=== PATIENT | male | born 1950 | race Two or more races ===

== ENCOUNTER → 2020-06-30 08:56 | Outpatient (BNVA) | payer MEDICARE, OTHER, SELFPAY | PROVIDERS: PCP Family Medicine; Referring Provider Family Medicine; Visit Provider Psychiatry & Neurology Neurology | DX: G47.33 Obstructive sleep apnea (adult) (pediatric) (principal); G47.00 Insomnia, unspecified; Z79.899 Other long term (current) drug therapy | CPT/HCPCS: 99214 ==

== ENCOUNTER 2020-07-20 14:11 | Outpatient (REF) | payer MEDICARE, OTHER, SELFPAY | END 2020-07-20 14:12 | disposition home or self-care (01) | LOC: HO.LAB 14:11 | PROVIDERS: Visit Provider Internal Medicine | DX: Z20.828 Contact with and (suspected) exposure to other viral communicable diseases (principal) | CPT/HCPCS: 87635 ==

== ENCOUNTER → 2020-10-15 08:15 | Outpatient (BNVA) | payer MEDICARE, MEDICAID, SELFPAY | PROVIDERS: PCP Family Medicine; Visit Provider Internal Medicine Cardiovascular Disease | DX: I42.9 Cardiomyopathy, unspecified (principal); I44.7 Left bundle-branch block, unspecified; I10 Essential (primary) hypertension | CPT/HCPCS: 93005; 99212 ==

== ENCOUNTER → 2020-11-23 09:25 | Outpatient (BNVA) | payer MEDICARE, MEDICAID, SELFPAY | PROVIDERS: Visit Provider Orthopaedic Surgery | DX: Z96.659 Presence of unspecified artificial knee joint (principal) | CPT/HCPCS: 20610; 99212 ==

== ENCOUNTER 2020-12-01 14:38 | Outpatient (REF) | payer MEDICARE, SELFPAY ==
[2020-12-01 15:50] LABS: C Reactive Protein 0.27 mg/dL (< or = 0.50)
[2020-12-01 16:11] LABS: Erythrocyte Sedimentation Rate 11 MM/HR (0-15)
== END 2020-12-01 14:39 | disposition home or self-care (01) ==
LOC: HO.LAB 14:38
PROVIDERS: PCP Family Medicine; Visit Provider Orthopaedic Surgery
DX: Z96.659 Presence of unspecified artificial knee joint (principal)
CPT/HCPCS: 36415; 85652; 86140

== ENCOUNTER 2020-12-04 08:32 | Outpatient (REF) | payer MEDICARE, SELFPAY ==
--- NOTE | ~2020-12-04 | XR_ITS ---
EXAMINATION: XR KNEE, LEFT CLINICAL INFORMATION: Pain in the left knee COMPARISON: AP upright of both knees January 2020 TECHNIQUE: Four views of the left knee. FINDINGS: Patellofemoral compartment: There are marginal osteophytes without joint space narrowing indicative of mild arthrosis. There are marginal osteophytes about the medial and lateral compartments without joint space narrowing indicative of mild arthrosis. There is a trace joint effusion. XR/XR knee LT 4V IMPRESSION: Mild osteoarthritis of the left knee unchanged compared with the x-ray of January 2020.
== END 2020-12-04 08:33 | disposition home or self-care (01) ==
LOC: HO.XRAY 08:32
PROVIDERS: PCP Family Medicine; Visit Provider Internal Medicine
DX: M25.562 Pain in left knee (principal)
CPT/HCPCS: 73564

== ENCOUNTER → 2020-12-10 09:29 | Outpatient (BNVA) | payer MEDICARE, MEDICAID, SELFPAY | PROVIDERS: Visit Provider Orthopaedic Surgery | DX: M17.12 Unilateral primary osteoarthritis, left knee (principal); Z96.659 Presence of unspecified artificial knee joint | CPT/HCPCS: 20610; 99212; J1100 ==

== ENCOUNTER 2021-01-26 08:23 | Outpatient (REF) | payer MEDICARE, OTHER, SELFPAY ==
--- NOTE | ~2021-01-26 | MR_ITS ---
EXAMINATION: MR KNEE WITHOUT CONTRAST, LEFT CLINICAL INFORMATION: Primary osteoarthritis. Patient reports pain. COMPARISON: None TECHNIQUE: MRI of the knee without contrast was performed using routine sequences on a high-field scanner. FINDINGS: MENISCI: Medial Meniscus: Complex tear of the posterior horn with undersurface tearing, with additional superior surface tearing at the posterior root. Horizontal tear and undersurface tear in the body, with meniscal tissue/flap displaced into the meniscotibial recess. Lateral Meniscus: Intact. LIGAMENTS: Cruciate: Intact. Collateral: Mild sprain MCL. LCL complex is intact. EXTENSOR MECHANISM: Intact. ARTICULAR CARTILAGE/BONE: Patellofemoral Compartment: Mild lateral patellar subluxation. Cartilage fissuring of the superior aspect median ridge, subchondral edema. Scattered mild patellar cartilage fissuring otherwise. Medial Compartment: Cartilage fissuring in the lateral aspect of medial femoral condyle. Edema in the posterior/medial aspect of the tibia, reactive versus degenerative. Degenerative cyst/edema underlying the tibial spines. Lateral Compartment: No focal cartilage loss. JOINT FLUID AND BURSAE: Small effusion. No significant Borrego's cyst. MR/MR knee LT wo con IMPRESSION: 1. Complex tear of the medial meniscal posterior horn. Complex tear of the body, with displaced meniscal tissue/flap into the meniscotibial recess. 2. Mild sprain MCL. 3. Mild patellofemoral and medial compartment arthritis. 4. Small effusion.
== END 2021-01-26 08:24 | disposition home or self-care (01) ==
LOC: HO.MRI 08:23
PROVIDERS: Visit Provider Orthopaedic Surgery
DX: M17.12 Unilateral primary osteoarthritis, left knee (principal)
CPT/HCPCS: 73721

== ENCOUNTER → 2021-02-08 13:18 | Outpatient (BNVA) | payer MEDICARE, OTHER, SELFPAY | PROVIDERS: PCP Family Medicine; Visit Provider Orthopaedic Surgery | DX: S83.242A Other tear of medial meniscus, current injury, left knee, initial encounter (principal) | CPT/HCPCS: 99212 ==

== ENCOUNTER → 2021-04-01 08:31 | Outpatient (BNVA) | payer MEDICARE, MEDICAID, SELFPAY | PROVIDERS: PCP Family Medicine; Referring Provider Family Medicine; Visit Provider Nurse Practitioner | DX: K51.20 Ulcerative (chronic) proctitis without complications (principal); K58.1 Irritable bowel syndrome with constipation; Z98.890 Other specified postprocedural states | CPT/HCPCS: 99212 ==

== ENCOUNTER 2021-07-29 07:21 | Outpatient (REF) | payer MEDICARE, OTHER, SELFPAY ==
--- NOTE | ~2021-07-29 | XR_ITS ---
EXAMINATION: XR LUMBOSACRAL SPINE CLINICAL INFORMATION: Lower back pain. COMPARISON: None TECHNIQUE: Three views of the lumbosacral spine. FINDINGS: No fracture or subluxation. Vertebral body height and alignment maintained. Disc spaces are maintained with multilevel endplate osteophytes throughout. Mild facet arthropathy at the lower lumbar spine. The sacroiliac joints are symmetric. The visualized sacrum is intact. Normal bowel gas pattern. XR/XR lumbar spine 2-3V IMPRESSION: Mild degenerative changes of the lumbar spine.
[2021-07-29 08:02] LABS: Hematocrit 37.8 % (42.0-52.0); Hemoglobin 12.5 g/dl (14.0-18.0); Mean Corpuscular HGB Conc 33.1 g/dl (31.0-36.0); Mean Corpuscular Hemoglobin 33.2 pg (27.0-33.0); Mean Corpuscular Volume 100.3 fL (80.0-98.0); Mean Platelet Volume 9.6 fL (9.4-12.4); Platelet Count 198 X10*3/uL (160-400); Red Blood Count 3.77 X10*6/uL (4.60-5.80); Red Cell Distribution Width 11.9 % (11.0-16.0); White Blood Count 4.9 X10*3/uL (4.8-10.8)
[2021-07-29 08:17] LABS: Estimated Average Glucose 91 mg/dL; Hemoglobin A1c % 4.8 %
[2021-07-29 08:28] LABS: Alanine Aminotransferase 21 U/L (0-40); Albumin Level 4.1 g/dL (3.5-5.0); Alkaline Phosphatase 99 U/L (39-117); Anion Gap 8 (12-20); Aspartate Amino Transferase 24 U/L (5-37); Bilirubin Direct 0.4 mg/dL (0.0-0.5); Bilirubin Total 0.9 mg/dL (0.0-1.0); Blood Urea Nitrogen 20 mg/dL (9-16); Calcium 8.9 mg/dL (8.4-10.2); Carbon Dioxide 33 mmol/L (22-29); Chloride 107 mmol/L (96-108); Cholesterol 133 mg/dL; Estimated Glomerular Filt Rate > 60; Glucose Random 115 mg/dL (60-115); HDL Cholesterol 40 mg/dL; Iron 136 mcg/dL (45-160); LDL Cholesterol Calculated 80 mg/dl; Percent Iron Saturation 49 % (15-50); Potassium 4.4 mmol/L (3.3-5.1); Sodium 144 mmol/L (135-145); Total Iron Binding Capacity 279 mcg/dL (228-428); Total Protein 6.6 g/dL (6.5-8.0); Triglycerides 68 mg/dL; Unsaturated Iron Binding 143 ug/dL
[2021-07-29 08:48] LABS: Free T4 (Free Thyroxine) 0.94 ng/dL (0.71-1.85); Thyroid Stimulating Hormone 2.08 uIU/mL (0.32-4.0); Vitamin D 25-OH Total 17.9 ng/mL (>30); ~HepC Num1 0.07 S/CO (0.00-0.79); ~Hepatitis C Antibody Nonreactive (Nonreactive)
[2021-07-29 08:50] LABS: HBS Num1 1.76 mIU/mL (0-7.99); HBsAGNum1 0.17 S/CO (0.00-0.99); HIV AB/AG Nonreactive (Nonreactive); HIV Num 1 0.09 S/CO (0.00-0.99); Hepatitis B Surface Antigen Negative (Negative); ~Hepatitis B Surface Antibody NONREACTIVE (Nonreactive)
[2021-07-29 09:09] LABS: Folate 17.5 ng/mL (> or = 4.0); Vitamin B12 471 pg/mL (200-900)
[2021-07-29 09:52] LABS: Creatinine Urine 144.78 mg/dL; Microalbum/Creatinine Ratio Ur 13.1 ug/mg cr
[2021-07-29 11:07] LABS: CT PCR NOT DETECTED (Not Detect.); NG PCR NOT DETECTED (Not Detect.)
[2021-07-30 12:12] LABS: Rubella IgG Antibody <0.90 Index
== END 2021-07-29 07:22 | disposition home or self-care (01) ==
LOC: HO.LAB 07:21
PROVIDERS: PCP Family Medicine; Visit Provider Family Medicine
DX: Z01.84 Encounter for antibody response examination (principal); Z11.59 Encounter for screening for other viral diseases; Z11.4 Encounter for screening for human immunodeficiency virus [HIV]; Z11.3 Encounter for screening for infections with a predominantly sexual mode of transmission; D64.9 Anemia, unspecified; E78.5 Hyperlipidemia, unspecified; I10 Essential (primary) hypertension; M54.50 Low back pain, unspecified
CPT/HCPCS: 72100; 80048; 80061; 80076; 82043; 82306; 82607; 82746; 83036; 83540; 84439; 84443; 85027; 86706; 86762; 86803; 87340; 87389; 87491; 87591

== ENCOUNTER 2021-08-30 12:32 | Outpatient (REF) | payer MEDICARE, OTHER, SELFPAY ==
--- NOTE | ~2021-08-30 | XR_ITS ---
EXAMINATION: XR KNEE, BILATERAL XR KNEE, RIGHT CLINICAL INFORMATION: Pain. COMPARISON: 12/04/2020 TECHNIQUE: AP standing view of both knees. Lateral and sunrise views of the left knee. FINDINGS: Right knee: There is a total right knee arthroplasty. The femoral component articulates appropriately with the tibial and patellar components. No periprosthetic lucency or fracture. There is likely a small joint effusion. Anterior soft tissue swelling. Left knee: No fracture or subluxation. Medial and lateral compartmental joint spaces are maintained. XR/XR knee standing BI IMPRESSION: Total right knee arthroplasty in typical positioning and alignment. Normal alignment of the left knee.
--- NOTE | ~2021-08-30 | XR_ITS ---
EXAMINATION: XR KNEE, BILATERAL XR KNEE, RIGHT CLINICAL INFORMATION: Pain. COMPARISON: 12/04/2020 TECHNIQUE: AP standing view of both knees. Lateral and sunrise views of the left knee. FINDINGS: Right knee: There is a total right knee arthroplasty. The femoral component articulates appropriately with the tibial and patellar components. No periprosthetic lucency or fracture. There is likely a small joint effusion. Anterior soft tissue swelling. Left knee: No fracture or subluxation. Medial and lateral compartmental joint spaces are maintained. XR/XR knee RT 2V IMPRESSION: Total right knee arthroplasty in typical positioning and alignment. Normal alignment of the left knee.
== END 2021-08-30 12:33 | disposition home or self-care (01) ==
LOC: HO.HOSX 12:32
PROVIDERS: Visit Provider Orthopaedic Surgery
DX: M25.461 Effusion, right knee (principal); M25.561 Pain in right knee; I11.9 Hypertensive heart disease without heart failure; I43 Cardiomyopathy in diseases classified elsewhere; I44.7 Left bundle-branch block, unspecified; Z87.891 Personal history of nicotine dependence; Z96.651 Presence of right artificial knee joint
CPT/HCPCS: 73560; 73565; 99212

== ENCOUNTER → 2021-09-09 15:00 | Outpatient (BNVA) | payer MEDICARE, OTHER, SELFPAY | PROVIDERS: PCP Family Medicine; Visit Provider Orthopaedic Surgery | DX: Z96.9 Presence of functional implant, unspecified (principal) | CPT/HCPCS: 99212 ==

== ENCOUNTER → 2021-10-04 11:04 | Outpatient (BNVA) | payer MEDICARE, OTHER, SELFPAY | PROVIDERS: PCP Family Medicine; Referring Provider Family Medicine; Visit Provider Nurse Practitioner | DX: K58.1 Irritable bowel syndrome with constipation (principal); K51.20 Ulcerative (chronic) proctitis without complications | CPT/HCPCS: 99212 ==

== ENCOUNTER 2021-10-08 22:12 | Emergency (ER) | payer MEDICARE, OTHER, SELFPAY ==
[2021-10-08 22:31] VITALS: BP 180/91; PULSE 60; RESP 20; TEMP 37.1; O2SAT 99; BMI 24.1
== END 2021-10-09 00:21 | disposition left against medical advice (07) ==
PROVIDERS: Emergency Provider Emergency Medicine; PCP Family Medicine
DX: R33.9 Retention of urine, unspecified (principal)
CPT/HCPCS: 99281; 99282

== ENCOUNTER 2021-10-09 01:37 | Emergency (ER) | payer MEDICARE, OTHER, SELFPAY ==
[2021-10-09 01:39] VITALS: BP 174/90; PULSE 73; O2SAT 98
[2021-10-09 01:48] VITALS: BP 165/83; PULSE 75; RESP 16; TEMP 36.6; O2SAT 95; BMI 24.1
--- NOTE | 2021-10-09 01:56 | PC.NURSE ---
Straight cath draining 1300 ml of UO. UA obtained and sent.
[2021-10-09 02:05] LABS: Appearance Urine CLEAR; Color Urine YELLOW; Glucose Urine UA NEG (NEG); Leukocyte Esterase Urine NEG (NEG); Nitrite Urine NEG (NEG); Specific Gravity - Urine <= 1.005 (1.005-1.025); UACC Culture Trigger NO; Urine Blood 2+ (NEG); Urine Ketones NEG (NEG); Urine Protein NEG (NEG-TRACE)
[2021-10-09 02:22] LABS: RBC Urine 0-2 /HPF (0); WBC Urine 0 /HPF (0-4)
--- NOTE | 2021-10-09 03:41 | PC.NURSE ---
Pt provided with warm blankets per request, awaiting primary eval by .
--- NOTE | 2021-10-09 04:49 | PC.NURSE ---
Pt trying to void with urinal, pt able to void a very small amount. Pt just doesn't think he has to go. Awaiting primary MD del valle.
--- NOTE | 2021-10-09 06:05 | PC.NURSE ---
Pt voiding minimal amounts with bedside urinal. This RN at bedside to rescan bladder, 747 ml of urine noted in bladder. Plan for castañeda due to urinary retention.
[2021-10-09 06:07] VITALS: BP 145/83; PULSE 81; RESP 16
--- NOTE | 2021-10-09 06:36 | ED_ITS ---
HPI - Male Genitourinary General Chief complaint: Urogenital-Male Stated complaint: abd pain Time Seen by Provider: 10/09/21 06:31 Source: patient and EMS Mode of arrival: EMS Limitations: no limitations History of Present Illness HPI Narrative: Patient comes to emergency room complaining of urinary retention. Patient states that yesterday around 18:00 was the last time he urinated normal. Then, throughout the night patient noticed that he was starting to notice that his lower abdomen was becoming more uncomfortable. Patient try urinating but could not pass any urine. Patient initially came to the emergency room, left without being seen because he was too uncomfortable sitting in the waiting room. Went home, called the ambulance because he was still in pain and return to the ED. On arrival, in triage, patient had a bladder scan which showed over 1000 mL of urine. At this time, not a bladder is decompressed, patient states that he feels much better. Related Data Home Medications Medication Instructions Recorded Confirmed acetaminophen 500 mg capsule 500 mg PO Q6H PRN 06/27/20 10/04/21 (Mapap (acetaminophen)) albuterol sulfate 90 mcg/actuation 2 puff INHALATION Q6H PRN 06/27/20 10/04/21 aerosol inhaler (Proventil HFA) cholecalciferol (vitamin D3) 1,250 1,250 mcg PO QWEEK 06/27/20 10/04/21 mcg (50,000 unit) capsule lisinopril 20 mg tablet 20 mg PO DAILY 06/27/20 10/04/21 loratadine 10 mg capsule 10 mg PO DAILY 06/27/20 10/04/21 menthol 0.44 %-zinc oxide 20.6 % 1 applic TOPICAL QID PRN 06/27/20 10/04/21 topical ointment (Calmoseptine) omega 7-cqi-atz-fish oil 100 cap PO 06/27/20 10/04/21 mg-160 mg-1,000 mg capsule (Fish Oil) simvastatin 20 mg tablet 20 mg PO DAILY 06/27/20 10/04/21 tamsulosin 0.4 mg capsule 0.4 mg PO BEDTIME 06/27/20 10/04/21 tramadol 50 mg tablet 50 mg PO DAILY 06/27/20 10/04/21 docusate sodium 100 mg capsule 100 mg PO DAILY 10/04/21 10/04/21 (Colace) Previous Rx's Medication Instructions Recorded gabapentin 600 mg tablet 600 mg PO BEDTIME #30 tab 06/30/20 metoprolol succinate 100 mg 100 mg PO DAILY 90 Days #90 tab 03/18/21 tablet,extended release 24 hr (Toprol XL) amlodipine 5 mg tablet 5 mg PO DAILY #30 tab 08/16/21 mesalamine 800 mg tablet,delayed 1,600 mg PO TID #180 tab 10/04/21 release tamsulosin 0.4 mg capsule (Flomax) 0.4 mg PO BEDTIME #30 cap 10/09/21 Allergies Allergy/AdvReac Type Severity Reaction Status Date / Time chlorhexidine AdvReac Rash Verified 10/09/21 01:51 iodine AdvReac Rash Verified 10/09/21 01:51 Review of Systems Review of Systems: Constitutional : No Weight loss, No Fever, No Chills, No Night Sweats, No Fatigue, No Malaise ENT/Mouth : No Hearing loss, No Ear Pain, No Nasal Congestion, No Sinus Pain, No Hoarseness, No sore throat, No Rhinorrhea, No Swallowing Difficulty Eyes: No Eye Pain, No Swelling, No Redness, No Foreign Body, No Discharge, No Vision Changes Cardiovascular : No Chest Pain, No SOB, No Dyspnea on Exertion, No Orthopnea, No Edema, No Palpitations Respiratory : No Cough, No Sputum, No Wheezing, No Smoke Exposure, No Dyspnea Gastrointestinal : No Nausea, No Vomiting, No Diarrhea, No Constipation, No abdominal Pain, No Hematochezia, No Melena Genitourinary : no irregular bleeding, No Dysuria, chronic nighttime Urinary Frequency, No Hematuria, No Urinary Incontinence, No Urgency, No Flank Pain, complaining of urinary retention for the 1st time Musculoskeletal : No joint pain, No Myalgias, No Joint Swelling Skin : No Skin Lesions, No rash Neuro : No Weakness, No Numbness, No Paresthesias, No Loss of Consciousness, No Dizziness, No Headache Psych : No Anxiety/Panic, No Depression, No SI/HI/AH/VH, No Social Issues, Heme/Lymph: No Bruising, No Bleeding,No Lymphadenopathy Endocrine : No Polyuria, No Polydipsia, No Temperature Intolerance PMFSH Past Medical History Medical History Cardiomyopathy HTN (hypertension) Left bundle branch block Surgical History History of esophagogastroduodenoscopy (EGD) History of total knee arthroplasty Hx of colonoscopy Hx of hernia repair Hx of knee surgery Hx of shoulder surgery Family History Family History Father No problems noted. Mother Diabetes Social History Social History Alcohol intake: current Alcohol intake frequency: holidays/special occasions only Patient Tobacco Use Status: Former Tobacco user Tobacco use type: Cigarette Advance Directives: No Physical Exam Vital Signs: Vital Signs: Last Vital Signs Temp 97.9 F 10/09/21 01:48 Pulse 81 10/09/21 06:07 Resp 16 10/09/21 06:07 BP 145/83 H 10/09/21 06:07 Pulse Ox 95 10/09/21 01:48 BMI result Body Mass Index 24.1 Const: Other: Appearance: Alert. Oriented X3. No acute distress. Eyes: Pupils equal, round and reactive to light. ENT: Pharynx normal. Neck: Normal inspection. Neck supple. No lymph nodes noted. No crepitus CVS: Normal heart rate and rhythm. Pulses normal. Normal S1 and S2 Respiratory: No respiratory distress. Breath sounds normal. No Wheezing. No rales Abdomen: Soft and nontender. No rigidity. No distention. : Nunez catheter in place, draining well Skin: Skin warm and dry. Normal skin color. Normal skin turgor. Extremities: No lower extremity edema. No lower extremity edema. No Lacerations. No Rash Neuro: Oriented X 3. No motor deficit. No sensory deficit. Moving all extermities. No slurred speech. Course Course Course Narrative: Patient is not sure if he is taking Flomax. Patient states that he is known to have an enlarged prostate but does not know which medic ations he takes. Patient has a Nunez catheter in place. Patient will follow-up with urology or return to the ED in 48 hours for Nunez catheter removal MDM - Male Genitourinary Lab Data Labs: Lab Results 10/09/21 Range/Units 01:54 Urine Color YELLOW Urine Appearance CLEAR Urine pH 6.0 (5.0-8.0) Ur Specific [place] <= 1.005 (1.005-1.025) Urine Protein NEG (NEG-TRACE) MG/DL Urine Glucose (UA) NEG (NEG) MG/DL Urine Ketones NEG (NEG) MG/DL Urine Blood 2+ H (NEG) Urine Nitrite NEG (NEG) Ur Leukocyte Esterase NEG (NEG) Urine RBC 0-2 (0) /HPF Urine WBC 0 (0-4) /HPF Ur Squamous Epith Cells NONE /LPF Urine Bacteria NONE /LPF Discharge Plan Discharge Clinical Impression: Acute urinary retention Patient Disposition: Home, Self-Care Instructions: Urinary Retention in Men (ED), Nunez Catheter Placement and Care (ED) Additional Instructions: Please follow-up with your primary care physician and urologist on Monday. If you have any worsening or new symptoms, please return to the emergency room or call 911 Prescriptions: New tamsulosin [Flomax] 0.4 mg capsule 0.4 mg PO BEDTIME Qty: 30 RF: 0 No Action metoprolol succinate [Toprol XL] 100 mg tablet extended release 24 hr 100 mg PO DAILY 90 Days Qty: 90 RF: 1 amlodipine 5 mg tablet 5 mg PO DAILY Qty: 30 RF: 5 albuterol sulfate [Proventil HFA] 90 mcg/actuation HFA aerosol inhaler 2 puff inhalation Q6H PRNRF: 0 Fish Oil 100-160-1,000 mg capsule PO RF: 0 simvastatin 20 mg tablet 20 mg PO DAILY RF: 0 tamsulosin 0.4 mg capsule 0.4 mg PO BEDTIME RF: 0 tramadol 50 mg tablet 50 mg PO DAILY RF: 0 loratadine 10 mg capsule 10 mg PO DAILY RF: 0 acetaminophen [Mapap (acetaminophen)] 500 mg capsule 500 mg PO Q6H PRNRF: 0 Calmoseptine 0.44-20.6 % ointment 1 applic topical QID PRNRF: 0 lisinopril 20 mg tablet 20 mg PO DAILY RF: 0 cholecalciferol (vitamin D3) 1,250 mcg (50,000 unit) capsule 1,250 mcg PO QWEEK RF: 0 gabapentin 600 mg tablet 600 mg PO BEDTIME Qty: 30 RF: 2 docusate sodium [Colace] 100 mg capsule 100 mg PO DAILY RF: 0 mesalamine 800 mg tablet,delayed release (DR/EC) 1,600 mg PO TID Qty: 180 RF: 2 Referrals: Ariel Ruiz MD [Physician] - 2 days
--- NOTE | 2021-10-09 07:04 | PC.NURSE ---
Leg bag applied.
== END 2021-10-09 07:04 | disposition home or self-care (01) ==
PROVIDERS: Emergency Provider Emergency Medicine; PCP Family Medicine
DX: R33.9 Retention of urine, unspecified (principal); I10 Essential (primary) hypertension
CPT/HCPCS: 51702; 81001; 99284

== ENCOUNTER → 2021-10-14 12:23 | Outpatient (BNVA) | payer MEDICARE, OTHER, SELFPAY | PROVIDERS: PCP Family Medicine; Referring Provider Family Medicine; Visit Provider Internal Medicine Cardiovascular Disease | DX: Z01.810 Encounter for preprocedural cardiovascular examination (principal); I42.9 Cardiomyopathy, unspecified; I44.7 Left bundle-branch block, unspecified | CPT/HCPCS: 93005; 99212 ==

== ENCOUNTER → 2021-10-25 11:18 | Outpatient (BNVA) | payer MEDICARE, MEDICAID, SELFPAY | PROVIDERS: PCP Family Medicine; Visit Provider Physician Assistant ==

== ENCOUNTER 2021-10-27 10:49 | Day surgery (SDC) | payer MEDICARE, OTHER, SELFPAY ==
[2021-10-22 11:19] VITALS: BMI 23.7
--- NOTE | 2021-10-26 08:29 | HO.ANESPROP2 ---
Documented by User: Jackie Gee NP 10/26/21 08:32 HPI - Anesthesia Eval Consult details Narrative: 71yo M for Right Removal Orthopedic Hardware from knee [facility] Active Problems Active Problems: All Active Problems (Updated 10/22/21 @ 11:10 by Rubina Nogueira, CHEIKH) Obstructive sleep apnea (Acute) Insomnia (Acute) Ulcerative proctitis (Acute) Irritable bowel syndrome with constipation (Acute) Knee effusion, right (Acute) Retained orthopedic hardware (Acute) History of total knee arthroplasty (Acute) Cardiomyopathy (Acute) HTN (hypertension) (Acute) Left bundle branch block (Acute) Past Medical History Medical History Asthma Cardiomyopathy HTN (hypertension) Hx of renal calculi Indwelling Nunez catheter present Left bundle branch block Seasonal allergies Family History Family History Father No problems noted. Mother Diabetes Surgical History Surgical History (Updated 10/22/21 @ 11:12 by Rubina Nogueira RN) History of esophagogastroduodenoscopy (EGD) History of total knee arthroplasty Hx of colonoscopy Hx of hernia repair Hx of knee surgery Hx of shoulder surgery Social History Social History (Updated 10/22/21 @ 11:22 by Rubina Nogueira RN) Are you a primary director of health care marketing to a significant other at home: No Do you presently have visiting nurse or other home services: No Alcohol intake: current Alcohol intake frequency: holidays/special occasions only Patient Tobacco Use Status: Former Tobacco user Quit Date: 1981 Tobacco use type: Cigarette Use of substances other than those prescribed or required for medical reasons: No Have you been hit, kicked, punched, or otherwise hurt by someone within the past year? If so, by whom?: No Are you DNR?: No Advance Directives: No Advance Directives Information Provided: Yes Advance Directives on File: No Recently lost weight without trying: No Meds Allergies Allergy/AdvReac Type Severity Reaction Status Date / Time chlorhexidine AdvReac Rash Verified 10/25/21 11:23 iodine AdvReac Rash Verified 10/25/21 11:23 Home Medications Medication Instructions Recorded Confirmed Last Taken Type acetaminophen 500 mg capsule 500 mg PO Q6H PRN 06/27/20 10/25/21 Unknown History (Mapap (acetaminophen)) albuterol sulfate 90 mcg/actuation 2 puff INHALATION Q6H PRN 06/27/20 10/25/21 Unknown History aerosol inhaler (Proventil HFA) lisinopril 20 mg tablet 20 mg PO DAILY 06/27/20 10/25/21 Unknown History loratadine 10 mg capsule 10 mg PO DAILY 06/27/20 10/25/21 Unknown History menthol 0.44 %-zinc oxide 20.6 % 1 applic TOPICAL QID PRN 06/27/20 10/25/21 Unknown History topical ointment (Calmoseptine) omega 7-bds-hbw-fish oil 100 cap PO 06/27/20 10/25/21 Unknown History mg-160 mg-1,000 mg capsule (Fish Oil) simvastatin 20 mg tablet 20 mg PO DAILY 06/27/20 10/25/21 Unknown History tramadol 50 mg tablet 50 mg PO DAILY 06/27/20 10/25/21 Unknown History docusate sodium 100 mg capsule 100 mg PO DAILY 10/04/21 10/25/21 Unknown History (Colace) baclofen 20 mg tablet 1 tab PO TID PRN 10/22/21 10/25/21 Unknown History cholecalciferol (vitamin D3) 50 1 cap PO DAILY 10/22/21 10/25/21 Unknown History mcg (2,000 unit) capsule Exam Exam Date and Time: October 26, 2021 0829 Height,Weight and Vital Signs: Height 6 ft Weight 79.379 kg Pertinent Lab Results Pertinent Lab Results: Laboratory Tests 07/29/21 07/29/21 07:34 07:34 WBC 4.9 Hgb 12.5 L Hct 37.8 L Plt Count 198 Sodium 144 Potassium 4.4 Chloride 107 Carbon Dioxide 33 H BUN 20 H Creatinine 0.83 Narrative Narrative: EKG 09/2021 normal sinus rhythm with left bundle-branch block Per cardiac OV note 09/2021 Last echocardiogram in 2019 showed normal LV systolic function.? Improved most likely due to neurohormonal modulation.? Assessment and Plan Assessment Anesthesia Assessment: Chart Reviewed Documented by User: Enrique Figueroa MD 10/27/21 12:26 [facility] Past Medical History Medical History Asthma Cardiomyopathy HTN (hypertension) Hx of renal calculi Indwelling Nunez catheter present Left bundle branch block Seasonal allergies Family History Family History Father No problems noted. Mother Diabetes Family history of problems with anesthesia: No Surgical History Surgical History (Updated 10/22/21 @ 11:12 by Rubina Nogueira, CHEIKH) History of esophagogastroduodenoscopy (EGD) History of total knee arthroplasty Hx of colonoscopy Hx of hernia repair Hx of knee surgery Hx of shoulder surgery History of Problems with Anesthesia: No Social History Social History (Updated 10/22/21 @ 11:22 by Rubina Nogueira RN) Are you a primary director of health care marketing to a significant other at home: No Do you presently have visiting nurse or other home services: No Alcohol intake: current Alcohol intake frequency: holidays/special occasions only Patient Tobacco Use Status: Former Tobacco user Quit Date: 1981 Tobacco use type: Cigarette Use of substances other than those prescribed or required for medical reasons: No Have you been hit, kicked, punched, or otherwise hurt by someone within the past year? If so, by whom?: No Are you DNR?: No Advance Directives: No Advance Directives Information Provided: Yes Advance Directives on File: No Recently lost weight without trying: No Meds Allergies Allergy/AdvReac Type Severity Reaction Status Date / Time chlorhexidine AdvReac Rash Verified 10/25/21 11:23 iodine AdvReac Rash Verified 10/25/21 11:23 Home Medications Medication Instructions Recorded Confirmed Last Taken Type acetaminophen 500 mg capsule 500 mg PO Q6H PRN 06/27/20 10/25/21 Unknown History (Mapap (acetaminophen)) albuterol sulfate 90 mcg/actuation 2 puff INHALATION Q6H PRN 06/27/20 10/25/21 Unknown History aerosol inhaler (Proventil HFA) lisinopril 20 mg tablet 20 mg PO DAILY 06/27/20 10/25/21 Unknown History loratadine 10 mg capsule 10 mg PO DAILY 06/27/20 10/25/21 Unknown History menthol 0.44 %-zinc oxide 20.6 % 1 applic TOPICAL QID PRN 06/27/20 10/25/21 Unknown History topical ointment (Calmoseptine) omega 7-kjl-krh-fish oil 100 cap PO 06/27/20 10/25/21 Unknown History mg-160 mg-1,000 mg capsule (Fish Oil) simvastatin 20 mg tablet 20 mg PO DAILY 06/27/20 10/25/21 Unknown History tramadol 50 mg tablet 50 mg PO DAILY 06/27/20 10/25/21 Unknown History docusate sodium 100 mg capsule 100 mg PO DAILY 10/04/21 10/25/21 Unknown History (Colace) baclofen 20 mg tablet 1 tab PO TID PRN 10/22/21 10/25/21 Unknown History cholecalciferol (vitamin D3) 50 1 cap PO DAILY 10/22/21 10/25/21 Unknown History mcg (2,000 unit) capsule Exam Airway Mallampati Class: II TM Dist: >3cm Neck ROM: Full Assessment and Plan Assessment Anesthesia Assessment: Anesthesia Plan Discussed Final Anesthetic Review Family History of Problems with Anesthesia: No History of Problems with Anesthesia: No NPO: Yes ASA Class: III Final Preanesthetic Review: No Changes in Pt Med Stat, Meds/Allgs Chart Reviewed, Consent Obtained/Reviewed and Anes Risks/Benef Reviewed Patient Risk: Intermediate Procedure Risk: Low Anesthetic Plan Anesthetic Plan: GA Disposition: Standard PACU
[2021-10-27] VITALS (9 sets, daily range): BP systolic 114–150; BP diastolic 64–71; PULSE 56–77; RESP 16–19; TEMP 36.5–36.9; O2SAT 95–98
--- NOTE | ~2021-10-27 | FL_ITS ---
EXAMINATION: XR FLUOROSCOPY WITH IMAGES CLINICAL INFORMATION: Hardware removal right knee. COMPARISON: Bilateral knee AP standing 08/30/2021. TECHNIQUE: Fluoroscopy performed by Dr. Mitchell Horton. Fluoroscopy time: 0.6 minutes DAP: 0.0693 mGycm2 Images: 2 FINDINGS: There is total right knee arthroplasty with prosthetic components in satisfactory alignment. There is soft tissue calcification along the right suprapatellar bursa. There is moderate soft tissue swelling. Visualized soft tissues are unremarkable. FL/FL guidance in OR IMPRESSION: Total right knee arthroplasty with prosthetic components in satisfactory alignment.
[2021-10-27] MEDS: Lactated Ringers 1,000 ML 50 ML IVCONT (11:26)
--- NOTE | 2021-10-27 12:29 | P.BOP_ITS ---
Brief Operative Note Date of Service: 10/27/21 Surgeon: Mitchell Horton MD Was an Dietitian Teacher used for this Procedure?: No
--- NOTE | 2021-10-27 12:29 | PM.OP ---
Brief Operative Note Date of Service: 10/27/21 Surgeon: Mitchell Horton MD Was an Sexer used for this Procedure?: No
--- NOTE | 2021-10-27 12:30 | MHC.SHP ---
Pre-Procedural Eval Section A Date of Service: 10/27/21 The patient is an INPATIENT: No Changes since office visit: Yes Patient answered all questions; No Cold of Flu in the past 2 weeks, No New Medical Problems and No Changes in Medication The History & Physical has been completed within 30 days and I have reviewed it.: Yes Section B Chief Complaint: hardware removal Allergies: Allergies Allergy/AdvReac Type Severity Reaction Status Date / Time chlorhexidine AdvReac Rash Verified 10/25/21 11:23 iodine AdvReac Rash Verified 10/25/21 11:23 Plan I have reviewed the history and physical and performed a pertinent physical examination on my patient. No changes have occurred unless specified.
--- NOTE | 2021-10-27 14:09 | PM.OP ---
Brief Operative Note Date of Service: 10/27/21 Pre-op diagnosis: retained hardware right knee Post-op diagnosis: same Procedure: removal of hardware right knee Surgeon: Mitchell Horton MD Anesthesia: GETA and local Was an Customer Management Specialist used for this Procedure?: Yes Customer Management Specialist: Luly Kerr Estimated blood loss (mL): 50 IV fluids (mL): 800 Pathology: none sent Condition: stable Disposition: PACU
--- NOTE | 2021-11-03 11:52 | P.OP_ITS ---
Operative Note Operative Note Date of Service: 10/27/21 Narrative: Date of Service: 10/27/21 Pre-op diagnosis: retained hardware right knee Post-op diagnosis: same Procedure: removal of hardware right knee Surgeon: Mitchell Horton MD Anesthesia: GETA and local Was an Retrieval Specialist used for this Procedure?: Yes Retrieval Specialist: Luly Kerr Estimated blood loss (mL): 50 IV fluids (mL): 800 Pathology: none sent Condition: stable Disposition: PACU Procedure in detail: Patient was brought to the operating room and placed supine on the surgical table. He was prepped and draped in standard sterile fashion and a time out was called to identify proper site, proper procedure and IV antibiotics per weight were administered. Began by using biplanar fluoroscopy to localize the hardware on the anterolateral aspect of the right knee. I then made a 1.5 cm incision and dissected bluntly down to the hardware. I then used to combination of a wire coating operator metal and pliers to remove the screw head and the proud portion of the wire. I then irrigated copiously and closed this with absorbable suture and aminah. I then turned to the fashion coordinator 0 medial aspect and of the knee and again localized the location of the hardware precisely with biplanar fluoroscopy. I then made a small luzma incision and dissected down to the hardware. A was buried and bone and I felt that the patient's complaint was over the lateral knee and that hardware was removed. I then made decision not to remove any further hardware as I think the benefits were not warranted. Wound was then closed with absorbable suture and aminah. Patient was placed in sterile dressing awakened from anesthesia brought to recovery room in stable condition. There were no known complications.
== END 2021-10-27 15:44 | disposition home or self-care (01) ==
PROVIDERS: PCP Family Medicine; Visit Provider Orthopaedic Surgery
PROC: (CPT 20680; principal; 2021-10-27 12:30)
DX: T84.84XA Pain due to internal orthopedic prosthetic devices, implants and grafts, initial encounter (principal); G89.18 Other acute postprocedural pain; M25.561 Pain in right knee; Y79.3 Surgical instruments, materials and orthopedic devices (including sutures) associated with adverse incidents; Y92.9 Unspecified place or not applicable; Z96.9 Presence of functional implant, unspecified; Z96.651 Presence of right artificial knee joint; Z96.0 Presence of urogenital implants; J45.909 Unspecified asthma, uncomplicated; I42.9 Cardiomyopathy, unspecified; I44.7 Left bundle-branch block, unspecified; I10 Essential (primary) hypertension; Z79.899 Other long term (current) drug therapy; Z88.8 Allergy status to other drugs, medicaments and biological substances; Z87.891 Personal history of nicotine dependence
CPT/HCPCS: 20680; J0690; J1100; J2250; J2405; J3010

== ENCOUNTER → 2021-11-03 08:49 | Outpatient (BNVA) | payer MEDICARE, OTHER, SELFPAY | PROVIDERS: Visit Provider Urology | DX: R33.9 Retention of urine, unspecified (principal) | CPT/HCPCS: 51700; 51798 ==

== ENCOUNTER → 2021-11-08 12:35 | Outpatient (BNVA) | payer MEDICARE, OTHER, SELFPAY | PROVIDERS: PCP Family Medicine; Visit Provider Physician Assistant | DX: Z47.89 Encounter for other orthopedic aftercare (principal); Z96.659 Presence of unspecified artificial knee joint | CPT/HCPCS: 99212 ==

== ENCOUNTER → 2021-12-01 09:45 | Outpatient (BNVA) | payer MEDICARE, OTHER, SELFPAY | PROVIDERS: PCP Family Medicine; Visit Provider Urology | DX: N40.1 Benign prostatic hyperplasia with lower urinary tract symptoms (principal); N13.8 Other obstructive and reflux uropathy; R33.8 Other retention of urine | CPT/HCPCS: 51798; 52000; 99202 ==

== ENCOUNTER 2021-12-16 11:00 | Outpatient (RCR) | payer MEDICARE, OTHER, SELFPAY ==
--- NOTE | 2021-11-26 15:28 | MHC.PT.PR ---
[facility] [place] Office [place] Office [place] Office [address] Praful Barillas 140 [facility] [phone] F: [phone] F: [phone] F: [phone] F: [phone] Physical Therapy Progress Note Diagnosis: RIGHT KNEE REMOVAL OF HARDWARE Date of Surgery: 10/27/21 Date of Evaluation: 11/24/21 Treatments to Date: 1 Cancellations to Date: 0 No Shows to Date: 0 Subjective: SEE EVAL Pain Score and Location: 2 Objective Measures: SEE EVAL Assessment: PT Plan: Frequency and Duration: The patient will be seen 2 X WEEK FOR 6 WEEKS Treatment Plan: Therapeutic Exercise Dynamic Therapeutic Activities Neuromuscular Re-ed Manual Therapies Joint Mobilization Taping Gait Home Exercise Program Patient Education Hot or Cold Pack Reviewed/ Agreed with Student Documentation: Therapist: Thank you once again for your referral.
--- NOTE | 2022-02-07 09:09 | MHC.PT.DC ---
[facility] [place] Office [place] Office [place] Office [address] Praful Barillas 140 [facility] [phone] F: [phone] F: [phone] F: [phone] F: [phone] Physical Therapy Discharge Report Diagnosis: RIGHT KNEE REMOVAL OF HARDWARE Date of Surgery: 10/27/21 Date of Evaluation: 11/24/21 Date of Discharge: 12/19/21 Treatments to Date: 6 Cancellations to Date: 0 No Shows to Date: 0 Discharge Status: Achieved Goals Improved Function Independent with HEP Discharge Summary: REED PROGRESSED WELL WITH PHYSICAL THERAPY, HE DEMONSTRATED IMPROVED ROM AND STRENGTH, ABLE TO PERFORM HEP WITH INDEPENDENCE AND HAS RETURNED TO OF. Electronically signed by: KERMIT OGDEN PT, DPT Please sign and return to therapist. Thank you for your referral.
== END 2022-02-07 09:10 | disposition home or self-care (01) ==
LOC: HO.PT 11:00
PROVIDERS: PCP Family Medicine; Visit Provider Physician Assistant
DX: Z96.651 Presence of right artificial knee joint (principal)
CPT/HCPCS: 97110; 97140; 97161; 97530

== ENCOUNTER → 2022-01-11 08:18 | Outpatient (BNVA) | payer MEDICARE, OTHER, SELFPAY | PROVIDERS: PCP Family Medicine; Visit Provider Urology | DX: N32.0 Bladder-neck obstruction (principal); R33.9 Retention of urine, unspecified | CPT/HCPCS: 51798; 99212 ==

== ENCOUNTER 2022-04-18 07:09 | Outpatient (REF) | payer MEDICARE, MEDICAID, OTHER, SELFPAY ==
--- NOTE | ~2022-04-18 | XR_ITS ---
EXAMINATION: XR ELBOW, LEFT CLINICAL INFORMATION: Pain left elbow. COMPARISON: Report left elbow radiographs 03/06/2007 TECHNIQUE: AP, lateral, and oblique views of the left elbow. FINDINGS: There is a tiny olecranon spur which is also noted on prior report 2007. No fracture, dislocation, or elbow capsular effusion. No joint narrowing or erosive change. Normal bony mineralization. No destructive process or periostitis. Visualized soft tissues are unremarkable. XR/XR elbow LT min 3V IMPRESSION: Tiny olecranon spur, also noted on prior report 2006.
[2022-04-18 07:47] LABS: Hematocrit 40.7 % (42.0-52.0); Hemoglobin 13.3 g/dl (14.0-18.0); Mean Corpuscular HGB Conc 32.7 g/dl (31.0-36.0); Mean Corpuscular Hemoglobin 32.4 pg (27.0-33.0); Mean Corpuscular Volume 99.3 fL (80.0-98.0); Mean Platelet Volume 9.3 fL (9.4-12.4); Platelet Count 207 X10*3/uL (160-400); Red Cell Distribution Width 12.1 % (11.0-16.0); White Blood Count 4.6 X10*3/uL (4.8-10.8)
[2022-04-18 08:00] LABS: Estimated Average Glucose 88 mg/dL; Hemoglobin A1c % 4.7 %
[2022-04-18 08:41] LABS: Alanine Aminotransferase 18 U/L (0-40); Albumin Level 4.3 g/dL (3.5-5.0); Alkaline Phosphatase 84 U/L (39-117); Anion Gap 10 (12-20); Aspartate Amino Transferase 19 U/L (5-37); Bilirubin Direct 0.3 mg/dL (0.0-0.5); Bilirubin Total 0.7 mg/dL (0.0-1.0); Blood Urea Nitrogen 22 mg/dL (9-16); Calcium 8.8 mg/dL (8.4-10.2); Carbon Dioxide 26 mmol/L (22-29); Chloride 109 mmol/L (96-108); Cholesterol 181 mg/dL; Estimated Glomerular Filt Rate > 60; Glucose Random 109 mg/dL (60-115); HDL Cholesterol 44 mg/dL; Iron 127 mcg/dL (45-160); LDL Cholesterol Calculated 119 mg/dl; Percent Iron Saturation 44 % (15-50); Potassium 4.8 mmol/L (3.3-5.1); Sodium 140 mmol/L (135-145); Total Iron Binding Capacity 290 mcg/dL (228-428); Total Protein 6.8 g/dL (6.5-8.0); Triglycerides 93 mg/dL; Unsaturated Iron Binding 163 ug/dL
[2022-04-18 08:45] LABS: ~HepC Num1 0.06 S/CO (0.00-0.79); ~Hepatitis C Antibody Nonreactive (Nonreactive)
[2022-04-18 08:49] LABS: Ferritin 147 ng/mL (20-250); Free T4 (Free Thyroxine) 0.94 ng/dL (0.71-1.85); Thyroid Stimulating Hormone 1.83 uIU/mL (0.32-4.0); Vitamin D 25-OH Total 21.2 ng/mL (>30)
[2022-04-18 09:29] LABS: Folate 12.5 ng/mL (> or = 4.0); Vitamin B12 410 pg/mL (200-900)
[2022-04-18 09:36] LABS: Creatinine Urine 106.13 mg/dL; Microalbum/Creatinine Ratio Ur 9.4 ug/mg cr
[2022-04-18 10:05] LABS: HBS Num1 2.06 mIU/mL (0-7.99); HBsAGNum1 0.18 S/CO (0.00-0.99); HIV AB/AG Nonreactive (Nonreactive); HIV Num 1 0.03 S/CO (0.00-0.99); Hepatitis B Surface Antigen Negative (Negative); ~Hepatitis B Surface Antibody NONREACTIVE (Nonreactive)
[2022-04-18 12:40] LABS: CT PCR NOT DETECTED (Not Detect.); NG PCR NOT DETECTED (Not Detect.)
== END 2022-04-18 07:10 | disposition home or self-care (01) ==
LOC: HO.LAB 07:09
PROVIDERS: PCP Family Medicine; Visit Provider Family Medicine
DX: Z00.00 Encounter for general adult medical examination without abnormal findings (principal); K51.20 Ulcerative (chronic) proctitis without complications; Z11.3 Encounter for screening for infections with a predominantly sexual mode of transmission; Z11.4 Encounter for screening for human immunodeficiency virus [HIV]; D64.9 Anemia, unspecified; E78.5 Hyperlipidemia, unspecified; I10 Essential (primary) hypertension; M25.522 Pain in left elbow
CPT/HCPCS: 73080; 80048; 80061; 80076; 82043; 82306; 82607; 82728; 82746; 83036; 83540; 84439; 84443; 85027; 86706; 86803; 87340; 87389; 87491; 87591

== ENCOUNTER 2022-05-16 11:18 | Emergency (ER) | payer MEDICARE, OTHER, SELFPAY ==
--- NOTE | ~2022-05-16 | US_ITS ---
EXAMINATION: US VENOUS ULTRASOUND WITH DOPPLER LOWER EXTREMITY, LEFT CLINICAL INFORMATION: Left lower leg pain. COMPARISON: None TECHNIQUE: Ultrasound of the deep veins is performed from the hip to the calf with compression sonography and color and pulse Doppler assessment. Spectral analysis with color-flow imaging is performed. FINDINGS: There is normal venous compression and respiratory variation and augmented flow. The visualized common femoral vein, superficial femoral vein, profunda femoral vein, popliteal vein, and the trifurcation region shows no evidence of deep venous thrombosis. There is no significant popliteal fossa cyst. Incidental finding of prominent but benign left groin lymph nodes with the largest one measuring 1.7 x 2.5 x 0.6 cm. If the patient's symptoms persist, followup ultrasound in 5 days 7 days might be of value to exclude proximal propagation from a non-visualized calf vein. US/US venous duplex LE IMPRESSION: No DVT demonstrated in the left lower extremity. Prominent left inguinal lymph nodes. They're bilaterally symmetrical in appearance and appear benign
[2022-05-16 11:28] VITALS: BP 133/77; PULSE 79; RESP 18; TEMP 36.6; O2SAT 98; BMI 24.1
--- NOTE | 2022-05-16 15:18 | ED_ITS ---
HPI - Extremity Injury (Lower) General Chief Complaint: Extremity Injury, Lower Stated Complaint: L leg pain Time Seen by Provider: 05/16/22 15:08 Source: patient Mode of arrival: ambulatory Limitations: no limitations History of Present Illness HPI Narrative: 72 yo male with past medical history of cardiomyopathy, HTN, R TKR. IBS here with complaints of left leg pain after lifting a heavy object on Monday. Patient reports pain which radiates down the entire leg leg with no associated numbness/tingling/bowel or bladder incontinence, fevers/chills, weakness of the legs, numbness in the groin. Related Data Home Medications Medication Instructions Recorded Confirmed acetaminophen 500 mg capsule 500 mg PO Q6H PRN Pain 06/27/20 10/25/21 (Mapap (acetaminophen)) albuterol sulfate 90 mcg/actuation 2 puff inhalation Q6H PRN 06/27/20 10/25/21 aerosol inhaler (Proventil HFA) Shortness Of Breath Or Wheezing lisinopril 20 mg tablet 20 mg PO DAILY 06/27/20 10/25/21 loratadine 10 mg capsule 10 mg PO DAILY 06/27/20 10/25/21 menthol 0.44 %-zinc oxide 20.6 % 1 applic topical QID PRN Skin 06/27/20 10/25/21 topical ointment (Calmoseptine) Irritation omega 3-pct-hso-fish oil 100 cap PO 06/27/20 10/25/21 mg-160 mg-1,000 mg capsule (Fish Oil) simvastatin 20 mg tablet 20 mg PO DAILY 06/27/20 10/25/21 tramadol 50 mg tablet 50 mg PO DAILY 06/27/20 10/25/21 docusate sodium 100 mg capsule 100 mg PO DAILY 10/04/21 10/25/21 (Colace) baclofen 20 mg tablet 1 tab PO TID PRN Abdominal 10/22/21 10/25/21 Discomfort cholecalciferol (vitamin D3) 50 1 cap PO DAILY 10/22/21 10/25/21 mcg (2,000 unit) capsule atorvastatin 80 mg tablet 80 mg PO BEDTIME 12/01/21 fluticasone propionate 50 2 spray intranasal DAILY 12/01/21 mcg/actuation nasal spray,suspension lisinopril 40 mg tablet 40 mg PO DAILY 12/01/21 loratadine 10 mg tablet 10 mg PO DAILY 12/01/21 omega-3 fatty acids-fish oil 340 1 cap PO BID 12/01/21 mg-1,000 mg capsule (Fish Oil) omeprazole 20 mg capsule,delayed 20 mg PO DAILY 12/01/21 release oxycodone 5 mg tablet 5 mg PO Q12H PRN severe pain 12/01/21 Previous Rx's Medication Instructions Recorded gabapentin 600 mg tablet 600 mg PO BEDTIME insomnia 06/30/20 restless legs #30 tabs metoprolol succinate 100 mg 100 mg PO DAILY 90 days #90 tabs 10/15/21 tablet,extended release 24 hr (Toprol XL) oxycodone-acetaminophen 5 mg-325 1 tab PO Q6-8H PRN pain 7 days #28 10/27/21 mg tablet (Percocet) tabs alfuzosin 10 mg tablet,extended 10 mg PO BEDTIME 90 days #90 tabs 12/01/21 release 24 hr finasteride 5 mg tablet 5 mg PO DAILY 90 days #90 tabs 12/01/21 mesalamine 800 mg tablet,delayed 1,600 mg PO TID 30 days #180 tabs 01/19/22 release amlodipine 5 mg tablet 5 mg PO DAILY #30 tabs 02/18/22 cyclobenzaprine 10 mg tablet 10 mg PO TID PRN muscle spasm #10 05/16/22 tabs Allergies Allergy/AdvReac Type Severity Reaction Status Date / Time chlorhexidine AdvReac Rash Verified 01/11/22 08:22 iodine AdvReac Rash Verified 01/11/22 08:22 Review of Systems Review of Systems: Yes all other systems are reviewed and are negative Constitutional: Constitutional: Reports no additional constitutional complaints, Denies body ache(s), Denies chills, Denies fever(s), Denies headache(s) and Denies weakness Eyes: Eyes: Reports no additional eye complaints and Denies change in vision ENT: Reports system reviewed and no additional complaints, except as do cumented, Denies dizziness, Denies headache(s), Denies nasal congestion, Denies nasal discharge and Denies neck pain Cardiovascular: Cardiovascular: Reports no additional cardiovascular complaints, Denies chest pain, Denies leg edema and Denies dyspnea Respiratory: Respiratory: Reports no additional respiratory complaints, Denies cough and Denies dyspnea Gastrointestinal: Gastrointestinal: Reports no additional gastrointestinal complaints, Denies abdominal pain, Denies diarrhea, Denies nausea and Denies vomiting Genitourinary: Genitourinary: Denies urinary incontinence Musculoskeletal: Musculoskeletal: Reports no additional musculoskeletal complaints, Denies back pain, Denies arthralgias, Denies joint swelling, Denies neck pain, Denies numbness, Reports radiating pain into limb and Denies tingling Integumentary/Breasts: Skin/Breast: Reports system reviewed and no additional complaints, except as docu and Denies rash Neurologic: Reports system reviewed and no additional complaints, except as documented, Denies Abnormal speech present, Denies dizziness, Denies headache(s), Denies numbness, Denies tingling and Denies weakness PMFSH Past Medical History Attestation statement: The following information was validated with the patient. Source: old records reviewed and nursing notes reviewed Medical History Asthma Cardiomyopathy HTN (hypertension) Hx of renal calculi Indwelling Nunez catheter present Left bundle branch block Seasonal allergies Urinary retention Surgical History History of esophagogastroduodenoscopy (EGD) History of total knee arthroplasty Hx of colonoscopy Hx of hernia repair Hx of knee surgery Hx of shoulder surgery Family History Family History Father No problems noted. Mother Diabetes Social History Social History Are you a primary professional healthcare representative to a significant other at home: No Do you presently have visiting nurse or other home services: No Alcohol intake: current Alcohol intake frequency: holidays/special occasions only Patient Tobacco Use Status: Former Tobacco user Quit Date: 1981 Tobacco use type: Cigarette Advance Directives: No Advance Directives Information Provided: No Physical Exam Vital Signs: Vital Signs: Last Vital Signs Temp 98 F 05/16/22 11:28 Pulse 79 05/16/22 11:28 Resp 18 05/16/22 11:28 BP 133/77 05/16/22 11:28 Pulse Ox 98 05/16/22 11:28 O2 Del Method 05/16/22 11:28 BMI result Body Mass Index 24.1 Const: General: cooperative, healthy appearing, comfortable and no acute distress Orientation/consciousness: patient oriented x3 Limitations: no limitations HEENT: Head: Yes normal to inspection Ears: hearing grossly normal bilaterally General nose exam: Normal external nose present Face and sinus: Yes normal facial exam Mouth: Normal oral and palatal mucosa present Throat: Yes posterior oropharynx normal Eyes: General: appearance normal, both eyes and all related structures Pupils: Equal, round and reactive pupils present Neck: Neck: Yes normal visual inspection Chest: Chest palpation & inspection: normal inspection of the chest Resp: Effort & Inspection: normal respiratory effort Auscultation: clear to auscultation bilaterally Cardio: Rate: regular rate Rhythm: regular rhythm Peripheral pulses: Peripheral pulses 2+ throughout GI: Inspection: Yes normal to inspection Palpation (GI): Soft to palpation and nontender Auscultation: normal bowel sounds Back/Spine/Pelvis: Other: No palpable midline lumbar tenderness/step offs or deformities. Thoracic/Lumbar Spine: thoracic and lumbar spine normal to inspection Skin: General skin exam: no rashes or lesions noted Neuro: General: patient oriented x3, moves all extremities, no focal motor deficits and normal sensation to monofilament Cranial nerves: Yes Equal, round and reactive pupils present Cognition (Neuro): normal cognition Speech: No Abnormal speech present Gait exam (Neuro): Normal gait present Motor exam (neuro): 5/5 motor strength present throughout Sensory Exam: Normal double simultaneous stimulation for sensation Deep tendon reflexes (DTR's): Right patellar reflex intensity grade: 2+ and Left patellar reflex intensity grade: 2+ Extrem: Other: Unable to establish focal area of tenderness. Patient reports pain to entire left leg from the thigh radiating down into the foot. No swelling, ecchymosis, erythema or warmth. Palpable 2+ DP/PT pulses. Sensation normal. FROM of hip/knee/ankle/foot. General: Yes normal to inspection, Yes no pedal edema and Yes no calf tenderness Course Course Course Narrative: Venous US negative for DVT. Likely lumbar radiculopathy. Improved with NSAID/flexeril. Plan for discharge home with recommendations for same. Reviewed worrisome signs/symptoms with patient and when to seek additional care. Comfortable with discharge home. MDM - Extremity Injury (Lower) MDM Narrative Medical decision making narrative: 72 yo male here with radiating pain down the left leg with a history of lifting injury or [place]. No focal back pain on exam. No neurological deficits or red flag symptoms. A venous US was ordered from triage. On exam patient has entire left leg pain but unable to illicit one area of tenderness. Normal strength/sensation/FROM of limb with no obvious warmth, redness, or swelling. Likely lumbar radiculopathy No s/s concerning for cord compression (no reports of incontinence/retention, saddle anesthesia, neuro deficits) No s/s epidural abscess such as immunocompromised state, reports of fevers/chills and normal neuro exam. Medical Records Attestation: I reviewed the patient's medical records. Lab Data Attestation: I reviewed the patient's lab results. Imaging Data Venous US: Attestation: I personally reviewed and interpreted this imaging study as follows: Radiologist's impression: FINDINGS: There is normal venous compression and respiratory variation and augmented flow. The visualized common femoral vein, superficial femoral vein, profunda femoral vein, popliteal vein, and the trifurcation region shows no evidence of deep venous thrombosis. ? There is no significant popliteal fossa cyst. Incidental finding of prominent but benign left groin lymph nodes with the largest one measuring 1.7 x 2.5 x 0.6 cm. If the patient's symptoms persist, followup ultrasound in 5 days 7 days might be of value to exclude proximal propagation from a non-visualized calf vein. US/US venous duplex LE IMPRESSION: No DVT demonstrated in the left lower extremity. ? Prominent left inguinal lymph nodes. They're bilaterally symmetrical in appearance and appear benign Discharge Plan Discharge Clinical Impression: Acute lumbar radiculopathy Patient Disposition: Home, Self-Care Instructions: Lumbar Radiculopathy (ED), Lower Back Exercises (ED) Additional Instructions: Heat to the area gentle stretching No heavy lifting or bending Follow-up with PCP in 1 week for persistent symptoms. Alternate motrin and/or tylenol if able as needed for pain Return for fever >100.4, incontinence of urine/stool, urinary or bowel retention, numbness in the groin. Prescriptions: New cyclobenzaprine 10 mg tablet 10 mg PO TID PRN (Reason: muscle spasm) Qty: 10 0RF No Action metoprolol succinate [Toprol XL] 100 mg tablet extended release 24 hr 100 mg PO DAILY 90 Days Qty: 90 3RF mesalamine 800 mg tablet,delayed release (DR/EC) 1,600 mg PO TID 30 Days Qty: 180 3RF amlodipine 5 mg tablet 5 mg PO DAILY Qty: 30 5RF baclofen 20 mg tablet 1 tab PO TID PRN (Reason: Abdominal Discomfort) cholecalciferol (vitamin D3) 50 mcg (2,000 unit) capsule 1 cap PO DAILY oxycodone-acetaminophen [Percocet] 5-325 mg tablet 1 tab PO Q6-8H PRN (Reason: pain) 7 Days Qty: 28 0RF albuterol sulfate [Proventil HFA] 90 mcg/actuation HFA aerosol inhaler 2 puff inhalation Q6H PRN (Reason: Shortness Of Breath Or Wheezing) Fish Oil 100-160-1,000 mg capsule PO simvastatin 20 mg tablet 20 mg PO DAILY tramadol 50 mg tablet 50 mg PO DAILY loratadine 10 mg capsule 10 mg PO DAILY acetaminophen [Mapap (acetaminophen)] 500 mg capsule 500 mg PO Q6H PRN (Reason: Pain) Calmoseptine 0.44-20.6 % ointment 1 applic topical QID PRN (Reason: Skin Irritation) lisinopril 20 mg tablet 20 mg PO DAILY gabapentin 600 mg tablet 600 mg PO BEDTIME Qty: 30 2RF docusate sodium [Colace] 100 mg capsule 100 mg PO DAILY loratadine 10 mg tablet 10 mg PO DAILY fluticasone propionate 50 mcg/actuation spray,suspension 2 spray intranasal DAILY lisinopril 40 mg tablet 40 mg PO DAILY omeprazole 20 mg capsule,delayed release(DR/EC) 20 mg PO DAILY oxycodone 5 mg tablet 5 mg PO Q12H PRN (Reason: severe pain) Fish Oil 340-1,000 mg capsule 1 cap PO BID atorvastatin 80 mg tablet 80 mg PO BEDTIME alfuzosin 10 mg tablet extended release 24 hr 10 mg PO BEDTIME 90 Days Qty: 90 1RF finasteride 5 mg tablet 5 mg PO DAILY 90 Days Qty: 90 1RF Referrals: Katelynn Hall DO [Primary Care Provider] - 1 week (for persistent symptoms ) Interventions: ED Discharge Assessment Last Done: 05/16/22 15:45 Discharge Date/Time: 05/16/22 15:46
[2022-05-16] MEDS: Ketorolac Tromethamine 30 MG/ML VIAL IM (15:51)
[2022-05-16] MEDS: Cyclobenzaprine HCl 10 MG TABLET PO (15:51)
== END 2022-05-16 15:55 | disposition home or self-care (01) ==
PROVIDERS: Emergency Provider Emergency Medicine; PCP Family Medicine
DX: M54.16 Radiculopathy, lumbar region (principal); M79.605 Pain in left leg; I10 Essential (primary) hypertension
CPT/HCPCS: 93971; 96372; 99283; 99284; J1885

== ENCOUNTER → 2022-05-25 14:22 | Outpatient (BNVA) | payer MEDICARE, OTHER, SELFPAY | PROVIDERS: PCP Family Medicine; Visit Provider Surgery | DX: Z09 Encounter for follow-up examination after completed treatment for conditions other than malignant neoplasm (principal); L29.0 Pruritus ani | CPT/HCPCS: 46600; 99202 ==

== ENCOUNTER → 2022-06-07 13:28 | Outpatient (BNVA) | payer MEDICARE, MEDICAID, OTHER, SELFPAY | PROVIDERS: PCP Family Medicine; Visit Provider Physician Assistant | DX: M77.12 Lateral epicondylitis, left elbow (principal) | CPT/HCPCS: 20551; 99212; J1100 ==

== ENCOUNTER → 2022-06-23 08:13 | Outpatient (BNVA) | payer MEDICARE, MEDICAID, SELFPAY | PROVIDERS: PCP Family Medicine; Visit Provider Orthopaedic Surgery | DX: M17.12 Unilateral primary osteoarthritis, left knee (principal) | CPT/HCPCS: 20610; 99212; J1100 ==

== ENCOUNTER → 2022-07-20 08:14 | Outpatient (BNVA) | payer MEDICARE, MEDICAID, SELFPAY | PROVIDERS: PCP Family Medicine; Visit Provider Urology | DX: N32.0 Bladder-neck obstruction (principal); R35.1 Nocturia | CPT/HCPCS: 51798; 99212 ==

== ENCOUNTER → 2022-08-03 07:20 | Outpatient (REF) | payer MEDICARE, OTHER, SELFPAY ==
--- NOTE | 2022-08-03 07:22 | CA_ITS ---
Transthoracic Echocardiogram Patient (Last, First, Middle): German Hassan A Gender: Male Date of : 1950 Age: 72 Procedure Date: 08/03/2022 Procedure Type: Transthoracic Echocardiogram Location: OP Height: 182.88 cm Weight: 80.74 kg BSA: 2.03 m2 Heart Rate: 58 bpm BP: 138 / 74 mmHg Director Of Research And Development: Referring MD: Kareem Neri MD Cell Operation Supervisor: Kareem Neri MD Symptoms: I42.9 - Cardiomyopathy, unspecified Study Quality: Adequate ECG Rhythm: Bradycardia Conclusions: - 1. Mildly reduced LV systolic function with LVEF of 45-50% 2. Normal cardiac valvular Doppler 3. No gross pericardial effusion Findings Left Ventricle Normal left ventricular cavity size. There is normal left ventricular wall thickness. The left ventricular systolic function is mildly decreased. The visually estimated ejection fraction is between 45-50%. Spectral Doppler is indicative of an impaired relaxation filling pattern. E/E prime ratio is between 8 and 15 consistent with indeterminate filling pressures. Right Ventricle Normal right ventricular cavity size and systolic function. Atria The left atrium is normal in size. Interatrial shunt cannot be excluded. The right atrium is normal in size. Aortic Valve Normal aortic valve structure and function. There is no aortic valve stenosis. There is no aortic valve regurgitation. Mitral Valve Normal mitral valve structure and function. There is trace mitral valve regurgitation. There is no mitral valve stenosis. Pulmonic Valve The pulmonic valve was not well visualized. Tricuspid Valve Normal tricuspid valve structure. Tricuspid regurgitation envelope is inadequate for calculation of right ventricular systolic pressure. Normal right atrial pressure. Great Vessels All visible segments of the aorta are normal in size. The pulmonary artery was not well visualized. Venous The inferior vena cava is normal in size and collapses greater than 50% with inspiration. Pericardium/Pleural There is no evidence of pericardial effusion. Prior Study Comparison Changes noted compared to prior study dated: 05/01/2020. LV systolic function is reduced Measurements 2D Linear Measurements IVSd: 1.17 0.6-0.9/0.6-1.0 cm LVIDd: 5.30 3.9-5.3/4.2-5.9 cm LVIDd Index: 2.61 2.4-3.2/2.2-3.1 cm/m2 LVIDs: 4.20 2.0-3.6 cm LVPWd: 0.76 0.7-1.1 cm LA Diam: 3.30 2.7-3.8/3.0-4.0 cm LAIDs Index: 1.63 1.5-2.3 cm/m2 LV Mass: 238.38 67-162/88-224 g LV Mass Index: 117.43 43-95/49-115 g/m2 LVOT Diam: 2.20 3.0+(-)1.3 cm 2D Systolic Function EF 4C: 39.20 >55% EF 2C: 56.30 >55% EF BiP: 48.10 >55% Mitral Valve MV Pk E: 0.61 MV PK A: 0.84 MV Decel Time: 293.00 E/A: 0.70 E'Lateral: 5.87 E'Medial: 3.59 E/E' Med: 16.90 E/E' Lat: 10.40 PHT: 86.00 MVA PHT: 2.56 Decel Burnett: 2.07 Aortic Valve AoV Pk Alex: 1.18 AoV Pk Grad: 6.00 TAMRA: 3.54 LVOT LVOT Pk Alex: 1.10 LVOT Mn Alex: 0.75 LVOT VTI: 0.23 LVOT Pk Grad: 5.00 LVOT Mn Grad: 3.00 LVOT Diam: 2.20 LVOT Area: 3.80 Diastolic Function MV Pk E: 0.61 MV Pk A: 0.84 E/A: 0.70 E'Medial: 3.59 E/E' Med: 16.90 E' Laterial: 5.87 E/E' Lat: 10.40 Right Ventricle TAPSE (mm): 18.00 TVS' Alex: 10.90 Tricuspid Valve RA Press: 3.00 Great Vessels Aorta Sinus of Valsalva: 3.80 2.0-3.5 cm Ao Asc: 4.00 2.1-3.4 cm Pulmonary Valve PV Pk Alex: 1.03 Peak PV Grad: 4.00 Updated in Other Vendor System with Status of Final Kareem Neri MD electronically signed on 08/04/2022 11:51:29 AM with status of Final
== END ==
LOC: HO.CARD 07:20
PROVIDERS: Visit Provider Internal Medicine Cardiovascular Disease
DX: I42.9 Cardiomyopathy, unspecified (principal); I44.7 Left bundle-branch block, unspecified; I10 Essential (primary) hypertension
CPT/HCPCS: 93306

== ENCOUNTER → 2022-09-22 08:17 | Outpatient (BNVA) | payer MEDICARE, OTHER, SELFPAY | PROVIDERS: PCP Family Medicine; Visit Provider Orthopaedic Surgery | DX: M17.12 Unilateral primary osteoarthritis, left knee (principal); Z96.659 Presence of unspecified artificial knee joint | CPT/HCPCS: 99212 ==

== ENCOUNTER → 2022-10-07 15:03 | Outpatient (BNVA) | payer MEDICARE, MEDICAID, SELFPAY | PROVIDERS: PCP Family Medicine; Visit Provider Urology | DX: N40.1 Benign prostatic hyperplasia with lower urinary tract symptoms (principal); N13.8 Other obstructive and reflux uropathy; R39.12 Poor urinary stream; R33.8 Other retention of urine; Z79.899 Other long term (current) drug therapy | CPT/HCPCS: Q3014 ==

== ENCOUNTER → 2022-10-13 12:23 | Outpatient (BNVA) | payer MEDICARE, OTHER, SELFPAY | PROVIDERS: PCP Family Medicine; Referring Provider Family Medicine; Visit Provider Internal Medicine Cardiovascular Disease | DX: Z01.810 Encounter for preprocedural cardiovascular examination (principal); I42.9 Cardiomyopathy, unspecified | CPT/HCPCS: 93005; 99212 ==

== ENCOUNTER 2022-10-24 05:47 | Day surgery (SDC) | payer MEDICARE, OTHER, SELFPAY ==
[2022-10-18 10:32] VITALS: BMI 24.8
--- NOTE | 2022-10-21 09:21 | HO.ANESPROP2 ---
Documented by User: Jackie Gee NP 10/21/22 09:23 HPI - Anesthesia Eval Consult details Narrative: 72yo M for Laser Ablation Prostate w/Green Light Cardiac cleared: Preoperative cardiovascular risk stratification for noncardiac surgery with intermediate risk under general anesthesia.? He currently has no symptoms or signs of heart failure and has good exercise capacity.? Clinically he is optimized to undergo this procedure with low risk for perioperative cardiovascular morbidity mortality.? Continue all his cardiac meds and antihypertensive medications in the perioperative time. [facility] Active Problems Active Problems: All Active Problems (Updated 10/18/22 @ 10:29 by Jennifer Harrison RN) Obstructive sleep apnea (Acute) Insomnia (Acute) Ulcerative proctitis (Acute) Irritable bowel syndrome with constipation (Acute) Knee effusion, right (Acute) Retained orthopedic hardware (Acute) Bladder outlet obstruction (Acute) Lateral epicondylitis of left elbow (Acute) Patellofemoral arthritis of left knee (Acute) Nocturia more than twice per night (Acute) Weak urinary stream (Acute) Incomplete emptying of bladder due to benign prostatic hyperplasia (Acute) Pruritus ani (Acute) Urinary retention (Acute) History of total knee arthroplasty (Acute) Cardiomyopathy (Acute) HTN (hypertension) (Acute) Left bundle branch block (Acute) Past Medical History Medical History (Updated 10/24/22 @ 06:16 by Rachel Narayanan, CHEIKH) Asthma Cardiomyopathy Elevated cholesterol History of COVID-19 HTN (hypertension) Hx of Crohn's disease Hx of renal calculi Indwelling Nunez catheter present Left bundle branch block Pruritus ani Seasonal allergies Sleep apnea Urinary retention Family History Family History Father No problems noted. Mother Diabetes Family history of problems with anesthesia: No Surgical History Surgical History History of esophagogastroduodenoscopy (EGD) History of hemorrhoidectomy History of total knee arthroplasty Hx of colonoscopy Hx of hernia repair Hx of knee surgery Hx of shoulder surgery History of Problems with Anesthesia: No Social History Social History Are you a primary healthcare or medical to a significant other at home: No Do you presently have visiting nurse or other home services: No Alcohol intake: current Alcohol intake frequency: holidays/special occasions only Patient Tobacco Use Status: Former Tobacco user Quit Date: 40 yrs ago Tobacco use type: Cigarette Use of substances other than those prescribed or required for medical reasons: No Are you DNR?: No Advance Directives: No Advance Directives Information Provided: Yes Meds Allergies Allergy/AdvReac Type Severity Reaction Status Date / Time chlorhexidine AdvReac Rash Verified 10/24/22 06:08 iodine AdvReac Rash Verified 10/24/22 06:08 Home Medications Medication Instructions Recorded Confirmed Last Taken Type acetaminophen 500 mg capsule 500 mg PO Q6H PRN Pain 06/27/20 10/18/22 Unknown History (Mapap (acetaminophen)) albuterol sulfate 90 mcg/actuation 2 puff inhalation Q6H PRN 06/27/20 10/18/22 Unknown History aerosol inhaler (Proventil HFA) Shortness Of Breath Or Wheezing omega 5-dfl-srf-fish oil 100 1 cap PO DAILY 06/27/20 10/24/22 10/17/22 History mg-160 mg-1,000 mg capsule (Fish Oil) simvastatin 20 mg tablet 20 mg PO DAILY 06/27/20 10/18/22 Unknown History tramadol 50 mg tablet 50 mg PO DAILY 06/27/20 10/18/22 Unknown History docusate sodium 100 mg capsule 100 mg PO DAILY 10/04/21 10/18/22 Unknown History (Colace) baclofen 20 mg tablet 1 tab PO TID PRN Abdominal 10/22/21 10/18/22 Unknown History Discomfort cholecalciferol (vitamin D3) 50 1 cap PO DAILY 10/22/21 10/18/22 Unknown History mcg (2,000 unit) capsule fluticasone propionate 50 2 spray intranasal DAILY 12/01/21 10/18/22 Unknown History mcg/actuation nasal spray,suspension lisinopril 40 mg tablet 40 mg PO DAILY 12/01/21 10/18/22 Unknown History loratadine 10 mg tablet 10 mg PO DAILY 12/01/21 10/18/22 Unknown History omeprazole 20 mg capsule,delayed 20 mg PO DAILY 12/01/21 10/18/22 10/24/22 05:00 History release oxycodone 5 mg tablet 5 mg PO Q12H PRN severe pain 12/01/21 10/18/22 Unknown History mesalamine 800 mg tablet,delayed 1,600 mg PO TID 10/13/22 10/18/22 Unknown History release Exam Exam Date and Time: October 21, 2022 0921 Height,Weight and Vital Signs: Height 6 ft Weight 83.007 kg Pertinent Lab Results Pertinent Lab Results: Laboratory Tests 04/18/22 04/18/22 07:20 07:20 WBC 4.6 L Hgb 13.3 L Hct 40.7 L Plt Count 207 Sodium 140 Potassium 4.8 Chloride 109 H Carbon Dioxide 26 BUN 22 H Creatinine 0.83 Narrative Narrative: EKG 09/2022 normal sinus rhythm with left bundle-branch block, unchanged from before ECHO 07/2022 Conclusions: - 1. Mildly reduced LV systolic function with LVEF of 45-50% ? ? 2. Normal cardiac valvular Doppler ? 3. No gross pericardial effusion ? Assessment and Plan Assessment Anesthesia Assessment: Chart Reviewed Final Anesthetic Review Family History of Problems with Anesthesia: No History of Problems with Anesthesia: No Documented by User: Stefan Morales MD 10/24/22 07:34 [facility] Past Medical History Medical History (Updated 10/24/22 @ 06:16 by Rachel Narayanan, RN) Asthma Cardiomyopathy Elevated cholesterol History of COVID-19 HTN (hypertension) Hx of Crohn's disease Hx of renal calculi Indwelling Nunez catheter present Left bundle branch block Pruritus ani Seasonal allergies Sleep apnea Urinary retention Family History Family History Father No problems noted. Mother Diabetes Family history of problems with anesthesia: No Surgical History Surgical History History of esophagogastroduodenoscopy (EGD) History of hemorrhoidectomy History of total knee arthroplasty Hx of colonoscopy Hx of hernia repair Hx of knee surgery Hx of shoulder surgery History of Problems with Anesthesia: No Social History Social History Are you a primary healthcare or medical to a significant other at home: No Do you presently have visiting nurse or other home services: No Alcohol intake: current Alcohol intake frequency: holidays/special occasions only Patient Tobacco Use Status: Former Tobacco user Quit Date: 40 yrs ago Tobacco use type: Cigarette Use of substances other than those prescribed or required for medical reasons: No Are you DNR?: No Advance Directives: No Advance Directives Information Provided: Yes Meds Allergies Allergy/AdvReac Type Severity Reaction Status Date / Time chlorhexidine AdvReac Rash Verified 10/24/22 06:08 iodine AdvReac Rash Verified 10/24/22 06:08 Home Medications Medication Instructions Recorded Confirmed Last Taken Type acetaminophen 500 mg capsule 500 mg PO Q6H PRN Pain 06/27/20 10/18/22 Unknown History (Mapap (acetaminophen)) albuterol sulfate 90 mcg/actuation 2 puff inhalation Q6H PRN 06/27/20 10/18/22 Unknown History aerosol inhaler (Proventil HFA) Shortness Of Breath Or Wheezing omega 6-axu-wwh-fish oil 100 1 cap PO DAILY 06/27/20 10/24/22 10/17/22 History mg-160 mg-1,000 mg capsule (Fish Oil) simvastatin 20 mg tablet 20 mg PO DAILY 06/27/20 10/18/22 Unknown History tramadol 50 mg tablet 50 mg PO DAILY 06/27/20 10/18/22 Unknown History docusate sodium 100 mg capsule 100 mg PO DAILY 10/04/21 10/18/22 Unknown History (Colace) baclofen 20 mg tablet 1 tab PO TID PRN Abdominal 10/22/21 10/18/22 Unknown History Discomfort cholecalciferol (vitamin D3) 50 1 cap PO DAILY 10/22/21 10/18/22 Unknown History mcg (2,000 unit) capsule fluticasone propionate 50 2 spray intranasal DAILY 12/01/21 10/18/22 Unknown History mcg/actuation nasal spray,suspension lisinopril 40 mg tablet 40 mg PO DAILY 12/01/21 10/18/22 Unknown History loratadine 10 mg tablet 10 mg PO DAILY 12/01/21 10/18/22 Unknown History omeprazole 20 mg capsule,delayed 20 mg PO DAILY 12/01/21 10/18/22 10/24/22 05:00 History release oxycodone 5 mg tablet 5 mg PO Q12H PRN severe pain 12/01/21 10/18/22 Unknown History mesalamine 800 mg tablet,delayed 1,600 mg PO TID 10/13/22 10/18/22 Unknown History release Exam Airway Mallampati Class: II TM Dist: >3cm Neck ROM: Full Heart: ok Lungs: ok Assessment and Plan Assessment Anesthesia Assessment: Anesthesia Plan Discussed Final Anesthetic Review Family History of Problems with Anesthesia: No History of Problems with Anesthesia: No NPO: Yes ASA Class: III Final Preanesthetic Review: No Changes in Pt Med Stat, Meds/Allgs Chart Reviewed, Consent Obtained/Reviewed and Anes Risks/Benef Reviewed Patient Risk: Intermediate Procedure Risk: Low Anesthetic Plan Anesthetic Plan: GA and Agree w/ Assess. and Plan Disposition: Standard PACU
[2022-10-24 06:23] VITALS: BP 154/91; PULSE 68; RESP 16; TEMP 36.5; O2SAT 97
[2022-10-24] MEDS: Lactated Ringers 1,000 ML 50 ML IVCONT (06:31)
--- NOTE | 2022-10-24 07:45 | MHC.SHP ---
Pre-Procedural Eval Section A Date of Service: 10/24/22 The patient is an INPATIENT: No Changes since office visit: No Cold of Flu in the past 2 weeks, No New Medical Problems, No Changes in Medication and No Patient answered all questions The History & Physical has been completed within 30 days and I have reviewed it.: Yes Section B Chief Complaint: Bladder-neck obstruction Details of Present Illness: BPH Relevant Social History: None Present Medications: None Medical History: No relevant PMH History of Previous Operations: No relevant previous surgery Allergies: Allergies Allergy/AdvReac Type Severity Reaction Status Date / Time chlorhexidine AdvReac Rash Verified 10/24/22 06:08 iodine AdvReac Rash Verified 10/24/22 06:08 Review of Systems Sugical H&P ROS: Negative: Constitution, Cardiovascular, Respiratory, Neurological, Psychiatric, Hem-Onc, Allergic/Immunologic, Gastrointestinal, Genitourinary, Musculoskeletal, Integumentary, Endocrine and Eyes/Ears/Nose/Throat Exam Surgical H&P Exam: Normal: HEENT, Normal: Heart, Normal: Lungs, Normal: Extremities, Normal: Abdomen, Normal: Skin and Normal: Neurological Plan Diagnosis/Plan: Unchanged ( cystoscopy, laser enucleation of prostate) I have reviewed the history and physical and performed a pertinent physical examination on my patient. No changes have occurred unless specified. Time Spent With Patient Time: Total time managing care of this patient today ____ minutes.
--- NOTE | 2022-10-24 08:49 | P.OP_ITS ---
Operative Note Operative Note Date of Service: 10/24/22 Narrative: PreOperative Diagnosis: Bladder outlet obstruction Post Operative Diagnosis: Bladder outlet obstruction Procedure: GreenLight Laser Enucleation of the prostate Surgeon: Dr Ariel Ruiz Anesthesia: General History of bladder outlet obstruction. Treated with alpha-nicki and other medications. Still with symptoms. On cystoscopy in office has trilobar prostate. Recommendation for prostate procedure with laser enucleation of prostate. Risks and benefits have been discussed. Focus was placed on development of retrograde ejaculation which is a normal part of this procedure. Procedure: After informed consent was verified the patient was brought to the operating room and placed in a supine position. Anesthesia was administered per protocol. Patient was placed in modified dorsal lithotomy position and prepped and draped in a sterile fashion. Safety pause time-out was confirmed. Antibiotics have been given. A Twenty-four St Helenian laser cystoscope was inserted per urethra. No abnormalities were found of the anterior and bulbar urethra. The bladder was examined and both ureteric orifices were seen in their normal positions away from the area of interest. Using a GreenLight laser with settings of 80 w incisions were made at the 5 and 7 o'clock position. The incisions were taken down from the bladder neck down to the level of the veru. These were gradually deepened in order to define the lateral aspects of the median lobe area. Once clearly defined they will also extended in the lateral directions in order to create a deep groove. The median lobe was then ablated and enucleated tissue released into the bladder with the laser power increased to 120 W. Once the median lobe area had been cleared attention was directed to the lateral lobes. Starting with the patient's left lateral lobe. First the 05:00 o'clock groove was further developed. This was moved in the lateral direction to undermine the tissue on the lateral side running from the bladder neck to the prostate apex. Focus was then placed on the laser at the 1 o'clock position to developing a secondary groove down to the level of bladder fibers. The creation of a second deep groove defined a segment of intervening tissue similar to a slice of orange. At the apex of the prostate the 2 grooves were linked the us releasing the intervening tissue. This tissue was then removed with a combination of enucleation and ablation working from the apex toward the bladder neck. A similar procedure was repeated on the patient's right-hand side. The only differences being the position of the lateral groove at he 7 'oclock positioin and the secondary groove at the 11 o'clock position, Otherwise the procedure was developed in a mirror fashion. After the majority of tissue had been debulked remnant tissue was ablated with the side fire laser and the curve of the prostate followed up each side wall clearly defining the anterior remnant strip that remained between the 11 and 1 o'clock positions. When this was had been completed debris and pieces of prostate were removed from the bladder with irrigation. Both ureteric orifices were reviewed again in shown to be patent in away from any areas of energy damage. The apical area was reviewed in any stray ooze was controlled. A 22 [address] Helenian 30 cc balloon Nunez catheter was placed over a stylet into the bladder. Clear efflux was obtained upopn irrigation with a Gamaliel piston syr malachi. 30 cc was placed in the balloon and gentle traction was placed. A snap was used to hold tension on the catheter to control bleeding during patient moved and transported. A drainage bag was placed. Once transportation is complete to the PACU the snap will be removed. The patient tolerated the procedure well, he was extubated in the operating and transferred in a stable condition to the recovery area. Total Power 117 kW Lasing time 18:20 Pathology: Prostate tissue Drains: Nunez catheter
[2022-10-24 08:58] VITALS: BP 111/67; PULSE 68; RESP 14; TEMP 36.4; O2SAT 97
[2022-10-24 09:03] VITALS: BP 128/72; PULSE 64; RESP 16; O2SAT 97
[2022-10-24 09:08] VITALS: BP 120/74; PULSE 64; RESP 16; O2SAT 96
[2022-10-24 09:13] VITALS: BP 138/77; PULSE 60; RESP 16; TEMP 36.4; O2SAT 95
[2022-10-24] MEDS: Acetaminophen 325 MG TABLET 975 MG PO (09:27)
[2022-10-24 09:28] VITALS: BP 143/81; PULSE 63; RESP 16; TEMP 36.3; O2SAT 97
== END 2022-10-24 10:18 | disposition home or self-care (01) ==
PROVIDERS: PCP Family Medicine; Visit Provider Urology
PROC: (CPT 52648; principal; 2022-10-24 07:30)
DX: N32.0 Bladder-neck obstruction (principal); N40.0 Benign prostatic hyperplasia without lower urinary tract symptoms
CPT/HCPCS: 52649; 88305; J1200; J1956; J3010

== ENCOUNTER → 2022-10-27 08:49 | Outpatient (BNVA) | payer MEDICARE, OTHER, SELFPAY | PROVIDERS: PCP Family Medicine; Visit Provider Urology | DX: N40.1 Benign prostatic hyperplasia with lower urinary tract symptoms (principal); R33.9 Retention of urine, unspecified | CPT/HCPCS: 51700; 51798 ==

== ENCOUNTER 2022-11-03 11:28 | Outpatient (REF) | payer MEDICARE, OTHER, SELFPAY ==
--- NOTE | 2022-11-03 10:00 | EMG_ITS ---
Right tibial and peroneal motor studies were performed. Right sural and superficial peroneal sensory studies were performed. Tibial H-reflex was obtained. Needle examination was performed. IMPRESSION: Mild axonal sensory motor peripheral neuropathy. MD MARCEL Lovell/MEHNAZ / [id number]
== END 2022-11-03 11:29 | disposition home or self-care (01) ==
LOC: HO.NEURO 11:28
PROVIDERS: PCP Family Medicine; Visit Provider Family Medicine
DX: R20.2 Paresthesia of skin (principal)
CPT/HCPCS: 95886; 95909

== ENCOUNTER 2022-11-24 06:37 | Outpatient (REF) | payer MEDICARE, OTHER, SELFPAY ==
[2022-11-24 06:53] LABS: MANUAL DIFF FLAG NO
[2022-11-24 08:55] LABS: Basophils Percent Auto 0.6 % (0-2); Eosinophils Absolute Auto 0.4 X10*3/uL (0.0-0.4); Eosinophils Percent Auto 7.4 % (0-4); Hematocrit 38.3 % (42.0-52.0); Hemoglobin 12.3 g/dl (14.0-18.0); Imm Gran Abs Auto 0.01 X10*3/uL (0.00-0.03); Imm Gran Pct Auto 0.2 % (0.0-0.4); Lymphocytes Absolute Auto 1.9 X10*3/uL (1.2-4.9); Lymphocytes Percent Auto 35.9 % (20-40); Mean Corpuscular HGB Conc 32.1 g/dl (31.0-36.0); Mean Corpuscular Hemoglobin 31.9 pg (27.0-33.0); Mean Corpuscular Volume 99.2 fL (80.0-98.0); Mean Platelet Volume 10.2 fL (9.4-12.4); Monocytes Absolute Auto 0.6 X10*3/uL (0.1-1.2); Monocytes Percent Auto 10.9 % (2-11); Neutrophils Absolute Auto 2.4 x10*3/uL (2.0-8.3); Platelet Count 235 X10*3/uL (160-400); Red Blood Count 3.86 X10*6/uL (4.60-5.80); Red Cell Distribution Width 11.8 % (11.0-16.0); White Blood Count 5.2 X10*3/uL (4.8-10.8)
[2022-11-24 09:03] LABS: Estimated Average Glucose 94 mg/dL; Hemoglobin A1c % 4.9 %
[2022-11-24 09:25] LABS: Alanine Aminotransferase 22 U/L (0-40); Alkaline Phosphatase 87 U/L (39-117); Anion Gap 10 (12-20); Aspartate Amino Transferase 21 U/L (5-37); Bilirubin Direct 0.3 mg/dL (0.0-0.5); Bilirubin Total 1.1 mg/dL (0.0-1.0); Blood Urea Nitrogen 16 mg/dL (9-16); Calcium 8.8 mg/dL (8.4-10.2); Carbon Dioxide 30 mmol/L (22-29); Chloride 107 mmol/L (96-108); Cholesterol 103 mg/dL; Estimated Glomerular Filt Rate > 60; Glucose Random 104 mg/dL (60-115); HDL Cholesterol 36 mg/dL; Iron 127 mcg/dL (45-160); LDL Cholesterol Calculated 53 mg/dl; Percent Iron Saturation 51 % (15-50); Potassium 4.2 mmol/L (3.3-5.1); Sodium 143 mmol/L (135-145); Total Iron Binding Capacity 250 mcg/dL (228-428); Total Protein 6.4 g/dL (6.5-8.0); Triglycerides 72 mg/dL; Unsaturated Iron Binding 123 ug/dL
[2022-11-24 10:02] LABS: Ferritin 153 ng/mL (20-250); Folate 9.3 ng/mL (> or = 4.0); Free T4 (Free Thyroxine) 0.99 ng/dL (0.71-1.85); Thyroid Stimulating Hormone 2.82 uIU/mL (0.32-4.0); Vitamin B12 447 pg/mL (200-900); Vitamin D 25-OH Total 18.9 ng/mL (>30)
[2022-11-25 09:35] LABS: HIV AB/AG Nonreactive (Nonreactive); HIV Num 1 0.05 S/CO (0.00-0.99)
[2022-11-28 23:33] LABS: Prot Elec - Albumin 3.9 g/dL (3.8-4.8); Prot Elec - Alpha1 0.3 g/dL (0.2-0.3); Prot Elec - Alpha2 0.7 g/dL (0.5-0.9); Prot Elec - Beta 1 0.4 g/dL (0.4-0.6); Prot Elec - Beta 2 0.4 g/dL (0.2-0.5); Prot Elec - Gamma 0.9 g/dL (0.8-1.7); Prot Elec - Total Protein 6.5 g/dL (6.1-8.1)
== END 2022-11-24 06:38 | disposition home or self-care (01) ==
LOC: HO.LAB 06:37
PROVIDERS: PCP Family Medicine; Visit Provider Family Medicine
DX: G62.9 Polyneuropathy, unspecified (principal); D64.9 Anemia, unspecified; R79.9 Abnormal finding of blood chemistry, unspecified; E55.9 Vitamin D deficiency, unspecified
CPT/HCPCS: 36415; 80048; 80061; 80076; 82306; 82607; 82728; 82746; 83036; 83540; 84165; 84439; 84443; 85025; 87389

== ENCOUNTER → 2023-01-03 13:28 | Outpatient (BNVA) | payer MEDICARE, MEDICAID, SELFPAY | PROVIDERS: PCP Family Medicine; Visit Provider Urology | DX: N32.0 Bladder-neck obstruction (principal) | CPT/HCPCS: 51798; 99212 ==

== ENCOUNTER → 2023-01-19 08:32 | Outpatient (BNVA) | payer MEDICARE, MEDICAID, SELFPAY | PROVIDERS: PCP Family Medicine; Visit Provider Orthopaedic Surgery | DX: M17.12 Unilateral primary osteoarthritis, left knee (principal); M25.661 Stiffness of right knee, not elsewhere classified; Z96.659 Presence of unspecified artificial knee joint | CPT/HCPCS: 99212 ==

== ENCOUNTER → 2023-02-27 08:18 | Outpatient (BNVA) | payer MEDICARE, MEDICAID, SELFPAY | PROVIDERS: PCP Family Medicine; Visit Provider Internal Medicine | DX: M25.561 Pain in right knee (principal); Z98.890 Other specified postprocedural states | CPT/HCPCS: 99202 ==

== ENCOUNTER 2023-04-05 09:44 | Outpatient (AMB) | payer MEDICARE, MEDICAID, SELFPAY ==
--- NOTE | 2023-04-05 09:51 | A.OFFVIS_ITS ---
Intake Intake Visit Reasons: 3M PVR Intake Note: * Patient presents today for a 3mo follow-up on with PVR * Meds- Finasteride * Allergies to Antibiotic- None * Blood Thinner- None * PVR- 36ml Street Light Mechanic Required: Yes Street Light Mechanic Language: Eritrean Accompanied by: Self / Same As Patient Allergies chlorhexidine Adverse Reaction (Verified 04/05/23 09:52) Rash iodine Adverse Reaction (Verified 04/05/23 09:52) Rash HPI HPI Comments History of Present Illness Details German is a pleasant male. He is a patient of Dr Navarro. 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 Lower urinary tract symptoms September 2021 underwent right knee revision Retention with failed voiding trial in hospital Cystoscopy 12/14 large median lobe Prostate procedure 10/17 GreenLight laser [facility] Medical History (Updated 01/19/23 @ 09:04 by Fred Bang) Asthma Cardiomyopathy Elevated cholesterol History of COVID-19 HTN (hypertension) Hx of Crohn's disease Hx of renal calculi Indwelling Nunez catheter present Left bundle branch block Pruritus ani Seasonal allergies Sleep apnea Urinary retention Surgical History (Updated 02/27/23 @ 11:36 by Jeff Torres MD) History of esophagogastroduodenoscopy (EGD) History of hemorrhoidectomy History of total knee arthroplasty Hx of colonoscopy Hx of hernia repair Hx of knee surgery Hx of shoulder surgery Family History Father No problems noted. Mother Diabetes Social History Are you a primary chronic care nurse to a significant other at home: No Do you presently have visiting nurse or other home services: No Alcohol intake: current Alcohol intake frequency: holidays/special occasions only Patient Tobacco Use Status: Former Tobacco user Quit Date: 40 yrs ago Tobacco use type: Cigarette Review of Systems Const Denies chills and Denies fever(s) Card Reports no additional complaints and Denies syncope Resp Denies cough GI Denies abdominal pain and Denies heartburn Reports as per HPI and Denies change in libido Neuro Denies syncope Psych Denies change in libido Endo Denies change in libido Physical Exam Const General: cooperative, healthy appearing, comfortable and no acute distress Orientation/consciousness: patient oriented x3 HEENT Face and sinus: Yes normal facial exam Mouth: moist mucous membranes Neck Neck: Yes normal visual inspection, Yes full ROM and Yes trachea midline Chest Chest palpation & inspection: normal inspection of the chest Resp Effort & Inspection: normal respiratory effort, able to speak in complete sentences and no respiratory distress GI Inspection: Yes normal to inspection Back/Spine/Pelvis Cervical Spine: normal cervical lordosis Thoracic/Lumbar Spine: thoracic and lumbar spine normal to inspection Skin General skin exam: no rashes or lesions noted Neuro General: patient oriented x3, gait normal, tone normal and moves all extremities Extrem General: Yes normal to inspection and Yes capillary refill normal Office Procedures Post Void Residual Post Residual Void Post Void Residual (PVR): 36 [id number] Void Residual by ultrasound Results AMB Urinalysis, Automated UA Leukoctes 0 [place]/uL Last Edit by TOSIN Jaquez on 04/05/23 10:07 UA Nitrite Negative Last Edit by TOSIN Jaquez on 04/05/23 10:07 UA Urobilinogen 0.2 mg/dL Last Edit by TOSIN Jaquez on 04/05/23 10:0 7 UA Protein 15 mg/dL Last Edit by TOSIN Jaquez on 04/05/23 10:07 UA pH 6.0 Last Edit by TOSIN Jaquez on 04/05/23 10:07 UA Blood 0 Davey/uL Last Edit by TOSIN Jaquez on 04/05/23 10:07 UA Specific [place] 1.030 Last Edit by TOSIN Jaquez on 04/05/23 10: 07 UA Ketone Negative Last Edit by TOSIN Jaquez on 04/05/23 10:07 UA Bilirubin 0 mg/dL Last Edit by TOSIN Jaquez on 04/05/23 10:07 UA Glucose 0 mg/dL Last Edit by TOSIN Jaquez on 04/05/23 10:07 Results Reviewed Results Reviewed: Laboratory Last Values Urine pH (Auto) 6.0 04/05/23 10:06 Specific [place] (Auto) 1.030 04/05/23 10:06 Urine Protein (Auto) 15 mg/dL 04/05/23 10:06 Glucose (UA)(Auto) 0 mg/dL 04/05/23 10:06 Urine Ketones (Auto) Negative 04/05/23 10:06 Urine Blood (Auto) 0 Davey/uL 04/05/23 10:06 Urine Nitrite (Auto) Negative 04/05/23 10:06 Urine Bilirubin (Auto) 0 mg/dL 04/05/23 10:06 Urine Urobilinogen (Auto) 0.2 mg/dL 04/05/23 10:06 Leukocyte Esterase (Auto) 0 [place]/uL 04/05/23 10:06 Assessment & Plan Assessment & Plan (1) Weak urinary stream: Code(s): R39.12 - Poor urinary stream Plan Trial bethanechol Orders: Orders AMB Post Void Residual by ultrasound Today N39.8 - Other specified disorders of urinary system AMB Urinalysis Automated Today Z13.9 - Encounter for screening, unspecified Medications: New bethanechol chloride 50 mg PO BID 30 days 60 tabs 1RF N39.0 - Urinary tract infection, site not specified, R39.12 - Poor urinary stream Patient Instructions: Imaging studies, laboratory and physical exam results were discussed and reviewed in detail. No major barriers to patient understanding were identified. An opportunity to ask questions regarding the treatment plan was provided. All questions were answered. The patient expressed understanding and agreement with the above treatment plan. The patient is aware they should contact our office by phone for worsening of their current condition or the appearance of new urologic symptoms. Compliance is encouraged with any medications and followup testing that is ordered. It is a privilege to participate in the urologic care of your patient. If you have any questions or concerns regarding treatment for the above conditions, or other urologic issues, please do not hesitate to contact me. The office telephone contact is [phone]. This note is constructed using voice recognition software. While every effort has been made to ensure accuracy tool sharpener errors may have been included. Yours sincerely, Dr Ariel Ruiz MD, [facility] - Urology Providers of Expert, Compassionate Care for the Genitourinary System Coding Level of Care Code Est Pt Level 4 (75256) Diagnoses Weak urinary stream R39.12 CPT Codes Post Residual Void - PVR CPT Code: 17920-Xzli Void Residual by ultrasound ([id number])
== END 2023-04-05 10:31 | disposition home or self-care (01) ==
PROVIDERS: Visit Provider Urology
DX: R39.12 Poor urinary stream (principal)
CPT/HCPCS: 99214

== ENCOUNTER → 2023-04-05 09:44 | Outpatient (BNVA) | payer MEDICARE, MEDICAID, SELFPAY | PROVIDERS: Visit Provider Urology | DX: R39.12 Poor urinary stream (principal) | CPT/HCPCS: 51798; 99212 ==

== ENCOUNTER 2023-04-19 07:05 | Day surgery (SDC) | payer MEDICARE, OTHER, SELFPAY ==
[2023-04-19 07:49] VITALS: BP 158/79; PULSE 78; RESP 20; TEMP 36.9; O2SAT 98; BMI 23.3
--- NOTE | 2023-04-19 09:01 | MHC.SHP ---
Pre-Procedural Eval Section A Date of Service: 04/19/23 The patient is an INPATIENT: No Changes since office visit: Yes Patient answered all questions The History & Physical has been completed within 30 days and I have reviewed it.: Yes Section B Chief Complaint: Pain in right knee Relevant Family History (Specify if Yes): Yes Relevant Social History: None Present Medications: see Short Stay Collaborative assessment Medical History: No relevant PMH History of Previous Operations: Relevant previous surgery/procedure and date(s) (TKA) Allergies: Allergies Allergy/AdvReac Type Severity Reaction Status Date / Time chlorhexidine AdvReac Rash Verified 04/05/23 09:52 iodine AdvReac Rash Verified 04/05/23 09:52 Review of Systems Sugical H&P ROS: Negative: Constitution, Cardiovascular and Respiratory Exam Surgical H&P Exam: Normal: HEENT, Normal: Heart and Normal: Lungs Plan Diagnosis/Plan: Unchanged I have reviewed the history and physical and performed a pertinent physical examination on my patient. No changes have occurred unless specified. Proceed with temporary right femoral nerve stimulator placement. Time Spent With Patient Time: Total time managing care of this patient today ____ minutes.
--- NOTE | 2023-04-19 09:02 | P.BOP_ITS ---
Brief Operative Note Date of Service: 04/19/23 Pre-op diagnosis: Chronic intractable post arthroplasty knee pain Post-op diagnosis: same Procedure: Temporary right femoral nerve stimulator placement Implants: [employer] temporary PNS system Surgeon: Jeff Torres MD Anesthesia: MAC and local Was an Lead Electrician used for this Procedure?: No Estimated blood loss (mL): 1 Pathology: none sent Condition: stable Disposition: same day
--- NOTE | 2023-04-19 09:02 | W.PM.OPN ---
Operative Note Operative Note Date of Service: 04/19/23 Narrative: Peripheral Nerve Stimulation Temporary Lead Placement, Ultrasound-Guided, Femoral Nerve, Right ? After the risks, benefits and alternatives were discussed with the patient and informed consentwas obtained, patient was placed in the supine position and padded to foster comfort. Appropriate skin and bony landmarks were identified, and pertinent vascular structures were located. The skin overlying the needle entry site was prepped and draped in sterile fashion. Ultrasound was used to identify the femoral artery, the femoral vein and the femoral nerve. After identifying and marking the intended target along the course of the femoral nerve, the skin around the planned entry point and the subcutaneous tissues were injected with local anesthetic. An introducer needle and stimulating probe were assembled, inserted and advanced along the intended course of the femoral nerve, taking care to maintain the proper depth of insertion as the introducer was advanced under ultrasound guidance. The introducer needle was delivered to a location in proximity to the nerve taking care not to puncture the femoral artery or the vein. Multiple stimulation parameters were used to deliver stimulation to the saphenous nerve in concert with stimulating at multiple positions around the nerve. Nerve target acquisition was confirmed noting generation of sensory and mild motor effects (paresthesia, muscle tension, etc) in the knee, leg and ankle; corresponding to the distribution of the femoral nerve. Various electrical parameter combinations were tested, and the lead location was adjusted (physically relocated under ultrasound guidance) until the patient indicated medial and lateral knee paresthesia and tension overlapping the distribution of the patient?s typical region of pain. The stimulating probe was removed from the introducer and a percutaneous lead was guided through the needle and delivered to a location in similar proximity to the nerve. Final location was verified with electrical stimulation and documented. The introducer needle was removed, and the exposed end of the percutaneous lead was attached to an external stimulator unit. Various electrical parameter combinations were again tested until the patient indicated paresthesia and muscle tension overlapping the distribution of the patient?s typical region of pain. After confirming that lead impedance was in the normal range, the external unit was detached, the needle was removed, and the lead was anchored at the skin. The lead was threaded into the connector block and electrical continuity and desired patient response was confirmed. The connector block was attached to the external stimulator unit. The site was covered with a sterile occlusive dressing.? A final ultrasound image was taken to document final placement. The patient was observed for stability of vital signs and comfort.
[2023-04-19 09:40] VITALS: BP 160/87; PULSE 67; RESP 20; TEMP 36.9; O2SAT 99
== END 2023-04-19 10:09 | disposition home or self-care (01) ==
PROVIDERS: PCP Family Medicine; Visit Provider Internal Medicine
PROC: (CPT 64555; principal; 2023-04-19 08:30)
DX: M25.561 Pain in right knee (principal); G89.29 Other chronic pain; M25.661 Stiffness of right knee, not elsewhere classified; Z96.651 Presence of right artificial knee joint; I10 Essential (primary) hypertension; G47.33 Obstructive sleep apnea (adult) (pediatric); J45.909 Unspecified asthma, uncomplicated; Z79.51 Long term (current) use of inhaled steroids; Z79.899 Other long term (current) drug therapy; Z88.8 Allergy status to other drugs, medicaments and biological substances; Z91.041 Radiographic dye allergy status; Z87.891 Personal history of nicotine dependence
CPT/HCPCS: 64555; C1778

== ENCOUNTER → 2023-04-19 07:05 | Outpatient (BNV) | payer MEDICARE, MEDICAID, SELFPAY | PROVIDERS: PCP Family Medicine; Visit Provider Internal Medicine | DX: M25.561 Pain in right knee (principal) | CPT/HCPCS: 64555 ==

== ENCOUNTER 2023-04-28 10:20 | Outpatient (AMB) | payer MEDICARE, OTHER, SELFPAY ==
--- NOTE | 2023-04-28 10:23 | A.OFFVIS_ITS ---
Intake Vital Signs 04/28/23 10:24 Height 6 ft Weight 173 lb BMI 23.5 BP 126/71 Blood Pressure Location Lt brachial Position Sitting Respiration 14 Pulse 81 Pulse Source Pulse Oximeter Pulse Oximetry (%) 97 Oxygen Delivery Method Room Air Intake Visit Reasons: s/p right femoral nerve Sprint Allergies chlorhexidine Adverse Reaction (Verified 04/05/23 09:52) Rash iodine Adverse Reaction (Verified 04/05/23 09:52) Rash HPI s/p right femoral nerve Sprint HPI Details 73-year-old male presenting today for a status post right femoral nerve sprint. The patient reports 60% relief from the procedure for about a week. The patient has mild stiffness with bending. He states that this stiffness started after his knee surgery. The patient endorses the appropriate paresthesia sensation from the device. He changed his dressing this morning. He denies any erythema around the site. Past Procedure: 04/19/23: Peripheral Nerve Stimulation Temporary Lead Placement, Ultrasound-G uided, Femoral Nerve, right: 60% relief, ongoing. [facility] Medical History (Updated 01/19/23 @ 09:04 by Fred Bang) Asthma Cardiomyopathy Elevated cholesterol History of COVID-19 HTN (hypertension) Hx of Crohn's disease Hx of renal calculi Indwelling Nunez catheter present Left bundle branch block Pruritus ani Seasonal allergies Sleep apnea Urinary retention Surgical History (Updated 02/27/23 @ 11:36 by Jeff Torres MD) History of esophagogastroduodenoscopy (EGD) History of hemorrhoidectomy History of total knee arthroplasty Hx of colonoscopy Hx of hernia repair Hx of knee surgery Hx of shoulder surgery Family History Father No problems noted. Mother Diabetes Social History Are you a primary career resource specialist to a significant other at home: No Do you presently have visiting nurse or other home services: No Alcohol intake: current Alcohol intake frequency: holidays/special occasions only Patient Tobacco Use Status: Former Tobacco user Quit Date: 40 yrs ago Tobacco use type: Cigarette Review of Systems Const All systems reviewed & are unremarkable except as noted in HPI and below Physical Exam Vital Signs: Last Vital Signs Pulse 81 04/28/23 10:24 Resp 14 04/28/23 10:24 BP 126/71 04/28/23 10:24 Pulse Ox 97 04/28/23 10:24 Oxygen Delivery Method Room Air 04/28/23 10:24 BMI result Body Mass Index 23.5 General: Appears afebrile. Alert and oriented. Mood and affect appropriate. Follows and participates in conversation appropriately. Respiratory effort is unlabored. Able to transition from sit to stand unassisted. Ambulates with bilaterally normal heel strike and toe off. Site is clean, dry and intact. Rash from the hair clipper that is healing well. Results Reviewed Results Reviewed: No imaging is available for review. Assessment & Plan Assessment & Plan (1) Right knee pain: Code(s): M25.561 - Pain in right knee Plan The patient will follow up in seven weeks for Sprint removal. The site is clean, dry and intact on evaluation today in the office. The dressing was changed today in the office. Scribed for Dr. Torres by Kojo Zarco, biomedical engineering director, on 04/28/2023. I, Dr. Torres, have personally reviewed and agree with the information entered by the scribe. Coding Level of Care Code Est Pt Level 3 (74885) Diagnoses Right knee pain M25.561
[2023-04-28 10:24] VITALS: BP 126/71; PULSE 81; RESP 14; O2SAT 97; BMI 23.5
== END 2023-04-28 10:34 | disposition home or self-care (01) ==
PROVIDERS: PCP Family Medicine; Visit Provider Internal Medicine
DX: M25.561 Pain in right knee (principal); Z96.82 Presence of neurostimulator
CPT/HCPCS: 99024

== ENCOUNTER → 2023-04-28 10:20 | Outpatient (BNVA) | payer MEDICARE, OTHER, SELFPAY | PROVIDERS: PCP Family Medicine; Visit Provider Internal Medicine | DX: M25.561 Pain in right knee (principal) | CPT/HCPCS: 99212 ==

== ENCOUNTER 2023-06-06 08:36 | Outpatient (AMB) | payer MEDICARE, SELFPAY ==
--- NOTE | 2023-06-06 08:51 | A.OFFVIS_ITS ---
Intake Intake Visit Reasons: 2m follow up Intake Note: Patient is present for PVR Urology Med: Finasteride, Bethanechol, Alfuzosin Antibiotic Allergy: None Blood Thinner: None Pharmacy: [facility] PVR: 61 Allergies chlorhexidine Adverse Reaction (Verified 04/05/23 09:52) Rash iodine Adverse Reaction (Verified 04/05/23 09:52) Rash Medication List - Last Reconciled 06/06/23 by Ariel Ruiz MD albuterol sulfate 90 mcg/actuation (Proventil HFA) 2 puffs inhalation Q6H PRN alfuzosin ER 10 mg PO BEDTIME 90 days amlodipine 5 mg PO DAILY 90 days baclofen 1 tab PO TID PRN bethanechol chloride 50 mg PO BID 30 days cholecalciferol (vitamin D3) 1 cap PO DAILY cyclobenzaprine 10 mg PO TID PRN docusate sodium (Colace) 100 mg PO DAILY finasteride 5 mg PO DAILY 90 days fluticasone propionate 50 mcg/actuation 2 sprays intranasal DAILY gabapentin 600 mg PO BEDTIME lisinopril 40 mg PO DAILY loratadine 10 mg PO DAILY menthol-zinc oxide 0.44-20.6 % (Calmoseptine) 1 appl topical QID PRN mesalamine 1,600 mg PO TID metoprolol succinate ER (Toprol XL) 100 mg PO DAILY 90 days omega 0-lxp-kak-fish oil 100-160-1,000 mg (Fish Oil) 1 cap PO DAILY omeprazole 20 mg PO DAILY simvastatin 20 mg PO DAILY HPI HPI Comments History of Present Illness Details German is a pleasant male. He is a patient of Dr Navarro. 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 Erectile dysfunction Trial Cialis Lower urinary tract symptoms September 2021 underwent right knee revision Retention with failed voiding trial in hospital Cystoscopy 12/14 large median lobe Prostate procedure 10/17 GreenLight laser [facility] Medical History (Updated 06/06/23 @ 09:13 by Ariel Ruiz MD) Elevated cholesterol Hx of Crohn's disease History of COVID-19 Sleep apnea Pruritus ani Urinary retention Hx of renal calculi Seasonal allergies Asthma Indwelling Nunez catheter present Cardiomyopathy HTN (hypertension) Left bundle branch block Surgical History (Updated 02/27/23 @ 11:36 by Jeff Torres MD) History of hemorrhoidectomy History of total knee arthroplasty History of esophagogastroduodenoscopy (EGD) Hx of hernia repair Hx of shoulder surgery Hx of knee surgery Hx of colonoscopy Family History Father No problems noted. Mother Diabetes Social History Are you a primary youth care professional to a significant other at home: No Do you presently have visiting nurse or other home services: No Alcohol intake: current Alcohol intake frequency: holidays/special occasions only Patient Tobacco Use Status: Former Tobacco user Quit Date: 40 yrs ago Tobacco use type: Cigarette Review of Systems Const Denies chills and Denies fever(s) Card Reports no additional complaints and Denies syncope Resp Denies cough GI Denies abdominal pain and Denies heartburn Reports as per HPI and Denies change in libido Neuro Denies syncope Psych Denies change in libido Endo Denies change in libido Physical Exam Const General: cooperative, healthy appearing, comfortable and no acute distress Orientation/consciousness: patient oriented x3 HEENT Face and sinus: Yes normal facial exam Mouth: moist mucous membranes Neck Neck: Yes normal visual inspection, Yes full ROM and Yes trachea midline Chest Chest palpation & inspection: normal inspection of the chest Resp Effort & Inspection: normal respiratory effort, able to speak in complete sentences and no respiratory distress GI Inspection: Yes normal to inspection Back/Spine/Pelvis Cervical Spine: normal cervical lordosis Thoracic/Lumbar Spine: thoracic and lumbar spine normal to inspection Skin General skin exam: no rashes or lesions noted Neuro General: patient oriented x3, gait normal, tone normal and moves all extremities Extrem General: Yes normal to inspection and Yes capillary refill normal Office Procedures Post Void Residual Post Residual Void Post Void Residual (PVR): 61 [id number] Void Residual by ultrasound Results AMB Urinalysis, Automated UA Leukoctes 70 [place]iloh/uL Last Edit by TOSIN Ayon on 06/06/23 09:03 UA Nitrite Negative Last Edit by TOSIN Ayon on 06/06/23 09:03 UA Urobilinogen 0.2 mg/dL Last Edit by Katelynn Laurent, RMA on 06/06/23 09:0 3 UA Protein 15 mg/dL Last Edit by Katelynn Laurent, RMA on 06/06/23 09:03 UA pH 5.5 Last Edit by Katelynn Laurent, RMA on 06/06/23 09:03 UA Blood 0 Davey/uL Last Edit by Katelynn Laurent, RMA on 06/06/23 09:03 UA Specific [employer] 1.020 Last Edit by Katelynn Laurent, RMA on 06/06/23 09: 03 UA Ketone Negative Last Edit by Katelynn Laurent, RMA on 06/06/23 09:03 UA Bilirubin 0 mg/dL Last Edit by Katelynn Laurent, RMA on 06/06/23 09:03 UA Glucose 0 mg/dL Last Edit by Katelynn Laurent, A on 06/06/23 09:03 Assessment & Plan Assessment & Plan (1) Erectile dysfunction: Code(s): N52.9 - Male erectile dysfunction, unspecified (2) Bladder outlet obstruction: Code(s): N32.0 - Bladder-neck obstruction (3) Weak urinary stream: Code(s): R39.12 - Poor urinary stream Plan 3 month follow-up tele Orders: Orders AMB Post Void Residual by ultrasound Today R33.9 - Retention of urine, unspecified AMB Urinalysis Automated Today Z13.9 - Encounter for screening, unspecified Medications: New tadalafil 5 mg PO DAILY 90 days 90 tabs 0RF sexual activity N52.9 - Male erectile dysfunction, unspecified Patient Instructions: Imaging studies, laboratory and physical exam results were discussed and reviewed in detail. No major barriers to patient understanding were identified. An opportunity to ask questions regarding the treatment plan was provided. All questions were answered. The patient expressed understanding and agreement with the above treatment plan. The patient is aware they should contact our office by phone for worsening of their current condition or the appearance of new urologic symptoms. Compliance is encouraged with any medications and followup testing that is ordered. It is a privilege to participate in the urologic care of your patient. If you have any questions or concerns regarding treatment for the above conditions, or other urologic issues, please do not hesitate to contact me. The office telephone contact is [phone]. This note is constructed using voice recognition software. While every effort has been made to ensure accuracy director alumni relations errors may have been included. Yours sincerely, Dr Ariel Ruiz MD, [facility] - Urology Providers of Expert, Compassionate Care for the Genitourinary System Coding Level of Care Code Est Pt Level 4 (01078) Diagnoses Erectile dysfunction N52.9 Bladder outlet obstruction N32.0 Weak urinary stream R39.12 CPT Codes Post Residual Void - PVR CPT Code: 62991-[id number] Void Residual by ultrasound ([id number])
== END 2023-06-06 09:13 | disposition home or self-care (01) ==
PROVIDERS: PCP Family Medicine; Visit Provider Urology
DX: N32.0 Bladder-neck obstruction (principal); R39.12 Poor urinary stream; N52.9 Male erectile dysfunction, unspecified; Z13.9 Encounter for screening, unspecified
CPT/HCPCS: 99214

== ENCOUNTER → 2023-06-06 08:36 | Outpatient (BNVA) | payer MEDICARE, SELFPAY | PROVIDERS: PCP Family Medicine; Visit Provider Urology | DX: N32.0 Bladder-neck obstruction (principal); R39.12 Poor urinary stream; N52.9 Male erectile dysfunction, unspecified | CPT/HCPCS: 51798; 81003; 99212 ==

== ENCOUNTER 2023-06-16 08:04 | Outpatient (AMB) | payer MEDICARE, SELFPAY ==
--- NOTE | 2023-06-16 08:13 | A.OFFVIS_ITS ---
Intake Vital Signs 06/16/23 08:15 Height 6 ft Weight 1723 lb BMI 233.7 BP 131/70 Blood Pressure Location Lt brachial Position Sitting Respiration 14 Pulse 72 Pulse Source Pulse Oximeter Pulse Oximetry (%) 98 Oxygen Delivery Method Room Air Intake Visit Reasons: Sprint removal Allergies chlorhexidine Adverse Reaction (Verified 06/16/23 08:16) Rash iodine Adverse Reaction (Verified 06/16/23 08:16) Rash Medication List - Last Reconciled 06/16/23 by Johanna Echevarria LPN albuterol sulfate 90 mcg/actuation (Proventil HFA) 2 puffs inhalation Q6H PRN alfuzosin ER 10 mg PO BEDTIME 90 days amlodipine 5 mg PO DAILY 90 days baclofen 1 tab PO TID PRN bethanechol chloride 50 mg PO BID 90 days cholecalciferol (vitamin D3) 1 cap PO DAILY cyclobenzaprine 10 mg PO TID PRN docusate sodium (Colace) 100 mg PO DAILY finasteride 5 mg PO DAILY 90 days fluticasone propionate 50 mcg/actuation 2 sprays intranasal DAILY gabapentin 600 mg PO BEDTIME lisinopril 40 mg PO DAILY loratadine 10 mg PO DAILY menthol-zinc oxide 0.44-20.6 % (Calmoseptine) 1 appl topical QID PRN mesalamine 1,600 mg PO TID metoprolol succinate ER (Toprol XL) 100 mg PO DAILY 90 days omega 7-fjy-qta-fish oil 100-160-1,000 mg (Fish Oil) 1 cap PO DAILY omeprazole 20 mg PO DAILY simvastatin 20 mg PO DAILY tadalafil 5 mg PO DAILY 90 days HPI Sprint removal HPI Details 73-year-old male who presents today to t he office for a sprint removal. The patient states that his knee and leg pain are completely resolved. The patient had knee replacement surgery recently and has difficulty bending his knee. He continues to have some stiffness which we had discussed prior to putting the stimulator that it is unlikely to improve. Past Procedure: 04/19/23: Peripheral Nerve Stimulation Te mporary Lead Placement, Ultrasound- Guided, Femoral Nerve, right: 90% relief. [facility] Medical History (Updated 06/16/23 @ 09:21 by Jeff Torres MD) Elevated cholesterol Hx of Crohn's disease History of COVID-19 Sleep apnea Pruritus ani Urinary retention Hx of renal calculi Seasonal allergies Asthma Indwelling Nunez catheter present Cardiomyopathy HTN (hypertension) Left bundle branch block Surgical History (Updated 02/27/23 @ 11:36 by Jeff Torres MD) History of hemorrhoidectomy History of total knee arthroplasty History of esophagogastroduodenoscopy (EGD) Hx of hernia repair Hx of shoulder surgery Hx of knee surgery Hx of colonoscopy Family History Father No problems noted. Mother Diabetes Social History Are you a primary acute care registered nurse to a significant other at home: No Do you presently have visiting nurse or other home services: No Alcohol intake: current Alcohol intake frequency: holidays/special occasions only Patient Tobacco Use Status: Former Tobacco user Quit Date: 40 yrs ago Tobacco use type: Cigarette Review of Systems Const All systems reviewed & are unremarkable except as noted in HPI and below Physical Exam Vital Signs: Last Vital Signs Pulse 72 06/16/23 08:15 Resp 14 06/16/23 08:15 BP 131/70 06/16/23 08:15 Pulse Ox 98 06/16/23 08:15 Oxygen Delivery Method Room Air 06/16/23 08:15 BMI result Body Mass Index 233.7 General: Appears afebrile. Alert and oriented. Mood and affect appropriate. Follows and participates in conversation appropriately. Respiratory effort is unlabored. Able to transition from sit to stand unassisted. Ambulates with bilaterally normal heel strike and toe off. Results Reviewed Results Reviewed: No imaging is available for review. Assessment & Plan Assessment & Plan (1) Right knee pain: Code(s): M25.561 - Pain in right knee Qualifiers: Chronicity: chronic Qualified Code(s): M25.561 - Pain in right knee; G89.29 - Other chronic pain Plan The site was clean, dry, and intact. The Sprint device was removed today in the office. The patient will follow up as needed. Scribed for Dr. Torres by Kojo Zarco, medical affairs specialist, on 06/16/2023. I, Dr. Torres, have personally reviewed and agree with the information entered by the scribe. Coding Level of Care Code Est Pt Level 3 (73207) Diagnoses Chronic pain of right knee M25.561; G89.29 Chronicity: chronic
[2023-06-16 08:15] VITALS: BP 131/70; PULSE 72; RESP 14; O2SAT 98; BMI 233.7
== END 2023-06-16 08:24 | disposition home or self-care (01) ==
PROVIDERS: PCP Family Medicine; Visit Provider Internal Medicine
DX: G89.29 Other chronic pain (principal); M25.561 Pain in right knee; Z45.42 Encounter for adjustment and management of neurostimulator
CPT/HCPCS: 63661; 99213

== ENCOUNTER → 2023-06-16 08:04 | Outpatient (BNVA) | payer MEDICARE, SELFPAY | PROVIDERS: PCP Family Medicine; Visit Provider Internal Medicine | DX: G89.29 Other chronic pain (principal); M25.561 Pain in right knee | CPT/HCPCS: 63661; 99212 ==

== ENCOUNTER 2023-07-31 12:19 | Outpatient (AMB) | payer MEDICARE, SELFPAY ==
--- NOTE | 2023-07-31 12:21 | MHC.OFFVIS ---
Intake Vital Signs 07/31/23 12:22 Height 6 ft Weight 173 lb BMI 23.5 Intake Visit Reasons: ov- History of total knee arthroplasty Intake Note: German is a 73 year old female who presents today for a follow up of right knee s/p TKA on 11/05/19 & JENNI on 10/27/21. Last visit he was referred to pain mgmt who implanted a sprint device which did completely resolve his pain. He continues to have some mild stiffness. Allergies chlorhexidine Adverse Reaction (Verified 07/31/23 12:22) Rash iodine Adverse Reaction (Verified 07/31/23 12:22) Rash HPI ov- History of total knee arthroplasty HPI Details German is a 73 year old man who returns to discuss his left knee pain & swelling. He has been seen by Pain Management and had a PNS trial device implanted on 04/19/23. He says this almost completely resolved his pain. The device was removed on 06/16/23, and his pain has not returned. He is S/P right knee JENNI, DOS: 10/27/21, after a TKA on 11/05/19 by me. Prior to the PNS trial, he had pressure & limited ROM in his knee, along with increased pain when he tries to flex his knee beyond 90 degrees. He says his knee continues to be stiff however. He complains of worsening left knee pain today. He says he injured his knee ~2 weeks ago and this has been slightly improving since. He says his knee catching occasionally, and feels somewhat weak, but he denies it giving way. He has left knee OA and received an injected on 06/23/23, with good relief. [facility] Medical History Elevated cholesterol Hx of Crohn's disease History of COVID-19 Sleep apnea Pruritus ani Urinary retention Hx of renal calculi Seasonal allergies Asthma Indwelling Nunez catheter present Cardiomyopathy HTN (hypertension) Left bundle branch block Surgical History History of hemorrhoidectomy History of total knee arthroplasty History of esophagogastroduodenoscopy (EGD) Hx of hernia repair Hx of shoulder surgery Hx of knee surgery Hx of colonoscopy Family History Father No problems noted. Mother Diabetes Social History Are you a primary health and social care teacher to a significant other at home: No Do you presently have visiting nurse or other home services: No Alcohol intake: current Alcohol intake frequency: holidays/special occasions only Patient Tobacco Use Status: Former Tobacco user Quit Date: 40 yrs ago Tobacco use type: Cigarette Review of Systems Const All systems reviewed & are unremarkable except as noted in HPI and below Physical Exam Vital Signs: BMI result Body Mass Index 23.5 Const General: no acute distress, alert and awake Orientation/consciousness: patient oriented x3 HEENT Head: Yes normocephalic and Yes atraumatic Eyes EOM: EOMs intact bilaterally Resp Effort & Inspection: normal respiratory effort and able to speak in complete sentences Cardio Jugular venous distension: no JVD Skin General skin exam: turgor normal Rashes: no rashes Neuro General: patient oriented x3 Extrem Other: Left knee with tenderness to palpation over the femoral insertion of the MCL. Mild joint line tenderness as well with positive medial Alva's. Psych Appearance: grossly normal Affect: normal affect Attitude: cooperative Assessment & Plan Assessment & Plan (1) History of total knee arthroplasty: Comment: 10/2019--right Code(s): Z96.659 - Presence of unspecified artificial knee joint (2) MCL sprain of left knee: Code(s): S83.412A - Sprain of medial collateral ligament of left knee, initial encounter Plan: Seven 3-year-old with a sprain of his MCL the left knee. I can not rule out meniscus pathology but he is improving without intervention after 2 weeks. I recommend he continue activity as tolerated and he is not completely improved within 6 weeks or return to see me. Plan Scribed for Mitchell Horton MD by Fred Bang, biomedical manager, on 07/31/23 at 12:45 PM, EST. Coding Level of Care Code Est Pt Level 3 (18559) Diagnoses History of total knee arthroplasty Z96.659 MCL sprain of left knee S83.412A
[2023-07-31 12:22] VITALS: BMI 23.5
== END 2023-07-31 13:13 | disposition home or self-care (01) ==
PROVIDERS: PCP Family Medicine; Visit Provider Orthopaedic Surgery
DX: S83.412A Sprain of medial collateral ligament of left knee, initial encounter (principal); Z96.651 Presence of right artificial knee joint
CPT/HCPCS: 99213

== ENCOUNTER → 2023-07-31 12:19 | Outpatient (BNVA) | payer MEDICARE, SELFPAY | PROVIDERS: PCP Family Medicine; Visit Provider Orthopaedic Surgery | DX: S83.412A Sprain of medial collateral ligament of left knee, initial encounter (principal); M17.12 Unilateral primary osteoarthritis, left knee; Z96.651 Presence of right artificial knee joint | CPT/HCPCS: 99212 ==

== ENCOUNTER → 2023-08-13 19:30 | Outpatient (REF) | payer MEDICARE, SELFPAY | LOC: HO.SL 19:30 | PROVIDERS: PCP Family Medicine; Visit Provider Family Medicine | DX: G47.33 Obstructive sleep apnea (adult) (pediatric) (principal) | CPT/HCPCS: 95810 ==

== ENCOUNTER → 2023-08-13 19:30 | Outpatient (BNV) | payer MEDICARE, SELFPAY | PROVIDERS: PCP Family Medicine; Visit Provider Psychiatry & Neurology Neurology | DX: G47.33 Obstructive sleep apnea (adult) (pediatric) (principal) | CPT/HCPCS: 95810 ==

== ENCOUNTER 2023-09-08 08:50 | Outpatient (AMB) | payer MEDICARE, SELFPAY ==
--- NOTE | 2023-09-08 08:50 | A.OFFVIS_ITS ---
Intake Intake Visit Reasons: 3m follow up Intake Note: Patient is Present for Telephone Follow Up Urology Med: Alfuzosin, Bethanechol, Finasteride, Tadalafil Antibiotic Allergy: None Blood Thinner: None Allergies chlorhexidine Adverse Reaction (Verified 09/08/23 08:51) Rash iodine Adverse Reaction (Verified 09/08/23 08:51) Rash HPI HPI Comments History of Present Illness Details German is a pleasant male. He is a patient of Dr Navarro. 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 Erectile dysfunction Partial response to daily tadalafil Lower urinary tract symptoms September 2021 underwent right knee revision Retention with failed voiding trial in hospital Cystoscopy 12/14 large median lobe Prostate procedure 10/17 GreenLight laser [facility] Medical History Elevated cholesterol Hx of Crohn's disease History of COVID-19 Sleep apnea Pruritus ani Urinary retention Hx of renal calculi Seasonal allergies Asthma Indwelling Nunez catheter present Cardiomyopathy HTN (hypertension) Left bundle branch block Surgical History History of hemorrhoidectomy History of total knee arthroplasty History of esophagogastroduodenoscopy (EGD) Hx of hernia repair Hx of shoulder surgery Hx of knee surgery Hx of colonoscopy Family History Father No problems noted. Mother Diabetes Social History Are you a primary child caregiver private home to a significant other at home: No Do you presently have visiting nurse or other home services: No Alcohol intake: current Alcohol intake frequency: holidays/special occasions only Patient Tobacco Use Status: Former Tobacco user Quit Date: 40 yrs ago Tobacco use type: Cigarette Review of Systems Const All systems reviewed & are unremarkable except as noted in HPI and below Reports no additional complaints Resp Reports no additional complaints GI Reports no additional complaints Reports as per HPI Musc Reports no additional complaints Physical Exam Telemedicine evaluation Appropriate responses Regular breathing rate and rhythm HEENT Head: Yes normal to inspection Ears: hearing grossly normal bilaterally Eyes General: appearance normal, both eyes and all related structures Neck Neck: Yes normal visual inspection Chest Chest palpation & inspection: normal inspection of the chest Resp Effort & Inspection: normal respiratory effort and able to speak in complete sentences Assessment & Plan Assessment & Plan (1) Erectile dysfunction: Code(s): N52.9 - Male erectile dysfunction, unspecified (2) Incomplete emptying of bladder due to benign prostatic hyperplasia: Code(s): N40.1 - Benign prostatic hyperplasia with lower urinary tract symptoms; R33.9 - Retention of urine, unspecified Plan Three month follow-up PVR Medications: New tadalafil On demand medication take 60 minutes before intended activity 20 mg PO ONCE PRN 30 tabs 0RF sexual activity 30 days N52.9 - Male erectile dysfunction, unspecified Discontinued bethanechol chloride Discontinued Reason: Doctor's Order 50 mg PO BID 180 tabs 1RF 90 days N39.0 - Urinary tract infection, site not specified, R39.12 - Poor urinary stream Patient Instructions: Imaging studies, laboratory and physical exam results were discussed and reviewed in detail. No major barriers to patient understanding were identified. An opportunity to ask questions regarding the treatment plan was provided. All questions were answered. The patient expressed understanding and agreement with the above treatment plan. The patient is aware they should contact our office by phone for worsening of their current condition or the appearance of new urologic symptoms. Compliance is encouraged with any medications and followup testing that is ordered. It is a privilege to participate in the urologic care of your patient. If you have any questions or concerns regarding treatment for the above conditions, or other urologic issues, please do not hesitate to contact me. The office telephone contact is [phone]. This note is constructed using voice recognition software. While every effort has been made to ensure accuracy geographic information systems director errors may have been included. Yours sincerely, Dr Ariel Ruiz MD, [facility] - Urology Providers of Expert, Compassionate Care for the Genitourinary System Telehealth Telehealth Location of provider rendering services: practice address Location of patient: address on file Patient Identification confirmed using: Name, : Yes Telehealth method: video Patient verbally consented to treatment: Yes Patient verbally consented to billing insurance company: Yes Patient informed of any privacy concerns related to visit: Yes Coding Level of Care Code Tele Est Pt Level 3 (00398) Diagnoses Erectile dysfunction N52.9 Incomplete emptying of bladder due to benign prostatic hyperplasia N40.1; R33.9
== END 2023-09-08 09:56 | disposition home or self-care (01) ==
LOC: HO.HUSH 08:50
PROVIDERS: PCP Family Medicine; Visit Provider Urology
DX: N52.9 Male erectile dysfunction, unspecified (principal); N40.1 Benign prostatic hyperplasia with lower urinary tract symptoms; R33.9 Retention of urine, unspecified
CPT/HCPCS: 99213

== ENCOUNTER → 2023-09-08 08:50 | Outpatient (BNVA) | payer MEDICARE, SELFPAY | PROVIDERS: PCP Family Medicine; Visit Provider Urology ==

== ENCOUNTER → 2023-10-25 12:40 | Outpatient (REF) | payer MEDICARE, SELFPAY ==
--- NOTE | 2023-10-25 12:43 | CA_ITS ---
Transthoracic Echocardiogram Patient (Last, First, Middle): German Hassan A Gender: Male Date of : 1950 Age: 73 Procedure Date: 10/25/2023 Procedure Type: Transthoracic Echocardiogram Location: OP Height: 182.88 cm Weight: 79.38 kg BSA: 2.01 m2 Heart Rate: 61 bpm BP: 152 / 76 mmHg Wrapper Rewinder: TONY Referring MD: Kareem Neri MD Cpa Tax: Kareem Neri MD Symptoms: I42.9 - Cardiomyopathy, unspecified Study Quality: Adequate ECG Rhythm: Sinus Conclusions: - 1. Low normal LV ejection fraction 50-55% with mild LVH with impaired relaxation filling pattern 2. Cardiac valvular Dopplers within normal limits 3. Mildly dilated ascending aorta at 4.2 cm 4. No gross pericardial effusion Findings Left Ventricle Normal left ventricular cavity size. There is mildly increased left ventricular wall thickness. The left ventricular systolic function is low normal. The visually estimated ejection fraction is between 50-55%. Spectral Doppler is indicative of an impaired relaxation filling pattern. E/E prime ratio is between 8 and 15 consistent with indeterminate filling pressures. Peak GLS is -13%, which is moderately reduced. Right Ventricle Normal right ventricular cavity size and systolic function. Atria The left atrium is likely dilated. Interatrial shunt cannot be excluded. The right atrium is normal in size. Aortic Valve Normal aortic valve structure and function. There is no aortic valve stenosis. There is no aortic valve regurgitation. Mitral Valve There is mild anterior and posterior mitral leaflet thickening. There is trace mitral valve regurgitation. There is no mitral valve stenosis. Pulmonic Valve The pulmonic valve is likely normal. There is trace pulmonic valve regurgitation. Tricuspid Valve Likely normal tricuspid valve structure and function. Tricuspid regurgitation envelope is inadequate for calculation of right ventricular systolic pressure. Normal right atrial pressure. Great Vessels The pulmonary artery was not well visualized. There is mild dilatation of the ascending aorta measuring 4.20 cm. Venous The inferior vena cava is normal in size and collapses greater than 50% with inspiration. Pericardium/Pleural There is no evidence of pericardial effusion. Prior Study Comparison Changes noted compared to prior study dated: 08/03/2022. marginal improvement in LV systolic function. ascending aorta is mildly dilated. Delay in reporting due to technical issues Measurements 2D Linear Measurements IVSd: 1.21 0.6-0.9/0.6-1.0 cm LVIDd: 5.08 3.9-5.3/4.2-5.9 cm LVIDd Index: 2.53 2.4-3.2/2.2-3.1 cm/m2 LVIDs: 3.87 2.0-3.6 cm LVPWd: 1.04 0.7-1.1 cm LA Diam: 3.80 2.7-3.8/3.0-4.0 cm LAIDs Index: 1.89 1.5-2.3 cm/m2 LV Mass: 273.25 67-162/88-224 g LV Mass Index: 135.94 43-95/49-115 g/m2 LVOT Diam: 2.20 3.0+(-)1.3 cm 2D Systolic Function EF 4C: 50.10 >55% EF 2C: 57.40 >55% EF BiP: 53.50 >55% Mitral Valve MV Pk E: 0.67 MV PK A: 0.92 MV Decel Time: 211.00 E/A: 0.70 E'Lateral: 7.83 E'Medial: 3.37 E/E' Med: 20.00 E/E' Lat: 8.60 PHT: 62.00 MVA PHT: 3.55 Decel [place]: 3.19 Aortic Valve AoV Pk Alex: 1.25 AoV Pk Grad: 6.00 TAMRA: 3.00 LVOT LVOT Pk Alex: 1.04 LVOT Mn Alex: 0.77 LVOT VTI: 0.24 LVOT Pk Grad: 4.00 LVOT Mn Grad: 3.00 LVOT Diam: 2.20 LVOT Area: 3.80 Diastolic Function MV Pk E: 0.67 MV Pk A: 0.92 E/A: 0.70 E'Medial: 3.37 E/E' Med: 20.00 E' Laterial: 7.83 E/E' Lat: 8.60 Right Ventricle TAPSE (mm): 26.30 TVS' Alex: 13.10 Tricuspid Valve RA Press: 8.00 Great Vessels Aorta Sinus of Valsalva: 4.10 2.0-3.5 cm Ao Asc: 4.20 2.1-3.4 cm Ao Arch: 3.40 Pulmonary Valve PV Pk Alex: 0.98 Peak PV Grad: 4.00 Updated in Other Vendor System with Status of Final Kareem Neri MD electronically signed on 10/27/2023 9:14:15 AM with status of Final
== END ==
LOC: HO.CARD 12:40
PROVIDERS: PCP Family Medicine; Visit Provider Internal Medicine Cardiovascular Disease
DX: I42.9 Cardiomyopathy, unspecified (principal)
CPT/HCPCS: 93306; 93356

== ENCOUNTER → 2023-10-25 12:43 | Outpatient (BNV) | payer MEDICARE, SELFPAY | PROVIDERS: PCP Family Medicine; Visit Provider Internal Medicine Cardiovascular Disease | DX: I42.9 Cardiomyopathy, unspecified (principal) | CPT/HCPCS: 93306 ==

== ENCOUNTER 2023-11-29 11:14 | Outpatient (AMB) | payer MEDICARE, SELFPAY ==
[2023-11-29 11:26] VITALS: BP 132/80; PULSE 72; BMI 23.3
--- NOTE | 2023-11-29 11:26 | MHC.OFFVIS ---
Intake Vital Signs 11/29/23 11:26 Height 6 ft Weight 171 lb 15.369 oz BMI 23.3 BP 132/80 Blood Pressure Location Lt brachial Position Sitting Pulse 72 Intake Visit Reasons: follow-up after echo Intake Note: follow up after ECHO with EKG Allergies chlorhexidine Adverse Reaction (Verified 09/08/23 08:51) Rash iodine Adverse Reaction (Verified 09/08/23 08:51) Rash Medication List - Last Reconciled 11/29/23 by Kareem Neri MD albuterol sulfate 90 mcg/actuation (Proventil HFA) 2 puffs inhalation Q6H PRN alfuzosin ER 10 mg PO BEDTIME 90 days amlodipine 5 mg PO DAILY 90 days baclofen 1 tab PO TID PRN cholecalciferol (vitamin D3) 1 cap PO DAILY cyclobenzaprine 10 mg PO TID PRN docusate sodium (Colace) 100 mg PO DAILY finasteride 5 mg PO DAILY 90 days fluticasone propionate 50 mcg/actuation 2 sprays intranasal DAILY gabapentin 600 mg PO BEDTIME lisinopril 40 mg PO DAILY loratadine 10 mg PO DAILY menthol-zinc oxide 0.44-20.6 % (Calmoseptine) 1 appl topical QID PRN mesalamine 1,600 mg PO TID metoprolol succinate ER (Toprol XL) 100 mg PO DAILY 90 days omega 4-mtz-eln-fish oil 100-160-1,000 mg (Fish Oil) 1 cap PO DAILY omeprazole 20 mg PO DAILY simvastatin 20 mg PO DAILY tadalafil 20 mg PO ONCE PRN 30 days tadalafil 5 mg PO DAILY 90 days HPI HPI Comments History of Present Illness Details German comes for follow-up. He has been doing well from cardiac perspective. Denies any lightheadedness, syncope. Takes all his medications. Denies any exertional chest pain or shortness of breath. Said he walks on a regular basis. Recent echocardiogram shows low normal LVEF of 50-55% with mild thoracic aortic aneurysm. Blood pressures been well controlled. Denies any heart failure symptoms of shortness of breath, orthopnea, PND, leg edema, abdominal distension. [facility] Medical History Elevated cholesterol Hx of Crohn's disease History of COVID-19 Sleep apnea Pruritus ani Urinary retention Hx of renal calculi Seasonal allergies Asthma Indwelling Nunez catheter present Cardiomyopathy HTN (hypertension) Left bundle branch block Surgical History History of hemorrhoidectomy History of total knee arthroplasty History of esophagogastroduodenoscopy (EGD) Hx of hernia repair Hx of shoulder surgery Hx of knee surgery Hx of colonoscopy Family History Father No problems noted. Mother Diabetes Social History Are you a primary critical care nurse specialist to a significant other at home: No Do you presently have visiting nurse or other home services: No Alcohol intake: current Alcohol intake frequency: holidays/special occasions only Patient Tobacco Use Status: Former Tobacco user Quit Date: 40 yrs ago Tobacco use type: Cigarette Review of Systems Const Denies weakness ENT Denies dizziness Card Denies chest pain, Denies chest pain with activity, Denies syncope, Denies rapid heart rate, Denies pedal edema, Denies edema, Denies leg edema, Denies lightheadedness, Denies palpitations, Denies dyspnea, Denies dyspnea on exertion and Denies orthopnea Resp Denies cough, Denies dyspnea and Denies dyspnea on exertion GI Denies hematochezia and Denies change in stool character Musc Denies abnormal gait, Denies muscle cramps, Denies muscle weakness, Denies numbness, Denies radiating pain into limb and Denies tingling Neuro Denies abnormal gait, Denies dizziness, Denies syncope, Denies numbness, Denies tingling and Denies weakness Endo Denies palpitations Physical Exam Vital Signs: Last Vital Signs Pulse 72 11/29/23 11:26 BP 132/80 11/29/23 11:26 BMI result Body Mass Index 23.3 Const General: cooperative, comfortable, alert, awake and well groomed Nutritional Appearance: average body habitus Orientation/consciousness: patient oriented x3 Limitations: no limitations HEENT Head: Yes normocephalic and Yes atraumatic Neck Neck: Yes trachea midline, Yes supple and Yes no JVD Resp Effort & Inspection: normal respiratory effort Auscultation: clear to auscultation bilaterally Cardio Jugular venous distension: no JVD Palpation: normal PMI Rate: regular rate Rhythm: regular rhythm Heart sounds: S1 normal heart sound present and S2 normal heart sound present GI Auscultation: normal bowel sounds Skin General skin exam: no rashes or lesions noted Neuro General: patient oriented x3 and no focal motor deficits Extrem General: Yes no clubbing, cyanosis or edema Psych Appearance: grossly normal Office Procedures EKG Details: EKG shows normal sinus rhythm with left bundle-branch block, unchanged [id number], Complete Assessment & Plan Assessment & Plan (1) Cardiomyopathy: Comment: follows w/Dr. Neri[facility] Code(s): I42.9 - Cardiomyopathy, unspecified Plan: Prior cardiomyopathy with improved LV EF to 50-55% neurohormonal modulation metoprolol lisinopril and adequate blood pressure control. He is doing very well with good functional capacity. No signs or symptoms of heart failure. Continue aggressively neurohormonal modulation with lisinopril as well as metoprolol therapy. Most likely cardiomyopathy related to left bundle-branch block. There is no evidence of ischemia from before. Continue aggressive blood pressure control. Continue CPAP therapy for sleep apnea. Advised to call me with any new symptoms. (2) Thoracic aortic aneurysm: Code(s): I71.20 - Thoracic aortic aneurysm, without rupture, unspecified Plan: Mild thoracic aortic aneurysm without any symptoms. No interventions required. Continue aggressive blood pressure control which is currently well optimized advised to avoid sudden strenuous isometric exercise. Follow-up echocardiogram in 1 year's time. (3) Left bundle branch block: Code(s): I44.7 - Left bundle-branch block, unspecified Plan: Idiopathic left bundle-branch block without any new symptoms. LV ejection fraction is improved with medical therapy. Will continue monitor by echocardiogram. No other symptoms and no further therapy is indicated. Will follow up in the clinic in 1 year's time, sooner p.r.n.. Thank you for allowing me to partake in his care Coding Level of Care Code Est Pt Level 4 (24637) Diagnoses Cardiomyopathy I42.9 Thoracic aortic aneurysm I71.20 Left bundle branch block I44.7 CPT Codes EKG - CPT: 05304-[id number], Complete ([id number])
== END 2023-11-29 11:45 | disposition home or self-care (01) ==
PROVIDERS: PCP Family Medicine; Visit Provider Internal Medicine Cardiovascular Disease
DX: I42.9 Cardiomyopathy, unspecified (principal); I71.20 Thoracic aortic aneurysm, without rupture, unspecified; I44.7 Left bundle-branch block, unspecified
CPT/HCPCS: 93010; 99214

== ENCOUNTER → 2023-11-29 11:14 | Outpatient (BNVA) | payer MEDICARE, SELFPAY | PROVIDERS: PCP Family Medicine; Visit Provider Internal Medicine Cardiovascular Disease | DX: I42.9 Cardiomyopathy, unspecified (principal); I71.20 Thoracic aortic aneurysm, without rupture, unspecified; I44.7 Left bundle-branch block, unspecified | CPT/HCPCS: 93005; 99212 ==

== ENCOUNTER → 2023-12-12 10:19 | Outpatient (BNVA) | payer MEDICARE, SELFPAY | PROVIDERS: PCP Family Medicine; Visit Provider Urology | DX: N40.1 Benign prostatic hyperplasia with lower urinary tract symptoms (principal); R33.8 Other retention of urine | CPT/HCPCS: 51798 ==

== ENCOUNTER 2024-01-09 08:42 | Outpatient (AMB) | payer MEDICARE, SELFPAY ==
--- NOTE | 2024-01-09 08:46 | MHC.OFFVIS ---
Intake Intake Visit Reasons: 3m/PVR(Confrimed) Intake Note: Patient is Present for Follow Up Urology Medication: Alfuzosin, Finasteride, Tadalafil Antibiotic Allergies: None Blood Thinners: None Pharmacy: [facility] [place] Last PVR: 61 PVR: 11 Allergies chlorhexidine Adverse Reaction (Verified 01/09/24 08:51) Rash iodine Adverse Reaction (Verified 01/09/24 08:51) Rash Medication List - Last Reconciled 01/09/24 by Ariel Ruiz MD albuterol sulfate 90 mcg/actuation (Proventil HFA) 2 puffs inhalation Q6H PRN amlodipine 5 mg PO DAILY 90 days atorvastatin 80 mg PO DAILY baclofen 1 tab PO TID PRN cholecalciferol (vitamin D3) 1 cap PO DAILY cyclobenzaprine 10 mg PO TID PRN docusate sodium (Colace) 100 mg PO DAILY fluticasone propionate 50 mcg/actuation 2 sprays intranasal DAILY gabapentin 600 mg PO BEDTIME lisinopril 40 mg PO DAILY loratadine 10 mg PO DAILY melatonin 5 - 10 mg PO BEDTIME PRN menthol-zinc oxide 0.44-20.6 % (Calmoseptine) 1 appl topical QID PRN mesalamine 1,600 mg PO TID metoprolol succinate ER (Toprol XL) 100 mg PO DAILY 90 days omega 7-eqx-krd-fish oil 100-160-1,000 mg (Fish Oil) 1 cap PO DAILY omeprazole 20 mg PO DAILY simvastatin 20 mg PO DAILY tadalafil 20 mg PO ONCE PRN 30 days tadalafil 5 mg PO DAILY 90 days HPI HPI Comments History of Present Illness Details German is a pleasant male. He is a patient of Dr Navarro. 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 12 month follow-up check PSA Off prostate meds Erectile dysfunction Partial response to daily tadalafil Lower urinary tract symptoms September 2021 underwent right knee revision Retention with failed voiding trial in hospital Cystoscopy 12/14 large median lobe Prostate procedure 10/17 GreenLight laser Had required bethanechol postoperatively to allow bladder emptying PFSH Medical History Elevated cholesterol Hx of Crohn's disease History of COVID-19 Sleep apnea Pruritus ani Urinary retention Hx of renal calculi Seasonal allergies Asthma Indwelling Nunez catheter present Cardiomyopathy HTN (hypertension) Left bundle branch block Surgical History History of hemorrhoidectomy History of total knee arthroplasty History of esophagogastroduodenoscopy (EGD) Hx of hernia repair Hx of shoulder surgery Hx of knee surgery Hx of colonoscopy Family History Father No problems noted. Mother Diabetes Social History Are you a primary respiratory care program director to a significant other at home: No Do you presently have visiting nurse or other home services: No Alcohol intake: current Alcohol intake frequency: holidays/special occasions only Patient Tobacco Use Status: Former Tobacco user Quit Date: 40 yrs ago Tobacco use type: Cigarette Review of Systems Const Denies chills and Denies fever(s) Card Reports no additional complaints and Denies syncope Resp Denies cough GI Denies abdominal pain and Denies heartburn Reports as per HPI and Denies change in libido Neuro Denies syncope Psych Denies change in libido Endo Denies change in libido Physical Exam Const General: cooperative, healthy appearing, comfortable and no acute distress Orientation/consciousness: patient oriented x3 HEENT Face and sinus: Yes normal facial exam Mouth: moist mucous membranes Neck Neck: Yes normal visual inspection, Yes full ROM and Yes trachea midline Chest Chest palpation & inspection: normal inspection of the chest Resp Effort & Inspection: normal respiratory effort, able to speak in complete sentences and no respiratory distress GI Inspection: Yes normal to inspection Back/Spine/Pelvis Cervical Spine: normal cervical lordosis Thoracic/Lumbar Spine: thoracic and lumbar spine normal to inspection Skin General skin exam: no rashes or lesions noted Neuro General: patient oriented x3, gait normal, tone normal and moves all extremities Extrem General: Yes normal to inspection and Yes capillary refill normal Office Procedures Post Void Residual Post Residual Void Post Void Residual (PVR): 11 [id number] Void Residual by ultrasound Assessment & Plan Assessment & Plan (1) Erectile dysfunction: Code(s): N52.9 - Male erectile dysfunction, unspecified (2) Bladder outlet obstruction: Code(s): N32.0 - Bladder-neck obstruction Plan Twelve month follow-up PSA and PVR Orders: Orders AMB Post Void Residual by ultrasound Today N40.1 - Benign prostatic hyperplasia with lower urinary tract symptoms, R33.9 - Retention of urine, unspecified Prostate Specific Antigen 364 Days N40.1 - Benign prostatic hyperplasia with lower urinary tract symptoms, R33.9 - Retention of urine, unspecified Medications: Discontinued finasteride Discontinued Reason: Patient Completed Course 5 mg PO DAILY 90 days 90 tabs 0RF N13.8 - Other obstructive and reflux uropathy, N32.0 - Bladder-neck obstruction, N40.1 - Benign prostatic hyperplasia with lower urinary tract symptoms, R33.9 - Retention of urine, unspecified alfuzosin ER Discontinued Reason: Doctor's Order 10 mg PO BEDTIME 90 days 90 tabs 3RF Patient Instructions: Imaging studies, laboratory and physical exam results were discussed and reviewed in detail. No major barriers to patient understanding were identified. An opportunity to ask questions regarding the treatment plan was provided. All questions were answered. The patient expressed understanding and agreement with the above treatment plan. The patient is aware they should contact our office by phone for worsening of their current condition or the appearance of new urologic symptoms. Compliance is encouraged with any medications and followup testing that is ordered. It is a privilege to participate in the urologic care of your patient. If you have any questions or concerns regarding treatment for the above conditions, or other urologic issues, please do not hesitate to contact me. The office telephone contact is [phone]. This note is constructed using voice recognition software. While every effort has been made to ensure accuracy chef passenger vessel errors may have been included. Yours sincerely, Dr Ariel Ruiz MD, [facility] - Urology Providers of Expert, Compassionate Care for the Genitourinary System Coding Level of Care Code Est Pt Level 4 (10557) Diagnoses Erectile dysfunction N52.9 Bladder outlet obstruction N32.0 CPT Codes Post Residual Void - PVR CPT Code: 50129-Zugi Void Residual by ultrasound ([id number])
== END 2024-01-09 09:16 | disposition home or self-care (01) ==
PROVIDERS: PCP Family Medicine; Visit Provider Urology
DX: N52.9 Male erectile dysfunction, unspecified (principal); N32.0 Bladder-neck obstruction
CPT/HCPCS: 99213

== ENCOUNTER → 2024-01-09 08:42 | Outpatient (BNVA) | payer MEDICARE, SELFPAY | PROVIDERS: PCP Family Medicine; Visit Provider Urology | DX: N52.9 Male erectile dysfunction, unspecified (principal); N32.0 Bladder-neck obstruction | CPT/HCPCS: 51798; 99212 ==

== ENCOUNTER 2024-01-25 16:38 | Outpatient (REF) | payer MEDICARE, SELFPAY | END 2024-01-25 16:39 | disposition home or self-care (01) | LOC: HO.HHCLNP 16:38 | PROVIDERS: Visit Provider Family Medicine | DX: M25.561 Pain in right knee (principal); M25.562 Pain in left knee; G89.29 Other chronic pain | CPT/HCPCS: 36415; 80353 ==

== ENCOUNTER 2024-02-13 06:17 | Outpatient (REF) | payer MEDICARE, SELFPAY ==
[2024-02-13 06:37] LABS: MANUAL DIFF FLAG NO
[2024-02-13 07:33] LABS: Basophils Percent Auto 0.6 % (0-2); Eosinophils Absolute Auto 0.3 X10*3/uL (0.0-0.4); Eosinophils Percent Auto 5.3 % (0-4); Hematocrit 38.7 % (42.0-52.0); Hemoglobin 12.8 g/dl (14.0-18.0); Imm Gran Abs Auto 0.01 X10*3/uL (0.00-0.03); Imm Gran Pct Auto 0.2 % (0.0-0.4); Lymphocytes Absolute Auto 1.9 X10*3/uL (1.2-4.9); Lymphocytes Percent Auto 39.4 % (20-40); Mean Corpuscular HGB Conc 33.1 g/dl (31.0-36.0); Mean Corpuscular Volume 99.7 fL (80.0-98.0); Mean Platelet Volume 9.4 fL (9.4-12.4); Monocytes Absolute Auto 0.6 X10*3/uL (0.1-1.2); Monocytes Percent Auto 12.3 % (2-11); Neutrophils Percent Auto 42.2 % (45-73); Platelet Count 224 X10*3/uL (160-400); Red Blood Count 3.88 X10*6/uL (4.60-5.80); Red Cell Distribution Width 12.1 % (11.0-16.0); White Blood Count 4.7 X10*3/uL (4.8-10.8)
[2024-02-13 08:14] LABS: Estimated Average Glucose 94 mg/dL; Hemoglobin A1c % 4.9 % (<6.0)
[2024-02-13 08:19] LABS: Alanine Aminotransferase 16 U/L (0-40); Alkaline Phosphatase 89 U/L (39-117); Anion Gap 13 (12-20); Aspartate Amino Transferase 19 U/L (5-37); Bilirubin Direct 0.2 mg/dL (0.0-0.5); Bilirubin Total 0.6 mg/dL (0.0-1.0); Blood Urea Nitrogen 17 mg/dL (9-16); C Reactive Protein < 0.10 mg/dL (< or = 0.50); Carbon Dioxide 28 mmol/L (22-29); Chloride 107 mmol/L (96-108); Cholesterol 143 mg/dL (<200); Estimated Glomerular Filt Rate > 60; Glucose Random 101 mg/dL (60-115); HDL Cholesterol 48 mg/dL (>40); Iron 138 mcg/dL (45-160); LDL Cholesterol Calculated 80 mg/dL (<100); Percent Iron Saturation 54 % (15-50); Sodium 144 mmol/L (135-145); Total Iron Binding Capacity 255 mcg/dL (228-428); Total Protein 6.5 g/dL (6.5-8.0); Triglycerides 76 mg/dL (<150); Unsaturated Iron Binding 117 ug/dL
[2024-02-13 08:20] LABS: Erythrocyte Sedimentation Rate 2 MM/HR (0-15)
[2024-02-13 08:35] LABS: Ferritin 114 ng/mL (20-250); Free T4 (Free Thyroxine) 0.82 ng/dL (0.71-1.85); Thyroid Stimulating Hormone 2.28 uIU/mL (0.32-4.0)
[2024-02-13 09:15] LABS: Folate 7.8 ng/mL (> or = 4.0); Prostate Specific Antigen 1.18 ng/mL (<0.05-4.0); Vitamin B12 379 pg/mL (200-900)
[2024-02-13 09:42] LABS: Creatinine Urine 50.95 mg/dL; Microalbum/Creatinine Ratio Ur 23.5 ug/mg cr (<30)
[2024-02-13 09:50] LABS: Appearance Urine Clear; Color Urine Yellow; Glucose Urine UA Negative (Negative); Leukocyte Esterase Urine Negative (Negative); Nitrite Urine Negative (Negative); PH 7.5 (5.0-9.0); Urine Blood Negative (Negative); Urine Ketones Negative (Negative); Urine Protein Negative (Neg-Trace)
[2024-02-13 09:57] LABS: Bacteria Urine None Seen (None Seen); HBS Num1 0.61 mIU/mL (0-7.99); HBc Num1 0.08 S/CO (0.00-0.79); HBsAGNum1 0.32 S/CO (0.00-0.99); HIV AB/AG Nonreactive (Nonreactive); HIV Num 1 0.04 S/CO (0.00-0.99); Hepatitis A Antibody IgG REACTIVE (Nonreactive); Hepatitis B Core Antibody Nonreactive (Nonreactive); Hepatitis B Surface Antigen Negative (Negative); Hyaline Casts Urine 0-2 /LPF (0-2); RBC Urine 0-2 /HPF (0-2); Squamous Epithelial Cell Urine 0-2 /HPF (0-2); WBC Urine 0-5 /HPF (0-5); ~HepC Num1 0.13 S/CO (0.00-0.79); ~Hepatitis A Antibody IgG 11.05 S/CO (0.00-0.99); ~Hepatitis B Surface Antibody NONREACTIVE (Nonreactive); ~Hepatitis C Antibody Nonreactive (Nonreactive)
[2024-02-13 10:54] LABS: CT PCR NOT DETECTED (Not Detect.); NG PCR NOT DETECTED (Not Detect.)
[2024-02-14 11:33] LABS: RPR Rapid Plasma Reagin NON-REACTIVE (NON-REACTIVE)
[2024-02-16 08:08] LABS: TS Negative Control Passed; TS Panel A 1; TS Panel B 1; TS Positive Control Passed; TSpotTB Negative (Negative)
== END 2024-02-13 06:18 | disposition home or self-care (01) ==
LOC: HO.LAB 06:17
PROVIDERS: PCP Family Medicine; Visit Provider Family Medicine
DX: Z00.00 Encounter for general adult medical examination without abnormal findings (principal); Z11.59 Encounter for screening for other viral diseases; Z12.5 Encounter for screening for malignant neoplasm of prostate; Z11.4 Encounter for screening for human immunodeficiency virus [HIV]; E78.49 Other hyperlipidemia; R63.4 Abnormal weight loss; D64.9 Anemia, unspecified; E55.9 Vitamin D deficiency, unspecified; R79.9 Abnormal finding of blood chemistry, unspecified; R35.1 Nocturia; I10 Essential (primary) hypertension; Z72.89 Other problems related to lifestyle; Z20.2 Contact with and (suspected) exposure to infections with a predominantly sexual mode of transmission
CPT/HCPCS: 0353U; 80048; 80061; 80076; 81001; 82043; 82306; 82570; 82607; 82728; 82746; 83036; 83540; 84134; 84153; 84439; 84443; 85025; 85652; 86140; 86481; 86592; 86704; 86706; 86708; 86803; 87340; 87389

== ENCOUNTER 2024-02-20 16:28 | Emergency (ER) | payer MEDICARE, SELFPAY ==
--- NOTE | ~2024-02-20 | XR_ITS ---
EXAMINATION:XR ankle RT min 3V, XR foot RT min 3V, XR tibia fibula RT 2V CLINICAL INFORMATION: Reason for Exam pain, injury COMPARISON: None TECHNIQUE: 3 views right foot, 3 views tibia-fibula and 2 views right ankle. FINDINGS: Knee prosthesis device in place seen at the margin of study intact. There is soft tissue swelling around medial malleolus. Small posterior and inferior calcaneal spurs. There is no fracture or dislocation. Ankle mortise is preserved. Tibial plafond and talar dome are intact. Medial and lateral malleoli are properly aligned. Subtalar joint is normal. There is no osteolytic or osteoblastic lesions. XR/XR foot RT min 3V IMPRESSION: 1. Soft tissue swelling around medial malleolus. 2. No fracture. 3. Knee prosthesis device in place intact. 4. Calcaneal spurs.
--- NOTE | ~2024-02-20 | XR_ITS ---
EXAMINATION:XR ankle RT min 3V, XR foot RT min 3V, XR tibia fibula RT 2V CLINICAL INFORMATION: Reason for Exam pain, injury COMPARISON: None TECHNIQUE: 3 views right foot, 3 views tibia-fibula and 2 views right ankle. FINDINGS: Knee prosthesis device in place seen at the margin of study intact. There is soft tissue swelling around medial malleolus. Small posterior and inferior calcaneal spurs. There is no fracture or dislocation. Ankle mortise is preserved. Tibial plafond and talar dome are intact. Medial and lateral malleoli are properly aligned. Subtalar joint is normal. There is no osteolytic or osteoblastic lesions. XR/XR tibia fibula RT 2V IMPRESSION: 1. Soft tissue swelling around medial malleolus. 2. No fracture. 3. Knee prosthesis device in place intact. 4. Calcaneal spurs.
--- NOTE | ~2024-02-20 | XR_ITS ---
EXAMINATION:XR ankle RT min 3V, XR foot RT min 3V, XR tibia fibula RT 2V CLINICAL INFORMATION: Reason for Exam pain, injury COMPARISON: None TECHNIQUE: 3 views right foot, 3 views tibia-fibula and 2 views right ankle. FINDINGS: Knee prosthesis device in place seen at the margin of study intact. There is soft tissue swelling around medial malleolus. Small posterior and inferior calcaneal spurs. There is no fracture or dislocation. Ankle mortise is preserved. Tibial plafond and talar dome are intact. Medial and lateral malleoli are properly aligned. Subtalar joint is normal. There is no osteolytic or osteoblastic lesions. XR/XR ankle RT min 3V IMPRESSION: 1. Soft tissue swelling around medial malleolus. 2. No fracture. 3. Knee prosthesis device in place intact. 4. Calcaneal spurs.
[2024-02-20 17:10] VITALS: BP 144/81; PULSE 16; RESP 99; TEMP 36.6; BMI 22.7
--- NOTE | 2024-02-20 17:10 | ED_ITS ---
HPI - General Adult General Chief complaint: Extremity Injury, Lower Stated complaint: rt ankle pain Source: patient Mode of arrival: ambulatory Limitations: no limitations History of Present Illness ED Provider: Johanna Washburn PA-C HPI narrative: Patient is a 73 year old assigned male at with a history of HTN presenting to the emergency department today with right lower leg pain. Patient states that 3 days ago he dropped plywood on his right lower extremity and has been in pain ever since. Patient denies any head strike, loss of consciousness, dizziness, lightheadedness, abdominal pain, nausea, vomiting, fever, chills, blurry vision, double vision, loss of vision, chest pain, difficulty breathing, shortness of breath, back pain, night sweats, pain with urination, increased urinary frequency, increased urinary urgency, blood in his urine or stool, syncope or a near syncopal episode, bowel incontinence, bladder incontinence, bowel retention, bladder retention, or any other complaints at this time. Onset (ago): day(s) (3) Location: right and lower extremity Severity: mild Severity scale (1-10): 3 Quality: aching Pain Consistency: constant Relieving factors: none Exacerbating factors: none Associated symptoms: denies other symptoms Treatments prior to arrival: none Related Data Home Medications ?Medication ?Instructions ?Recorded ?Confirmed albuterol sulfate 90 mcg/actuation 2 puff inhalation Q6H PRN 06/27/20 01/09/24 aerosol inhaler (Proventil HFA) Shortness Of Breath Or Wheezing omega 4-sgq-tml-fish oil 100 1 cap PO DAILY 06/27/20 01/09/24 mg-160 mg-1,000 mg capsule (Fish Oil) simvastatin 20 mg tablet 20 mg PO DAILY 06/27/20 01/09/24 docusate sodium 100 mg capsule 100 mg PO DAILY 10/04/21 01/09/24 (Colace) baclofen 20 mg tablet 1 tab PO TID PRN Abdominal 10/22/21 01/09/24 Discomfort cholecalciferol (vitamin D3) 50 1 cap PO DAILY 10/22/21 01/09/24 mcg (2,000 unit) capsule fluticasone propionate 50 2 spray intranasal DAILY 12/01/21 01/09/24 mcg/actuation nasal spray,suspension lisinopril 40 mg tablet 40 mg PO DAILY 12/01/21 01/09/24 loratadine 10 mg tablet 10 mg PO DAILY 12/01/21 01/09/24 omeprazole 20 mg capsule,delayed 20 mg PO DAILY 12/01/21 01/09/24 release mesalamine 800 mg tablet,delayed 1,600 mg PO TID 10/13/22 01/09/24 release atorvastatin 80 mg tablet 80 mg PO DAILY 01/09/24 01/09/24 melatonin 5 mg tablet 5 - 10 mg PO BEDTIME PRN insomnia 01/09/24 01/09/24 Previous Rx's ?Medication ?Instructions ?Recorded gabapentin 600 mg tablet 600 mg PO BEDTIME insomnia 06/30/20 restless legs #30 tabs metoprolol succinate 100 mg 100 mg PO DAILY 90 days #90 tabs 10/15/21 tablet,extended release 24 hr (Toprol XL) cyclobenzaprine 10 mg tablet 10 mg PO TID PRN muscle spasm #10 05/16/22 tabs menthol 0.44 %-zinc oxide 20.6 % 1 appl topical QID PRN wound 05/25/22 topical ointment (Calmoseptine) healing #113 grams tadalafil 20 mg tablet 20 mg PO ONCE PRN sexual activity 01/09/24 30 days #30 tabs tadalafil 5 mg tablet 5 mg PO DAILY sexual activity 90 01/09/24 days #90 tabs amlodipine 5 mg tablet 5 mg PO DAILY #90 tabs 01/15/24 Allergies Allergy/AdvReac Type Severity Reaction Status Date / Time chlorhexidine AdvReac Rash Verified 02/20/24 17:11 iodine AdvReac Rash Verified 02/20/24 17:11 Review of Systems Constitutional: Constitutional: Reports no additional constitutional complaints, Denies chills, Denies fever(s) and Denies night sweats Eyes: Eyes: Reports no additional eye complaints, Denies blurry vision, Denies change in vision, Denies diplopia, Denies eye discharge, Denies loss of vision and Denies eye pain ENT: Denies dizziness Cardiovascular: Cardiovascular: Reports no additional cardiovascular complaints, Denies chest pain, Denies lightheadedness, Denies Loss of Consciousness and Denies dyspnea Respiratory: Respiratory: Reports no additional respiratory complaints and Denies dyspnea Gastrointestinal: Gastrointestinal: Reports no additional gastrointestinal complaints, Denies abdominal pain, Denies melena, Denies hematochezia, Denies change in bowel habits and Denies change in stool character Genitourinary: Genitourinary: Reports no additional male genitourinary complaints, Denies hematuria, Denies oliguria, Denies difficulty urinating, Denies dysuria, Denies urinary frequency, Denies urinary hesitancy, Denies urinary incontinence and Denies urinary urgency Musculoskeletal: Musculoskeletal: Reports no additional musculoskeletal complaints, Denies numbness and Denies tingling Comments: right lower extremity pain Neurologic: Denies dizziness, Denies loss of vision, Denies numbness and Denies tingling Psychiatric: Psychiatric: Reports no additional psychiatric complaints Endocrine: Endocrine: Reports no additional endocrine complaints Hematologic/Lymphatic: Hematologic/Lymphatic: Reports no additional hematologic/lymphatic complaints Allergic/Immunologic: Allergic/Immunologic: Reports no additional allergic/immunologic complaints PMFSH Past Medical History Attestation statement: The following information was validated with the patient. Source: old records reviewed and nursing notes reviewed Medical History Elevated cholesterol Hx of Crohn's disease History of COVID-19 Sleep apnea Pruritus ani Urinary retention Hx of renal calculi Seasonal allergies Asthma Indwelling Nunez catheter present Cardiomyopathy HTN (hypertension) Left bundle branch block Surgical History History of hemorrhoidectomy History of total knee arthroplasty History of esophagogastroduodenoscopy (EGD) Hx of hernia repair Hx of shoulder surgery Hx of knee surgery Hx of colonoscopy Family History Family History Father No problems noted. Mother Diabetes Social History Social History Are you a primary student career development specialist to a significant other at home: No Do you presently have visiting nurse or other home services: No Alcohol intake: current Alcohol intake frequency: holidays/special occasions only Patient Tobacco Use Status: Former Tobacco user Quit Date: 40 yrs ago Tobacco use type: Cigarette Advance Directives: No Advance Directives Information Provided: No Do you have a plan to hurt others: No Plan Physical Exam ED Vital Signs: Vital Signs - 24 hr 02/20/24 17:10 Temperature 97.9 F Pulse Rate 16 L Respiratory Rate 99 H Blood Pressure 144/81 H Oxygen Delivery Method Room Air BMI result Body Mass Index 22.7 Const General: cooperative, no acute distress, alert and awake Nutritional Appearance: well nourished Orientation/consciousness: patient oriented x3 Limitations: no limitations HENMT Head: Yes normal to inspection and Yes atraumatic Ears: hearing grossly normal bilaterally and external ears normal General nose exam: Normal external nose present, no nasal discharge noted and no epistaxis Face and sinus: Yes normal facial exam, No abrasion and No laceration Mouth: Normal oral and palatal mucosa present, no drooling and no muffled voice Eyes General: appearance normal, both eyes and all related structures Periorbital: periorbital findings normal Eyelids: Yes eyelids normal Conjunctivae: conjunctivae normal Pupils: Equal, round and reactive pupils present EOM: EOMs intact bilaterally Neck Neck: Yes normal visual inspection, Yes full ROM and Yes no lymphadenopathy Chest Chest palpation & inspection: normal inspection of the chest Resp Effort & Inspection: normal respiratory effort and able to speak in complete sentences GI Inspection: Yes normal to inspection Neuro General: patient oriented x3 and moves all extremities Cranial nerves: Yes Equal, round and reactive pupils present Cognition (Neuro): normal cognition Motor exam (neuro): 5/5 motor strength present throughout Sensory Exam: Normal double simultaneous stimulation for sensation Coordination: eyexmy-tg-olde test normal Extrem Other: minimal bruising present to the medial aspect of the right lower extremity General: Yes full ROM and Yes capillary refill normal Psych Appearance: grossly normal Mental Status: mental status grossly normal Affect: normal affect Attitude: cooperative Thought process: Normal thought process present Thought content: Normal thought content present Insight: Good insight present (Psych) Course Course Course Narrative: RME performed by Johanna Washburn PA-C. Patient is a 73 year old assigned male at presenting to the emergency department with right ankle pain. Patient states that he dropped some heavy pieces of plywood onto his right ankle, 3 days ago. Detailed physical exam and review of systems are deferred to the arch support technician. Imaging ordered. Patient placed back in the waiting room pending room availability and results. Medical Decision Making Medical Decision Making MDM Narrative: Patient is a 73 year old assigned male at with a history of HTN presenting to the emergency department today with right lower extremity pain. Patient's limited physical exam performed in triage showed minimal bruising to the medial aspect of the right lower extremity. Patient's right ankle, foot, and tib/fib x- rays showed no acute process. Patient left the department without completing treatment. Patient left the department before myself or any of the other emergency department clinicians could explain to or review with the patient; physical exam findings, test results, need or lack there of for additional testing, need or lack there of for a procedure to be performed, need or lack there of for hospital admission / transfer, need or lack there of for prescript ion medication, treatment options, or a treatment plan. Differential Diagnosis Differential Diagnoses: The differential diagnosis associated with the presentation includes Ankle sprain Ankle strain Ankle fracture Tib / fib injury Admission/Observation Consideration of admission/observation: Escalation of care including admission/observation considered Patient would have been admitted to the hospital had he completed [his/her/their] work up and it had any findings where hospital admission was appropriate, his clinical presentation warranted hospital admission, had myself or any other emergency college or university department head had the ability to discuss need or lack there of for hospital admission, and the patient hadn't left the department without completing treatment. Independent Interpretation I performed an independent interpretation of an: Plain X-Ray Interpretation: My interpretation is in agreement with the radiologist's impression of these imaging studies. EXAMINATION:XR ankle RT min 3V, XR foot RT min 3V, XR tibia fibula RT 2V CLINICAL INFORMATION: Reason for Exam pain, injury COMPARISON: None TECHNIQUE: 3 views right foot, 3 views tibia-fibula and 2 views right ankle. FINDINGS: Knee prosthesis device in place seen at the margin of study intact. There is soft tissue swelling around medial malleolus. Small posterior and inferior calcaneal spurs. There is no fracture or dislocation. Ankle mortise is preserved. Tibial plafond and talar dome are intact. Medial and lateral malleoli are properly aligned. Subtalar joint is normal. There is no osteolytic or osteoblastic lesions. XR/XR tibia fibula RT 2V IMPRESSION: 1. Soft tissue swelling around medial malleolus. 2. No fracture. 3. Knee prosthesis device in place intact. 4. Calcaneal spurs. Dictated By: Jj Patel MD Signed By: Electronically signed by Jj Patel MD 02/20/241924 Radiology Impression Discussion of test interpretation with radiology: I have reviewed the radiologist's reading. Discharge Plan Discharge Clinical Impression: Ankle pain Patient Disposition: Left W/O Completing Treatment Prescriptions: No Action metoprolol succinate [Toprol XL] 100 mg tablet extended release 24 hr 100 mg PO DAILY 90 Days Qty: 90 3RF amlodipine 5 mg tablet 5 mg PO DAILY Qty: 90 3RF baclofen 20 mg tablet 1 tab PO TID PRN (Reason: Abdominal Discomfort) cholecalciferol (vitamin D3) 50 mcg (2,000 unit) capsule 1 cap PO DAILY cyclobenzaprine 10 mg tablet 10 mg PO TID PRN (Reason: muscle spasm) Qty: 10 0RF albuterol sulfate [Proventil HFA] 90 mcg/actuation HFA aerosol inhaler 2 puff inhalation Q6H PRN (Reason: Shortness Of Breath Or Wheezing) Fish Oil 100-160-1,000 mg capsule 1 cap PO DAILY simvastatin 20 mg tablet 20 mg PO DAILY gabapentin 600 mg tablet 600 mg PO BEDTIME Qty: 30 2RF docusate sodium [Colace] 100 mg capsule 100 mg PO DAILY mesalamine 800 mg tablet,delayed release (DR/EC) 1,600 mg PO TID loratadine 10 mg tablet 10 mg PO DAILY fluticasone propionate 50 mcg/actuation spray,suspension 2 spray intranasal DAILY lisinopril 40 mg tablet 40 mg PO DAILY omeprazole 20 mg capsule,delayed release(DR/EC) 20 mg PO DAILY menthol-zinc oxide [Calmoseptine] 0.44-20.6 % ointment 1 appl topical QID PRN (Reason: wound healing) Qty: 113 3RF tadalafil 5 mg tablet 5 mg PO DAILY 90 Days Qty: 90 3RF tadalafil 20 mg tablet 20 mg PO ONCE PRN (Reason: sexual activity) 30 Days Qty: 30 2RF Rx Instructions: On demand medication take 60 minutes before intended activity atorvastatin 80 mg tablet 80 mg PO DAILY melatonin 5 mg tablet 5 - 10 mg PO BEDTIME PRN (Reason: insomnia) Discharge Date/Time: 02/20/24 22:18
== END 2024-02-20 22:18 | disposition left against medical advice (07) ==
LOC: HO.ED 22:12
PROVIDERS: Emergency Provider Emergency Medicine
DX: M25.571 Pain in right ankle and joints of right foot (principal); M79.661 Pain in right lower leg; I10 Essential (primary) hypertension; Z79.899 Other long term (current) drug therapy; J45.909 Unspecified asthma, uncomplicated; I44.7 Left bundle-branch block, unspecified
CPT/HCPCS: 73590; 73610; 73630; 99281; 99283

== ENCOUNTER 2024-02-29 09:01 | Outpatient (REF) | payer MEDICARE, SELFPAY ==
--- NOTE | ~2024-02-29 | US_ITS ---
EXAMINATION: US VENOUS ULTRASOUND WITH DOPPLER LOWER EXTREMITY, RIGHT CLINICAL INFORMATION: Right leg swelling COMPARISON: None available. TECHNIQUE: Ultrasound of the deep veins is performed from the hip to the calf with compression sonography and color and pulse Doppler assessment. Spectral analysis with color-flow imaging is performed. FINDINGS: There is normal venous compression and respiratory variation and augmented flow. The visualized common femoral vein, superficial femoral vein, profunda femoral vein, popliteal vein, and the posterior tibial and peroneal veins show no evidence of deep venous thrombosis. Contralateral common femoral vein demonstrates normal vascular flow and respiratory variation. Incidental note is made of a 3.5 x 1.4 x 2.3 cm benign-appearing lymph node in the right groin. US/US venous duplex LE RT IMPRESSION: No DVT demonstrated in the right lower extremity.
== END 2024-02-29 09:02 | disposition home or self-care (01) ==
LOC: HO.US 09:01
PROVIDERS: PCP Family Medicine; Visit Provider Emergency Medicine
DX: R60.0 Localized edema (principal); M79.604 Pain in right leg
CPT/HCPCS: 93971

== ENCOUNTER 2024-04-04 06:49 | Outpatient (REF) | payer MEDICARE, SELFPAY ==
--- NOTE | ~2024-04-04 | CT_ITS ---
EXAMINATION: CT CHEST, ABDOMEN AND PELVIS WITH CONTRAST CLINICAL INFORMATION: 15 pound weight loss. History of tobacco use. History of colitis. COMPARISON: CT chest, abdomen, and pelvis 04/26/2018. TECHNIQUE: Multidetector volumetric CT imaging of the chest, abdomen, and pelvis was performed after the administration of 85 mL of Omnipaque 350 intravenous contrast without immediate adverse reactions. DOSE LOWERING TECHNIQUES: This CT examination was performed using dose optimization techniques as appropriate, variously including the following: - Automated exposure control - Adjustment of mA and/or kV according to patient size (this includes techniques or standardized protocols for targeted exams where dose is matched to indication/reason for exam; i.e. extremities or head) - Use of iterative reconstruction technique DLP: 133+288 mGy-cm. FINDINGS: CHEST: LUNGS: Pleural-parenchymal scarring at the apices is stable compared to prior chest CT. Micronodule in the right upper lobe and micronodule in the lingula are stable compared to prior consistent with benign etiology. No suspicious new or enlarging pulmonary nodule appreciated. Mild diffuse airway wall thickening consistent with chronic airways disease. No evidence for significant air trapping by CT. No consolidative disease. No evidence of interstitial lung disease. MEDIASTINUM: No adenopathy. Small hiatal hernia. No pericardial effusion. No aortic aneurysm. PLEURA: There is no pleural effusion. No pleural mass or thickening. AXILLA: No lymphadenopathy. ABDOMEN AND PELVIS: LIVER, GALLBLADDER, AND BILIARY TREE: The liver is normal in size, shape, and attenuation. No focal hepatic lesion or biliary ductal dilatation is present. The gallbladder is unremarkable with no evidence of radiopaque gallstones, gallbladder wall thickening, or obvious pericholecystic inflammatory changes. PANCREAS: No discrete pancreatic mass or ductal dilatation. SPLEEN: The spleen appears normal. ADRENAL GLANDS: No adrenal mass. KIDNEYS AND URETERS: 2 mm nonobstructing calculus upper left kidney 7.2 cm from posterolateral skin surface. Punctate nonobstructing calculus right lower kidney 7.6 cm from posterolateral skin surface. No hydronephrosis. Small simple cortical cysts bilaterally for which no imaging follow-up is recommended. Nephrograms are symmetric. BLADDER: Focal area of bladder wall thickening anteriorly measuring approximately 8 mm in thickness and 2.3 cm in diameter (series 3 image 65) GASTROINTESTINAL TRACT: The small and large bowel are normal in caliber. The appendix appears normal. Minimal colonic diverticulosis without evidence of acute diverticulitis. ABDOMINAL WALL: No significant hernia is appreciated. LYMPH NODES: No pathologically enlarged lymph nodes. VASCULAR: Mild aortoiliac atherosclerosis. No aortic aneurysm. PELVIC VISCERA: The prostate is enlarged measuring 4.6 x 4.4 x 4.1 cm. Approximately 40 mL. OSSEOUS STRUCTURES: Degenerative changes throughout the spine, most prominent at L5-S1. No destructive osseous lesions. CT/CT abdomen pelvis w IV con IMPRESSION: New focal thickening of the anterior bladder wall measuring 8 mm in thickness and 2.3 cm in diameter. Bladder neoplasm not excluded. Cystoscopy is recommended. Stable tiny pulmonary nodules consistent with benign etiology. Mild colonic diverticulosis without evidence of acute diverticulitis. Enlarged prostate.
[2024-04-04] MEDS: iohexoL 350 MG/ML 75 ML INFUS..BTL 85 ML IV (10:26)
[2024-04-04] MEDS: Barium Sulfate Oral (Vanilla) 450 ML ORAL.SUSP 900 ML PO (10:27)
[2024-04-05 07:31] LABS: Creatinine POC 0.6 mg/dL (0.5-1.4); GFR POC > 60
== END 2024-04-04 06:50 | disposition home or self-care (01) ==
LOC: HO.CT 06:49
PROVIDERS: PCP Family Medicine; Visit Provider Family Medicine
DX: R63.4 Abnormal weight loss (principal); K42.9 Umbilical hernia without obstruction or gangrene
CPT/HCPCS: 71260; 74177; 82565; Q9967

== ENCOUNTER 2024-04-30 10:51 | Outpatient (AMB) | payer MEDICARE, SELFPAY ==
--- NOTE | 2024-04-30 10:53 | A.OFFVIS_ITS ---
Vital Signs 04/30/24 11:01 Height 6 ft Weight 170 lb BMI 23.1 BP 173/81 H Blood Pressure Location Rt brachial Position Sitting Pulse 68 Intake Visit Reasons: Meghna Umbilical Hernia Intake Note: Patient referred by pcp Dr. Hall for umbilical hernia. Present for 8m. Patient c/o: pain when pushes it down. Bulging when stands. Hx of hernia repair many yrs ago. Social Service Assistant Required: No Accompanied by: Self / Same As Patient Allergies chlorhexidine Adverse Reaction (Verified 04/30/24 10:59) Rash iodine Adverse Reaction (Verified 04/30/24 10:59) Rash HPI Comments Details: Patient presents with a proximally 8 month history of a hernia just above his umbilicus. Is increasing in size, become symptomatic. Like to have repaired. Patient was occasional heavy lifting. He otherwise is tolerating a diet, having regular bowel habits. No other GI issues or complaints. Patient had a open right inguinal hernia repair many years ago at an outside facility. Chart was reviewed and patient evaluated [facility] Medical History Elevated cholesterol Hx of Crohn's disease History of COVID-19 Sleep apnea Pruritus ani Urinary retention Hx of renal calculi Seasonal allergies Asthma Indwelling Nunez catheter present Cardiomyopathy HTN (hypertension) Left bundle branch block Surgical History History of hemorrhoidectomy History of total knee arthroplasty History of esophagogastroduodenoscopy (EGD) Hx of hernia repair Hx of shoulder surgery Hx of knee surgery Hx of colonoscopy Family History Father No problems noted. Mother Diabetes Social History Are you a primary career information specialist to a significant other at home: No Do you presently have visiting nurse or other home services: No Alcohol intake: current Alcohol intake frequency: holidays/special occasions only Patient Tobacco Use Status: Former Tobacco user Tobacco use type: Cigarette Physical Exam Vital Signs: Last Vital Signs Pulse 68 04/30/24 11:01 BP 173/81 H 04/30/24 11:01 BMI result Body Mass Index 23.1 Chest Other: Chest breath sounds bilaterally, HS 1 in 2 GI Other: Patient was examined both supine and standing with Valsalva. Bilateral groin exam negative. Right inguinal hernia scar well healed. Genitalia within normal limits. Patient's abdomen is soft and benign. He has a proximally 3 cm reducible supraumbilical ventral hernia. Assessment & Plan Assessment & Plan (1) Supraumbilical hernia: Code(s): K43.9 - Ventral hernia without obstruction or gangrene Category: Surgical Plan Risks, benefits, alternatives of open supraumbilical ventral hernia repair with mesh were reviewed with the patient and included but not limited to bleeding, infection, recurrence, numbness, pain, scarring, bowel injury and the patient wishes to proceed. All questions answered. Arrangements were made for this on a day which is convenient for him. Coding Level of Care Code New Pt Level 5 (13136) Diagnoses Supraumbilical hernia K43.9
[2024-04-30 11:01] VITALS: BP 173/81; PULSE 68; BMI 23.1
== END 2024-04-30 11:14 | disposition home or self-care (01) ==
PROVIDERS: PCP Family Medicine; Visit Provider Surgery
DX: K43.9 Ventral hernia without obstruction or gangrene (principal)
CPT/HCPCS: 99204

== ENCOUNTER → 2024-04-30 10:51 | Outpatient (BNVA) | payer MEDICARE, SELFPAY | PROVIDERS: PCP Family Medicine; Visit Provider Surgery | DX: K43.9 Ventral hernia without obstruction or gangrene (principal) | CPT/HCPCS: 99202 ==

== ENCOUNTER 2024-07-04 07:25 | Day surgery (SDC) | payer MEDICARE, SELFPAY ==
--- NOTE | 2024-06-27 10:31 | P.CONAN_ITS ---
Documented by User: Jackie Gee NP 06/27/24 11:00 HPI - Anesthesia Eval Consult details Narrative: 74yo M for OPEN Hernia Supra-Umbilical Reducible with mesh, 07/04/24 URI symptoms 2 weeks ago - completely resolved No CP/SOB with bike/walking [facility]s [facility] [place] [facility]. Last office visit 11/2023 - stable for one year f/u. Optimized to proceed if no new symptoms per workload. CMP:Prior cardiomyopathy with improved LV EF to 50-55% neurohormonal modulation metoprolol lisinopril and adequate blood pressure control. Thoracic aortic aneurysm: mild Asthma: rare, ~ 1 x monthly albuterol SATHYA: no CPAP d/t unable to tolerate PMFSH Active Problems Active Problems: All Active Problems Supraumbilical hernia (Acute) Thoracic aortic aneurysm (Acute) MCL sprain of left knee (Acute) Left knee pain (Acute) Erectile dysfunction (Acute) Stiffness of right knee (Acute) Right knee pain (Acute) Incomplete emptying of bladder due to benign prostatic hyperplasia (Acute) Weak urinary stream (Acute) Nocturia more than twice per night (Acute) Patellofemoral arthritis of left knee (Acute) Lateral epicondylitis of left elbow (Acute) Bladder outlet obstruction (Acute) Retained orthopedic hardware (Acute) Knee effusion, right (Acute) Irritable bowel syndrome with constipation (Acute) Ulcerative proctitis (Acute) Insomnia (Acute) Obstructive sleep apnea (Acute) Hx of knee surgery (Acute) Pruritus ani (Acute) Urinary retention (Acute) History of total knee arthroplasty (Acute) Cardiomyopathy (Acute) HTN (hypertension) (Acute) Left bundle branch block (Acute) Past Medical History Medical History Arthritis History of blood transfusion (~2019) Unintentional weight loss Benign prostatic hyperplasia with lower urinary tract symptoms Chronic pain of both knees Insomnia Anemia 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 Mother Diabetes Family history of problems with anesthesia: No Surgical History Surgical History History of hemorrhoidectomy History of total knee arthroplasty History of esophagogastroduodenoscopy (EGD) Hx of hernia repair Hx of shoulder surgery Hx of knee surgery Hx of colonoscopy History of Problems with Anesthesia: No Social History Social History Are you a primary animal care service worker to a significant other at home: No Do you presently have visiting nurse or other home services: No Alcohol intake: current Alcohol intake frequency: a few times a month Patient Tobacco Use Status: Former Tobacco user Tobacco use type: Cigarette Smoked in Last 30 Days: No Use of substances other than those prescribed or required for medical reasons: No Have you been hit, kicked, punched, or otherwise hurt by someone within the past year? If so, by whom?: No Are you DNR?: No Advance Directives: No Advance Directives Information Provided: Yes Advance Directives on File: No Recently lost weight without trying: No Nutrition Risks: No Nutritional Risk Poor oral hygiene: No Meds Allergies Allergy/AdvReac Type Severity Reaction Status Date / Time chlorhexidine Allergy Rash Verified 07/04/24 07:50 iodine AdvReac Rash Verified 07/04/24 07:50 Home Medications ?Medication ?Instructions ?Recorded ?Confirmed ?Last Taken ?Type albuterol sulfate 90 mcg/actuation 2 puff inhalation Q6H PRN 06/27/20 06/27/24 Unknown History aerosol inhaler (Proventil HFA) Shortness Of Breath Or Wheezing omega 2-bjo-yeg-fish oil 100 1 cap PO DAILY 06/27/20 07/04/24 07/03/24 History mg-160 mg-1,000 mg capsule (Fish Oil) simvastatin 20 mg tablet 20 mg PO DAILY 06/27/20 06/27/24 Unknown History docusate sodium 100 mg capsule 100 mg PO DAILY 10/04/21 06/27/24 Unknown History (Colace) baclofen 20 mg tablet 1 tab PO TID PRN Abdominal 10/22/21 06/27/24 Unknown History Discomfort cholecalciferol (vitamin D3) 50 1 cap PO DAILY 10/22/21 06/27/24 Unknown History mcg (2,000 unit) capsule fluticasone propionate 50 2 spray intranasal DAILY PRN 12/01/21 06/27/24 Unknown History mcg/actuation nasal Allergy Symptoms spray,suspension lisinopril 40 mg tablet 40 mg PO DAILY 12/01/21 06/27/24 Unknown History loratadine 10 mg tablet 10 mg PO DAILY PRN Allergy Symptoms 12/01/21 07/04/24 07/04/24 History omeprazole 20 mg capsule,delayed 20 mg PO DAILY PRN Gastric Reflux 12/01/21 06/27/24 10/24/22 05:00 History release atorvastatin 80 mg tablet 80 mg PO DAILY 01/09/24 06/27/24 Unknown History melatonin 5 mg tablet 5 - 10 mg PO BEDTIME PRN insomnia 01/09/24 06/27/24 Unknown History Exam Pertinent Lab Results Pertinent Lab Results: Laboratory Tests 02/13/24 06:35 WBC 4.7 L Hgb 12.8 L Hct 38.7 L Plt Count 224 Sodium 144 Potassium 4.0 Chloride 107 Carbon Dioxide 28 BUN 17 H Creatinine 0.80 Narrative Narrative: EKG 11/2023 normal sinus rhythm with left bundle-branch block, unchanged ECHO 09/2023 Conclusions: - 1. Low normal LV ejection fraction 50-55% with mild LVH with impaired relaxation filling pattern 2. Cardiac valvular Dopplers within normal limits 3. Mildly dilated ascending aorta at 4.2 cm 4. No gross pericardial effusion Airway Mallampati Class: II TM Dist: >3cm Neck ROM: Full Loose/Missing/Broken Teeth: Yes (broken right lower molar, 2 x bottom molars extracted) Heart: RRR Lungs: CTAB Assessment and Plan Assessment Anesthesia Assessment: Anesthesia Plan Discussed and PAT Visit Final Anesthetic Review Family History of Problems with Anesthesia: No History of Problems with Anesthesia: No Documented by User: Stefan Morales MD 07/04/24 09:31 [facility] Past Medical History Medical History Arthritis History of blood transfusion (~2019) Unintentional weight loss Benign prostatic hyperplasia with lower urinary tract symptoms Chronic pain of both knees Insomnia Anemia 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 Mother Diabetes Pertinent family history: i Surgical History Surgical History History of hemorrhoidectomy History of total knee arthroplasty History of esophagogastroduodenoscopy (EGD) Hx of hernia repair Hx of shoulder surgery Hx of knee surgery Hx of colonoscopy Social History Social History Are you a primary animal care service worker to a significant other at home: No Do you presently have visiting nurse or other home services: No Alcohol intake: current Alcohol intake frequency: a few times a month Patient Tobacco Use Status: Former Tobacco user Tobacco use type: Cigarette Smoked in Last 30 Days: No Use of substances other than those prescribed or required for medical reasons: No Have you been hit, kicked, punched, or otherwise hurt by someone within the past year? If so, by whom?: No Are you DNR?: No Advance Directives: No Advance Directives Information Provided: Yes Advance Directives on File: No Recently lost weight without trying: No Nutrition Risks: No Nutritional Risk Poor oral hygiene: No Meds Allergies Allergy/AdvReac Type Severity Reaction Status Date / Time chlorhexidine Allergy Rash Verified 07/04/24 07:50 iodine AdvReac Rash Verified 07/04/24 07:50 Home Medications ?Medication ?Instructions ?Recorded ?Confirmed ?Last Taken ?Type albuterol sulfate 90 mcg/actuation 2 puff inhalation Q6H PRN 06/27/20 06/27/24 Unknown History aerosol inhaler (Proventil HFA) Shortness Of Breath Or Wheezing omega 2-lsg-iqw-fish oil 100 1 cap PO DAILY 06/27/20 07/04/24 07/03/24 History mg-160 mg-1,000 mg capsule (Fish Oil) simvastatin 20 mg tablet 20 mg PO DAILY 06/27/20 06/27/24 Unknown History docusate sodium 100 mg capsule 100 mg PO DAILY 10/04/21 06/27/24 Unknown History (Colace) baclofen 20 mg tablet 1 tab PO TID PRN Abdominal 10/22/21 06/27/24 Unknown History Discomfort cholecalciferol (vitamin D3) 50 1 cap PO DAILY 10/22/21 06/27/24 Unknown History mcg (2,000 unit) capsule fluticasone propionate 50 2 spray intranasal DAILY PRN 12/01/21 06/27/24 Unknown History mcg/actuation nasal Allergy Symptoms spray,suspension lisinopril 40 mg tablet 40 mg PO DAILY 12/01/21 06/27/24 Unknown History loratadine 10 mg tablet 10 mg PO DAILY PRN Allergy Symptoms 12/01/21 07/04/24 07/04/24 History omeprazole 20 mg capsule,delayed 20 mg PO DAILY PRN Gastric Reflux 12/01/21 06/27/24 10/24/22 05:00 History release atorvastatin 80 mg tablet 80 mg PO DAILY 01/09/24 06/27/24 Unknown History melatonin 5 mg tablet 5 - 10 mg PO BEDTIME PRN insomnia 01/09/24 06/27/24 Unknown History Exam Airway Mallampati Class: I Assessment and Plan Assessment Anesthesia Assessment: Chart Reviewed Final Anesthetic Review NPO: Yes ASA Class: III Final Preanesthetic Review: No Changes in Pt Med Stat, Meds/Allgs Chart Reviewed, Consent Obtained/Reviewed and Anes Risks/Benef Reviewed Patient Risk: Intermediate Procedure Risk: Low Anesthetic Plan Anesthetic Plan: MAC: and Agree w/ Assess. and Plan Disposition: Standard PACU
[2024-06-27 10:39] VITALS: BP 146/77; PULSE 73; RESP 16; O2SAT 97; BMI 23.5
--- NOTE | 2024-07-03 09:22 | MHC.SHP ---
Pre-Procedural Eval Section A - 24 Hr Update-Section A only Date of Service: 07/03/24 The patient is an INPATIENT: No Changes since office visit: No Cold of Flu in the past 2 weeks, No New Medical Problems, No Changes in Medication and No Patient answered all questions Section B - Complete if H&P > 30 days Chief Complaint: Ventral hernia without obstruction or gangrene Allergies: Allergies Allergy/AdvReac Type Severity Reaction Status Date / Time chlorhexidine Allergy Rash Verified 06/27/24 10:31 iodine AdvReac Rash Verified 04/30/24 10:59 Review of Systems Sugical H&P ROS: Negative: Constitution, Cardiovascular, Respiratory, Neurological, Psychiatric, Hem-Onc, Allergic/Immunologic, Gastrointestinal, Genitourinary, Musculoskeletal, Integumentary, Endocrine and Eyes/Ears/Nose/Throat Exam Surgical H&P Exam: Normal: HEENT, Normal: Heart, Normal: Lungs, Normal: Extremities, Normal: Abdomen, Normal: Skin and Normal: Neurological Plan I have reviewed the history and physical and performed a pertinent physical examination on my patient. No changes have occurred unless specified. Time Spent With Patient Time: Total time managing care of this patient today ____ minutes.
[2024-07-04 07:55] VITALS: BMI 23.3
[2024-07-04 08:22] VITALS: BP 143/90; PULSE 70; RESP 12; TEMP 36.1; O2SAT 97
[2024-07-04] MEDS: Lactated Ringers 1,000 ML 50 ML IVCONT (08:24)
--- NOTE | 2024-07-04 10:09 | W.PM.OPN ---
Operative Note Operative Note Date of Service: 07/04/24 Narrative: Preoperative diagnosis: [] Incarcerated supraumbilical ventral hernia Postop diagnosis: [] The same Procedure [] supraumbilical ventral herniorrhaphy with Bard mesh Surgeon: [] Nathan Senior Loan Processor: [] Autumn Type of Anesthesia: [] LMA Indication for surgery: [] A roughly 3 cm supraumbilical incarcerated ventral hernia with omental contents Findings: [] Patient brought to the operating room, placed on operative table supine position, after an adequate level of LMA anesthesia was induced, the patient's abdomen was prepped and draped in usual sterile fashion. (patient has allergies to Betadine iodine and required alcohol prep). 10 minutes wait time was performed and the abdomen was then draped in usual manner. A transverse incision was made over the supraumbilical ventral hernia and carried down through skin, subcutaneous tissue, were large hernia sac was identified, circumferentially dissected down the fascia and opened. Incarcerated omental contents and sac were amputated using Bovie. Fascia margins were circumferentially cleared. An appropriately sized Bard mesh was placed in this defect, and the superficial layer of this was circumferentially sutured to the surrounding fascia using interrupted 0 Ethibond suture. At completion of the procedure, mesh was in good position with no tension or gaps. Wound was irrigated, secured hemostasis, and closed in the following manner; subcutaneous tissue was reapproximated using interrupted 3-0 Vicryl suture. Skin was closed using interrupted inverted dermal 3-0 Vicryl sutures followed by Steri-Strips and sterile dressings. Wound was infiltrated at the beginning and at the end of the case with 0.5% Marcaine/1% lidocaine. Sponge, needle, and instrument counts were reported correct. Patient tolerated the procedure well and emerged from anesthesia stable condition. EBL minimal
[2024-07-04 10:18] VITALS: BP 152/88; PULSE 66; RESP 16; TEMP 36.3; O2SAT 100
[2024-07-04 10:23] VITALS: BP 161/93; PULSE 64; RESP 16; O2SAT 98
[2024-07-04] MEDS: oxyCODONE HCl Immed Release 5 MG TABLET PO (10:25)
[2024-07-04] MEDS: Acetaminophen 325 MG TABLET 650 MG PO (10:25)
[2024-07-04] MEDS: fentaNYL citrate/PF 100 MCG/2 ML VIAL 50 MCG IVPUSH (10:27)
[2024-07-04 10:28] VITALS: BP 156/95; PULSE 60; RESP 16; O2SAT 98
[2024-07-04 10:32] VITALS: BP 156/83; PULSE 60; RESP 16; O2SAT 98
[2024-07-04 10:48] VITALS: BP 153/86; PULSE 64; RESP 16; TEMP 36.3; O2SAT 98
== END 2024-07-04 11:23 | disposition home or self-care (01) ==
PROVIDERS: PCP Family Medicine; Visit Provider Surgery
PROC: (CPT 49592; principal; 2024-07-04 09:40)
DX: K43.6 Other and unspecified ventral hernia with obstruction, without gangrene (principal); G47.33 Obstructive sleep apnea (adult) (pediatric); E78.00 Pure hypercholesterolemia, unspecified; J45.909 Unspecified asthma, uncomplicated; I10 Essential (primary) hypertension; I42.9 Cardiomyopathy, unspecified; I44.7 Left bundle-branch block, unspecified; Z96.0 Presence of urogenital implants; Z91.041 Radiographic dye allergy status; Z88.8 Allergy status to other drugs, medicaments and biological substances; Z87.891 Personal history of nicotine dependence
CPT/HCPCS: 49592; 88302; C1781; J0690; J2003; J2704; J2795; J3010

== ENCOUNTER → 2024-07-04 07:25 | Outpatient (BNV) | payer MEDICARE, SELFPAY | PROVIDERS: PCP Family Medicine; Visit Provider Surgery | DX: K43.9 Ventral hernia without obstruction or gangrene (principal) | CPT/HCPCS: 49594 ==

== ENCOUNTER 2024-07-16 11:36 | Outpatient (AMB) | payer MEDICARE, SELFPAY ==
--- NOTE | 2024-07-16 11:37 | A.OFFVIS_ITS ---
Intake Visit Reasons: S/P supra-umbilical hernia w/mesh Intake Note: Patient here s/p supra-umbilical hernia w/mesh. Reports incisions healing well. Patient c/o: steri strips fell off. No longer taking rx pain meds. SX: 07-04-2024. Supervisor Transcribing Operators Required: No Accompanied by: Self / Same As Patient Allergies chlorhexidine Allergy (Verified 07/16/24 11:40) Rash iodine Adverse Reaction (Verified 07/16/24 11:40) Rash HPI Comments Details: Patient was status post supraumbilical ventral hernia repair but he is doing quite well. He is tolerating a diet. Having regular bowel habits. He has minimal incisional discomfort. He is increasing his activity level. 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 Mother Diabetes Social History Are you a primary client care representative to a significant other at home: No Do you presently have visiting nurse or other home services: No Alcohol intake: current Alcohol intake frequency: a few times a month Patient Tobacco Use Status: Former Tobacco user Tobacco use type: Cigarette Physical Exam GI Other: Abdomen is soft. Benign. Incision clean dry and intact healing well Assessment & Plan Assessment & Plan (1) Status post repair of ventral hernia: Code(s): Z98.890 - Other specified postprocedural states; Z87.19 - Personal history of other diseases of the digestive system Category: Medical Plan Patient was been given local instructions including avoiding strenuous activities for next few weeks time and will otherwise follow-up p.r.n.. All questions answered. Coding Level of Care Code Global (77882) Diagnoses Status post repair of ventral hernia Z98.890; Z87.19
== END 2024-07-16 11:42 | disposition home or self-care (01) ==
PROVIDERS: PCP Family Medicine; Visit Provider Surgery
DX: K42.0 Umbilical hernia with obstruction, without gangrene (principal); Z09 Encounter for follow-up examination after completed treatment for conditions other than malignant neoplasm
CPT/HCPCS: 99212

== ENCOUNTER → 2024-07-16 11:36 | Outpatient (BNVA) | payer MEDICARE, SELFPAY | PROVIDERS: PCP Family Medicine; Visit Provider Surgery | DX: Z09 Encounter for follow-up examination after completed treatment for conditions other than malignant neoplasm (principal); K42.0 Umbilical hernia with obstruction, without gangrene | CPT/HCPCS: 99212 ==

== ENCOUNTER → 2024-11-19 09:39 | Outpatient (REF) | payer MEDICARE, SELFPAY ==
--- NOTE | 2024-11-19 09:41 | CA_ITS ---
Transthoracic Echocardiogram Patient (Last, First, Middle): German Hassan A Gender: Male Date of : 1950 Age: 74 Procedure Date: 11/19/2024 Procedure Type: Transthoracic Echocardiogram Location: OP Height: 182. cm Weight: 79.38 kg BSA: 2.01 m2 Heart Rate: 65 bpm BP: 140 / 70 mmHg Urban Redevelopment Specialist: SAQIB Referring MD: Kareem Neri MD Symptoms: I71.20 - Thoracic aortic aneurysm, without rupture, unspecified Study Quality: Good ECG Rhythm: Sinus Conclusions: - The left ventricular systolic function is low normal. The visually estimated ejection fraction is between 50-55%. - No obvious valvular pathology seen on this study. - There is mild dilatation of the ascending aorta measuring 4.00 cm and mild dilatation of the aortic arch measuring 3.90 cm. Findings Left Ventricle Normal left ventricular cavity size. There is mildly increased left ventricular wall thickness. The left ventricular systolic function is low normal. The visually estimated ejection fraction is between 50-55%. There is no evidence of regional wall motion abnormalities. Evidence suggests grade I (mild) diastolic dysfunction. Right Ventricle Normal right ventricular cavity size and systolic function. Atria Both atria are normal in size. Aortic Valve There is a normal trileaflet aortic valve. There is no aortic valve stenosis. There is no aortic valve regurgitation. Mitral Valve The mitral valve appears normal. There is no mitral valve regurgitation. There is no mitral valve stenosis. Pulmonic Valve The pulmonic valve is likely normal. Tricuspid Valve There is trace tricuspid valve regurgitation. There is no evidence of pulmonary hypertension. Great Vessels There is mild dilatation of the ascending aorta measuring 4.00 cm and mild dilatation of the aortic arch measuring 3.90 cm. Venous The inferior vena cava is normal in size and collapses greater than 50% with inspiration. Pericardium/Pleural There is a trivial pericardial effusion. Prior Study Comparison No significant change compared to prior study dated: 10/25/2023. Recommendations, Care & Conclusions No obvious valvular pathology seen on this study. Measurements 2D Linear Measurements IVSd: 1.08 0.6-0.9/0.6-1.0 cm LVIDd: 4.94 3.9-5.3/4.2-5.9 cm LVIDd Index: 2.46 2.4-3.2/2.2-3.1 cm/m2 LVIDs: 3.67 2.0-3.6 cm LVPWd: 1.29 0.7-1.1 cm LA Diam: 3.90 2.7-3.8/3.0-4.0 cm LAIDs Index: 1.94 1.5-2.3 cm/m2 LV Mass: 280.87 67-162/88-224 g LV Mass Index: 139.73 43-95/49-115 g/m2 LVOT Diam: 2.00 3.0+(-)1.3 cm 2D Systolic Function EF 4C: 47.20 >55% EF 2C: 61.10 >55% EF BiP: 56.00 >55% Mitral Valve MV Pk E: 0.69 MV PK A: 1.20 MV Decel Time: 267.00 E/A: 0.60 E'Lateral: 8.05 E'Medial: 4.35 E/E' Med: 15.90 E/E' Lat: 8.60 PHT: 78.00 MVA PHT: 2.82 Decel [place]: 2.59 Aortic Valve AoV Pk Alex: 1.52 AoV Mn Alex: 1.05 AoV VTI: 0.32 AoV Pk Grad: 9.00 Aov Mn Grad: 5.00 TAMRA Cont.VTI: 2.36 LVOT LVOT Pk Alex: 1.19 LVOT Mn Alex: 0.79 LVOT VTI: 0.24 LVOT Pk Grad: 6.00 LVOT Mn Grad: 3.00 LVOT Diam: 2.00 LVOT Area: 3.14 Diastolic Function MV Pk E: 0.69 MV Pk A: 1.20 E/A: 0.60 E'Medial: 4.35 E/E' Med: 15.90 E' Laterial: 8.05 E/E' Lat: 8.60 Right Ventricle TAPSE (mm): 27.30 TVS' Alex: 12.10 Tricuspid Valve RA Press: 3.00 Great Vessels Aorta Sinus of Valsalva: 3.70 2.0-3.5 cm Ao Asc: 4.00 2.1-3.4 cm Ao Arch: 3.90 Pulmonary Valve PV Pk Alex: 1.24 Peak PV Grad: 6.00 Updated in Other Vendor System with Status of Final Mason Bianchi MD electronically signed on 11/19/2024 11:37:48 AM with status of Final
--- OUTSIDE RECORDS SUMMARY | 2024-11-19 10:52 | XMS_ITS | Encounter Summary ---
Author Organization [facility] Address [address] [place] [address] Care Team Providers Care Nursery School Teacher Name Role Phone ShahramKatelynn wood Primary Care Provider + [phone] Encounter Details Date Type Department Care Team (Late st Contact Info) Description 01/03/2024 Orders Only [facility] MEDICINE [address] [place] [address] ProviderOren MD Social History Tobacco Use Types Packs/Day Years Used Date Smoking Tobacco: Former Cigarettes Passive Smoke Exposure: Past Smokeless Tobacco: Never Alcohol Use Standard Drinks/Week Comments Never 0 (1 standard drink = 0.6 oz pur e alcohol) Depression Answer Date Recorded Patient Health Questionnaire-9 Score 0 08/22/2023 Patient Health Questionnaire-9 Score 0 08/22/2023 Last PHQ-9: Questionnaire Data Not on file 1 10/22/2022 Housing Stability Answer Date Recorded What is your housing situation today? I have kristen peace 08/22/[address] you li ve. Do you have problems with any of the following? None of the above 08/22/2023 Food Insecurity Answer Date Recorded Within the past 12 months, y ou worried that your food would run out before you got money to buy more: Never True 07/10/2023 Within the past 12 months,th e food you bought just didn't last and you didn't have enough money to get more: Never True Transportation Answer Date Recorded In the past 12 months, has l ack of transportation kept you from medical appts, meetings, work or from getting things needed for daily living? No 07/10/2023 Utilities Answer Date Recorded In the past 12 months, has t he electric, gas, oil or water company threatened to shut off services in your home? No 08/22/2023 Depression Answer Date Recorded Patient Health Questionnaire-2 Score 0 08/22/2023 Sex and Gender Information Value Date Recorded Sex Assigned at Male 07/25/2022 10:21 AM EDT Legal Sex Male 10:21 AM EDT Gender Identity Male 07/25/2022 10:21 AM EDT Sexual Orientation Straight 07/25/2022 10 :21 AM EDT documented as of this encounter Plan of Treatment Upcoming Encounters Date Type Department Care Team (Late st Contact Info) Description 12/24/2024 9:00 AM EDT Clinical Support [facility] MEDICINE [address] [place] [address] Sade Funk RN documented as of this encounter Procedures Procedure Name Priority Date/Time Associated Diagnosis Comments HM COLONOSCOPY Routine 04/14/2015 3:03 PM EDT documented in this encounter Results * Hm Colonoscopy (04/14/2015 3:03 PM EDT) Historical Provider HEALTH MAINTENANCE Final Result documented in this encounter Visit Diagnoses Not on filedocumented in this encounter Additional Health Concerns Assessment Noted Time PHQ-9 Depression Total Score: 0 08/22/20 23 9:03 AM EST documented as of this encounter Care Teams Nursery School Teacher Relationship Specialty Start Date End Date Katelynn Hall DO [address] [place] [address] PCP - General Family Medicine 09/25/18 documented as of this encounter
--- OUTSIDE RECORDS SUMMARY | 2024-11-19 10:52 | XMS_ITS | Encounter Summary ---
Author Organization [facility] Address [address] [place] [address] Care Team Providers Care Timber Deadener Name Role Phone Katelynn Hall DO Primary Care Provider + [phone] Reason for Visit * Reason Comments Med Refill Encounter Details Date Type Department Care Team ([facility] Contact Info) Description 11/25/[address] [facility] MED[facility]INE [address] [place], [place] [id number] Katelynn Hall DO [address] [place] [address] Pain in right knee Social History Tobacco Use Types Packs/Day Years Used Date Smoking Tobacco: Former Cigarettes Passive Smoke Exposure: Past Smokeless Tobacco: Never Alcohol Use Standard Drinks/Week Comments Never 0 (1 standard drink = 0.6 oz pur e alcohol) Depression Answer Date Recorded Patient Health Questionnaire-9 Score 0 11/21/2022 Depression Answer Date Recorded Patient Health Questionnaire-2 Score 0 11/21/2022 Sex and Gender Information Value Date Recorded Sex Assigned at Male 07/25/2022 10:21 AM EDT Legal Sex Male 10:21 AM EDT Gender Identity Male 07/25/2022 10:21 AM EDT Sexual Orientation Straight 07/25/2022 10 :21 AM EDT COVID-19 Exposure Response Date Recorded In the last 10 days, have yo u been in contact with someone who was confirmed or suspected to have Coronavirus/COVID-19? No / Unsure 11/21/2022 8:47 AM EST documented as of this encounter Plan of Treatment Upcoming Encounters Date Type Department Care Team ([facility] Contact Info) Description 12/24/2024 9:00 AM EDT Clinical Support [facility] MED[facility] [address] [place] [address] Sade Funk RN documented as of this encounter Visit Diagnoses Diagnosis Pain in right knee documented in this encounter Additional Health Concerns Assessment Noted Time PHQ-9 Depression Total Score: 0 11/21/19 23 8:57 AM EST documented as of this encounter Care Teams Timber Deadener Relationship Specialty Start Date End Date Katelynn Hall DO [address] [place] [address] PCP - General Family Medicine 09/25/18 documented as of this encounter
--- OUTSIDE RECORDS SUMMARY | 2024-11-19 10:52 | XMS_ITS | Clinical Summary ---
Author Organization [employer] Address [address] [facility] 7t [place] [address] Care Team Providers Care Fiscal Accountant Name Role Phone Katelynn Hall Primary Care Provider [phone] Allergies No known active allergies Medications amLODIPine (Norvasc) 5 MG tablet Take 5 mg by mouth 1 (one) time each day. Active metoprolol succinate XL (Toprol-XL) 100 MG 24 hr tablet Take 100 mg by mouth 1 (one) time each day. Active baclofen (Lioresal) 20 MG tabletIndicatio ns:Muscle spasm TAKE 1 TABLET BY MOUTH THREE TIMES DAILY NEEDED FOR MUSCLE SPASMS 60 tablet 3 11/22/19 23 Active finasteride (Proscar) 5 MG tablet Take 1 tablet by mouth in the morning. 01/01/20 23 Active tadalafil (Cialis) 5 MG tablet TAKE ONE TABLET BY MOUTH DAILY FOR SEXUAL ACTIVITY 06/06/20 23 Active naloxone (Narcan) 4 mg/0.1 mL nasal spray FOR SUSPECTED OPIOID OVERDOSE. SPRAY 0.1mL IN ONE NOSTRIL. REPEAT IN ALTERNATE NOSTRIL 2-3 MINUTES IF NEEDED. SEEK MEDICAL ATTENTION IMMEDIATELY EVEN IF PATIENT RESPONDS. 2 each 2 01/25/20 24 Active zolpidem (Ambien) 10 MG tablet Take 1 tablet (10 mg) by mouth if needed at bedtime for sleep. 30 tablet 2 02/05/20 24 Active loratadine (Claritin) 10 MG tablet Take 1 tablet (10 mg) by mouth Once per day. 30 tablet 11 02/07/20 24 025 Active fluticasone (Flonase) 50 MCG/ACT nasal spray Administer 2 sprays into each nostril Once per day. Shake gently. Before first use, prime pump. After use, clean tip and replace cap. 16 g 11 02/07/20 24 Active ergocalciferol (Vitamin D2) 1.25 MG (88466 UT) capsuleIndicati ons:Vitamin D deficiency, unspecified Take 1 capsule (1.25 mg) by mouth 1 (one) time per week. 5 capsule 11 02/16/20 24 Active melatonin 5 MG tabletIndicatio ns:Other insomnia TAKE 1 TO 2 TABLETS BY MOUTH EVERY DAY AT BEDTIME NEEDED FOR SLEEP 60 tablet 04/22/20 24 Active traZODone (Desyrel) 50 MG tabletIndicatio ns:Other insomnia TAKE 2 TABLETS BY MOUTH EVERY DAY AT BEDTIME 60 tablet 04/22/20 24 Active diphenhydrAMINE (BENADryl) 25 MG tablet Take 1 tablet (25 mg) by mouth every 8 (eight) hours if needed for itching. 30 tablet 05/28/20 24 Active D3 Super Strength 50 MCG (2000 UT) capsule TAKE 1 CAPSULE BY MOUTH DAILY EVERY DAY 90 capsule 3 06/21/20 24 Active atorvastatin (Lipitor) 80 MG tablet TAKE 1 TABLET BY MOUTH EVERY DAY AT BEDTIME 90 tablet 3 06/21/20 24 Active omega-3 (Fish Oil) 1000 MG capsule TAKE 1 TABLET BY MOUTH TWICE DAILY 180 capsule 3 06/21/20 24 Active lisinopril 40 MG tablet TAKE 1 TABLET BY MOUTH EVERY DAY IN THE MORNING, 90 tablet 1 07/24/20 24 Active Ventolin HFA 108 (90 Base) MCG/ACT inhaler INHALE 2 PUFFS BY MOUTH EVERY 4 HOURS NEEDED FOR WHEEZING OR SHORTNESS OF BREATH 18 g 1 08/19/20 24 Active oxyCODONE (Roxicodone) 5 MG immediate release tabletIndicatio ns:Chronic pain of both knees TAKE 1 TABLET BY MOUTH EVERY TWELVE HOURS NEEDED FOR SEVERE PAIN 56 tablet 10/24/19 25 Active oxyCODONE (Roxicodone) 5 MG immediate release tabletIndicatio ns:Chronic pain of both knees TAKE 1 TABLET BY MOUTH EVERY TWELVE HOURS NEEDED FOR SEVERE PAIN 56 tablet 09/23/20 24 025 Discontinued Active Problems Problem Noted Date Diagnosed Date Chronic pain of both knees 08/22/2023 Cardiomyopathy 06/16/2016 Allergic rhinitis 09/09/2015 Anemia 09/09/2015 Benign prostatic hyperplasia 09/09/2015 Chronic ulcerative proctitis 09/09/2015 Diastolic dysfunction 09/09/2015 Diverticulosis 09/09/2015 Elevated fasting glucose 09/09/2015 Erectile dysfunction 09/09/2015 Essential hypertension 09/09/2015 Assessment & Plan (05/28/2024 7:11 PM EDT): Home BP thinsk elevated from current discomfort 142/80 Today BP checked manually -continue regular BP meds and to f w PCP as rec at last apt Chronic gastroesophageal reflux disease 09/09/20 15 Hyperlipidemia 09/09/2015 Left bundle branch block 09/09/2015 Obstructive sleep apnea 09/09/2015 Osteoarthritis 09/09/2015 Resolved Problems Problem Noted Date Diagnosed Date Resolved Date Skin rash 05/28/2024 07/01/2024 Assessment & Plan (05/28/2024 7:11 PM EDT): Full set of annual labs done in 01/2024 normal TSH,chem, normal LFTS , chronic stable anemia Pt has relevant exposure 9 days ago just prior symptoms started ,rash started as vesicular and in multiple distributions Seems most likely possible poison rossy , no findings concerning for shingles or generalized herpes simplex ,no pain in lesions Left buttock appears infected from scratching -prednisone 20 mg daily for 5 days ( denies hx of GI bleed) -benadryl Q 8 h PRN-advised to avoid driving while taking this med -calamine to use topically -Cephalexin for 5 days for left bottock -alarm signs and symptoms discussed w pt in case does not noted improvement in next 5 days Open fracture of tooth with delayed healing 08/29/2022 11/21/2022 Encounters Date Type Department Care Team Description 10/23/2024 Refill [facility] [address] [facility] [place] [phone] Danii Funk MD Chronic pain of both knees 09/23/2024 Refill [facility] [address] [facility] [place] [phone] Danii Funk MD Chronic pain of both knees 08/26/2024 9:00 AM EST Clinical Support [facility] [address] [place] [address] Sade Funk, boiler technician pain of both knees (Primary Dx) 08/26/2024 Telephone [facility] [place] [phone] Sade Funk, RN BPI Scoring 08/26/2024 Travel 08/21/2024 Refill [facility] [address] [facility] [place], [place] [phone] Katelynn Hall, Chronic pain of both knees from Last 3 Months Immunizations Name Administration Dates Next Due Influenza High-dose Quadriva lent Preservative Free 08/22/2023,06/15/2022,07/26/2021,10/20 Influenza injectable quadriv alent IIV4 with preservative 07/24/2017,06/16/2016,07/09/2015 Influenza injectable quadriv alent preservative free 10/08/2018 Influenza, High Dose Seasona l, Preservative Free 07/29/2019 Influenza, IIV3, injectable 06/03/2010 Influenza, Split (incl. [place] surface antigen) 06/24/2013,07/19/2012 Pneumococcal Conjugate PCV 13 06/16/2016 Pneumococcal Conjugate PCV 20 02/05/2024 Pneumococcal Polysaccharide PPSV23 10/08/2018, TD (adult), 2 Lf tetanus tox oid, preservative free, adsorbed 10/20/2020 Td (adult), 5 Lf tetanus tox oid, preservative free, adsorbed 11/17/2015 Tdap 06/03/2010 Zoster, Recombinant 05/22/2023 Zoster, live 06/04/2015 Social History Tobacco Use Types Packs/Day Years Used Date Smoking Tobacco: Former Cigarettes Passive Smoke Exposure: Past Smokeless Tobacco: Never Tobacco Cessation:Counseling Given: Not Answered Alcohol Use Standard Drinks/Week Comments Never 0 [...] Recorded Patient Health Questionnaire-2 Score 0 08/22/2023 Internet Access Answer Date Recorded Internet Access Q1 Yes 05/27/2024 Internet Access Q2 Not on file 05/27/2024 Sex and Gender Information Value Date Recorded Sex Assigned at Male 07/25/2022 10:21 AM EDT Legal Sex Male 10:21 AM EDT Gender Identity Male 07/25/2022 10:21 AM EDT Sexual Orientation Straight 07/25/2022 10 :21 AM EDT Last Filed Vital Signs Vital Sign Reading Time Taken Comments Blood Pressure 142/80 05/28/2024 2:29 PM EDT Pulse 74 05/28/2024 2:29 PM EDT Temperature 36.6 ??C (97.9 ??F) 05/07/2024 9:59 AM ED T Respiratory Rate 16 05/28/2024 2:29 PM EDT Oxygen Saturation 100% 05/28/2024 2:29 PM EDT Inhaled Oxygen Concentration - - Weight 77.4 kg (170 lb 9.6 oz) 05/28/2024 2:29 P M EDT Height 182.9 cm (6') 05/28/2024 2:29 PM EDT Body Mass Index 23.14 05/28/2024 2:29 PM EDT Plan of Treatment Upcoming Encounters Date Type Department Care Team (Late st Contact Info) Description 12/24/2024 9:00 AM EDT Clinical Support [facility] [address] [place] [address] Sade Funk, RN Health Maintenance Due Date Last Done Comments CT Colonography 1951 Dental Oral Exam 1951 Dental Prophylaxis 1951 Dental X-Ray: Bitewings 1951 FIT DNA/Cologuard 1951 FIT 1951 FOBT 1951 Sigmoidoscopy 1951 Alcohol/Substance Use Screening 1963 Colonoscopy 04/14/2020 04/14/2015 Colorectal Cancer Screening 04/14/2020 Zoster Vaccines (3 of 3) 07/17/2023 05/22/2023, 05/26 COVID-19 Vaccine ( season) 2024 12/06/2021, 12/30/2020 Influenza Vaccine (#1) 2024 , 06/15/2022, 07/26/2021, Additional history exists Depression Screening 08/22/2024 08/22/2023, 08/22/20 23 SDOH Screening 04/24/2025 04/24/2024 Tobacco Screening 05/28/2025 05/28/2024 Dental X-Ray: Full Mouth 02/11/2026 02/10/2023 RSV Patients and Patients Aged 60 years or older (1 - 1-dose 75+ series) 2026 Lipid Panel 02/12/2029 02/13/2024, 03/0 10/2022, 04/18/2022, Additional history exists DTaP/Tdap/Td Vaccines (4 - Td or Tdap) 10/20/2030 10/20/2020, 11/17/2015, 06/03/2010 Pneumococcal Vaccine: 50+ Years Completed 02/05/2024, 10/08/2018, 06/16/2016, Additional history exists Hepatitis C Screening Completed 02/13/2024 , 04/18/2022, 07/29/2021, Additional history exists HIB Vaccines Aged Out No longer eligi ble based on patient's age to complete this topic HPV Vaccines Aged Out No longer eligi ble based on patient's age to complete this topic Hepatitis A Vaccines Aged Out No long er eligible based on patient's age to complete this topic Hepatitis B Vaccines Aged Out No long er eligible based on patient's age to complete this topic IPV Vaccines Aged Out No longer eligi ble based on patient's age to complete this topic Meningococcal Vaccine Aged Out No moira franca eligible based on patient's age to complete this topic RSV under 20 months Aged Out No longe r eligible based on patient's age to complete this topic Rotavirus Vaccines Aged Out No longer eligible based on patient's age to complete this topic Procedures Procedure Name Priority Date/Time Associated Diagnosis Comments POCT ANAYA-14 URINE DRUG SCREEN Routine 08/26/2024 9:14 AM EST Chronic pain of both knees HEPATITIS C AB W/REFL TO HCV RNA, QN, PCR Routine 02/13/2024 6:35 AM EDT Healthcare maintenance LIPID PANEL, STANDARD Routine 02/13/2024 6:35 AM EDT Essential hypertension Other hyperlipidemia PANORAMIC RADIOGRAPHIC IMAGE Routine 02/10/2023 8:30 AM EDT HM COLONOSCOPY Routine 04/14/2015 3:03 PM EDT from Last 3 Months or Most Recently Relevant to Health Maintenance Results * POCT ANAYA-14 Urine Drug Screen (08/26/2024 9:14 AM EST) Oxycodone Screen, Urine Positive Urine Urine specimen obtained by clean catch procedure / Unknown 08/26/2024 9:14 AM EST Sade Salinas RN - 08/26/2024 9:14 AM EST UTOX cup Lot#[id number] Exp. 05/14/26 Internal Pass Control Katelynn Hall DO POINT OF CARE TEST ENTER/BARBARA T ORDERABLES Final Result * Hepatitis C Antibody with Reflex to HCV, RNA, Quantitative, Real-Time PCR (02/13/2024 6:35 AM EDT) Hepatitis C Antibody Nonreactive Nonreactive [facility] Comment:Antibodies to HCV no t detected; does not exclude early acuteHCV infection. Blood Venous blood specimen / Unknown 02/13/2024 6:35 AM EDT 02/13/2024 6:35 AM EDT Katelynn Hall DO LAB BLOOD ORDERABLES Final R esult Performing Organization Address City/[facility]/ZIP Co de Phone Number [facility] [address] [place] [phone] [phone] * Lipid Panel, Standard (02/13/2024 6:35 AM EDT) Triglycerides 76 <150 mg/dL [facility] Comment:Desirable Triglyceri de: less than 150 mg/dLBorderline High Triglyceride 150-199 mg/dLHigh Triglyceride: 200-499 mg/dLVery High Triglyceride: greater than or equal to 5OO mg/dL Cholesterol 143 <200 mg/dL [facility] Comment:Desirable Cholestero l: less than 200 mg/dLBorderline High Cholesterol: 200-239 mg/dLHigh Cholesterol: greater than 239 mg/dL LDL Cholesterol Calculated 80 <100 mg/dL [facility] Comment:Desirable LDL: less than 100 mg/dLNear Optimal/Above Optimal LDL: 110- 129 mg/dLBorderline High LDL: 130-159 mg/dLHigh LDL: 160-189 mg/dLVery High LDL: greater than or equal to 190 mg/dL HDL Cholesterol 48 >40 mg/dL [facility] Comment:Desirable HDL: great er than 40 mg/dL Note: This HDL assay may give artificially low results in patients with liver disease. Blood Venous blood specimen / Unknown 02/13/2024 6:35 AM EDT 02/13/2024 6:35 AM EDT us Katelynn Hall DO LAB BLOOD ORDERABLES Final R esult Performing Organization Address City/[facility]/ZIP Co de Phone Number [facility] [address] [place] [address] [phone] * Hm Colonoscopy (04/14/2015 3:03 PM EDT) us Historical Provider HEALTH MAINTENANCE Final Result from Last 3 Months or Most Recently Relevant to Health Maintenance Insurance [place] [id number] DENTAL - HSN FULL (MEDICAID) Care Teams Fiscal Accountant Relationship Specialty Start Date End Date Katelynn Hall DO [address] [place] [address] PCP - General Family Medicine 09/25/18
--- OUTSIDE RECORDS SUMMARY | 2024-11-19 10:52 | XMS_ITS | Encounter Summary ---
Author Organization [employer] [facility] Address [address] [facility] 7t [place] [address] Care Team Providers Care Donor Specialist Name Role Phone Katelynn Hall DO Primary Care Provider + [phone] Encounter Details Date Type Department Care Team (Latest Contact Info) Description 10/09/2018 Abstract [facility] CONVERSIONS Dental, Provider, DDS Social History Tobacco Use Types Packs/Day Years Used Date Smoking Tobacco: Never Assessed Sex and Gender Information Value Date Recorded Sex Assigned at Male 07/25/2022 10:21 AM EDT Legal Sex Male 10:21 AM EDT Gender Identity Male 07/25/2022 10:21 AM EDT Sexual Orientation Straight 07/25/2022 10 :21 AM EDT documented as of this encounter Plan of Treatment Upcoming Encounters Date Type Department Care Team (Late st Contact Info) Description 12/24/2024 9:00 AM EDT Clinical Support [facility] [address] [place] [address] Sade Funk RN documented as of this encounter Visit Diagnoses Not on filedocumented in this encounter Care Teams Donor Specialist Relationship Specialty Start Date End Date Katelynn Hall DO [address] [place] [address] PCP - General Family Medicine 09/25/18 documented as of this encounter
--- OUTSIDE RECORDS SUMMARY | 2024-11-19 10:52 | XMS_ITS | Encounter Summary ---
Author Organization [employer] [facility] Address [address] [facility] 7t [place] [address] Care Team Providers Care Photo Tech Name Role Phone KatiaKatelynn bustillos Primary Care Provider + [phone] Reason for Visit * Reason Comments Med Refill Encounter Details Date Type Department Care Team ([facility] st Contact Info) Description 10/23/2024 Refill [facility] [address] [place], [place] [phone] Danii Funk MD [address] [place] [address] Chronic pain of both knees Social History Tobacco Use Types Packs/Day Years [...] Description 12/24/2024 9:00 AM EDT Clinical Support [facility] [address] [place] [address] Sade Funk, CHEIKH documented as of this encounter Visit Diagnoses Diagnosis Chronic pain of both knees documented in this encounter Additional Health Concerns Assessment Noted Time PHQ-9 Depression Total Score: 0 08/22/20 23 9:03 AM EST documented as of this encounter Care Teams Photo Tech Relationship Specialty Start Date End Date Katelynn Hall DO [address] [place] [address] PCP - General Family Medicine 09/25/18 documented as of this encounter
--- OUTSIDE RECORDS SUMMARY | 2024-11-19 10:52 | XMS_ITS | Encounter Summary ---
Author Organization [employer] [facility] Address [address] [facility] 7t [place] [address] Care Team Providers Care Lumber Sales Supervisor Name Role Phone Katelynn Hall DO Primary Care Provider + [phone] Encounter Details Date Type Department Care Team (Late Contact Info) Description 11/18/2022 Abstract [facility] [address] [place] [phone] Katelynn Hall DO [address] [place] [phone] Social History Tobacco Use Types Packs/Day Years Used Date Smoking Tobacco: Never Passive Smoke Exposure: Never Smokeless Tobacco: Never Alcohol Use Standard Drinks/Week [...] Encounters Date Type Department Care Team (Late Contact Info) Description 12/24/2024 9:00 AM EDT Clinical Support [facility] [address] [place] [address] Sade Funk, CHEIKH documented as of this encounter Visit Diagnoses Not on filedocumented in this encounter Care Teams Lumber Sales Supervisor Relationship Specialty Start Date End Date Katelynn Hall DO [address] [place] [address] PCP - General Family Medicine 09/25/18 documented as of this encounter
--- OUTSIDE RECORDS SUMMARY | 2024-11-19 10:52 | XMS_ITS | Encounter Summary ---
Author Organization [employer] [facility] Address [address] [facility] 7t [place] [address] Care Team Providers Care Blind Aide Name Role Phone Katelynn Hall DO Primary Care Provider + [phone] Reason for Visit * Reason Comments Med Refill Encounter Details Date Type Department Care Team ([facility] Contact Info) Description 03/02/2023 Refill [facility] [address] [place], [place] [phone] Katelynn Hall DO [address] [place] [address] Pain in right knee Social History Tobacco [...] suspected to have Coronavirus/COVID-19? No / Unsure 03/02/2023 9:09 AM EDT documented as of this encounter Plan of Treatment Upcoming Encounters Date Type Department Care Team ([facility] Contact Info) Description 12/24/2024 9:00 AM EDT Clinical Support [facility] [address] [place] [address] Sade Funk RN documented as of this encounter Visit Diagnoses Diagnosis Pain in right knee documented in this encounter Additional Health Concerns Assessment Noted Time PHQ-9 Depression Total Score: 0 11/21/19 23 8:57 AM EST documented as of this encounter Care Teams Blind Aide Relationship Specialty Start Date End Date Katelynn Hall DO [address] [place] [address] PCP - General Family Medicine 09/25/18 documented as of this encounter
--- OUTSIDE RECORDS SUMMARY | 2024-11-19 10:52 | XMS_ITS | Encounter Summary ---
Author Organization [facility] Address [address] [facility] 7t [place] [address] Care Team Providers Care Snuff Drier Name Role Phone Katelynn Hall DO Primary Care Provider + [phone] Encounter Details Date Type Department Care Team (Latest Contact Info) Description 03/15/2021 Abstract [facility] CONVERSIONS Dental, Provider, DDS Social History [...] 12/24/2024 9:00 AM EDT Clinical Support [facility] [address] [place] [address] Sade Funk RN documented as of this encounter Visit Diagnoses Not on filedocumented in this encounter Care Teams Snuff Drier Relationship Specialty Start Date End Date Katelynn Hall DO [address] [place] [address] PCP - General Family Medicine 09/25/18 documented as of this encounter
--- OUTSIDE RECORDS SUMMARY | 2024-11-19 10:52 | XMS_ITS | Encounter Summary ---
Author Organization [employer] [facility] Address [address] [facility] [address]t [place] [address] Care Team Providers Care Donor Center Technician Name Role Phone Katelynn Hall DO Primary Care Provider + [phone] Reason for Visit * Reason Onset Date Comments Nurse Triage 05/28/2024 Encounter Details Date Type Department Care Team ([facility] st Contact Info) Description 05/28/2024 Telephone [facility] [address] [place], [place] [phone] Katelynn Hall DO [address] [place], [place] [phone] Nurse Triage Social History Tobacco Use Types Packs/Day Years [...] AM EDT documented as of this encounter Miscellaneous Notes * Telephone Encounter - Mery Mckeon RN - 05/28/2024 10:31 AM EDT Triage call Pt reports a rash that started a few days ago and is now spreading all over body, arms,hands, abdomen, legs. Described as red and bumpy and very itchy. Pt doesn't report pain/tenderness.No difficulty breathing or swallowing. Pt requests to be seen. Advised to come to [facility] today at [facility] and Pt agrees. Unable to check insurance due to computer error. Pt agrees with disposition. Protocol Used: Rash or Redness - Widespread (Adult) Protocol-Based Disposition: See in Office or Video Visit Today Video visit not offered Positive Triage Questions: * Severe itching * Patient wants to be seen * All higher-acuity triage questions were negative Care Advice Discussed: * Reasons To Call Back - Rash becomes purple or blood-colored or blister-like - Fever occurs or severe itching - You become worse * Telephone Encounter - Eren Baker - 05/28/2024 10:15 AM EDT Symptom: Rash or Redness - Widespread Outcome: Schedule a same-day appointment or talk to a nurse or provider today Reason: Caller denied all higher acuity questions The caller accepted this outcome PT states all over body and red but not a dark red . States unsure if its poison rossy or shingles. Duration 1 week Yoruba speaking documented in this encounter Plan of Treatment Upcoming Encounters Date Type Department Care Team (Late st Contact Info) Description 12/24/2024 9:00 AM EDT Clinical Support [facility] [address] [place] [address] Sade Funk, CHEIKH documented as of this encounter Visit Diagnoses Not on filedocumented in this encounter Additional Health Concerns Assessment Noted Time PHQ-9 Depression Total Score: 0 08/22/20 23 9:03 AM EST documented as of this encounter Care Teams Donor Center Technician Relationship Specialty Start Date End Date Katelynn Hall DO [address] [place] [address] PCP - General Family Medicine 09/25/18 documented as of this encounter
--- OUTSIDE RECORDS SUMMARY | 2024-11-19 10:52 | XMS_ITS | Encounter Summary ---
Author Organization [employer] [facility] Address [address] [facility] [address] [place] [address] Care Team Providers Care Poundmaster Name Role Phone Katelynn Hall DO Primary Care Provider + [phone] Encounter Details Date Type Department Care Team (Latest Contact Info) Description 07/01/2022 Abstract [facility] CONVERSIONS Dental, Provider, DDS Social History [...] Description 12/24/2024 9:00 AM EDT Clinical Support [facility] [address] [place] [address] Sade Funk RN documented as of this encounter Visit Diagnoses Not on filedocumented in this encounter Care Teams Poundmaster Relationship Specialty Start Date End Date Katelynn Hall DO [address] [place] [address] PCP - General Family Medicine 09/25/18 documented as of this encounter
== END ==
LOC: HO.CARD 09:39
PROVIDERS: PCP Family Medicine; Visit Provider Internal Medicine Cardiovascular Disease
DX: I71.20 Thoracic aortic aneurysm, without rupture, unspecified (principal)
CPT/HCPCS: 93306

== ENCOUNTER → 2024-11-19 09:41 | Outpatient (BNV) | payer MEDICARE, SELFPAY | PROVIDERS: PCP Family Medicine; Visit Provider Internal Medicine | DX: I71.21 Aneurysm of the ascending aorta, without rupture (principal) | CPT/HCPCS: 93306 ==

== ENCOUNTER 2024-12-03 08:13 | Outpatient (AMB) | payer MEDICARE, SELFPAY ==
[2024-12-03 08:25] VITALS: BP 118/74; PULSE 71; BMI 23.9
--- NOTE | 2024-12-03 08:25 | A.OFFVIS_ITS ---
Vital Signs 12/03/24 08:25 Height 6 ft Weight 176 lb 5.917 oz BMI 23.9 BP 118/74 Blood Pressure Location Lt brachial Position Sitting Pulse 71 Intake Visit Reasons: 1 yr s/p echo Intake Note: 1 year follow-up with ekg after echo feeling good Director Regulatory Affairs Required: No Allergies chlorhexidine Allergy (Verified 07/16/24 11:40) Rash iodine Adverse Reaction (Verified 07/16/24 11:40) Rash Medication List - Last Reconciled 12/03/24 by Kareem Neri MD albuterol sulfate 90 mcg/actuation (Proventil HFA) 2 puffs inhalation Q6H PRN amlodipine 5 mg PO DAILY atorvastatin 80 mg PO DAILY baclofen 1 tab PO TID PRN cholecalciferol (vitamin D3) 1 cap PO DAILY cyclobenzaprine 10 mg PO TID PRN docusate sodium (Colace) 100 mg PO DAILY gabapentin 600 mg PO BEDTIME lisinopril 40 mg PO DAILY loratadine 10 mg PO DAILY PRN melatonin 5 - 10 mg PO BEDTIME PRN metoprolol succinate ER (Toprol XL) 100 mg PO DAILY 90 days omega 0-qlr-nys-fish oil 100-160-1,000 mg (Fish Oil) 1 cap PO DAILY omeprazole 20 mg PO DAILY PRN simvastatin 20 mg PO DAILY HPI Comments Details: German comes for follow-up. Overall he has been doing well. Remains very active and still works. Denies any cardiac symptoms. Plan for colonoscopy next week. Denies any exertional chest pain or shortness of breath. Good functional capacity. Denies any orthopnea, PND, leg edema. No prolonged palpitation, irregular heartbeat, lightheadedness, syncope. Takes all his medications. 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 Mother Diabetes Social History Are you a primary zoo caretaker to a significant other at home: No Do you presently have visiting nurse or other home services: No Alcohol intake: current Alcohol intake frequency: a few times a month Patient Tobacco Use Status: Former Tobacco user Tobacco use type: Cigarette Review of Systems Const Denies chills, Denies fatigue, Denies fever(s), Denies frequent falls, Denies weakness, Denies weight gain and Denies weight loss ENT Denies dizziness Card Denies chest pain, Denies leg edema, Denies lightheadedness, Denies palpitations, Denies dyspnea, Denies dyspnea on exertion, Denies orthopnea and Denies other (loss of consciousness) Resp Denies cough, Denies dyspnea and Denies dyspnea on exertion GI Denies hematochezia and Denies change in stool character Musc Denies abnormal gait, Denies muscle weakness, Denies numbness, Denies radiating pain into limb and Denies tingling Neuro Denies abnormal gait, Denies dizziness, Denies frequent falls, Denies numbness, Denies tingling and Denies weakness Endo Denies fatigue and Denies palpitations Physical Exam Vital Signs: Last Vital Signs Pulse 71 12/03/24 08:25 BP 118/74 12/03/24 08:25 BMI result Body Mass Index 23.9 Const General: cooperative, comfortable, alert, awake and well groomed Nutritional Appearance: average body habitus Orientation/consciousness: patient oriented x3 Limitations: no limitations HEENT Head: Yes normocephalic and Yes atraumatic Neck Neck: Yes trachea midline, Yes supple and Yes no JVD Resp Effort & Inspection: normal respiratory effort Auscultation: clear to auscultation bilaterally Cardio Jugular venous distension: no JVD Palpation: normal PMI Rate: regular rate Rhythm: regular rhythm Heart sounds: S1 normal heart sound present and S2 normal heart sound present GI Auscultation: normal bowel sounds Skin General skin exam: no rashes or lesions noted Neuro General: patient oriented x3 and no focal motor deficits Extrem General: Yes no clubbing, cyanosis or edema Psych Appearance: grossly normal Office Procedures EKG Details: EKG shows normal sinus rhythm with left bundle-branch block at 71 beats per minute [id number], Complete Assessment & Plan Assessment & Plan (1) Cardiomyopathy: Comment: follows w/[facility]. Neri[facility] Code(s): I42.9 - Cardiomyopathy, unspecified Category: Medical Plan: Cardiomyopathy in the past with improved LV ejection fraction on current neurohormonal modulation with lisinopril and metoprolol. Continue the same. No signs or symptoms of heart failure with good functional capacity. Advised to continue lisinopril and metoprolol therapy. Continue aggressive blood pressure control which is currently well optimized. Advised to avoid cardiotoxic agents. (2) Thoracic aortic aneurysm: Code(s): I71.20 - Thoracic aortic aneurysm, without rupture, unspecified Category: Medical Plan: Mild thoracic aortic aneurysm which has remained stable. No interventions required from surgical perspective. Continue aggressive blood pressure control. Advised to avoid sudden strenuous isometric exercise. Follow-up echocardiogram in 1 year's time. (3) Left bundle branch block: Code(s): I44.7 - Left bundle-branch block, unspecified Category: Medical Plan: Chronic left bundle-branch block. Currently stable. No interventions required per se for left bundle-branch block. Symptoms associated with left bundle- branch block was discussed. Will follow up in the clinic in 1 year's time, sooner p.r.n.. Thank you for allowing me to partake in his care Coding Level of Care Code Est Pt Level 4 (35025) Complex EM visit Add On G2211 Diagnoses Cardiomyopathy I42.9 Thoracic aortic aneurysm I71.20 Left bundle branch block I44.7 CPT Codes EKG - CPT: 77117-[id number], Complete ([id number])
--- OUTSIDE RECORDS SUMMARY | 2024-12-03 08:50 | XMS_ITS | Encounter Summary ---
Author Organization [employer] [facility] Address [address] [place] [address] Care Team Providers Care Stage Setting Painter Apprentice Name Role Phone Katelynn Hall DO Primary Care Provider + [phone] Encounter Details Date Type Department Care Team (Latest Contact Info) Description 07/01/2022 Abstract [facility] CONVERSIONS Dental, Provider, DDS Social History Tobacco [...] Description 12/24/2024 9:00 AM EDT Clinical Support [facility] MEDICINE [address] [place] [address] Sade Fnuk RN documented as of this encounter Visit Diagnoses Not on filedocumented in this encounter Care Teams Stage Setting Painter Apprentice Relationship Specialty Start Date End Date Katelynn Hall DO [address] [place] [address] PCP - General Family Medicine 09/25/18 documented as of this encounter
--- OUTSIDE RECORDS SUMMARY | 2024-12-03 08:50 | XMS_ITS | Encounter Summary ---
Author Organization [facility] [facility] Address [address] [place] [address] Care Team Providers Care Forming Machine Upkeep Mechanic Name Role Phone Katelynn Hall DO Primary Care Provider + [phone] Reason for Visit * Reason Comments Med Refill Encounter Details Date Type Department Care Team ([facility] st Contact Info) Description 11/25/2024 Refill [facility] MEDICINE [address] [place], [place] [phone] Katelynn Hall DO [address] [place] [address] Chronic pain of both knees Social History [...] Description 12/24/2024 9:00 AM EDT Clinical Support [facility] MEDICINE [address] [place] [address] Sade Funk, CHEIKH documented as of this encounter Visit Diagnoses Diagnosis Chronic pain of both knees documented in this encounter Additional Health Concerns Assessment Noted Time PHQ-9 Depression Total Score: 0 08/22/20 23 9:03 AM EST documented as of this encounter Care Teams Forming Machine Upkeep Mechanic Relationship Specialty Start Date End Date Katelynn Hall DO [address] [place] [address] PCP - General Family Medicine 09/25/18 documented as of this encounter
--- OUTSIDE RECORDS SUMMARY | 2024-12-03 08:50 | XMS_ITS | Encounter Summary ---
Author Organization [employer] [facility] Address [address] [facility] [address] [facility] [address] [place] [address] Care Team Providers Care Director Of Academic Support Name Role Phone Katelynn Hall DO Primary Care Provider + [phone] Encounter Details Date Type Department Care Team (Latest Contact Info) Description 10/09/2018 Abstract [facility] CONVERSIONS Dental, Provider, DDS Social History Tobacco [...] Description 12/24/2024 9:00 AM EDT Clinical Support [facility] MEDICINE [address] [place] [address] Sade Funk RN documented as of this encounter Visit Diagnoses Not on filedocumented in this encounter Care Teams Director Of Academic Support Relationship Specialty Start Date End Date Katelynn Hall DO [address] [place] [address] PCP - General Family Medicine 09/25/18 documented as of this encounter
--- OUTSIDE RECORDS SUMMARY | 2024-12-03 08:50 | XMS_ITS | Clinical Summary ---
Author Organization [employer] Address [address] [facility] [address] [place] [address] Care Team Providers Care Structural Designer Name Role Phone KatiaKatelynn bustillos Primary Care Provider [phone] Allergies No known active allergies Medications amLODIPine [...] 24 Active ergocalciferol (Vitamin D2) 1.25 MG (61508 UT) capsuleIndicati ons:Vitamin D deficiency, unspecified Take [...] knees TAKE 1 TABLET BY MOUTH EVERY 12 HOURS NEEDED FOR SEVERE PAIN 56 tablet 11/28/19 25 Active oxyCODONE (Roxicodone) 5 MG immediate release tabletIndicatio ns:Chronic pain of both knees TAKE 1 TABLET BY MOUTH EVERY TWELVE HOURS NEEDED FOR SEVERE PAIN 56 tablet 10/24/19 25 025 Discontinued Active Problems Problem Noted Date [...] Encounters Date Type Department Care Team Description 11/25/2024 Refill [facility] MEDICINE [address] [place], [place] [phone] Katelynn Hall DO Chronic pain of both knees 10/23/2024 Refill [facility] MEDICINE [address] [place] [address] Danii Funk MD Chronic pain of both knees 09/23/2024 Refill [facility] MEDICINE [address] [place] [address] Danii Funk MD Chronic pain of both knees from Last [...] Description 12/24/2024 9:00 AM EDT Clinical Support [facility] MEDICINE [address] [place] [address] [phone] Sade Funk, CHEIKH Health Maintenance Due Date Last Done Comments CT Colonography 1951 Dental Oral Exam 1951 Dental Prophylaxis 1951 Dental X-Ray: Bitewings 1951 FIT DNA/Cologuard 1951 FIT 1951 FOBT 1950 Sigmoidoscopy 1951 Alcohol/Substance Use Screening 1963 Colonoscopy 04/14/2020 04/14/2015 Colorectal Cancer Screening 04/14/2020 Zoster Vaccines (3 of 3) 07/17/2023 05/22/2023, 05/26 COVID-19 Vaccine (3 - season) 2024 12/06/2021, 12/30/2020 Influenza Vaccine (#1) 2024 , 06/15/2022, 07/26/2021, Additional history exists Depression Screening 08/22/2024 08/22/2023, 08/22/20 SDOH Screening 04/24/2025 04/24/2024 Tobacco Screening 05/28/2025 [...] Procedure Name Priority Date/Time Associated Diagnosis Comments HEPATITIS C AB W/REFL TO HCV RNA, QN, PCR Routine 02/13/2024 6:35 AM EDT Healthcare maintenance LIPID PANEL, STANDARD Routine 02/13/2024 6:35 AM EDT Essential hypertension Other hyperlipidemia PANORAMIC RADIOGRAPHIC IMAGE Routine 02/10/2023 8:30 AM EDT HM COLONOSCOPY Routine 04/14/2015 3:03 PM EDT from Last 3 Months or Most Recently Relevant to Health Maintenance Results * Hepatitis C Antibody with Reflex to HCV, RNA, Quantitative, Real-Time PCR (02/13/2024 6:35 AM EDT) Hepatitis C Antibody Nonreactive Nonreactive [facility] Comment:Antibodies to HCV no t detected; does not exclude early acuteHCV infection. Blood Venous blood specimen / Unknown 02/13/2024 6:35 AM EDT 02/13/2024 6:35 AM EDT us Katelynn Hall DO LAB BLOOD ORDERABLES Final R esult [facility] [address] [place] [phone] * Lipid Panel, Standard (02/13/2024 6:35 AM EDT) Triglycerides 76 <150 mg/dL [facility] Comment:Desirable Triglyceri de: less than 150 mg/dLBorderline High Triglyceride 150-199 mg/dLHigh Triglyceride: 200-499 mg/dLVery High Triglyceride: greater than or equal to 5OO mg/dL Cholesterol 143 <200 mg/dL [facility] Comment:Desirable Cholestero l: less than 200 mg/dLBorderline High Cholesterol: 200-239 mg/dLHigh Cholesterol: greater than 239 mg/dL LDL Cholesterol Calculated 80 <100 mg/dL [facility] Comment:Desirable LDL: less than 100 mg/dLNear Optimal/Above Optimal LDL: 110- 129 mg/dLBorderline High LDL: 130-159 mg/dLHigh LDL: 160-189 mg/dLVery High LDL: greater than or equal to 190 mg/dL HDL Cholesterol 48 >40 mg/dL [facility] Comment:Desirable HDL: great er than 40 mg/dL Note: This HDL assay may give artificially low results in patients with liver disease. Blood Venous blood specimen / Unknown 02/13/2024 6:35 AM EDT 02/13/2024 6:35 AM EDT us Katelynn Hall DO LAB BLOOD ORDERABLES Final R esult [facility] [address] [place] [address] [phone] * Hm Colonoscopy (04/14/2015 3:03 PM EDT) us Historical Provider HEALTH MAINTENANCE Final Result from Last 3 Months or Most Recently Relevant to Health Maintenance Insurance [place] [address] [place] [id number] DENTAL - HSN FULL (MEDICAID) Care Teams Structural Designer Relationship Specialty Start Date End Date Katelynn Hall DO [address] [place] [id number] PCP - General Family Medicine 09/25/18
--- OUTSIDE RECORDS SUMMARY | 2024-12-03 08:50 | XMS_ITS ---
Author Organization [facility] Address [address] [place] [address] Care Team Providers Care Mixer Operator Hot Metal Name Role Phone Katelynn Hall M.D. Primary Care Provider Chester Brown Unavailable [phone] Allergies No Known Allergies REASON FOR VISIT Patient presents today for ULCERATIVE PROCTITIS Medications Medication SIG (Take, Route, Frequency, Duration) Notes Start Date End Date Status D3 Super Strength 50 MCG (2000 UT) TAKE 1 CAPSULE EVERY DAY Oral for 90 Active Fish Oil 1000 MG TAKE 1 CAPSULE TWICE DAILY Oral for 90 Active Atorvastatin Calcium 80 MG TAKE 1 TABLET AT BEDTIME Oral for 90 Active traZODone HCl 50 MG Oral for 30 Active Melatonin 5 MG TAKE 1 OR 2 TABLETS BY MOUTH EVERY DAY AT BEDTIME NEEDED FOR SLEEP Oral for 30 [id number],Unavailab le Active Loratadine 10 MG TAKE 1 TABLET EVERY DAY Oral for 30 Active amLODIPine Besylate 5 MG TAKE 1 TABLET BY MOUTH EVERY DAY Oral for 90 Active Lisinopril 40 MG TAKE 1 TABLET BY MOUTH EVERY MORNING Oral for 90 Active oxyCODONE HCl 5 MG TAKE 1 TABLET BY MOUTH EVERY TWELVE HOURS NEEDED FOR SEVERE PAIN Oral for 28 [id number],Unavaila ble Active Tadalafil 20 MG TAKE ONE TABLET BY MOUTH EVERY DAY NEEDED FOR SEXUAL ACTIVITY. ON DEMAND MEDICATION TAKE 60 MINUTES BEFORE INTENDED ACTIVITY Oral for 30 Active Flonase Allergy Relief 50 MCG/ACT 1 spray in each nostril Nasally Twice a day for 30 day(s) Active Metoprolol Succinate 100 MG 1 capsule Orally Once a day for 30 day(s) Active Ventolin HFA 108 (90 Base) MCG/ACT INHALE 2 PUFFS BY MOUTH EVERY 4 HOURS NEEDED FOR WHEEZING OR SHORTNESS OF BREATH Inhalation for 17 Active Baclofen 20 MG 1 tablet Administer without regards to meals as needed Orally Three times a day Active Finasteride 5 MG 1 tablet Orally Once a day for 30 day(s) Active Naloxone HCl 4 MG/0.1ML as directed Nasally Active oxyBUTYnin Chloride ER 5 MG 1 tablet Orally Once a day for 30 day(s) Active Social History Tobacco Use: Social History Observation Description Date Details (start date - stop date) Former Smoker NA - NA Tobacco Use/Smoking Question Answer Notes Patient is a former smoker How long has it been since you last smoked? > 10 years Alcohol Screen Question Answer Notes Did you have a drink contain ing alcohol in the past year? Yes How often did you have a dri nk containing alcohol in the past year? 2 to 4 times a month (2 points) How many drinks did you have on a typical day when you were drinking in the past year? 1 or 2 drinks (0 point) How often did you have 6 or more drinks on one occasion in the past year? 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) Active confirmed Problem History of polyp of colon (situation) (001595541) Personal history of colonic polyps (Z86.010) Active confirmed Problem Colon cancer screening (869164085) Colon cancer screening (Z12.11) Active confirmed Vital Signs Blood pressure systolic 00 mm Hg 08/14/20 24 Blood pressure diastolic 00 mm Hg 024 Height 6 ft 0 in in 08/14/2024 Weight 173 lbs 08/14/2024 BMI 23.46 kg/m2 08/14/2024 Encounters Encounter Location Date Provider Diagnosis [facility] [address] [place] [address] 08/14/2024 Chester Verdin 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 K51.20 ; Personal history of colonic polyps Z86.010 and Colon cancer screening Z12.11 Assessments Encounter Date Diagnosis (ICD Code) Assessment Notes Treatment Notes Treatment Clinical Notes Section Notes 08/14/2024 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 (ICD-10 - K51.20) Stop fish oil for 1 week before the colonoscopy Overall, German appears quite well. His ulcerative proctitis is in clinical remission without any specific symptoms on no particular medication at this time. As such, we will continue to observe him in this regard. I did recommend a colonoscopy for further screening purposes given his long-standing underlying inflammatory bowel disease, reported history of colon polyps, and his last colonoscopy being over 5 years ago. We did review the rationale for this regard to colorectal cancer prevention and/or early detection. Full consent was obtained for this, including risks of bleeding and perforation. The procedure will be done with monitored anesthesia care. He was given the below instruction regarding adjustment of his medication for the procedure. In regard to his previous weight loss this seems to have stabilized and improved based on his current weight as compared to earlier in the year. He is not having any current localizing GI symptoms at this time so I don't think that needs any further workup. I did advise him to continue to eat well and monitor his weight. I did advise him to certainly let me know if he develops any upper GI complaints or has recurrent issues with significant weight loss. I don't think he requires an upper endoscopy at this time based on the clinical history. German was comfortable with this plan. Thank you again for allowing me to participate in German's care. I shall continue to keep you advised of his progress. 08/14/2024 Personal history of colonic polyps (ICD-10 - Z86.010) Overall, German appears quite well. His ulcerative proctitis is in clinical remission without any specific symptoms on no particular medication at this time. As such, we will continue to observe him in this regard. I did recommend a colonoscopy for further screening purposes given his long-standing underlying inflammatory bowel disease, reported history of colon polyps, and his last colonoscopy being over 5 years ago. We did review the rationale for this regard to colorectal cancer prevention and/or early detection. Full consent was obtained for this, including risks of bleeding and perforation. The procedure will be done with monitored anesthesia care. He was given the below instruction regarding adjustment of his medication for the procedure. In regard to his previous weight loss this seems to have stabilized and improved based on his current weight as compared to earlier in the year. He is not having any current localizing GI symptoms at this time so I don't think that needs any further workup. I did advise him to continue to eat well and monitor his weight. I did advise him to certainly let me know if he develops any upper GI complaints or has recurrent issues with significant weight loss. I don't think he requires an upper endoscopy at this time based on the clinical history. German was comfortable with this plan. Thank you again for allowing me to participate in German's care. I shall continue to keep you advised of his progress. 08/14/2024 Colon cancer screening (ICD-10 - Z12.11) Overall, German appears quite well. His ulcerative proctitis is in clinical remission without any specific symptoms on no particular medication at this time. As such, we will continue to observe him in this regard. I did recommend a colonoscopy for further screening purposes given his long-standing underlying inflammatory bowel disease, reported history of colon polyps, and his last colonoscopy being over 5 years ago. We did review the rationale for this regard to colorectal cancer prevention and/or early detection. Full consent was obtained for this, including risks of bleeding and perforation. The procedure will be done with monitored anesthesia care. He was given the below instruction regarding adjustment of his medication for the procedure. In regard to his previous weight loss this seems to have stabilized and improved based on his current weight as compared to earlier in the year. He is not having any current localizing GI symptoms at this time so I don't think that needs any further workup. I did advise him to continue to eat well and monitor his weight. I did advise him to certainly let me know if he develops any upper GI complaints or has recurrent issues with significant weight loss. I don't think he requires an upper endoscopy at this time based on the clinical history. German was comfortable with this plan. Thank you again for allowing me to participate in German's care. I shall continue to keep you advised of his progress. Plan Of Treatment Treatment Notes Assessment Notes 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 Stop fish oil for 1 week before the colonoscopy Future Test Test Name Order Date COLONOSCOPY 08/14/2024 Next Appt Details Follow Up: prn, Reason: Provider Name:Chester Angeline Verdin , 12/09/2024 01:40:00 PM, [address] [place] [address], [id number], Progress Notes * GERMAN GUZMAN ADOB:1950 (74 yo M)Acc No.[id number]:08/14/2024 Progress Notes Patient:?GERMAN GUZMAN A Provider:?Chester Verdin MD :1950???Age:74 Y???Sex:Male Carter e:08/14/2024 Address:[id number] Pcp:Katelynn Hall M.D. Subjective: * Chief Complaints: * ???Patient presents today fo r ULCERATIVE PROCTITIS * HPI: ???incontinence:? I saw German in consultation today in regard to further evaluation of his previous history of ulcerative proctitis, personal history of colon polyps, and discussion of colorectal cancer screening. ?In reviewing the record I last saw German in 2006. I don't have all those records but it appears that I diagnosed him with ulcerative proctitis in approximately 2005 during a colonoscopy. He describes he had been on Asacol which helped relieve his symptoms at that time. I have not seen since 2006 as he was subsequently under the care of Dr. Thomas. His last colonoscopy with her was in 2019 in which a polyp was reportedly removed. ?German has not been on any specific treatment for his ulcerative proctitis for many years. He describes that his bowel movements are currently regular and without any diarrhea, hematochezia, nor melena. He enjoys a good appetite and denies any significant heartburn or dysphagia. He denies any abdominal pain nor jaundice. He does describe some previous weight loss with his weight down to as low as 164 pounds. However, he currently reports that has stabilized and his weight in my office today is 173 pounds. He denies any known family history of colon cancer. * ROS:?General/Constitutional:?Change in appetite?denies.?Chills?denies.?Fatigue?denies.?Ophthalmologic:?Comments?all negative.?ENT:?Comments?all negative.?Respiratory:?hemoptysis?denies.?Cough?denies.?Cardiovascular:?Chest pain?denies.?Orthopnea?denies.?Gastrointestinal:?Comments?See HPI for details.?Genitourinary:?Hematuria?denies.?Dysuria?denies.?Musculoskeletal:?Painful joints?denies.?Weakness?denies.?Skin:?Itching?denies.?Rash?denies.?Neurologic:?Headache?denies.?Seizures?denies.?Psychiatric:?Comments?all negative.? * Medical History:? * Surgical History:?Right knee replacement 2019, and then a F/U surgery in [address] Sol WALLIS 09/2022Right inguinal hernia Hemorrhoidectomy Umbilical hernia 2023-Dr. Evans Both Rotator cuffs * Hospitalization/Major Diagno stic Procedure:?No Hospitalization History. * Family History:?Father: dece ased.?Mother: .? no known hx of colon cancer. * Social History:?Tobacco Use:?Tobacco Use/Smoking?Patient is a?former smoker,?How long has it been since you last smoked??> 10 years.?Drugs/Alcohol:?Alcohol Screen?Did you have a drink containing alcohol in the past year??Yes,?How often did you have a drink containing alcohol in the past year??2 to 4 times a month (2 points),?How many drinks did you have on a typical day when you were drinking in the past year??1 or 2 drinks (0 point),?How often did you have 6 or more drinks on one occasion in the past year??Never (0 point),?Points?2,?Interpretation?Negative.?Miscellaneous:?Marital status: . Occupation: Retired. ???Nonsmoker; couple beers on weekend. * Medications:?TakingoxyBUTYni n Chloride ER 5 MG Tablet Extended Release 24 Hour 1 tablet Orally Once a dayNaloxone HCl 4 MG/0.1ML Liquid as directed Nasally Metoprolol Succinate 100 MG Capsule ER 24 Hour Sprinkle 1 capsule Orally Once a dayFlonase Allergy Relief 50 MCG/ACT Suspension 1 spray in each nostril Nasally Twice a dayFinasteride 5 MG Tablet 1 tablet Orally Once a dayBaclofen 20 MG Tablet 1 tablet Administer without regards to meals as needed Orally Three times a dayVentolin HFA 108 (90 Base) MCG/ACT Aerosol Solution INHALE 2 PUFFS BY MOUTH EVERY 4 HOURS NEEDED FOR WHEEZING OR SHORTNESS OF BREATH Inhalation amLODIPine Besylate 5 MG Tablet TAKE 1 TABLET BY MOUTH EVERY DAY Oral Lisinopril 40 MG Tablet TAKE 1 TABLET BY MOUTH EVERY MORNING Oral Tadalafil 20 MG Tablet TAKE ONE TABLET BY MOUTH EVERY DAY NEEDED FOR SEXUAL ACTIVITY. ON DEMAND MEDICATION TAKE 60 MINUTES BEFORE INTENDED ACTIVITY Oral oxyCODONE HCl 5 MG Tablet TAKE 1 TABLET BY MOUTH EVERY TWELVE HOURS NEEDED FOR SEVERE PAIN Oral , Notes: [id number],UnavailableLoratadine 10 MG Tablet TAKE 1 TABLET EVERY DAY Oral Atorvastatin Calcium 80 MG Tablet TAKE 1 TABLET AT BEDTIME Oral Fish Oil 1000 MG Capsule TAKE 1 CAPSULE TWICE DAILY Oral D3 Super Strength 50 MCG (2000 UT) Capsule TAKE 1 CAPSULE EVERY DAY Oral Melatonin 5 MG Tablet TAKE 1 OR 2 TABLETS BY MOUTH EVERY DAY AT BEDTIME NEEDED FOR SLEEP Oral , Notes: G4709,UnavailabletraZODone HCl 50 MG Tablet Oral Medication List reviewed and reconciled with the patientTaking oxyBUTYnin Chloride ER 5 MG Tablet Extended Release 24 Hour 1 tablet Orally Once a dayTaking Naloxone HCl 4 MG/0.1ML Liquid as directed Nasally Taking Metoprolol Succinate 100 MG Capsule ER 24 Hour Sprinkle 1 capsule Orally Once a dayTaking Flonase Allergy Relief 50 MCG/ACT Suspension 1 spray in each nostril Nasally Twice a dayTaking Finasteride 5 MG Tablet 1 tablet Orally Once a dayTaking Baclofen 20 MG Tablet 1 tablet Administer without regards to meals as needed Orally Three times a dayTaking Ventolin HFA 108 (90 Base) MCG/ACT Aerosol Solution INHALE 2 PUFFS BY MOUTH EVERY 4 HOURS NEEDED FOR WHEEZING OR SHORTNESS OF BREATH Inhalation Taking amLODIPine Besylate 5 MG Tablet TAKE 1 TABLET BY MOUTH EVERY DAY Oral Taking Lisinopril 40 MG Tablet TAKE 1 TABLET BY MOUTH EVERY MORNING Oral Taking Tadalafil 20 MG Tablet TAKE ONE TABLET BY MOUTH EVERY DAY NEEDED FOR SEXUAL ACTIVITY. ON DEMAND MEDICATION TAKE 60 MINUTES BEFORE INTENDED ACTIVITY Oral Taking oxyCODONE HCl 5 MG Tablet TAKE 1 TABLET BY MOUTH EVERY TWELVE HOURS NEEDED FOR SEVERE PAIN Oral , Notes: [id number],UnavailableTaking Loratadine 10 MG Tablet TAKE 1 TABLET EVERY DAY Oral Taking Atorvastatin Calcium 80 MG Tablet TAKE 1 TABLET AT BEDTIME Oral Taking Fish Oil 1000 MG Capsule TAKE 1 CAPSULE TWICE DAILY Oral Taking D3 Super Strength 50 MCG (2000 UT) Capsule TAKE 1 CAPSULE EVERY DAY Oral Taking Melatonin 5 MG Tablet TAKE 1 OR 2 TABLETS BY MOUTH EVERY DAY AT BEDTIME NEEDED FOR SLEEP Oral , Notes: G4709,UnavailableTaking traZODone HCl 50 MG Tablet Oral Medication List reviewed and reconciled with the patient * Allergies:?N.K.D.A.yes[Aller gies Verified] Objective: * Vitals:?Wt: 173 lbs, Ht: 6 f t 0 in, BMI:23.46 Index, BP: 00/00 mm Hg. * Examination: ???General Examination: ?GENERAL APPEARANCE:?pleasant, well nourished, well developed, in no acute distress.?EYES:?sclera non-icteric.?ORAL CAVITY:?mucosa moist.?NECK/THYROID:?no cervical lymphadenopathy, neck supple.?SKIN:?nonjaundiced, no spider angiomata.?HEART:?S1, S2 normal.?LUNGS:?clear to auscultation bilaterally.?ABDOMEN:?normal bowel sounds, no guarding or rigidity, no guarding or rigidity, no masses palpable, soft, nontender, nondistended.?EXTREMITIES:?no edema.?NEUROLOGIC:?alert and oriented.? Assessment: * Assessment: 1.?Chronic ulcerative procti tis without complications - K51.20 (Primary)?2.?Personal history of colonic polyps - Z86.010?3.?Colon cancer screening - Z12.11? Overall, German appears quite well. His ulcerative proctitis is in clinical remission without any specific symptoms on no particular medication at this time. As such, we will continue to observe him in this regard. I did recommend a colonoscopy for further screening purposes given his long-standing underlying inflammatory bowel disease, reported history of colon polyps, and his last colonoscopy being over 5 years ago. We did review the rationale for this regard to colorectal cancer prevention and/or early detection. Full consent was obtained for this, including risks of bleeding and perforation. The procedure will be done with monitored anesthesia care. He was given the below instruction regarding adjustment of his medication for the procedure. In regard to his previous weight loss this seems to have stabilized and improved based on his current weight as compared to earlier in the year. He is not having any current localizing GI symptoms at this time so I don't think that needs any further workup. I did advise him to continue to eat well and monitor his weight. I did advise him to certainly let me know if he develops any upper GI complaints or has recurrent issues with significant weight loss. I don't think he requires an upper endoscopy at this time based on the clinical history. German was comfortable with this plan. Thank you again for allowing me to participate in German's care. I shall continue to keep you advised of his progress. Plan: * Treatment: Notes: Stop fish oil for 1 week before the colonoscopy??2.?Personal history of colonic polyps?Procedure: COLONOSCOPY (Ordered for 08/14/2024)* with MACsched for 12/09/24 at 9:30 ammiralax 3.?Colon cancer screening?Procedure: COLONOSCOPY (Ordered for 08/14/2024)* with MACsched for 12/09/24 at 9:30 ammiralax * Procedure Codes:?3017F COLOR ECTAL CA SCREEN DOC [id number] TOBACCO [id number] BP SCR NOT PRFRM REC REASON NOS * Preventive Medicine:? ??Screenings:?Fall Risk Screening?Fall Risk Assessment:?No falls in the past year,?Screening:?No falls in the past year,?Assessment:?Not performed, no reason specified,?Plan of Care:?Not documented, no reason specified.? * Follow Up:?prn * * Sign off status: Completed true * Provider:?Chester Verdin MD Date:? 024 Generated for Zeke arrieta/Bradley/Constance on:?12/03/2024 08:50 AM EDT History and Physical Notes * HPI (History of Present Illness) Category Sub-Category Detail Notes Category Not es incontinence I saw German in consultation today in regard to further evaluation of his previous history of ulcerative proctitis, personal history of colon polyps, and discussion of colorectal cancer screening. In reviewing the record I last saw German in 2006. I don't have all those records but it appears that I diagnosed him with ulcerative proctitis in approximately 2005 during a colonoscopy. He describes he had been on Asacol which helped relieve his symptoms at that time. I have not seen since 2006 as he was subsequently under the care of Dr. Thomas. His last colonoscopy with her was in 2019 in which a polyp was reportedly removed. German has not been on any specific treatment for his ulcerative proctitis for many years. He describes that his bowel movements are currently regular and without any diarrhea, hematochezia, nor melena. He enjoys a good appetite and denies any significant heartburn or dysphagia. He denies any abdominal pain nor jaundice. He does describe some previous weight loss with his weight down to as low as 164 pounds. However, he currently reports that has stabilized and his weight in my office today is 173 pounds. He denies any known family history of colon cancer. Examination Category Sub-Category Detail Notes Category Not es General Examination GENERAL APPEARANCE: pleasant , well nourished, well developed, in no acute distress HEAD: EYES: sclera non-icteric EARS: NOSE: THROAT: NECK/THYROID: no cervical lymphade nopathy, neck supple HEART: S1, S2 normal CHEST: LUNGS: clear to auscultatio n bilaterally ABDOMEN: normal bowel sounds, no guarding or rigidity, no guarding or rigidity, no masses palpable, soft, nontender, nondistended NEUROLOGIC: alert and oriented SKIN: nonjaundiced, no spi elmer angiomata EXTREMITIES: no edema PERIPHERAL PULSES: BACK: BREASTS: MUSCULOSKELETAL: MALE GENITOURINARY: LYMPH NODES: RECTAL EXAM: FEMALE GENITOURINARY: ORAL CAVITY: mucosa moist
--- OUTSIDE RECORDS SUMMARY | 2024-12-03 08:50 | XMS_ITS | Encounter Summary ---
Author Organization [facility] Address [address] [place] [address] Care Team Providers Care Scheduling Assistant Name Role Phone Katelynn Hall DO Primary Care Provider + [phone] Encounter Details Date Type Department Care Team (Latest Contact Info) Description 03/15/2021 Abstract [facility] CONVERSIONS Dental, Provider, DDS Social [...] Description 12/24/2024 9:00 AM EDT Clinical Support [facility] MEDICINE [address] [place] [address] Sade Funk RN documented as of this encounter Visit Diagnoses Not on filedocumented in this encounter Care Teams Scheduling Assistant Relationship Specialty Start Date End Date Katelynn Hall DO [address] [place] [address] PCP - General Family Medicine 09/25/18 documented as of this encounter
--- OUTSIDE RECORDS SUMMARY | 2024-12-03 08:50 | XMS_ITS | Encounter Summary ---
Author Organization [facility] Address [address] [place] [address] Care Team Providers Care Police Lieutenant Name Role Phone Katelynn aHll DO Primary Care Provider + [phone] Reason for Visit * Reason Onset Date Comments Nurse Triage 05/28/2024 Encounter Details Date Type Department Care Team ([facility] st Contact Info) Description 05/28/2024 Telephone [facility] MEDICINE [address] [place], [place] [phone] Katelynn Hall DO [address] [place], [place] [phone] Nurse Triage Social History Tobacco Use Types [...] to be seen. Advised to come to [facility] today at [facility] and Pt agrees. Unable to check insurance [...] poison rossy or shingles. Duration 1 week Ecuadorean speaking documented in this encounter Plan of Treatment Upcoming Encounters Date Type Department Care Team (Late st Contact Info) Description 12/24/2024 9:00 AM EDT Clinical Support [facility] MEDICINE [address] [place] [address] Sade Funk, CHEIKH documented as of this encounter Visit Diagnoses Not on filedocumented in this encounter Additional Health Concerns Assessment Noted Time PHQ-9 Depression Total Score: 0 08/22/20 23 9:03 AM EST documented as of this encounter Care Teams Police Lieutenant Relationship Specialty Start Date End Date Katelynn Hall DO [address] [place] [address] PCP - General Family Medicine 09/25/18 documented as of this encounter
--- OUTSIDE RECORDS SUMMARY | 2024-12-03 08:50 | XMS_ITS | Encounter Summary ---
Author Organization [facility] Address [address] [place] [address] Care Team Providers Care Chairman & Co Founder Name Role Phone ShahramKatelynn wood Primary Care Provider + [phone] Encounter Details Date Type Department Care Team (Late st Contact Info) Description 01/03/2024 Orders Only [facility] MEDICINE [address] [place] [address] ProviderOren MD Social History Tobacco Use Types [...] Description 12/24/2024 9:00 AM EDT Clinical Support [facility] MEDICINE [address] [place] [address] Sade Funk RN documented as of this [...] documented as of this encounter Care Teams Chairman & Co Founder Relationship Specialty Start Date End Date Katelynn Hall DO [address] [place] [address] PCP - General Family Medicine 09/25/18 documented as of this encounter
--- OUTSIDE RECORDS SUMMARY | 2024-12-03 08:51 | XMS_ITS | Patient Health Record ---
Author Organization [facility] Address [address] [place] [address] Care Team Providers Care Sheriff Name Role Phone Katelynn Hall M.D. Primary Care Provider Chester Brown Unavailable [phone] Allergies No Known Allergies Reason For Referral No Information Medications Medication SIG (Take, Route, Frequency, Duration) Notes Start Date End Date Status Lisinopril 40 MG TAKE 1 TABLET BY MOUTH EVERY MORNING Oral for 90 Active Flonase Allergy Relief 50 MCG/ACT 1 spray in each nostril Nasally Twice a day for 30 day(s) Active D3 Super Strength 50 MCG (2000 UT) TAKE 1 CAPSULE EVERY DAY Oral for 90 Active Metoprolol Succinate 100 MG 1 capsule Orally Once a day for 30 day(s) Active Fish Oil 1000 MG TAKE 1 CAPSULE TWICE DAILY Oral for 90 Active Naloxone HCl 4 MG/0.1ML as directed Nasally Active Atorvastatin Calcium 80 MG TAKE 1 TABLET AT BEDTIME Oral for 90 Active oxyBUTYnin Chloride ER 5 MG 1 tablet Orally Once a day for 30 day(s) Active Loratadine 10 MG TAKE 1 TABLET EVERY DAY Oral for 30 Active amLODIPine Besylate 5 MG TAKE 1 TABLET BY MOUTH EVERY DAY Oral for 90 Active Ventolin HFA 108 (90 Base) MCG/ACT INHALE 2 PUFFS BY MOUTH EVERY 4 HOURS NEEDED FOR WHEEZING OR SHORTNESS OF BREATH Inhalation for 17 Active Baclofen 20 MG 1 tablet Administer without regards to meals as needed Orally Three times a day Active traZODone HCl 50 MG Oral for 30 Active Finasteride 5 MG 1 tablet Orally Once a day for 30 day(s) Active Melatonin 5 MG TAKE 1 OR 2 TABLETS BY MOUTH EVERY DAY AT BEDTIME NEEDED FOR SLEEP Oral for 30 [id number],Unavailab le Active oxyCODONE HCl 5 MG TAKE 1 TABLET BY MOUTH EVERY TWELVE HOURS NEEDED FOR SEVERE PAIN Oral for 28 [id number],Unavaila ble Active Tadalafil 20 MG TAKE ONE TABLET BY MOUTH EVERY DAY NEEDED FOR SEXUAL ACTIVITY. 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 (K51.20) Active confirmed Vital Signs Blood pressure diastolic 00 mm Hg 08/14/2024 Height 6 ft 0 in in 08/14/2024 Blood pressure systolic 00 mm Hg 08/14/2024 Weight 173 lbs 08/14/2024 BMI 23.46 kg/m2 08/14/2024 Encounters Encounter Location Date Provider Diagnosis [facility] [address] [place] [address] 08/14/2024 Chester Verdin 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 K51.20 ; Personal history of colonic polyps Z86.010 and Colon cancer screening Z12.11 Assessments Encounter Date Diagnosis (ICD Code) Assessment Notes Treatment Notes Treatment Clinical Notes Section Notes 08/14/2024 Personal history of colonic polyps (ICD-10 [...] keep you advised of his progress. 08/14/2024 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 (ICD-10 [...] advised of his progress. Plan Of Treatment Future Test Test Name Order Date COLONOSCOPY 08/14/2024 Next Appt Details Provider Name:Chester Verdin , 12/09/2024 01:40:00 PM, [address] [place] [address] , [place], [place], [id number], Insurance Providers Payer Name Payer Address Payer Phone Subscriber Number Group Number Insured Name Patient Relationship to Insured Coverage Start Date Coverage End Date MEDICARE OF [place] [address] [place] [address] [id number] MEGAN GERMAN Self - patient is the insured Medical (General) History Medical History History ICD Code Hypertension Hyperlipidemia Mild chronic anemia--normal B12, folate, and iron studies in 2022 Cardiomyopathy--he sees Dr. Neri at [facility]--recent echocardiograms have normalized and he sees Dr. Neri just once a year. Sleep apnea Vitamin D deficiency Ulcerative proctitis diagnosed in 2005 w [facility] GERD Denies IN,DM,CVA,Lung disease,renal dise ase Colonoscopies with removal o f polyps--most recent was [place] [address] Thomas Surgical History Surgery Date(Month/Year) Right knee replacement 2019, and then a F/U surgery in [address] Sol WALLIS 09/2022 Right inguinal hernia Hemorrhoidectomy Umbilical hernia 2023-Dr. Evans Both Rotator cuffs
--- OUTSIDE RECORDS SUMMARY | 2024-12-03 08:51 | XMS_ITS | Encounter Summary ---
Author Organization [employer] [facility] Address [address] [facility] 7t [place] [address] Care Team Providers Care Senior Web Analyst Name Role Phone Katelynn Hall DO Primary Care Provider + [phone] Reason for Visit * Reason Comments Med Refill Encounter Details Date Type Department Care Team ([facility] Contact Info) Description 03/02/2023 Refill [facility] [address] [place], [place] [phone] Katelynn Hall DO [address] [place] [address] Pain in right knee Social History Tobacco [...] Upcoming Encounters Date Type Department Care Team ([facility] Contact Info) Description 12/24/2024 9:00 AM EDT Clinical Support [facility] [address] [place] [address] Sade Funk RN documented as of this encounter Visit Diagnoses Diagnosis Pain in right knee documented in this encounter Additional Health Concerns Assessment Noted Time PHQ-9 Depression Total Score: 0 11/21/19 23 8:57 AM EST documented as of this encounter Care Teams Senior Web Analyst Relationship Specialty Start Date End Date Katelynn Hall DO [address] [place] [address] PCP - General Family Medicine 09/25/18 documented as of this encounter
--- OUTSIDE RECORDS SUMMARY | 2024-12-03 08:51 | XMS_ITS | Encounter Summary ---
Author Organization [employer] [facility] Address [address] [facility] 7t [place] [address] Care Team Providers Care Software Development Analyst Name Role Phone Katelynn Hall DO Primary Care Provider + [phone] Encounter Details Date Type Department Care Team (Late Contact Info) Description 11/18/2022 Abstract [facility] MEDICINE [address] [place] [address] Katelynn Hall DO [address] [place] [address] Social History Tobacco Use Types Packs/Day Years [...] Description 12/24/2024 9:00 AM EDT Clinical Support [facility] MEDICINE [address] [place] [address] Sade Funk, CHEIKH documented as of this encounter Visit Diagnoses Not on filedocumented in this encounter Care Teams Software Development Analyst Relationship Specialty Start Date End Date Katelynn Hall DO [address] [place] [address] PCP - General Family Medicine 09/25/18 documented as of this encounter
--- OUTSIDE RECORDS SUMMARY | 2024-12-03 08:51 | XMS_ITS | Encounter Summary ---
Author Organization [email or web address] [facility] Address [address] [facility] 7t [place] [address] Care Team Providers Care Paper Baling Machine Operator Name Role Phone Katelynn Hall DO Primary Care Provider + [phone] Reason for Visit * Reason Comments Med Refill Encounter Details Date Type Department Care Team ([facility] Contact Info) Description 11/25/2022 Refill [facility] MEDICINE [address] [place], [place] [phone] Katelynn Hall DO [address] [place] [address] Pain in right knee Social History Tobacco [...] Encounters Date Type Department Care Team ([facility] Contact Info) Description 12/24/2024 9:00 AM EDT Clinical Support [facility] [address] [place] [address] Sade Funk RN documented as of this encounter Visit Diagnoses Diagnosis Pain in right knee documented in this encounter Additional Health Concerns Assessment Noted Time PHQ-9 Depression Total Score: 0 11/21/19 23 8:57 AM EST documented as of this encounter Care Teams Paper Baling Machine Operator Relationship Specialty Start Date End Date Katelynn Hall DO [address] [place] [address] PCP - General Family Medicine 09/25/18 documented as of this encounter
== END 2024-12-03 09:04 | disposition home or self-care (01) ==
LOC: HO.HCS 08:13
PROVIDERS: PCP Family Medicine; Visit Provider Internal Medicine Cardiovascular Disease
DX: I42.9 Cardiomyopathy, unspecified (principal); I71.20 Thoracic aortic aneurysm, without rupture, unspecified; I44.7 Left bundle-branch block, unspecified
CPT/HCPCS: 93010; 99214; G2211

== ENCOUNTER → 2024-12-03 08:13 | Outpatient (BNVA) | payer MEDICARE, SELFPAY | PROVIDERS: PCP Family Medicine; Visit Provider Internal Medicine Cardiovascular Disease | DX: I42.9 Cardiomyopathy, unspecified (principal); I71.20 Thoracic aortic aneurysm, without rupture, unspecified; I44.7 Left bundle-branch block, unspecified; R94.31 Abnormal electrocardiogram [ECG] [EKG] | CPT/HCPCS: 93005; 99212 ==

== ENCOUNTER → 2024-12-09 12:16 | Day surgery (SDC) | payer MEDICARE, SELFPAY ==
[2024-12-05 14:40] VITALS: BMI 23.5
--- NOTE | 2024-12-06 10:38 | HO.ANESPROP2 ---
Documented by User: Jackie Gee NP 12/06/24 10:40 HPI - Anesthesia Eval Consult details Narrative: 74yo M for Colonoscopy s/p hernia repair 06/2024 with [facility] optimized. Follow[facility]. Last office visit 11/2024 - stable for one year f/u. CMP:Prior cardiomyopathy with improved LV EF to 50-55% neurohormonal modulation metoprolol lisinopril and adequate blood pressure control. Thoracic aortic aneurysm: mild PMFSH Active Problems Active Problems: All Active Problems Status post repair of ventral hernia (Acute) Supraumbilical hernia (Acute) Thoracic aortic aneurysm (Acute) MCL sprain of left knee (Acute) Left knee pain (Acute) Erectile dysfunction (Acute) Stiffness of right knee (Acute) Right knee pain (Acute) Incomplete emptying of bladder due to benign prostatic hyperplasia (Acute) Weak urinary stream (Acute) Nocturia more than twice per night (Acute) Patellofemoral arthritis of left knee (Acute) Lateral epicondylitis of left elbow (Acute) Bladder outlet obstruction (Acute) Retained orthopedic hardware (Acute) Knee effusion, right (Acute) Irritable bowel syndrome with constipation (Acute) Ulcerative proctitis (Acute) Insomnia (Acute) Obstructive sleep apnea (Acute) Hx of knee surgery (Acute) Pruritus ani (Acute) Urinary retention (Acute) History of total knee arthroplasty (Acute) Cardiomyopathy (Acute) HTN (hypertension) (Acute) Left bundle branch block (Acute) Past Medical History Medical History Arthritis History of blood transfusion (~2019) Unintentional weight loss Benign prostatic hyperplasia with lower urinary tract symptoms Chronic pain of both knees Insomnia Anemia 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 Elevated cholesterol Hx of Crohn's disease History of COVID-19 Sleep apnea Pruritus ani Urinary retention Hx of renal calculi Seasonal allergies Asthma Cardiomyopathy HTN (hypertension) Left bundle branch block Family History Family History Father No problems noted. Mother Diabetes Family history of problems with anesthesia: No Surgical History Surgical History History of prostate surgery History of hemorrhoidectomy History of total knee arthroplasty History of esophagogastroduodenoscopy (EGD) Hx of hernia repair Hx of shoulder surgery Hx of knee surgery Hx of colonoscopy History of Problems with Anesthesia: No Social History Social History Are you a primary director of career resources to a significant other at home: No Do you presently have visiting nurse or other home services: No Alcohol intake: current Alcohol intake frequency: holidays/special occasions only Patient Tobacco Use Status: Former Tobacco user Tobacco use type: Cigarette Use of substances other than those prescribed or required for medical reasons: No Have you been hit, kicked, punched, or otherwise hurt by someone within the past year? If so, by whom?: No Are you DNR?: No Advance Directives: No Advance Directives Information Provided: Yes Recently lost weight without trying: No Nutrition Risks: No Nutritional Risk Poor oral hygiene: No Meds Allergies Allergy/AdvReac Type Severity Reaction Status Date / Time chlorhexidine Allergy Rash Verified 12/09/24 13:12 iodine AdvReac Rash Verified 12/09/24 13:12 Home Medications ?Medication ?Instructions ?Recorded ?Confirmed ?Last Taken ?Type albuterol sulfate 90 mcg/actuation 2 puff inhalation Q6H PRN 06/27/20 12/09/24 Unknown History aerosol inhaler (Proventil HFA) Shortness Of Breath Or Wheezing omega 0-rxk-zvk-fish oil 100 1 cap PO DAILY 06/27/20 12/09/24 07/03/24 History mg-160 mg-1,000 mg capsule (Fish Oil) simvastatin 20 mg tablet 20 mg PO DAILY 06/27/20 12/09/24 Unknown History docusate sodium 100 mg capsule 100 mg PO DAILY 10/04/21 12/09/24 Unknown History (Colace) baclofen 20 mg tablet 1 tab PO TID PRN Abdominal 10/22/21 12/09/24 Unknown History Discomfort cholecalciferol (vitamin D3) 50 1 cap PO DAILY 10/22/21 12/09/24 Unknown History mcg (2,000 unit) capsule lisinopril 40 mg tablet 40 mg PO DAILY 12/01/21 12/09/24 Unknown History loratadine 10 mg tablet 10 mg PO DAILY PRN Allergy Symptoms 12/01/21 12/09/24 07/04/24 History omeprazole 20 mg capsule,delayed 20 mg PO DAILY PRN Gastric Reflux 12/01/21 12/09/2410/24/23 05:00 History release atorvastatin 80 mg tablet 80 mg PO DAILY 01/09/24 12/09/24 Unknown History melatonin 5 mg tablet 5 - 10 mg PO BEDTIME PRN insomnia 01/09/24 12/09/24 Unknown History Exam Height,Weight and Vital Signs: Height 6 ft Weight 78.471 kg Narrative Narrative: ECHO 2024 Conclusions: - The left ventricular systolic function is low normal. The visually estimated ejection fraction is between 50-55%. - No obvious valvular pathology seen on this study. - There is mild dilatation of the ascending aorta measuring 4.00 cm and mild dilatation of the aortic arch measuring 3.90 cm. EKG 11/2024 EKG Details: EKG shows normal sinus rhythm with left bundle-branch block at 71 beats per minute Assessment and Plan Assessment Anesthesia Assessment: Chart Reviewed Final Anesthetic Review Family History of Problems with Anesthesia: No History of Problems with Anesthesia: No Documented by User: Stefan Morales MD 12/09/24 14:49 PMFSH Past Medical History Medical History Arthritis History of blood transfusion (~2019) Unintentional weight loss Benign prostatic hyperplasia with lower urinary tract symptoms Chronic pain of both knees Insomnia Anemia 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 Elevated cholesterol Hx of Crohn's disease History of COVID-19 Sleep apnea Pruritus ani Urinary retention Hx of renal calculi Seasonal allergies Asthma Cardiomyopathy HTN (hypertension) Left bundle branch block Family History Family History Father No problems noted. Mother Diabetes Surgical History Surgical History History of prostate surgery History of hemorrhoidectomy History of total knee arthroplasty History of esophagogastroduodenoscopy (EGD) Hx of hernia repair Hx of shoulder surgery Hx of knee surgery Hx of colonoscopy Social History Social History Are you a primary director of career resources to a significant other at home: No Do you presently have visiting nurse or other home services: No Alcohol intake: current Alcohol intake frequency: holidays/special occasions only Patient Tobacco Use Status: Former Tobacco user Tobacco use type: Cigarette Use of substances other than those prescribed or required for medical reasons: No Have you been hit, kicked, punched, or otherwise hurt by someone within the past year? If so, by whom?: No Are you DNR?: No Advance Directives: No Advance Directives Information Provided: Yes Recently lost weight without trying: No Nutrition Risks: No Nutritional Risk Poor oral hygiene: No Meds Allergies Allergy/AdvReac Type Severity Reaction Status Date / Time chlorhexidine Allergy Rash Verified 12/09/24 13:12 iodine AdvReac Rash Verified 12/09/24 13:12 Home Medications ?Medication ?Instructions ?Recorded ?Confirmed ?Last Taken ?Type albuterol sulfate 90 mcg/actuation 2 puff inhalation Q6H PRN 06/27/20 12/09/24 Unknown History aerosol inhaler (Proventil HFA) Shortness Of Breath Or Wheezing omega 4-twt-oyv-fish oil 100 1 cap PO DAILY 06/27/20 12/09/24 07/03/24 History mg-160 mg-1,000 mg capsule (Fish Oil) simvastatin 20 mg tablet 20 mg PO DAILY 06/27/20 12/09/24 Unknown History docusate sodium 100 mg capsule 100 mg PO DAILY 10/04/21 12/09/24 Unknown History (Colace) baclofen 20 mg tablet 1 tab PO TID PRN Abdominal 10/22/21 12/09/24 Unknown History Discomfort cholecalciferol (vitamin D3) 50 1 cap PO DAILY 10/22/21 12/09/24 Unknown History mcg (2,000 unit) capsule lisinopril 40 mg tablet 40 mg PO DAILY 12/01/21 12/09/24 Unknown History loratadine 10 mg tablet 10 mg PO DAILY PRN Allergy Symptoms 12/01/21 12/09/24 07/04/24 History omeprazole 20 mg capsule,delayed 20 mg PO DAILY PRN Gastric Reflux 12/01/21 12/09/24 10/24/22 05:00 History release atorvastatin 80 mg tablet 80 mg PO DAILY 01/09/24 12/09/24 Unknown History melatonin 5 mg tablet 5 - 10 mg PO BEDTIME PRN insomnia 01/09/24 12/09/24 Unknown History Exam Airway Mallampati Class: II TM Dist: >3cm Neck ROM: Full Loose/Missing/Broken Teeth: No Heart: ok. see above. Lungs: ok Assessment and Plan Assessment Anesthesia Assessment: Anesthesia Plan Discussed Final Anesthetic Review NPO: Yes ASA Class: III Final Preanesthetic Review: No Changes in Pt Med Stat, Meds/Allgs Chart Reviewed, Consent Obtained/Reviewed and Anes Risks/Benef Reviewed Patient Risk: Intermediate Procedure Risk: Low Anesthetic Plan Anesthetic Plan: MAC: and Agree w/ Assess. and Plan Disposition: Standard PACU
[2024-12-09 13:02] VITALS: BP 151/85; PULSE 75; RESP 14; TEMP 36.4; O2SAT 97; BMI 22.9
[2024-12-09] MEDS: Lactated Ringers 1,000 ML 100 ML IVCONT (13:11)
[2024-12-09 15:14] VITALS: BP 121/73; PULSE 77; RESP 16; TEMP 36.2; O2SAT 99
--- NOTE | 2024-12-09 15:16 | P.BOP_ITS ---
Brief Operative Note Date of Service: 12/09/24 Pre-op diagnosis: Screening Post-op diagnosis: other (Diverticulosis) Procedure: Colonoscopy to the cecum with biopsies Surgeon: Chester Verdin MD Anesthesia: MAC Was an Intelligence Chief used for this Procedure?: No Estimated blood loss (mL): 2.0 Pathology: other (A. Ascending colon B. Transverse colon C. Descending colon D. Sigmoid colon E. Rectum) Condition: stable Disposition: PACU
[2024-12-09 15:29] VITALS: BP 148/86; PULSE 77; RESP 16; O2SAT 99
[2024-12-09 15:44] VITALS: BP 143/72; PULSE 81; RESP 16; TEMP 36.2; O2SAT 99
--- NOTE | 2024-12-10 02:05 | OP_ITS ---
DATE OF SERVICE: 12/09/2024 SURGEON: Chester Verdin MD INDICATIONS: The patient presents for evaluation of underlying history of ulcerative proctitis and, personal history of colon polyps, and need for colorectal cancer screening. Full consent was obtained from him for this, including risks of bleeding and perforation. PREOPERATIVE DIAGNOSIS: POSTOPERATIVE DIAGNOSIS: PROCEDURE PERFORMED: Colonoscopy to cecum with multiple biopsies. ESTIMATED BLOOD LOSS: COMPLICATIONS: ANESTHESIA: Medication used, monitored anesthesia care. ASSISTANTS: SPECIMENS: PREOPERATIVE DIAGNOSES: Colorectal cancer screening, history of ulcerative proctitis, personal history of colon polyps. POSTOPERATIVE DIAGNOSES: Colorectal cancer screening, history of ulcerative proctitis, personal history of colon polyps, sigmoid diverticulosis, and internal hemorrhoids. DESCRIPTION OF PROCEDURE: The patient was placed in the left lateral decubitus position. The digital rectal exam revealed no abnormalities. The Olympus video pediatric colonoscope was entered into the rectum and advanced to the cecum with the assistance of abdominal wall pressure. Once in the cecum I did identify normal-appearing cecal pouch with appendiceal orifice and a normal-appearing ileocecal valve. The entire cecum and ileocecal valve appeared normal. There was transillumination of light deep in the right lower quadrant. The scope was slowly withdrawn assessing all mucosal surfaces carefully. Preparation was excellent. I did not visualize any sign of polyps, colitis, nor angiodysplasia. There was a mild amount of sigmoid diverticulosis. Random biopsies were obtained in the ascending colon, transverse colon, descending colon, sigmoid colon, and rectum. In the rectum, scope was retroflexed visualizing some internal hemorrhoids, but no other pathology. The rectal mucosa appeared normal. The scope was straightened and withdrawn from the patient. He tolerated the procedure well and was returned to recovery area in stable condition. IMPRESSION: 1. Diverticulosis. 2. Internal hemorrhoids. PLAN: Results of biopsies will be checked. Assuming there is no dysplasia, then I do not think he would need any further screening colonoscopies at this point, given his age of 74. He will see me on a p.r.n. basis. He presently is not taking any medication for the underlying ulcerative proctitis, but I did advise him to contact me if he develops any symptoms in that regard. Chester Verdin MD RMW/DIEGOL / [id number]
== END | disposition home or self-care (01) ==
PROVIDERS: PCP Family Medicine; Visit Provider Internal Medicine
PROC: 0DJD8ZZ Inspection of Lower Intestinal Tract, Via Natural or Artificial Opening Endoscopic (ICD-10-PCS; CPT 45378; principal; 2024-12-09 13:40)
DX: Z12.11 Encounter for screening for malignant neoplasm of colon (principal); Z86.0101 Personal history of adenomatous and serrated colon polyps; K51.20 Ulcerative (chronic) proctitis without complications; K57.30 Diverticulosis of large intestine without perforation or abscess without bleeding; K64.8 Other hemorrhoids; K21.9 Gastro-esophageal reflux disease without esophagitis; I10 Essential (primary) hypertension; D64.9 Anemia, unspecified; E78.5 Hyperlipidemia, unspecified; I42.9 Cardiomyopathy, unspecified; G47.33 Obstructive sleep apnea (adult) (pediatric); E55.9 Vitamin D deficiency, unspecified; Z79.51 Long term (current) use of inhaled steroids; Z79.899 Other long term (current) drug therapy; Z98.890 Other specified postprocedural states; Z87.891 Personal history of nicotine dependence
CPT/HCPCS: 45380; 88305; J2003; J2704

== ENCOUNTER 2025-01-03 07:27 | Outpatient (REF) | payer MEDICARE, SELFPAY ==
--- OUTSIDE RECORDS SUMMARY | 2025-01-03 07:30 | XMS_ITS | Encounter Summary ---
Author Organization [employer] [facility] Address [address] [facility] 7t [place] [address] Care Team Providers Care Demolition Worker Name Role Phone Katelynn Hall DO Primary Care Provider + [phone] Encounter Details Date Type Department Care Team (Latest Contact Info) Description 03/15/2021 Abstract [facility] CONVERSIONS Dental, Provider, DDS Social [...] Upcoming Encounters Date Type Department Care Team ( st Contact Info) Description 02/13/2025 9:00 AM EDT Clinical Support [facility] MEDICINE [address] [place] [address] Sade Funk RN documented as of this encounter Visit Diagnoses Not on filedocumented in this encounter Care Teams Demolition Worker Relationship Specialty Start Date End Date Katelynn Hall DO [address] [place] [address] PCP - General Family Medicine 09/25/18 documented as of this encounter
--- OUTSIDE RECORDS SUMMARY | 2025-01-03 07:30 | XMS_ITS | Encounter Summary ---
Author Organization [employer] [facility] Address [address] [place] [address] Care Team Providers Care Clearance Coordinator Name Role Phone ShahramKatelynn wood Primary Care Provider + [phone] Encounter Details Date Type Department Care Team (Late st Contact Info) Description 01/03/2024 Orders Only [facility] MEDICINE [address] [place] [address] ProviderOren MD Social History Tobacco Use Types [...] Care Team (Late st Contact Info) Description 02/13/2025 9:00 AM EDT Clinical Support [facility] MEDICINE [address] [place] [address] Sade Funk RN documented as of this [...] documented as of this encounter Care Teams Clearance Coordinator Relationship Specialty Start Date End Date Katelynn Hall DO [address] [place] [address] PCP - General Family Medicine 09/25/18 documented as of this encounter
--- OUTSIDE RECORDS SUMMARY | 2025-01-03 07:30 | XMS_ITS | Encounter Summary ---
Author Organization [employer] [facility] Address [address] [facility] [address]t [place] [address] Care Team Providers Care Butadiene Compressor Operator Name Role Phone Katelynn Hall DO Primary Care Provider + [phone] Reason for Visit * Reason Comments Med Refill Encounter Details Date Type Department Care Team ([facility] Contact Info) Description 11/25/2022 Refill [facility] [address] [place], [place] [phone] Katelynn Hall DO [address] [place] [address] Pain in right knee Social History Tobacco [...] Upcoming Encounters Date Type Department Care Team ([facility] Contact Info) Description 02/13/2025 9:00 AM EDT Clinical Support [facility] MEDICINE [address] [place] [address] Sade Funk RN documented as of this encounter Visit Diagnoses Diagnosis Pain in right knee documented in this encounter Additional Health Concerns Assessment Noted Time PHQ-9 Depression Total Score: 0 11/21/19 23 8:57 AM EST documented as of this encounter Care Teams Butadiene Compressor Operator Relationship Specialty Start Date End Date Katelynn Hall DO [address] [place] [address] PCP - General Family Medicine 09/25/18 documented as of this encounter
--- OUTSIDE RECORDS SUMMARY | 2025-01-03 07:30 | XMS_ITS | Encounter Summary ---
Author Organization [employer] [facility] Address [address] [facility] 7t [place] [address] Care Team Providers Care Linux System Admin Name Role Phone Katelynn Hall DO Primary Care Provider + [phone] Reason for Visit * Reason Comments Med Refill Encounter Details Date Type Department Care Team ([facility] st Contact Info) Description 01/02/[address] [facility] [address] [place], [place] [phone] Katelynn Hall DO [address] [place] [address] Social History Tobacco Use Types Packs/Day Years [...] Description 02/13/2025 9:00 AM EDT Clinical Support [facility] [address] [place] [address] Sade Funk RN documented as of this encounter Visit Diagnoses Not on filedocumented in this encounter Additional Health Concerns Assessment Noted Time PHQ-9 Depression Total Score: 0 08/22/20 23 9:03 AM EST documented as of this encounter Care Teams Linux System Admin Relationship Specialty Start Date End Date Katelynn Hall DO [address] [place] [address] PCP - General Family Medicine 09/25/18 documented as of this encounter
--- OUTSIDE RECORDS SUMMARY | 2025-01-03 07:30 | XMS_ITS | Encounter Summary ---
Author Organization [employer] [facility] Address [address] [facility] 7t [place] [address] Care Team Providers Care Cream Cheese Maker Name Role Phone Katelynn Hall DO Primary Care Provider + [phone] Encounter Details Date Type Department Care Team (Latest Contact Info) Description 07/01/2022 Abstract [facility] CON[facility] Dental, Provider, DDS Social History [...] Description 02/13/2025 9:00 AM EDT Clinical Support [facility] [address] [place] [address] Sade Funk RN documented as of this encounter Visit Diagnoses Not on filedocumented in this encounter Care Teams Cream Cheese Maker Relationship Specialty Start Date End Date Katelynn Hall DO [address] [place] [address] PCP - General Family Medicine 09/25/18 documented as of this encounter
--- OUTSIDE RECORDS SUMMARY | 2025-01-03 07:30 | XMS_ITS ---
Author Organization [facility] Address [address] [place] [address] Care Team Providers Care Supervisor Testing Name Role Phone Katelynn Hall M.D. 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 (K51.20) Active confirmed Problem History of polyp of colon (situation) (284884261) Personal history of colonic polyps (Z86.010) Active confirmed Problem Colon cancer screening (864128429) Colon cancer screening (Z12.11) Active confirmed Vital Signs Blood pressure systolic 00 mm Hg 08/14/20 24 Blood pressure diastolic 00 mm Hg 024 Height 6 ft 0 in in 08/14/2024 Weight 173 lbs 08/14/2024 BMI 23.46 kg/m2 08/14/2024 Encounters Encounter Location Date Provider Diagnosis [facility] [address] [place] [address] 08/14/2024 Chester Verdin Chronic ulcerative proctitis without [...] Next Appt Details Follow Up: prn, Reason: Progress Notes * GERMAN GUZMAN ADOB:1950 (74 yo M)Acc No.[id number]:08/14/2024 Progress Notes Patient:?GERMAN GUZMAN Provider:?Chester Verdin MD :1950???Age:74 Y???Sex:Male Carter e:08/14/2024 Address:[address], [place], [place] Pcp:Katelynn Hall M.D. Subjective: * Chief Complaints: [...] NEEDED FOR SEVERE PAIN Oral , Notes: D03214,UnavailableLoratadine 10 MG Tablet TAKE 1 TABLET EVERY [...] NEEDED FOR SEVERE PAIN Oral , Notes: B64635,UnavailableTaking Loratadine 10 MG Tablet TAKE 1 TABLET [...] Procedure Codes:?3017F COLOR ECTAL CA SCREEN DOC [id number] TOBACCO NON-LBVHZ0370 BP SCR NOT PRFRM REC REASON NOS * Preventive Medicine:? ??Screenings:?Fall Risk Screening?Fall Risk Assessment:?No falls in the past year,?Screening:?No falls in the past year,?Assessment:?Not performed, no reason specified,?Plan of Care:?Not documented, no reason specified.? * Follow Up:?prn * * Sign off status: Completed true * Provider:?Chester Verdin MD Date:? 024 Generated for Zeke arrieta/Bradley/Chilangoitting on:?01/03/2025 07:29 AM EDT History and Physical Notes * [...]
--- OUTSIDE RECORDS SUMMARY | 2025-01-03 07:30 | XMS_ITS | Patient Health Record ---
Author Organization [facility] Address [address] [place] [address] Care Team Providers Care Ancillary Specialist Name Role Phone Katelynn Hall M.D. Primary Care Provider Chester Brown Unavailable [phone] Allergies No Known Allergies Results Component Value Reference Range Notes Pathology Reviewed date:12/12/2024 07:13:43 PM Interpretation: Performing Lab:[facility], [address] [place] [phone] Notes/Report: Name: German Guzman Age/Sex: 74/M : 1950 Unit#: [id number] Attend Dr: Chester Verdin MD Re12/09/24 Status : [facility] Disch: SPEC : [id number] REC STATUS: AMY OCAMPO NUM: [id number] GORGE: 12/09/24-14[address] [facility] DR: Chester Verdin MD ENTERED: 12/10/24- 30 SP TYPE: Surgical OTHR DR: Katelynn Hall DO ORDERED: HE Stain/15 , Gross Micro L4/5 Diagnosis A. Colon, ascending, biopsy: Colonic mucosa within normal limits. B. Colon, transverse , biopsy: Colonic mucosa within normal limits. C. Colon, descending , biopsy: Colonic mucosa within normal limits. D. Colon, sigmoid, b iopsy: Colonic mucosa within normal limits. E. Rectum, biopsy: R ectal mucosa within normal limits. Comment: No dysplasia is seen. Clinical History Pre-Op Dx: Ulcerative colitis Post-Op Dx: Divertic ulosis, hemorrhoids Microscopic Description A-E. Microscopic sec tions reviewed. Material Received A. Ascending colon b x's, h/o ulcerative colitis, r/o dysplasia B. Transverse colon bx's, h/o ulcerative colitis, r/o dysplasia C. Descending colon bx's, h/o ulcerative colitis, r/o dysplasia D. Sigmoid bx's, h/o ulcerative colitis, r/o dysplasia E. Rectal bx's, h/o ulcerative colitis, r/o dysplasia Gross Description Received in five parts. Part A: Received in formalin labeled ?ascending colon bx's, history ulcerative colitis, rule out dysplasia? are 4 teran-white and garrett irregular and rectangular tissue fragments ranging from 0.2-0.5 cm, submitted in toto in a cassette labeled A. Part B: Received in formalin labeled ?transverse colon bx's, history ulcerative colitis, rule out dysplasia? are several minute to 0.3 cm teran-garrett irregular and rectangular tissue fragments, submitted in toto in a cassette labeled B. Part C: Received in formalin labeled ?descending colon bx's, history ulcerative colitis, CONTINUED ON NEXT PAGE Name: German Guzman Age/Sex: 74/M : 1950 Unit#: [id number] Attend Dr: Chester Verdin MD Re12/09/24 Status : [facility] Disch: SPEC : [id number] RECD : 12/10/24 STATUS: AMY OCAMPO NUM: [id number] GORGE: 12/09/24-14[address] [facility] DR: Chester Verdin MD ENTERED: 12/10/24 SP TYPE: Surgical OTHR DR: Katelynn Hall DO ORDERED: HE Stain/15 , Gross Micro L4/5 Gross Description (Continued) rule out dysplasia? are 6 garrett irregular and rectangular tissue fragments ranging from 0.25- 0.6 cm, submitted in toto in a cassette labeled C. Part D: Received in formalin labeled ?sigmoid bx's, history ulcerative colitis, rule out dysplasia? are 4 garrett irregular tissue fragments ranging from 0.2-0.3 cm, submitted in toto in a cassette labeled D. Part E: Received in formalin labeled ?rectal bx's, history ulcerative colitis, rule out dysplasia? are 3 garrett irregular tissue fragments ranging from 0.25-0.35 cm, submitted in toto in a cassette labeled E. CEDS Copies To: Katelynn Hall DO [address] [address] Chester Verdin MD [address] [place] [address] Signed (si gnature on file) Alfredo Hernandez MD 12/12/24 0900 END OF REPORT Reason For Referral No Information Medications Medication [...] NEEDED FOR SEVERE PAIN Oral for 28 Z52289,Unavaila ble Active Tadalafil 20 MG TAKE ONE [...] Status Risk Notes Problem Colon cancer screening (865271889) Colon cancer screening (Z12.11) Active confirmed Problem History of polyp of colon (situation) (385281502) Personal history of colonic polyps (Z86.010) Active confirmed Problem Chronic ulcerative proctitis (05231108) 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 (K51.20) Active confirmed Vital Signs Blood pressure diastolic 00 mm Hg 08/14/2024 Height 6 ft 0 in in 08/14/2024 Blood pressure systolic 00 mm Hg 08/14/2024 Weight 173 lbs 08/14/2024 BMI 23.46 kg/m2 08/14/2024 Encounters Encounter Location Date Provider Diagnosis [facility] [place] [address] [place], [place] [id number] 12/09/2024 Chester Verdin Colon cancer screeni ng Z12.11 ; Ulcerative proctitis, without complications K51.20 ; Other hemorrhoids K64.8 and Diverticulosis of large intestine without perforation or abscess without bleeding K57.30 [facility] [address] [place] [address] 08/14/2024 Chester Verdin 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 K51.20 ; Personal history of colonic polyps Z86.010 and Colon cancer screening Z12.11 Assessments Encounter Date Diagnosis (ICD Code) Assessment Notes Treatment Notes Treatment Clinical Notes Section Notes 12/09/2024 Colon cancer screening (ICD-10 - Z12.11) 12/09/2024 Ulcerative proctitis, without complications (ICD-10 - K51.20) 08/14/2024 Personal history of colonic polyps (ICD-10 [...] to keep you advised of his progress. 12/09/2024 Other hemorrhoids (ICD-10 - K64.8) 08/14/2024 Colon cancer screening (ICD-10 - Z12.11) [...] to keep you advised of his progress. 12/09/2024 Diverticulosis of large intestine without perforation or abscess without bleeding (ICD-10 - K57.30) Plan Of Treatment Future Test Test Name Order Date COLONOSCOPY 08/14/2024 Insurance Providers Payer Name Payer Address Payer Phone Subscriber Number Group Number Insured Name Patient Relationship to Insured Coverage Start Date Coverage End Date MEDICARE OF [employer] [address] [place] [address] [id number] GERMAN GUZMAN Self - patient is the insured Medical (General) History Medical History History ICD Code Hypertension Hyperlipidemia Mild chronic anemia--normal B12, folate, and iron studies in 2022 Cardiomyopathy--he sees [facility] [place] [facility]recent echocardiograms have normalized and he sees Dr. Neri just once a year. Sleep apnea Vitamin D deficiency Ulcerative proctitis diagnosed in 2005 w ith me GERD Denies OK,DM,CVA,Lung disease,renal dise ase Colonoscopies with removal o f polyps--most recent was in [address] Thomas Surgical History Surgery Date(Month/Year) Right knee replacement 2019, and then a F/U surgery in [address] Sol WALLIS 09/2022 Right inguinal hernia Hemorrhoidectomy Umbilical hernia 2023-Dr. Evans Both Rotator cuffs
--- OUTSIDE RECORDS SUMMARY | 2025-01-03 07:30 | XMS_ITS ---
Author Organization [facility] Address [address] [place] [address] Care Team Providers Care Rotary Screen Printing Machine Operator Name Role Phone Katelynn Hall M.D. Primary Care Provider Chester Brown [phone] REASON FOR VISIT screening,hx polyps,ulcerative proctitis Encounters Encounter Location Date Provider Diagnosis [facility] Outpatient [address] [place], [place] [phone] 12/09/2024 Chester Verdin Colon cancer scree bindu Z12.11 ; Ulcerative proctitis, without complications K51.20 ; Other hemorrhoids K64.8 and Diverticulosis of large intestine without perforation or abscess without bleeding K57.30 Assessments Encounter Date Diagnosis (ICD Code) Assessment Notes Treatment Notes Treatment Clinical Notes Section Notes 12/09/2024 Colon cancer screening (ICD-10 - Z12.11) 12/09/2024 Ulcerative proctitis, without complications (ICD-10 - K51.20) 12/09/2024 Other hemorrhoids (ICD-10 - K64.8) 12/09/2024 Diverticulosis of large intestine without perforation or abscess without bleeding (ICD-10 - K57.30) Plan Of Treatment No Information Progress Notes * REED GUZMAN ADOB:1950 (74 yo M)Acc No.[id number]:12/09/2024 COLON WITH MAC Patient:?REED GUZMAN A Provider:?Chester Verdin MD :1950???Age:74 Y???Sex:Male Carter e:12/09/2024 Address:[address] [facility], [place] Pcp:Katelynn Hall M.D. Subjective: * Chief Complaints: * ???1. Screening,hx polyps,ul cerative proctitis. * Medical History:? Objective: * Vitals:? Assessment: * Assessment: 1.?Colon cancer screening - Z12.11 (Primary)???2.?Ulcerative proctitis, without complications - K51.20???3.?Other hemorrhoids - K64.8???4.?Diverticulosis of large intestine without perforation or abscess without bleeding - K57.30??? Plan: * Treatment: * Procedure Codes:?57620 COLON OSCOPY AND BIOPSY, Modifiers: 33 , 0529F INTRVL 3+YRS PTS CLNSCP DOCD, 0528F RCMND FLW-UP 10 YRS DOCD * * The named appointment provid er may or may not be the originator of this progress note, and it is not deemed complete until electronically signed by the appointment provider. Sign off status: Pending * Provider:?Chester Verdin MD Date:? 025 Generated for Zeke arrieta/Bradley/eTransmitting on:?01/03/2025 07:30 AM EDT
--- OUTSIDE RECORDS SUMMARY | 2025-01-03 07:30 | XMS_ITS | Encounter Summary ---
Author Organization [facility] Address [address] [facility] 7t [place] [address] Care Team Providers Care Die Try Out Worker Name Role Phone Katelynn Hall DO Primary Care Provider + [phone] Reason for Visit * Reason Comments Med Refill Encounter Details Date Type Department Care Team ([facility] Contact Info) Description 03/02/2023 Refill [facility] [address] [place], [place] [phone] Katelynn Hall DO [address] [place] [address] Pain in right knee Social History Tobacco [...] Upcoming Encounters Date Type Department Care Team ([facility] Contact Info) Description 02/13/2025 9:00 AM EDT Clinical Support [facility] [address] [place] [address] Sade Funk RN documented as of this encounter Visit Diagnoses Diagnosis Pain in right knee documented in this encounter Additional Health Concerns Assessment Noted Time PHQ-9 Depression Total Score: 0 11/21/19 23 8:57 AM EST documented as of this encounter Care Teams Die Try Out Worker Relationship Specialty Start Date End Date Katelynn Hall DO [address] [place] [address] PCP - General Family Medicine 09/25/18 documented as of this encounter
--- OUTSIDE RECORDS SUMMARY | 2025-01-03 07:30 | XMS_ITS | Encounter Summary ---
Author Organization [facility] [facility] Address [address] [facility] 7t [place] [address] Care Team Providers Care Button Pusher Name Role Phone Katelynn Hall DO Primary Care Provider + [phone] Encounter Details Date Type Department Care Team (Late Contact Info) Description 11/18/2022 Abstract [facility] [address] [place] [address] Katelynn Hall DO [address] [place] [address] Social History Tobacco Use Types Packs/Day Years [...] Department Care Team (Late Contact Info) Description 02/13/2025 9:00 AM EDT Clinical Support [facility] [address] [place] [address] Sade Funk, CHEIKH documented as of this encounter Visit Diagnoses Not on filedocumented in this encounter Care Teams Button Pusher Relationship Specialty Start Date End Date Katelynn Hall DO [address] [place] [address] PCP - General Family Medicine 09/25/18 documented as of this encounter
--- OUTSIDE RECORDS SUMMARY | 2025-01-03 07:30 | XMS_ITS | Encounter Summary ---
Author Organization [employer] [facility] Address [address] [facility] 7t [place] [address] Care Team Providers Care Tactical Air Defense Controller Name Role Phone Katelynn Hall DO Primary Care Provider + [phone] Reason for Visit * Reason Onset Date Comments Nurse Triage 05/28/2024 Encounter Details Date Type Department Care Team ([facility] st Contact Info) Description 05/28/2024 Telephone [facility] [address] [place], [place] [phone] Katelynn Hall DO [address] [place], [place] [phone] Nurse Triage Social History Tobacco Use Types [...] to be seen. Advised to come to [facility] today at [facility] and Pt agrees. Unable to check insurance [...] poison rossy or shingles. Duration 1 week Ghanaian speaking documented in this encounter Plan of Treatment Upcoming Encounters Date Type Department Care Team (Late st Contact Info) Description 02/13/2025 9:00 AM EDT Clinical Support [facility] [address] [place] [address] Sade Funk, CHEIKH documented as of this encounter Visit Diagnoses Not on filedocumented in this encounter Additional Health Concerns Assessment Noted Time PHQ-9 Depression Total Score: 0 08/22/20 9:03 AM EST documented as of this encounter Care Teams Tactical Air Defense Controller Relationship Specialty Start Date End Date Katelynn Hall DO [address] [place] [address] PCP - General Family Medicine 09/25/18 documented as of this encounter
--- OUTSIDE RECORDS SUMMARY | 2025-01-03 07:30 | XMS_ITS | Encounter Summary ---
Author Organization [employer] [facility] Address [address] [facility] 7t [place] [address] Care Team Providers Care Secondary Special Education Teacher Name Role Phone Katelynn Hall DO Primary Care Provider + [phone] Encounter Details Date Type Department Care Team (Latest Contact Info) Description 10/09/2018 Abstract [facility] CONVERSIONS Dental, Provider, DDS Social History [...] Description 02/13/2025 9:00 AM EDT Clinical Support [facility] [address] [place] [address] Sade Funk RN documented as of this encounter Visit Diagnoses Not on filedocumented in this encounter Care Teams Secondary Special Education Teacher Relationship Specialty Start Date End Date Katelynn Hall DO [address] [place] [address] PCP - General Family Medicine 09/25/18 documented as of this encounter
[2025-01-03 08:41] LABS: Prostate Specific Antigen 1.46 ng/mL (<0.05-4.0)
== END 2025-01-03 07:28 | disposition home or self-care (01) ==
LOC: HO.LAB 07:27
PROVIDERS: PCP Family Medicine; Visit Provider Urology
DX: N40.1 Benign prostatic hyperplasia with lower urinary tract symptoms (principal); R33.9 Retention of urine, unspecified; Z12.5 Encounter for screening for malignant neoplasm of prostate
CPT/HCPCS: 36415; 84153

== ENCOUNTER 2025-01-09 08:15 | Outpatient (AMB) | payer MEDICARE, SELFPAY ==
--- NOTE | 2025-01-09 08:22 | A.OFFVIS_ITS ---
Intake Visit Reasons: 1y/PSA/PVR Intake Note: Patient is Present for Follow Up Urology Medication: Alfuzosin, Finasteride, Tadalafil Antibiotic Allergies: None Blood Thinners: None Pharmacy: [facility] Last PVR: 61 TODAY'S PVR:39ML'S Chain Hoist Operator Required: No Allergies chlorhexidine Allergy (Verified 01/09/25 08:23) Rash iodine Adverse Reaction (Verified 01/09/25 08:23) Rash HPI Comments Details: German is a pleasant male. He is a patient of Dr Navarro. 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 12 month follow-up check PSA Erectile dysfunction Partial response to daily tadalafil Lower urinary tract symptoms September 2021 underwent right knee revision Retention with failed voiding trial in hospital Cystoscopy 12/14 large median lobe Prostate procedure 10/17 GreenLight laser Had required bethanechol postoperatively to allow bladder emptying PFSH Medical History Arthritis History of blood transfusion (~2019) Unintentional weight loss Benign prostatic hyperplasia with lower urinary tract symptoms Chronic pain of both knees Insomnia Anemia 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 Elevated cholesterol Hx of Crohn's disease History of COVID-19 Sleep apnea Pruritus ani Urinary retention Hx of renal calculi Seasonal allergies Asthma Cardiomyopathy HTN (hypertension) Left bundle branch block Surgical History History of prostate surgery History of hemorrhoidectomy History of total knee arthroplasty History of esophagogastroduodenoscopy (EGD) Hx of hernia repair Hx of shoulder surgery Hx of knee surgery Hx of colonoscopy Family History Father No problems noted. Mother Diabetes Social History Are you a primary rn intensive care unit to a significant other at home: No Do you presently have visiting nurse or other home services: No Alcohol intake: current Alcohol intake frequency: holidays/special occasions only Patient Tobacco Use Status: Former Tobacco user Tobacco use type: Cigarette Review of Systems Const Denies chills and Denies fever(s) Card Reports no additional complaints and Denies syncope Resp Denies cough GI Denies abdominal pain and Denies heartburn Reports as per HPI and Denies change in libido Neuro Denies syncope Psych Denies change in libido Endo Denies change in libido Physical Exam Const General: cooperative, healthy appearing, comfortable and no acute distress Orientation/consciousness: patient oriented x3 HEENT Face and sinus: Yes normal facial exam Mouth: moist mucous membranes Neck Neck: Yes normal visual inspection, Yes full ROM and Yes trachea midline Chest Chest palpation & inspection: normal inspection of the chest Resp Effort & Inspection: normal respiratory effort, able to speak in complete sentences and no respiratory distress GI Inspection: Yes normal to inspection Back/Spine/Pelvis Cervical Spine: normal cervical lordosis Thoracic/Lumbar Spine: thoracic and lumbar spine normal to inspection Skin General skin exam: no rashes or lesions noted Neuro General: patient oriented x3, gait normal, tone normal and moves all extremities Extrem General: Yes normal to inspection and Yes capillary refill normal Office Procedures Post Void Residual Post Residual Void Post Void Residual (PVR): 39 05315-Hfpr Void Residual by ultrasound Assessment & Plan Assessment & Plan (1) Bladder outlet obstruction: Code(s): N32.0 - Bladder-neck obstruction Category: Medical (2) Nocturia more than twice per night: Code(s): R35.1 - Nocturia Category: Medical (3) Erectile dysfunction: Code(s): N52.9 - Male erectile dysfunction, unspecified Category: Medical Plan Yearly follow-up Orders: Orders AMB Urinalysis Automated Today Z13.9 - Encounter for screening, unspecified Medications: Changed From tadalafil 5 mg PO DAILY 90 days 90 tabs 3RF sexual activity N52.9 - Male erectile dysfunction, unspecified To tadalafil [id number] [facility] [id number] Member [id number] 5 mg PO DAILY 90 days 90 tabs 3RF sexual activity N52.9 - Male erectile dysfunction, unspecified From tadalafil On demand medication take 60 minutes before intended activity 20 mg PO ONCE 30 days PRN 30 tabs 2RF sexual activity N52.9 - Male erectile dysfunction, unspecified To tadalafil On demand medication take 60 minutes before intended activity [id number] [facility] [id number] Member [id number] 20 mg PO ONCE 30 days PRN 30 tabs 1RF sexual activity N52.9 - Male erectile dysfunction, unspecified Coding Level of Care Code Est Pt Level 4 (34330) Complex EM visit Add On G2211 Diagnoses Bladder outlet obstruction N32.0 Nocturia more than twice per night R35.1 Erectile dysfunction N52.9 CPT Codes Post Residual Void - PVR CPT Code: 37480-Rluf Void Residual by ultrasound ([id number])
--- OUTSIDE RECORDS SUMMARY | 2025-01-09 08:29 | XMS_ITS | Clinical Summary ---
Author Organization [employer] Address [address] [facility] [address]t [place] [address] Care Team Providers Care Wastewater Plant Operator Name Role Phone Katelynn Hall Primary Care Provider [phone]- [phone] Allergies No known active allergies Medications amLODIPine [...] 24 Active ergocalciferol (Vitamin D2) 1.25 MG (15681 UT) capsuleIndicati ons:Vitamin D deficiency, unspecified Take [...] MORNING, 90 tablet 1 07/24/20 24 Active oxyCODONE (Roxicodone) 5 MG immediate release tabletIndicatio ns:Chronic pain of both knees TAKE 1 TABLET BY MOUTH EVERY TWELVE HOURS NEEDED FOR SEVERE PAIN 56 tablet 12/27/19 25 Active Ventolin HFA 108 (90 Base) MCG/ACT inhaler INHALE 2 PUFFS BY MOUTH EVERY 4 HOURS NEEDED FOR WHEEZING OR SHORTNESS OF BREATH 18 g 1 01/03/20 25 Active Ventolin HFA 108 (90 Base) MCG/ACT inhaler INHALE 2 PUFFS BY MOUTH EVERY 4 HOURS NEEDED FOR WHEEZING OR SHORTNESS OF BREATH 18 g 1 08/19/20 24 025 Discontinued oxyCODONE (Roxicodone) 5 MG immediate release tabletIndicatio ns:Chronic pain of both knees TAKE 1 TABLET BY MOUTH EVERY 12 HOURS NEEDED FOR SEVERE PAIN 56 tablet 11/28/19 25 025 Discontinued Active Problems Problem Noted [...] Encounters Date Type Department Care Team Description 01/03/2025 Orders Only GENERIC EXTERNAL DATA DEPARTMENT Provider, Generic External Data 01/02/2025 Refill [facility] [address] [place] [address] Katelynn Hall DO 12/23/2024 Refill [facility] [address] [place] [address] Katelynn Hall, Chronic pain of both knees 12/18/2024 Telephone [facility] [address] [place] [address] Katelynn Hall, 12/09/2024 Orders Only GENERIC EXTERNAL DATA DEPARTMENT Provider, Generic External Data 11/25/2024 Refill [facility] [address] [place] [address] Katelynn Hall, Chronic pain of both knees 10/23/2024 Refill [facility] [address] [place] [address] Danii Funk MD Chronic pain of both [...] Description 02/13/2025 9:00 AM EDT Clinical Support [facility] [address] [place] [phone] Sade Funk, RN Health Maintenance Due Date [...] Procedure Name Priority Date/Time Associated Diagnosis Comments PSA, TOTAL Routine 01/03/2025 7:36 AM EDT HEMATOXYLIN AND EOSIN STAIN Routine 12/09/2024 3:00 PM EDT HEPATITIS C AB W/REFL TO HCV RNA, QN, PCR Routine 02/13/2024 6:35 AM EDT Healthcare maintenance LIPID PANEL, STANDARD Routine 02/13/2024 6:35 AM EDT Essential hypertension Other hyperlipidemia PANORAMIC RADIOGRAPHIC IMAGE Routine 02/10/2023 8:30 AM EDT HM COLONOSCOPY Routine 04/14/2015 3:03 PM EDT from Last 3 Months or Most Recently Relevant to Health Maintenance Results * PSA,Total (01/03/2025 7:36 AM EDT) Prostate Specific Antigen 1.46 <0.05 - 4.0 ng/mL [facility] Comment:PSA methodology: Abb marck Castellano i ChemiluminescentMicroparticle Immunoassay (CMIA) 01/03/2025 7:36 AM EDT 01/03/2025 7:36 AM EDT us Generic External Data Provider LAB BLOOD ORDERAB LES Final Result [facility] [address] [place] [phone] * Hematoxylin and Eosin Stain (12/09/2024 3:00 PM EDT) 12/09/2024 3:00 PM EDT 12/10/2024 8:20 AM EDT [facility] - 12/12/2024 9:00 AM EDT ----- ------- Name: German Hassan ?Age/Sex: 74/M ? : 1950 Unit#: [id number] ?? Attend Dr: Chester Verdin MD ?Re12/09/24 ?Status: REG SDC ? Location: HO.SSS ?Disch: ? ----- ------- SPEC : [id number] ? RECD: 12/10/24-819 ? STATUS: ??SOUT ? REQ NUM: [id number] ? GORGE: 12/09/24-1500 ? SUBM DR: Chester Verdin MD ? ENTERED: ??12/10/24-0830 ?SP TYPE: Surgical ? OTHR DR: Katelynn Hall DO ? ORDERED: ??HE Stain/15, Gross Micro L4/5 ? Diagnosis ?? A. ??Colon, ascending, biopsy: ??Colonic mucosa within normal limits. ? B. ??Colon, transverse, biopsy: ??Colonic mucosa within normal limits. ? C. ??Colon, descending, biopsy: ??Colonic mucosa within normal limits. ? D. ??Colon, sigmoid, biopsy: ??Colonic mucosa within normal limits. ? E. ??Rectum, biopsy: ??Rectal mucosa within normal limits. ? Comment: No dysplasia is seen. ?Clinical History Pre-Op Dx: ??Ulcerative colitis Post-Op Dx: Diverticulosis, hemorrhoids ?Microscopic Description A-E. ??Microscopic sections reviewed. ? Material Received ?? A. Ascending colon bx's, h/o ulcerative colitis, r/o dysplasia ?? B. Transverse colon bx's, h/o ulcerative colitis, r/o dysplasia ?? C. Descending colon bx's, h/o ulcerative colitis, r/o dysplasia ?? D. Sigmoid bx's, h/o ulcerative colitis, r/o dysplasia ?? E. Rectal bx's, h/o ulcerative colitis, r/o dysplasia ? Gross Description Received in five parts. Part A: ??Received in formalin labeled ?ascending colon bx's, history ulcerative colitis, rule out dysplasia? are 4 teran-white and garrett irregular and rectangular tissue fragments ranging from 0.2-0.5 cm, submitted in toto in a cassette labeled A. Part B: ??Received in formalin labeled ?transverse colon bx's, history ulcerative colitis, rule out dysplasia? are several minute to 0.3 cm teran-garrett irregular and rectangular tissue fragments, submitted in toto in a cassette labeled B. Part C: ??Received in formalin labeled ?descending colon bx's, history ulcerative colitis, ? CONTINUED ON NEXT PAGE ----- ------- Name: German Hassan ?Age/Sex: 74/M ? : 1950 Unit#: [id number] ?? Attend Dr: Chester Verdin MD ?Re12/09/24 ?Status: REG MIC ? Location: HO.SSS ?Disch: ? ----- ------- SPEC : [id number] ? RECD: 12/10/24 ? STATUS: ??SOUT ? REQ NUM: [id number] ? GORGE: 12/09/24-1500 ? SUBM DR: Chester Verdin MD ? ENTERED: ??12/10/24-829 ?SP TYPE: Surgical ? OTHR DR: Katelynn Hall DO ? ORDERED: ??HE Stain/15, Gross Micro L4/5 ? Gross Description ?(Continued) rule out dysplasia? are 6 garrett irregular and rectangular tissue fragments ranging from 0.25- 0.6 cm, submitted in toto in a cassette labeled C. Part D: ??Received in formalin labeled ?sigmoid bx's, history ulcerative colitis, rule out dysplasia? are 4 garrett irregular tissue fragments ranging from 0.2-0.3 cm, submitted in toto in a cassette labeled D. Part E: ??Received in formalin labeled ?rectal bx's, history ulcerative colitis, rule out dysplasia? are 3 garrett irregular tissue fragments ranging from 0.25-0.35 cm, submitted in toto in a cassette labeled E. CEDS Copies To: ?? Katelynn Hall DO ?? [facility] ?? [address] ?? [place] [address] ?? [phone] ?? Chester Verdin MD ?? [facility] ?? [address] ?? [place] [address] ?? [phone] ----- ------- Signed (signature on file) Alfrdeo Hernandez MD 12/12/24 0900 ? ----- ------- ? END OF REPORT ? us Generic External Data Provider LAB BLOOD ORDERAB LES Final Result Performing Organization Address [facility] de Phone Number [facility] [address] [place] [address] [phone] * Hepatitis C Antibody with Reflex to HCV, RNA, Quantitative, Real-Time PCR (02/13/2024 6:35 AM EDT) Hepatitis C Antibody Nonreactive Nonreactive [facility] Comment:Antibodies to HCV no t detected; does not exclude early acuteHCV infection. Blood Venous blood specimen / Unknown 02/13/2024 6:35 AM EDT 02/13/2024 6:35 AM EDT us Katelynn Hall DO LAB BLOOD ORDERABLES Final R esult Performing Organization Address [facility] Co de Phone Number [facility] [address] [place] [phone] * Lipid Panel, Standard (02/13/2024 6:35 AM EDT) Triglycerides 76 <150 mg/dL [facility] Comment:Desirable Triglyceri de: less than 150 mg/dLBorderline High Triglyceride 150-199 mg/dLHigh Triglyceride: 200-499 mg/dLVery High Triglyceride: greater than or equal to 5OO mg/dL Cholesterol 143 <200 mg/dL [facility] Comment:Desirable Cholestero l: less than 200 mg/dLBorderline High Cholesterol: 200-239 mg/dLHigh Cholesterol: greater than 239 mg/dL LDL Cholesterol Calculated 80 <100 mg/dL [facility] Comment:Desirable LDL: less than 100 mg/dLNear Optimal/Above Optimal LDL: 110- 129 mg/dLBorderline High LDL: 130-159 mg/dLHigh LDL: 160-189 mg/dLVery High LDL: greater than or equal to 190 mg/dL HDL Cholesterol 48 >40 mg/dL [facility] Comment:Desirable HDL: great er than 40 mg/dL Note: This HDL assay may give artificially low results in patients with liver disease. Blood Venous blood specimen / Unknown 02/13/2024 6:35 AM EDT 02/13/2024 6:35 AM EDT Katelynn Hall DO LAB BLOOD ORDERABLES Final R esult [facility] [address] [place] [phone] * Colonoscopy (04/14/2015 3:03 PM EDT) Historical Provider HEALTH MAINTENANCE Final Result from Last 3 Months or Most Recently Relevant to Health Maintenance Insurance [place] [id number] DENTAL - HSN FULL (MEDICAID) Care Teams Wastewater Plant Operator Relationship Specialty Start Date End Date Katelynn Hall DO [address] [place] [phone] PCP - General Family Medicine 09/25/18
--- OUTSIDE RECORDS SUMMARY | 2025-01-09 08:29 | XMS_ITS ---
Author Organization [employer] [facility] [facility] Address [address] [place] [phone] Care Team Providers Care Food Beverage Manager Name Role Phone Katelynn Hall M.D. 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) Active confirmed Problem History of polyp of colon (situation) (032156278) Personal history of colonic polyps (Z86.010) Active confirmed Problem Colon cancer screening (911450735) Colon cancer screening (Z12.11) Active confirmed Vital Signs Blood pressure systolic 00 mm Hg 08/14/20 24 Blood pressure diastolic 00 mm Hg 024 Height 6 ft 0 in in 08/14/2024 Weight 173 lbs 08/14/2024 BMI 23.46 kg/m2 08/14/2024 Encounters Encounter Location Date Provider Diagnosis [facility] [address] [place] [address] 08/14/2024 Chester Verdin Chronic ulcerative proctitis without [...] * GERMAN GUZMAN ADOB:1950 (74 yo M)Acc No.[id number]:08/14/2024 Progress Notes Patient:?GERMAN GUZMAN Provider:?Chester Verdin MD :1950???Age:74 Y???Sex:Male Carter e:08/14/2024 Address:[address], [place], [place] Pcp:Katelynn Hall M.D. Subjective: * Chief Complaints: [...] NEEDED FOR SEVERE PAIN Oral , Notes: A12234,UnavailableLoratadine 10 MG Tablet TAKE 1 TABLET EVERY [...] NEEDED FOR SEVERE PAIN Oral , Notes: C58570,UnavailableTaking Loratadine 10 MG Tablet TAKE 1 TABLET [...] Procedure Codes:?3017F COLOR ECTAL CA SCREEN DOC GIN2013X TOBACCO NON-RQJQU4166 BP SCR NOT PRFRM REC REASON NOS * Preventive Medicine:? ??Screenings:?Fall Risk Screening?Fall Risk Assessment:?No falls in the past year,?Screening:?No falls in the past year,?Assessment:?Not performed, no reason specified,?Plan of Care:?Not documented, no reason specified.? * Follow Up:?prn * * Sign off status: Completed true * Provider:?Chester Verdin MD Date:? 024 Generated for Zeke arrieta/Bradley/Chilangoitting on:?01/09/2025 08:29 AM EDT History and Physical Notes * [...]
--- OUTSIDE RECORDS SUMMARY | 2025-01-09 08:29 | XMS_ITS | Encounter Summary ---
Author Organization [employer] [facility] Address [address] [facility] 7t [place] [address] Care Team Providers Care Land Measurer Name Role Phone Katelynn Hall DO Primary Care Provider + [phone] Encounter Details Date Type Department Care Team (Latest Contact Info) Description 10/09/2018 Abstract [facility] CONVERSIONS Dental, [...] Support [facility] [address] [place] [address] Sade Funk RN documented as of this encounter Visit Diagnoses Not on filedocumented in this encounter Care Teams Land Measurer Relationship Specialty Start Date End Date Katelynn Hall DO [address] [place] [address] PCP - General Family Medicine 09/25/18 documented as of this encounter
--- OUTSIDE RECORDS SUMMARY | 2025-01-09 08:29 | XMS_ITS | Encounter Summary ---
Author Organization [employer] [facility] Address [address] [facility] 7t [place] [address] Care Team Providers Care Shrimp Header Name Role Phone Katelynn Hall DO Primary Care Provider + [phone] Reason for Visit * Reason Onset Date Comments Nurse Triage 05/28/2024 Encounter Details Date Type Department Care Team ([facility] st Contact Info) Description 05/28/2024 Telephone [facility] [address] [place], [place] [phone] Katelynn Hall DO [address] [place], [place] [phone] Nurse Triage Social History Tobacco Use Types [...] to be seen. Advised to come to [facility] today at [facility] and Pt agrees. Unable to check [...] poison rossy or shingles. Duration 1 week Qatari speaking documented in this encounter Plan of Treatment Upcoming Encounters Date Type Department Care Team (Late st Contact Info) Description 02/13/2025 9:00 AM EDT Clinical Support [facility] [address] [place] [address] Sade Funk, CHEIKH documented as of this encounter Visit Diagnoses Not on filedocumented in this encounter Additional Health Concerns Assessment Noted Time PHQ-9 Depression Total Score: 0 08/22/20 9:03 AM EST documented as of this encounter Care Teams Shrimp Header Relationship Specialty Start Date End Date Katelynn Hall DO [address] [place] [address] PCP - General Family Medicine 09/25/18 documented as of this encounter
--- OUTSIDE RECORDS SUMMARY | 2025-01-09 08:29 | XMS_ITS | Encounter Summary ---
Author Organization [employer] [facility] Address [address] [facility] [facility] [address] 7t [place] [address] Care Team Providers Care Insurance Adjustor Name Role Phone ShahramKatelynn wood Primary Care Provider + [phone] Encounter Details Date Type Department Care Team (Late st Contact Info) Description 01/03/2024 Orders Only [facility] [address] [place] [address] ProviderOren MD Social History Tobacco Use Types [...] 9:00 AM EDT Clinical Support [facility] [address] [place] [address] Sade Funk RN documented as of this [...] documented as of this encounter Care Teams Insurance Adjustor Relationship Specialty Start Date End Date Kaetlynn Hall DO [address] [place] [address] PCP - General Family Medicine 09/25/18 documented as of this encounter
--- OUTSIDE RECORDS SUMMARY | 2025-01-09 08:30 | XMS_ITS | Encounter Summary ---
Author Organization [employer] [facility] Address [address] [facility] 7t [place] [address] Care Team Providers Care Laboratory Scientist Name Role Phone Katelynn Hall DO Primary Care Provider + [phone] Encounter Details Date Type Department Care Team (Latest Contact Info) Description 03/15/2021 Abstract [facility], [...] Description 02/13/2025 9:00 AM EDT Clinical Support [facility] MEDICINE [address] [place] [address] Sade Funk RN documented as of this encounter Visit Diagnoses Not on filedocumented in this encounter Care Teams Laboratory Scientist Relationship Specialty Start Date End Date Katelynn Hall DO [address] [place] [address] PCP - General Family Medicine 09/25/18 documented as of this encounter
--- OUTSIDE RECORDS SUMMARY | 2025-01-09 08:30 | XMS_ITS ---
Author Organization [facility] Address [address] [place] [phone] Care Team Providers Care Manager Corporate Communications Name Role Phone Katelynn Hall M.D. Primary Care Provider Chester Brown [phone] REASON FOR VISIT screening,hx polyps,ulcerative proctitis Encounters Encounter Location Date Provider Diagnosis [facility] [address] [place], [place] [phone] 12/09/2024 Chester Verdin Colon cancer scree bindu [...] * REED GUZMAN ADOB:1950 (74 yo M)Acc No.[id number]:12/09/2024 COLON WITH MAC Patient:?GUZMANREED A Provider:?Chester Verdin MD :1950???Age:74 Y???Sex:Male Carter e:12/09/2024 Address:[address] [facility] Pcp:Katelynn Hall M.D. Subjective: * Chief Complaints: * ???1. Screening,hx polyps,ul cerative proctitis. * Medical History:? Objective: * Vitals:? Assessment: * Assessment: 1.?Colon cancer screening - Z12.11 (Primary)???2.?Ulcerative proctitis, without complications - K51.20???3.?Other hemorrhoids - K64.8???4.?Diverticulosis of large intestine without perforation or abscess without bleeding - K57.30??? Plan: * Treatment: * Procedure Codes:?56764 COLON OSCOPY AND BIOPSY, Modifiers: 33 , [...] MD Date:? 025 Generated for Zeke arrieta/Bradley/eTransmitting on:?01/09/2025 08:29 AM EDT
--- OUTSIDE RECORDS SUMMARY | 2025-01-09 08:30 | XMS_ITS | Encounter Summary ---
Author Organization [employer] [facility] Address [address] [facility] 7t [place] [address] Care Team Providers Care Manager Er Name Role Phone Katelynn Hall DO Primary Care Provider + [phone] Reason for Visit * Reason Comments Med Refill Encounter Details Date Type Department Care Team ([facility] Contact Info) Description 11/25/2022 Refill [facility] [address] [place], [place] [phone] Katelynn Hall DO [address] [place] [address] Pain in right knee Social History Tobacco [...] Upcoming Encounters Date Type Department Care Team ([facility] Contact Info) Description 02/13/2025 9:00 AM EDT Clinical Support [facility] [address] [place] [address] Sade Funk RN documented as of this encounter Visit Diagnoses Diagnosis Pain in right knee documented in this encounter Additional Health Concerns Assessment Noted Time PHQ-9 Depression Total Score: 0 11/21/19 23 8:57 AM EST documented as of this encounter Care Teams Manager Er Relationship Specialty Start Date End Date Katelynn Hall DO [address] [place] [address] PCP - General Family Medicine 09/25/18 documented as of this encounter
--- OUTSIDE RECORDS SUMMARY | 2025-01-09 08:30 | XMS_ITS | Encounter Summary ---
Author Organization [employer] [facility] Address [address] [facility] 7t [place] [address] Care Team Providers Care Paraprofessional Aide Name Role Phone Katelynn Hall DO Primary Care Provider + [phone] Encounter Details Date Type Department Care Team (Latest Contact Info) Description 07/01/2022 Abstract [facility] CONVERSIONS Dental, Provider, DDS Social History [...] 02/13/2025 9:00 AM EDT Clinical Support [facility] MEDICINE [address] [place] [address] Sade Funk RN documented as of this encounter Visit Diagnoses Not on filedocumented in this encounter Care Teams Paraprofessional Aide Relationship Specialty Start Date End Date Katelynn Hall DO [address] [place] [address] PCP - General Family Medicine 09/25/18 documented as of this encounter
--- OUTSIDE RECORDS SUMMARY | 2025-01-09 08:30 | XMS_ITS | Encounter Summary ---
Author Organization [facility] Address [address] [facility] 7t [place] [address] Care Team Providers Care Director Mission Name Role Phone Katelynn Hall DO Primary Care Provider + [phone] Encounter Details Date Type Department Care Team (Late Contact Info) Description 11/18/2022 Abstract [facility] MEDICINE [address] [place] [phone] Katelynn Hall DO [address] [place] [phone] Social History Tobacco Use Types Packs/Day Years [...] 9:00 AM EDT Clinical Support [facility] [address] [place] [address] Sade Funk, CHEIKH documented as of this encounter Visit Diagnoses Not on filedocumented in this encounter Care Teams Director Mission Relationship Specialty Start Date End Date Katelynn Hall DO [address] [place] [address] PCP - General Family Medicine 09/25/18 documented as of this encounter
--- OUTSIDE RECORDS SUMMARY | 2025-01-09 08:30 | XMS_ITS | Patient Health Record ---
Author Organization [facility] Address [address] [place] [address] Care Team Providers Care Chemical Engraver Name Role Phone Katelynn Hall M.D. Primary Care Provider Chester Brown Unavailable [phone] Allergies No Known Allergies Results Component Value Reference Range Notes Pathology Reviewed date:12/12/2024 07:13:43 PM Interpretation: Performing Lab:[facility], [address] [place] [phone] Notes/Report: Name: German Guzman Age/Sex: 74/M : 1950 Unit#: [id number] Attend Dr: Chester Verdin MD Re12/09/24 Status : REG [facility] Location: [facility] Disch: SPEC : [id number] REC STATUS: AMY OCAMPO NUM: [id number] GORGE: 12/09/24-1499 [facility] DR: Chester Verdin MD ENTERED: 12/10/24- 30 [...] German Guzman Age/Sex: 74/M : 1950 Unit#: [id number] Attend Dr: Chester Verdin MD Re12/09/24 Status : [facility] Location: [facility] Disch: SPEC : [id number] RECD : 12/10/24 STATUS: AMY OCAMPO NUM: [id number] GORGE: 12/09/24-1499 [facility] DR: Chester Verdin MD ENTERED: 12/10/24 SP [...] E. 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) Active confirmed Vital Signs Blood pressure diastolic 00 mm Hg 08/14/2024 Height 6 ft 0 in in 08/14/2024 Blood pressure systolic 00 mm Hg 08/14/2024 Weight 173 lbs 08/14/2024 BMI 23.46 kg/m2 08/14/2024 Encounters Encounter Location Date Provider Diagnosis [facility] [place] [address] [place], [place] [phone] 12/09/2024 Chester Verdin Colon cancer screeni ng Z12.11 ; Ulcerative proctitis, without complications K51.20 ; Other hemorrhoids K64.8 and Diverticulosis of large intestine without perforation or abscess without bleeding K57.30 [facility] [address] [place] [address] 08/14/2024 Chester Verdin Chronic ulcerative proctitis without [...] [address] [place] [address] [id number] GERMAN GUZMAN Self - patient is the [...] in 2005 w ith me GERD Denies UT,DM,CVA,Lung disease,renal dise ase Colonoscopies with removal o f polyps--most recent was in [address] Thomas Surgical History Surgery Date(Month/Year) Right knee replacement 2019, and then a F/U surgery in [address] Sol WALLIS 09/2022 Right inguinal hernia Hemorrhoidectomy Umbilical hernia 2023-Dr. Evans Both Rotator cuffs
--- OUTSIDE RECORDS SUMMARY | 2025-01-09 08:30 | XMS_ITS | Encounter Summary ---
Author Organization [employer] [facility] Address [address] [facility] [address] [place] [address] Care Team Providers Care Master Brewer Name Role Phone Katelynn Hall DO Primary Care Provider + [phone] Reason for Visit * Reason Comments Med Refill Encounter Details Date Type Department Care Team ([facility] Contact Info) Description 03/02/2023 Refill [facility] [address] [place], [place] [phone] Katelynn Hall DO [address] [place] [address] Pain in right knee Social History Tobacco [...] Upcoming Encounters Date Type Department Care Team ([facility] Contact Info) Description 02/13/2025 9:00 AM EDT Clinical Support [facility] [address] [place] [address] Sade Funk RN documented as of this encounter Visit Diagnoses Diagnosis Pain in right knee documented in this encounter Additional Health Concerns Assessment Noted Time PHQ-9 Depression Total Score: 0 11/21/19 23 8:57 AM EST documented as of this encounter Care Teams Master Brewer Relationship Specialty Start Date End Date Katelynn Hall DO [address] [place] [address] PCP - General Family Medicine 09/25/18 documented as of this encounter
== END 2025-01-09 08:49 | disposition home or self-care (01) ==
LOC: HO.HUSH 08:16
PROVIDERS: PCP Family Medicine; Visit Provider Urology
DX: N32.0 Bladder-neck obstruction (principal); R35.1 Nocturia; N52.9 Male erectile dysfunction, unspecified; Z13.9 Encounter for screening, unspecified
CPT/HCPCS: 99214; G2211

== ENCOUNTER → 2025-01-09 08:15 | Outpatient (BNVA) | payer MEDICARE, SELFPAY | PROVIDERS: PCP Family Medicine; Visit Provider Urology | DX: N40.1 Benign prostatic hyperplasia with lower urinary tract symptoms (principal); R33.8 Other retention of urine; N52.9 Male erectile dysfunction, unspecified; N32.0 Bladder-neck obstruction; R35.1 Nocturia | CPT/HCPCS: 51798; 81003; 99212 ==

== ENCOUNTER 2025-03-07 13:34 | Outpatient (REF) | payer MEDICARE, SELFPAY ==
--- NOTE | ~2025-03-07 | XR_ITS ---
EXAMINATION: XR CERVICAL SPINE 3 view CLINICAL INFORMATION: Neck pain, no trauma COMPARISON: None available. TECHNIQUE: 3 views of the cervical spine were obtained. FINDINGS: C4-5 demonstrates mild to moderate disc space narrowing and end plate osteophytes. C5-6 demonstrates severe disc space narrowing and endplate osteophytes. C6-7 demonstrates moderate disc space narrowing and endplate osteophytes. There is no prevertebral soft tissue edema. The dens is mostly obscured by overlapping teeth and skull. XR/XR cervical spine 3V IMPRESSION: Degenerative disc disease C4-5 through C6-7. Electronically signed by: Shai Davis MD 03/07/2025 02:09 PM EDT
--- OUTSIDE RECORDS SUMMARY | 2025-03-07 13:46 | XMS_ITS | Clinical Summary ---
Author Organization [employer] Address [address] [facility] [address] [place] [address] Care Team Providers Care Thermometer Maker Name Role Phone KatiaKatelynn bustillos Primary Care Provider [phone] Allergies No known active allergies Medications amLODIPine (Norvasc) 5 MG tablet Take 5 mg by mouth 1 (one) time each day. Active metoprolol succinate XL (Toprol-XL) 100 MG 24 hr tablet Take 100 mg by mouth 1 (one) time each day. Active finasteride (Proscar) 5 MG tablet Take 1 tablet by mouth in the morning. 01/01/20 23 Active tadalafil (Cialis) 5 MG tablet TAKE ONE TABLET BY MOUTH DAILY FOR SEXUAL ACTIVITY 06/06/20 23 Active zolpidem (Ambien) 10 MG tablet Take 1 tablet (10 mg) by mouth if needed at bedtime for sleep. 30 tablet 2 02/05/20 24 Active fluticasone (Flonase) 50 MCG/ACT nasal spray Administer 2 sprays into each nostril Once per day. Shake gently. Before first use, prime pump. After use, clean tip and replace cap. 16 g 11 02/07/20 24 Active Additional Information Patient not taking.Reported on 03/07/2025 ergocalciferol (Vitamin D2) 1.25 MG (48467 UT) capsuleIndicat ions:Vitamin D deficiency, unspecified Take 1 capsule (1.25 mg) by mouth 1 (one) time per week. 5 capsule 11 02/16/20 24 Active Additional Information Patient not taking.Reported on 03/07/2025 melatonin 5 MG tabletIndicati ons:Other insomnia TAKE 1 TO 2 TABLETS BY MOUTH EVERY DAY AT BEDTIME NEEDED FOR SLEEP 60 tablet 04/22/20 24 Active traZODone (Desyrel) 50 MG tabletIndicati ons:Other insomnia TAKE 2 TABLETS BY MOUTH EVERY DAY AT BEDTIME 60 tablet 04/22/20 24 Active diphenhydrAMIN E (BENADryl) 25 MG tablet Take 1 tablet (25 mg) by mouth every 8 (eight) hours if needed for itching. 30 tablet 05/28/20 24 Active Additional Information Patient not taking.Reported on 03/07/2025 D3 Super Strength 50 MCG (2000 UT) capsule TAKE 1 CAPSULE BY MOUTH DAILY EVERY DAY 90 capsule 3 06/21/20 24 Active atorvastatin (Lipitor) 80 MG tablet TAKE 1 TABLET BY MOUTH EVERY DAY AT BEDTIME 90 tablet 3 06/21/20 24 Active omega-3 (Fish Oil) 1000 MG capsule TAKE 1 TABLET BY MOUTH TWICE DAILY 180 capsule 3 06/21/20 24 Active Ventolin HFA 108 (90 Base) MCG/ACT inhaler INHALE 2 PUFFS BY MOUTH EVERY 4 HOURS NEEDED FOR WHEEZING OR SHORTNESS OF BREATH 18 g 1 01/03/20 25 Active lisinopril 40 MG tablet TAKE 1 TABLET BY MOUTH EVERY MORNING 90 tablet 1 01/17/20 25 Active naloxone (Narcan) 4 mg/0.1 mL nasal sprayIndicatio ns:Long-term current use of opiate analgesic FOR SUSPECTED OPIOID OVERDOSE. SPRAY 0.1mL IN ONE NOSTRIL. REPEAT IN ALTERNATE NOSTRIL 2-3 MINUTES IF NEEDED. SEEK MEDICAL ATTENTION IMMEDIATELY EVEN IF PATIENT RESPONDS. 2 each 2 02/14/20 25 Active oxyCODONE (Roxicodone) 5 MG immediate release tabletIndicati ons:Chronic pain of both knees TAKE 1 TABLET BY MOUTH EVERY TWELVE HOURS NEEDED FOR SEVERE PAIN 56 tablet 02/29/20 25 Active loratadine (Claritin) 10 MG tablet TAKE 1 TABLET EVERY DAY 30 tablet 11 02/29/20 25 Active Diclofenac Sodium 1 % gelIndications :Neck pain Apply 1 Application topically if needed each day (daily as needed for neck pain). 50 g 03/07/20 25 Active lidocaine (Lidoderm) 5 % patchIndicatio ns:Neck pain Apply 1 patch topically Once per day. Remove & discard patch within 12 hours or as directed by MD. 30 patch 2 03/07/20 25 Active cyclobenzaprin e (Flexeril) 5 MG tabletIndicati ons:Neck pain Take 1 tablet (5 mg) by mouth if needed at bedtime for muscle spasms for up to 7 days. 7 tablet 03/07/20 25 025 Active baclofen (Lioresal) 20 MG tabletIndicati ons:Muscle spasm TAKE 1 TABLET BY MOUTH THREE TIMES DAILY NEEDED FOR MUSCLE SPASMS 60 tablet 3 11/22/19 23 025 Discontinued(O ther) naloxone (Narcan) 4 mg/0.1 mL nasal spray FOR SUSPECTED OPIOID OVERDOSE. SPRAY 0.1mL IN ONE NOSTRIL. REPEAT IN ALTERNATE NOSTRIL 2-3 MINUTES IF NEEDED. SEEK MEDICAL ATTENTION IMMEDIATELY EVEN IF PATIENT RESPONDS. 2 each 2 01/25/20 24 025 Discontinued(R eorder (will not trigger notification to Pharmacy)) loratadine (Claritin) 10 MG tablet Take 1 tablet (10 mg) by mouth Once per day. 30 tablet 11 02/07/20 24 025 Discontinued oxyCODONE (Roxicodone) 5 MG immediate release tabletIndicati ons:Chronic pain of both knees TAKE 1 TABLET BY MOUTH EVERY TWELVE HOURS NEEDED FOR SEVERE PAIN 56 tablet 01/29/20 25 025 Discontinued Active Problems Problem Noted [...] Encounters Date Type Department Care Team Description 03/07/2025 1:00 PM EDT Office Visit [address] [address] Danii Hartmann MD Neck pain (Primary Dx) 03/07/2025 Travel 03/07/[address] [address] Katelynn Hall DO Nurse Triage 02/28/[address] [address] Katelynn Hall DO Chronic pain of both knees; Vitamin D deficiency, unspecified [address] [address] Katelynn Hall DO chart prep 02/25/[address] [address] Katelynn Hall DO Nurse Triage 02/13/2025 9:00 AM EDT Clinical Support [address] [address] Sade Funk, RN Long-term current use of opiate analgesic (Primary Dx) 02/13/[address] [address] Sade Funk RN Long-term current use of opiate analgesic (Primary Dx) 02/13/2025 Travel 02/13/2025 Telephone [facility] [address] [place] [address] Sade Funk RN Recommend [employer]ACE[employer]FT Tier 2 01/28/2025 Refill [facility] [address] [place] [address] Katelynn Hall, DO Chronic pain of both knees 01/14/2025 Refill [facility] [address] [facility] [place] [address] Katelynn Hall, 01/03/2025 Orders Only GENERIC EXTERNAL DATA DEPARTMENT Provider, Generic External Data 01/02/2025 Refill [facility] [address] [place] [address] Katelynn Hall, 12/23/2024 Refill [facility] [address] [place] [address] Katelynn Hall, Chronic pain of both knees 12/18/2024 Telephone [facility] [address] [place] [address] Katelynn Hall, 12/09/2024 Orders Only GENERIC EXTERNAL DATA DEPARTMENT Provider, Generic External Data from Last 3 Months Immunizations Immunization Administration Dates Next Due Influenza High-dose Quadriva [...] Access Answer Date Recorded Internet Access Q1 I am not sure 03/07/2025 Internet Access Q2 Not on file 03/07/2025 Sex and Gender Information Value Date Recorded Sex Assigned at Male 07/25/2022 10:21 AM EDT Legal Sex Male 10:21 AM EDT Gender Identity Male 07/25/2022 10:21 AM EDT Sexual Orientation Straight 07/25/2022 10 :21 AM EDT Last Filed Vital Signs Vital Sign Reading Time Taken Comments Blood Pressure 140/68 03/07/2025 1:03 PM EDT Pulse 80 03/07/2025 1:03 PM EDT Temperature 36.1 ??C (97 ??F) 03/07/2025 1:03 PM EDT Respiratory Rate 20 03/07/2025 1:03 PM EDT Oxygen Saturation 97% 03/07/2025 1:03 PM EDT Inhaled Oxygen Concentration - - Weight 80 kg (176 lb 6.4 oz) 03/07/2025 1:03 PM EDT Height 182.9 cm (6') 03/07/2025 1:03 PM EDT Body Mass Index 23.92 03/07/2025 1:03 PM EDT Plan of Treatment Upcoming Encounters Date Type Department Care Team (Late st Contact Info) Description 05/12/2025 9:00 AM EDT Clinical Support [facility] [address] [place] [id number] Sade Funk, RN Health Maintenance Due Date Last Done Comments CT Colonography 1950 Dental Oral Exam 1950 Dental Prophylaxis 1950 Dental X-Ray: Bitewings 1950 FIT DNA/Cologuard 1950 FIT 1950 FOBT 1950 Sigmoidoscopy 1950 Alcohol/Substance Use Screening 1962 Colonoscopy 04/14/2020 04/14/2015 Colorectal Cancer Screening 04/14/2020 Zoster Vaccines (3 of 3) 07/17/2023 05/22/2023, 05/26 COVID-19 Vaccine ( season) 2024 12/06/2021, 12/30/2020 Depression Screening 08/22/2024 08/22/2023, 08/22/20 23 Influenza Vaccine (Season Ended) 2025 08/22/2023, 06/15/2022, 07/26/2021, Additional history exists Dental X-Ray: Full Mouth 02/11/2026 02/10/2023 RSV Patients and Patients Aged 60 years or older (1 - 1-dose 75+ series) 2026 SDOH Screening 03/07/2026 03/07/2025 Tobacco Screening 03/07/2026 03/07/2025 Lipid Panel 02/12/2029 02/13/2024, 03/0 10/2022, 04/18/2022, [...] patient's age to complete this topic Meningococcal B Vaccine Aged Out No l onger eligible based on patient's age to complete [...] Comments POCT ANAYA-14 URINE DRUG SCREEN Routine 02/13/2025 8:45 AM EDT Long-term current use of opiate analgesic PSA, TOTAL Routine 01/03/2025 7:36 AM EDT [...] Results * POCT ANAYA-14 Urine Drug Screen (02/13/2025 8:45 AM EDT) THC Negative Cocaine Screen, Urine Negative Opiate Screen, Urine Negative Methamphetamine Screen Urine Negative Amphetamine Screen, Urine Negative Benzodiazepines Screen, Urine Negative Barbiturate Screen, Urine Negative Methadone Screen, Urine Negative Buprenophine Screen, Urine Negative TCA, Urine Negative MDMA Urine Negative ng/mL Oxycodone Screen, Urine Positive Phencyclidine (PCP), Urine Negative Propoxyphene, Urine Negative Fentanyl, Urine Negative Urine Urine specimen obtained by clean catch procedure / Unknown 02/13/2025 8:45 AM EDT Sade Salinas RN - 02/13/2025 8:45 AM EDT UTOX cup Lot#[id number] Exp. 07/25/26 Internal Pass Control Katelynn Hall DO POINT OF CARE TEST ENTER/BARBARA T ORDERABLES Final Result * PSA,Total (01/03/2025 7:36 AM EDT) Prostate Specific Antigen 1.46 <0.05 - 4.0 ng/mL [facility] Comment:PSA methodology: Matthew Castellano i ChemiluminescentMicroparticle Immunoassay (CMIA) 01/03/2025 7:36 AM EDT 01/03/2025 7:36 AM EDT us Generic External Data Provider LAB BLOOD ORDERAB LES Final Result [facility] [address] [place] [address] [phone] * Hematoxylin and Eosin Stain (12/09/2024 3:00 PM EDT) 12/09/2024 3:00 PM EDT 12/10/2024 8:20 AM EDT Ray [facility] - 12/12/2024 9:00 AM EDT ----- ------- Name: German Hassan ?Age/Sex: 74/M ? : 1950 Unit#: [id number] ?? Attend Dr: Chester Verdin MD ?Re12/09/24 ?Status: REG SDC ? Location: HO.SSS ?Disch: ? ----- ------- SPEC : [id number] ? RECD: 12/10/24 ? STATUS: ??SOUT ? REQ NUM: [id number] ? GORGE: 12/09/24-1500 ? SUBM DR: Chester Verdin MD ? ENTERED: ??12/10/24 ?SP TYPE: Surgical ? OTHR DR: Katelynn [...] Hassan ?Age/Sex: 74/M ? : 1950 Unit#: [id number] ?? Attend Dr: Chester Verdin MD ?Re12/09/24 ?Status: REG SDC ? Location: HO.SSS ?Disch: ? ----- ------- SPEC : [id number] ? RECD: 12/10/24-819 ? STATUS: ??SOUT ? REQ NUM: [id number] ? GORGE: 12/09/24-1500 ? SUBM DR: Chester Verdin MD ? ENTERED: ??12/10/24 ?SP TYPE: Surgical ? OTHR : Katelynn Hall DO ? ORDERED: ??HE Stain/15, [...] Copies To: ?? Katelynn Hall DO ?? [facility] ?? [address] [facility] ?? [place] [address] ?? [phone] ?? Chester Verdin MD ?? [facility] ?? [address] [place] [address] [address] ?? [place] [address] ?? [phone] ----- ------- Signed (signature on file) Alfredo Hernandez MD 12/12/24 0900 ? ----- ------- ? END OF REPORT ? us Generic External Data Provider LAB BLOOD ORDERAB LES Final Result Performing Organization Address [facility] Co de Phone Number [facility] [address] [place] [address] [phone] * Hepatitis C Antibody with Reflex to HCV, RNA, Quantitative, Real-Time PCR (02/13/2024 6:35 AM EDT) Pathologist [facility] Hepatitis C Antibody Nonreactive Nonreactive [facility] Comment:Antibodies to HCV no t detected; does not exclude early acuteHCV infection. Blood Venous blood specimen / Unknown 02/13/2024 6:35 AM EDT 02/13/2024 6:35 AM EDT us Katelynn Hall DO LAB BLOOD ORDERABLES Final R esult Performing Organization Address [facility] Co de Phone Number [facility] [address] [place] [address] [phone] * Lipid Panel, Standard (02/13/2024 6:35 AM EDT) Triglycerides 76 <150 mg/dL [facility] Comment:Desirable Triglyceri de: less than 150 mg/dLBorderline High Triglyceride 150-199 mg/dLHigh Triglyceride: 200-499 mg/dLVery High Triglyceride: greater than or equal to 5OO mg/dL Cholesterol 143 <200 mg/dL [facility] Comment:Desirable Cholestero l: less than 200 mg/dLBorderline High Cholesterol: 200-239 mg/dLHigh Cholesterol: greater than 239 mg/dL LDL Cholesterol Calculated 80 <100 mg/dL [facility] Comment:Desirable LDL: less than 100 mg/dLNear Optimal/Above Optimal LDL: 110- 129 mg/dLBorderline High LDL: 130-159 mg/dLHigh LDL: 160-189 mg/dLVery High LDL: greater than or equal to 190 mg/dL HDL Cholesterol 48 >40 mg/dL [facility] Comment:Desirable HDL: great er than 40 mg/dL Note: This HDL assay may give artificially low results in patients with liver disease. Blood Venous blood specimen / Unknown 02/13/2024 6:35 AM EDT 02/13/2024 6:35 AM EDT Katelnyn Hall DO LAB BLOOD ORDERABLES Final R esult [facility] [address] [place] [phone] * Hm Colonoscopy (04/14/2015 3:03 PM EDT) Historical Provider HEALTH MAINTENANCE Final Result from Last 3 Months or Most Recently Relevant to Health Maintenance Insurance [place] [address] [place] [address] [place] [id number] DENTAL - HSN FULL (MEDICAID) Care Teams Thermometer Maker Relationship Specialty Start Date End Date Katelynn Hall DO [address] [place] [phone] PCP - General Family Medicine 09/25/18
== END 2025-03-07 13:35 | disposition home or self-care (01) ==
LOC: HO.HHCX 13:34
PROVIDERS: Visit Provider Student in an Organized Health Care Education/Training Program
DX: M54.2 Cervicalgia (principal)
CPT/HCPCS: 72040

== ENCOUNTER → 2025-03-07 13:36 | Outpatient (BNV) | payer MEDICARE, SELFPAY | PROVIDERS: Visit Provider Radiology Diagnostic Radiology | DX: M50.321 Other cervical disc degeneration at C4-C5 level (principal); M50.323 Other cervical disc degeneration at C6-C7 level | CPT/HCPCS: 72040 ==

== ENCOUNTER 2025-07-18 07:24 | Outpatient (REF) | payer MEDICARE, SELFPAY ==
--- OUTSIDE RECORDS SUMMARY | 2025-07-14 09:00 | XMS_ITS | Encounter Summary ---
Author Organization [employer] Address [address] [facility] 7t [place] [address] Care Team Providers Care Pulmonologist Name Role Phone Katleynn Hall DO Primary Care Provider + [phone] Encounter Details Date Type Department Care Team (Latest Contact Info) Description 07/14/2025 9:00 AM EDT Office Visit [facility] [address] [place], [place] [phone] Katelynn Hall DO [address] [place] [address] Essential hypertension (Primary Dx); Other hyperlipidemia; Obstructive sleep apnea; Cardiomyopathy, unspecified type (CMS/HCC) (HCC); 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 (CMS/HCC) (HCC); Anemia, unspecified type; Insomnia, unspecified type; Chronic pain of both knees; Benign prostatic hyperplasia with lower urinary tract symptoms, symptom details unspecified; Unintentional weight loss; Bladder wall thickening; Healthcare maintenance; Dietary counseling; Exercise counseling; Encounter for immunization; Vitamin D deficiency; Abnormal finding of blood chemistry, unspecified; Encounter for screening for other viral diseases; Encounter for screening for infections with a predominantly sexual mode of transmission Social History Tobacco Use Types Packs/Day Years Used Date Smoking Tobacco: Former Cigarettes Passive Smoke Exposure: Past Smokeless Tobacco: Never Alcohol Use Standard Drinks/Week Comments Never 0 (1 standard drink = 0.6 oz pur e alcohol) Depression Answer Date Recorded Patient Health Questionnaire-9 Score 3 07/14/2025 Patient Health Questionnaire-9 Score 3 07/14/2025 Last PHQ-9: Questionnaire Data Not on file 1 Housing Stability Answer Date Recorded What is [...] Answer Date Recorded Patient Health Questionnaire-2 Score 2 07/14/2025 Internet Access Answer Date Recorded Internet Access Q1 I am not sure 03/07/2025 Internet Access Q2 Not on file 03/07/2025 Sex and Gender Information Value Date Recorded Sex Assigned at Male 07/25/2022 10:21 AM EDT Legal Sex Male 10:21 AM EDT Gender Identity Male 07/25/2022 10:21 AM EDT Sexual Orientation Straight 07/25/2022 10 :21 AM EDT documented as of this encounter Last Filed Vital Signs Vital Sign Reading Time Taken Comments Blood Pressure 136/70 07/14/2025 8:59 AM EDT Pulse 82 07/14/2025 8:59 AM EDT Temperature 36.6 C (97.9 F) 07/14/2025 8:59 AM EDT Respiratory Rate 20 07/14/2025 8:59 AM EDT Oxygen Saturation 98% 07/14/2025 8:59 AM EDT Inhaled Oxygen Concentration - - Weight 79.5 kg (175 lb 6 oz) 07/14/2025 8:59 AM EDT Height 182.9 cm (6') 07/14/2025 8:59 AM EDT Body Mass Index 23.79 07/14/2025 8:59 AM EDT documented in this encounter Functional Status * Over the past 2 weeks, how often have you been bothered by any of the following problems? Question Answer Date of Assessment Author Patient Health Questionnaire -2 Score 2 07/14/2025 9:03 AM Bridgette Wynne MA * Little interest or pleasure in doing things Answer Date of Assessment Author Several days 07/14/2025 9:03 AM Sandee Wynne MA * Feeling down, depressed, or hopeless Answer Date of Assessment Author Several days 07/14/2025 9:03 AM Sandee Wynne MA * Trouble falling or staying asleep, or sleeping too much Answer Date of Assessment Author Several days 07/14/2025 9:03 AM Sandee Wynne MA * Feeling tired or having little energy Answer Date of Assessment Author Not at all 07/14/2025 9:03 AM Sandee Wynne MA * Poor appetite or overeating Answer Date of Assessment Author Not at all 07/14/2025 9:03 AM Sandee Wynne MA * Feeling bad about yourself - or that you are a failure or have let yourself or your family down Answer Date of Assessment Author Not at all 07/14/2025 9:03 AM Sandee Wynne MA * Trouble concentrating on things, such as reading the newspaper or watching television Answer Date of Assessment Author Not at all 07/14/2025 9:03 AM Sandee Wynne MA * Moving or speaking so slowly that other people could have noticed? Or the opposite - being so fidgety or restless that you have been moving around a lot more than usual. Answer Date of Assessment Author Not at all 07/14/2025 9:03 AM Sandee Wynne MA * Thoughts that you would be better off or hurting yourself in some way Answer Date of Assessment Author Not at all 07/14/2025 9:03 AM Sandee Wynne MA * Patient Health Questionnaire-9 Score Answer Date of Assessment Author 3 07/14/2025 9:03 AM Sandee Wynne MA * How difficult have these problems made it for you to do your work, take care of things at home, or get along with other people? Answer Date of Assessment Author Not difficult at all 07/14/2025 9:03 AM CARROLLT Bridgette Hobson MA * Over the last 2 weeks, how often have you been bothered by any of the following problems? Question Answer Date of Assessment Author Feeling nervous, anxious, or on edge 2 07/14/2025 9:03 AM EDT Bridgette Enriquez MA Not being able to stop or co ntrol worrying 2 07/14/2025 9:03 AM EDT Bridgette Enriquez MA Worrying too much about diff erent things 2 07/14/2025 9:03 AM CARROLLT Bridgette Enriquez MA Trouble relaxing 2 07/14/2025 9:03 AM EDT Bridgette Aceves MA Being so restless that it is hard to sit still 2 07/14/2025 9:03 AM Bridgette Wynne MA Feeling afraid as if somethi ng awful might happen 1 07/14/2025 9:03 AM Bridgette Wynne MA documented as of this encounter Plan of Treatment Upcoming Encounters Date Type Department Care Team (Late st Contact Info) Description 10/16/2025 8:30 AM EST Clinical Support [facility] [address] [place] [id number] Sade Funk, RN Scheduled Orders Name Type Priority Associated Diagnoses Orde r Schedule T4, Free Lab Routine Essential hypertension Other hyperlipidemia Obstructive sleep apnea Cardiomyopathy, unspecified type (CMS/HCC) (HCC) 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 (CMS/HCC) (HCC) Anemia, unspecified type Insomnia, unspecified type Chronic pain of both knees Benign prostatic hyperplasia with lower urinary tract symptoms, symptom details unspecified Unintentional weight loss Bladder wall thickening Healthcare maintenance Dietary counseling Exercise counseling Encounter for immunization Expected: 07/14/2025 (Approximate), Expires: 07/14/2026 Vitamin D, 25-Hydroxy, Total, Immunoassay Lab Routine Essential hypertension Other hyperlipidemia Obstructive sleep apnea Cardiomyopathy, unspecified type (CMS/HCC) (HCC) 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 (CMS/HCC) (HCC) Anemia, unspecified type Insomnia, unspecified type Chronic pain of both knees Benign prostatic hyperplasia with lower urinary tract symptoms, symptom details unspecified Unintentional weight loss Bladder wall thickening Healthcare maintenance Dietary counseling Exercise counseling Encounter for immunization Vitamin D deficiency Expected: 07/14/2025 (Approximate), Expires: 07/14/2026 Lipid Panel, Standard Lab Routine Essential hypertension Other hyperlipidemia Obstructive sleep apnea Cardiomyopathy, unspecified type (CMS/HCC) (HCC) 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 (CMS/HCC) (HCC) Anemia, unspecified type Insomnia, unspecified type Chronic pain of both knees Benign prostatic hyperplasia with lower urinary tract symptoms, symptom details unspecified Unintentional weight loss Bladder wall thickening Healthcare maintenance Dietary counseling Exercise counseling Encounter for immunization Expected: 07/14/2025 (Approximate), Expires: 07/14/2026 TSH Lab Routine Essential hypertension Other hyperlipidemia Obstructive sleep apnea Cardiomyopathy, unspecified type (CMS/HCC) (HCC) 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 (CMS/HCC) (HCC) Anemia, unspecified type Insomnia, unspecified type Chronic pain of both knees Benign prostatic hyperplasia with lower urinary tract symptoms, symptom details unspecified Unintentional weight loss Bladder wall thickening Healthcare maintenance Dietary counseling Exercise counseling Encounter for immunization Expected: 07/14/2025 (Approximate), Expires: 07/14/2026 Hepatic Function Panel Lab Routine Essential hypertension Other hyperlipidemia Obstructive sleep apnea Cardiomyopathy, unspecified type (CMS/HCC) (HCC) 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 (CMS/HCC) (HCC) Anemia, unspecified type Insomnia, unspecified type Chronic pain of both knees Benign prostatic hyperplasia with lower urinary tract symptoms, symptom details unspecified Unintentional weight loss Bladder wall thickening Healthcare maintenance Dietary counseling Exercise counseling Encounter for immunization Expected: 07/14/2025 (Approximate), Expires: 07/14/2026 Hemoglobin A1c Lab Routine Essential hypertension Other hyperlipidemia Obstructive sleep apnea Cardiomyopathy, unspecified type (CMS/HCC) (HCC) 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 (CMS/HCC) (HCC) Anemia, unspecified type Insomnia, unspecified type Chronic pain of both knees Benign prostatic hyperplasia with lower urinary tract symptoms, symptom details unspecified Unintentional weight loss Bladder wall thickening Healthcare maintenance Dietary counseling Exercise counseling Encounter for immunization Abnormal finding of blood chemistry, unspecified Expected: 07/14/2025 (Approximate), Expires: 07/14/2026 Basic Metabolic Panel Lab Routine Essential hypertension Other hyperlipidemia Obstructive sleep apnea Cardiomyopathy, unspecified type (CMS/HCC) (HCC) 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 (CMS/HCC) (HCC) Anemia, unspecified type Insomnia, unspecified type Chronic pain of both knees Benign prostatic hyperplasia with lower urinary tract symptoms, symptom details unspecified Unintentional weight loss Bladder wall thickening Healthcare maintenance Dietary counseling Exercise counseling Encounter for immunization Expected: 07/14/2025 (Approximate), Expires: 07/14/2026 Albumin, Random Urine W/Creatinine Lab Routine Essential hypertension Other hyperlipidemia Obstructive sleep apnea Cardiomyopathy, unspecified type (CMS/HCC) (HCC) 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 (CMS/HCC) (HCC) Anemia, unspecified type Insomnia, unspecified type Chronic pain of both knees Benign prostatic hyperplasia with lower urinary tract symptoms, symptom details unspecified Unintentional weight loss Bladder wall thickening Healthcare maintenance Dietary counseling Exercise counseling Encounter for immunization Expected: 07/14/2025 (Approximate), Expires: 07/14/2026 Hepatitis B surface antigen, EIA Lab Routine Essential hypertension Other hyperlipidemia Obstructive sleep apnea Cardiomyopathy, unspecified type (CMS/HCC) (HCC) 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 (CMS/HCC) (HCC) Anemia, unspecified type Insomnia, unspecified type Chronic pain of both knees Benign prostatic hyperplasia with lower urinary tract symptoms, symptom details unspecified Unintentional weight loss Bladder wall thickening Healthcare maintenance Dietary counseling Exercise counseling Encounter for immunization Encounter for screening for other viral diseases Expected: 07/14/2025 (Approximate), Expires: 07/14/2026 Chlamydia/N. Gonorrhoeae RNA, TMA, Urogenitial Microbiology Routine Essential hypertension Other hyperlipidemia Obstructive sleep apnea Cardiomyopathy, unspecified type (CMS/HCC) (HCC) 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 (CMS/HCC) (HCC) Anemia, unspecified type Insomnia, unspecified type Chronic pain of both knees Benign prostatic hyperplasia with lower urinary tract symptoms, symptom details unspecified Unintentional weight loss Bladder wall thickening Healthcare maintenance Dietary counseling Exercise counseling Encounter for immunization Encounter for screening for infections with a predominantly sexual mode of transmission Ordered: 07/14/2025 HIV-1/2 Antigen and Antibodies, Fourth Generation, with Reflexes Lab Routine Essential hypertension Other hyperlipidemia Obstructive sleep apnea Cardiomyopathy, unspecified type (CMS/HCC) (HCC) 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 (CMS/HCC) (HCC) Anemia, unspecified type Insomnia, unspecified type Chronic pain of both knees Benign prostatic hyperplasia with lower urinary tract symptoms, symptom details unspecified Unintentional weight loss Bladder wall thickening Healthcare maintenance Dietary counseling Exercise counseling Encounter for immunization Expected: 07/14/2025 (Approximate), Expires: 07/14/2026 Hepatitis C Antibody with Reflex to HCV, RNA, Quantitative, Real-Time PCR Lab Routine Essential hypertension Other hyperlipidemia Obstructive sleep apnea Cardiomyopathy, unspecified type (CMS/HCC) (HCC) 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 (CMS/HCC) (HCC) Anemia, unspecified type Insomnia, unspecified type Chronic pain of both knees Benign prostatic hyperplasia with lower urinary tract symptoms, symptom details unspecified Unintentional weight loss Bladder wall thickening Healthcare maintenance Dietary counseling Exercise counseling Encounter for immunization Expected: 07/14/2025, Expires: 07/14/2026 RPR (Monitor) with Reflex to Titer Lab Routine Essential hypertension Other hyperlipidemia Obstructive sleep apnea Cardiomyopathy, unspecified type (CMS/HCC) (HCC) 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 (CMS/HCC) (HCC) Anemia, unspecified type Insomnia, unspecified type Chronic pain of both knees Benign prostatic hyperplasia with lower urinary tract symptoms, symptom details unspecified Unintentional weight loss Bladder wall thickening Healthcare maintenance Dietary counseling Exercise counseling Encounter for immunization Encounter for screening for infections with a predominantly sexual mode of transmission Expected: 07/14/2025, Expires: 07/14/2026 Hepatitis B Surface Antibody, Qualitative Lab Routine Essential hypertension Other hyperlipidemia Obstructive sleep apnea Cardiomyopathy, unspecified type (CMS/HCC) (HCC) 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 (CMS/HCC) (HCC) Anemia, unspecified type Insomnia, unspecified type Chronic pain of both knees Benign prostatic hyperplasia with lower urinary tract symptoms, symptom details unspecified Unintentional weight loss Bladder wall thickening Healthcare maintenance Dietary counseling Exercise counseling Encounter for immunization Encounter for screening for other viral diseases Expected: 07/14/2025 (Approximate), Expires: 07/14/2026 CBC auto differential Lab Routine Essential hypertension Other hyperlipidemia Obstructive sleep apnea Cardiomyopathy, unspecified type (CMS/HCC) (HCC) 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 (CMS/HCC) (HCC) Anemia, unspecified type Insomnia, unspecified type Chronic pain of both knees Benign prostatic hyperplasia with lower urinary tract symptoms, symptom details unspecified Unintentional weight loss Bladder wall thickening Healthcare maintenance Dietary counseling Exercise counseling Encounter for immunization Expected: 07/14/2025 (Approximate), Expires: 07/14/2026 documented as of this encounter Visit Diagnoses Diagnosis Essential hypertension- Primary Unspecified essential hypertension Other hyperlipidemia Obstructive sleep apnea Obstructive sleep apnea (adult) (pediatric) Cardiomyopathy, unspecified type (CMS/HCC) (HCC) 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 (CMS/HCC) (HCC) Anemia, unspecified type Insomnia, unspecified type Chronic pain of both knees Benign prostatic hyperplasia with lower urinary tract symptoms, symptom details unspecified Unintentional weight loss Loss of weight Bladder wall thickening Other specified disorder of bladder Healthcare maintenance Dietary counseling Dietary surveillance and counseling Exercise counseling Encounter for immunization Vitamin D deficiency Abnormal finding of blood chemistry, unspecified Encounter for screening for other viral diseases Encounter for screening for infections with a predominantly sexual mode of transmission documented in this encounter Additional Health Concerns Assessment Noted Time PHQ-9 Depression Total Score: 3 07/14/20 25 9:03 AM EDT documented as of this encounter Care Teams Pulmonologist Relationship Specialty Start Date End Date Katelynn Hall DO [address] [place] [id number] PCP - General Family Medicine 09/25/18 documented as of this encounter
--- OUTSIDE RECORDS SUMMARY | 2025-07-18 07:26 | XMS_ITS | Encounter Summary ---
Author Organization [employer] Address [address] [facility] 7t [place] [address] Care Team Providers Care Tong Carrier Name Role Phone Katelynn Hall DO Primary Care Provider + [phone] Reason for Visit * Reason Comments Med Refill Encounter Details Date Type Department Care Team ([facility] Contact Info) Description 11/25/2022 Refill [facility] [address] [place], [place] [phone] Katelynn Hall DO [address] [place] [address] Pain in right knee Social History Tobacco [...] Department Care Team (Late Contact Info) Description 10/16/2025 8:30 AM EST Clinical Support [facility] [address] [place] [address] Sade Funk RN documented as of this encounter Visit Diagnoses Diagnosis Pain in right knee documented in this encounter Additional Health Concerns Assessment Noted Time PHQ-9 Depression Total Score: 0 11/21/19 8:57 AM EST documented as of this encounter Care Teams Tong Carrier Relationship Specialty Start Date End Date Katelynn Hall DO [address] [place] [address] PCP - General Family Medicine 09/25/18 documented as of this encounter
--- OUTSIDE RECORDS SUMMARY | 2025-07-18 07:26 | XMS_ITS | Encounter Summary ---
Author Organization [employer] Address [address] [facility] [address] 7[address] [place] [address] Care Team Providers Care Hydro Station Supervisor Name Role Phone Katelynn Hall Primary Care Provider + [phone] Encounter Details Date Type Department Care Team (Latest Contact Info) Description 07/14/2025 Travel Social History Tobacco Use Types Packs/Day Years [...] AM EDT documented as of this encounter Functional Status * Over the past 2 weeks, how often have you been bothered by any of the following problems? Question Answer Date of Assessment Author Patient Health Questionnaire -2 Score 2 07/14/2025 9:03 AM EDT Bridgette Enriquez MA * Little interest or pleasure in doing things Answer Date of Assessment Author Several days 07/14/2025 9:03 AM CARROLLT Sandee Enriquez MA * Feeling down, depressed, or hopeless Answer Date of Assessment Author Several days 07/14/2025 9:03 AM CARROLLT Sandee Enriquez MA * Trouble falling or staying asleep, or sleeping too much Answer Date of Assessment Author Several days 07/14/2025 9:03 AM CARROLLT Sandee Enriquez MA * Feeling tired or having little [...] Author Not at all 07/14/2025 9:03 AM EDT Sandee Enriquez MA * Thoughts that you would be better off or hurting yourself in some way Answer Date of Assessment Author Not at all 07/14/2025 9:03 AM EDT Sandee Enriquez MA * Patient Health Questionnaire-9 Score Answer Date of Assessment Author 3 07/14/2025 9:03 AM EDT Sandee Enriquez MA * How difficult have these problems made it for you to do your work, take care of things at home, or get along with other people? Answer Date of Assessment Author Not difficult at all 07/14/2025 9:03 AM EDT Bridgette Hobson MA * Over the last [...] to sit still 2 07/14/2025 9:03 AM CARROLLT Bridgette Enriquez MA Feeling afraid as if somethi ng awful might happen 1 07/14/2025 9:03 AM EDT Bridgette Enriquez MA documented as of this encounter Plan of Treatment Upcoming Encounters Date Type Department Care Team (Late st Contact Info) Description 10/16/2025 8:30 AM EST Clinical Support [facility] [address] [place] [address] Sade Funk, RN documented as of this encounter Visit Diagnoses Not on filedocumented in this encounter Additional Health Concerns Assessment Noted Time PHQ-9 Depression Total Score: 3 07/14/20 9:03 AM EDT documented as of this encounter Care Teams Hydro Station Supervisor Relationship Specialty Start Date End Date Jurcsak, Katelynn, DO [address] [place] [address] PCP - General Family Medicine 09/25/18 documented as of this encounter
--- OUTSIDE RECORDS SUMMARY | 2025-07-18 07:26 | XMS_ITS | Encounter Summary ---
Author Organization [employer] Address [address] [facility] 7t [place] [address] Care Team Providers Care Floor Coverings Salesperson Name Role Phone Katelynn Hall DO Primary Care Provider + [phone] Encounter Details Date Type Department Care Team ([facility] st Contact Info) Description 11/18/[address] [facility] [address] [place], [place] [phone] Katelynn Hall DO [address] [place] [address] Social History Tobacco Use Types Packs/Day Years [...] AM EST documented as of this encounter Functional Status * Over the past 2 weeks, how often have you been bothered by any of the following problems? Question Answer Date of Assessment Author Patient Health Questionnaire-2 Score 0 10/27 8:57 AM Marj Santiago MA * Over the past 2 weeks, how often have you been bothered by any of the following problems? Question Answer Date of Assessment Author Little interest or pleasure in doing things Not at all 11/21/2022 8:57 AM Marj Santiago MA Feeling down, depressed, or hopeless Not at all 11/21/2022 8:57 AM Marj Santiago MA Trouble falling or staying asleep, or sleeping too much Not at all 11/21/2022 8:57 AM Annabel Santiago MA Feeling tired or having lana le energy Not at all 11/21/2022 8:57 AM Marj Santiago MA Poor appetite or overeating Not at all 11/21/2022 8: 57 AM Marj Santiago MA Feeling bad about yourself - or that you are a failure or have let yourself or your family down Not at all 11/21/2022 8:57 AM Marj Santiago MA Trouble concentrating on thi ngs, such as reading the newspaper or watching television Not at all 11/21/2022 8:57 AM Marj Santiago MA Moving or speaking so slowly that other people could have noticed? Or the opposite - being so fidgety or restless that you have been moving around a lot more than usual. Not at all 11/21/2022 8:57 AM Marj Santiago MA Thoughts that you would be b fantasma off or hurting yourself in some way Not at all 11/21/2022 8:57 AM Marj Santiago MA Patient Health Questionnaire -9 Score 0 11/21/2022 8:57 AM Marj Santiago MA documented as of this encounter Plan of Treatment Upcoming Encounters Date Type Department Care Team (Late st Contact Info) Description 10/16/2025 8:30 AM EST Clinical Support [facility] [address] [place] [address] Sade Funk RN documented as of this encounter Visit Diagnoses Not on filedocumented in this encounter Care Teams Floor Coverings Salesperson Relationship Specialty Start Date End Date Katelynn Hall DO [address] [place] [address] PCP - General Family Medicine 09/25/18 documented as of this encounter
--- OUTSIDE RECORDS SUMMARY | 2025-07-18 07:26 | XMS_ITS | Encounter Summary ---
Author Organization [employer] Address [address] [facility] [address] [place] [address] Care Team Providers Care Order Picker/Assembler Name Role Phone Katelynn Hall DO Primary Care Provider + [phone] Reason for Visit * Reason Comments Med Refill Encounter Details Date Type Department Care Team ([facility] Contact Info) Description 03/02/2023 Refill [facility] [address] [place], [place] [phone] Katelynn Hall DO [address] [place] [address] Pain in right knee Social History Tobacco [...] Upcoming Encounters Date Type Department Care Team ([facility] Contact Info) Description 10/16/2025 8:30 AM EST Clinical Support [facility] [address] [place] [address] Sade Funk RN documented as of this encounter Visit Diagnoses Diagnosis Pain in right knee documented in this encounter Additional Health Concerns Assessment Noted Time PHQ-9 Depression Total Score: 0 11/21/19 8:57 AM EST documented as of this encounter Care Teams Order Picker/Assembler Relationship Specialty Start Date End Date Katelynn Hall DO [address] [place] [address] PCP - General Family Medicine 09/25/18 documented as of this encounter
--- OUTSIDE RECORDS SUMMARY | 2025-07-18 07:26 | XMS_ITS | Encounter Summary ---
Author Organization [employer] Address [address] [place] [address] Care Team Providers Care Yard Truck Driver Name Role Phone Pily Hallfer Primary Care Provider + [phone] Encounter Details Date Type Department Care Team (Late st Contact Info) Description 01/03/2024 Orders Only [facility] [address] [place] [address] ProviderOren MD Social History Tobacco Use Types [...] t he electric, gas, oil or water [employer] threatened to shut off services in your [...] Description 10/16/2025 8:30 AM EST Clinical Support [facility] [address] [place] [address] Sade Funk RN documented as of this [...] documented as of this encounter Care Teams Yard Truck Driver Relationship Specialty Start Date End Date Katelynn Hall DO [address] [place] [address] PCP - General Family Medicine 09/25/18 documented as of this encounter
--- OUTSIDE RECORDS SUMMARY | 2025-07-18 07:26 | XMS_ITS | Encounter Summary ---
Author Organization [employer] [facility] Address [address] [place] [address] Care Team Providers Care Manager Reporting Name Role Phone Katelynn Hall DO Primary Care Provider + [phone] Encounter Details Date Type Department Care Team (Latest Contact Info) Description 10/09/2018 Abstract [facility] CONVERSIONS Dental, Provider, DDS Social History [...] Description 10/16/2025 8:30 AM EST Clinical Support [facility] [address] [place] [address] Sade Funk RN documented as of this encounter Visit Diagnoses Not on filedocumented in this encounter Care Teams Manager Reporting Relationship Specialty Start Date End Date Katelynn Hall DO [address] [place] [address] PCP - General Family Medicine 09/25/18 documented as of this encounter
--- OUTSIDE RECORDS SUMMARY | 2025-07-18 07:26 | XMS_ITS | Encounter Summary ---
Author Organization [facility] Address [address] 7[address] [place] [address] Care Team Providers Care Interior Design Professional Name Role Phone Katelynn Hall DO Primary Care Provider + [phone] Encounter Details Date Type Department Care Team (Latest Contact Info) Description 07/01/2022 Abstract [facility] CONVERSIONS Dental, Provider, DDS Social History Tobacco [...] Description 10/16/2025 8:30 AM EST Clinical Support [facility] [address] [place] [address] Sade Funk RN documented as of this encounter Visit Diagnoses Not on filedocumented in this encounter Care Teams Interior Design Professional Relationship Specialty Start Date End Date Katelynn Hall DO [address] [place] [address] PCP - General Family Medicine 09/25/18 documented as of this encounter
--- OUTSIDE RECORDS SUMMARY | 2025-07-18 07:26 | XMS_ITS | Encounter Summary ---
Author Organization [facility] [facility] Address [address] [facility] [address] [place] [address] Care Team Providers Care Video Control Operator Name Role Phone Katelynn Hall DO Primary Care Provider + [phone] Encounter Details Date Type Department Care Team (Latest Contact Info) Description 03/15/2021 Abstract [facility] CONVERSIONS Dental, Provider, DDS Social [...] Description 10/16/2025 8:30 AM EST Clinical Support [facility] [address] [place] [address] Sade Funk RN documented as of this encounter Visit Diagnoses Not on filedocumented in this encounter Care Teams Video Control Operator Relationship Specialty Start Date End Date Katelynn Hall DO [address] [place] [address] PCP - General Family Medicine 09/25/18 documented as of this encounter
--- OUTSIDE RECORDS SUMMARY | 2025-07-18 07:26 | XMS_ITS | Clinical Summary ---
Author Organization [employer] Address [address] [facility] 7t [place] [address] Care Team Providers Care Cementer Machine Joiner Name Role Phone ShahramKatelynn wood Primary Care Provider [phone] Allergies No known active allergies Medications amLODIPine [...] sleep. 30 tablet 2 02/05/20 24 Active melatonin 5 MG tabletIndicati ons:Other insomnia TAKE 1 TO 2 TABLETS BY MOUTH EVERY DAY AT BEDTIME NEEDED FOR SLEEP 60 tablet 04/22/20 24 Active traZODone (Desyrel) 50 MG tabletIndicati ons:Other insomnia TAKE 2 TABLETS BY MOUTH EVERY DAY AT BEDTIME 60 tablet 04/22/20 24 Active Ventolin HFA 108 (90 Base) [...] RESPONDS. 2 each 2 02/14/20 25 Active loratadine (Claritin) 10 MG tablet TAKE 1 TABLET EVERY DAY 30 tablet 11 02/29/20 25 Active lidocaine (Lidoderm) 5 % patchIndicatio ns:Neck pain Apply 1 patch topically Once per day. Remove & discard patch within 12 hours or as directed by MD. 30 patch 2 03/07/20 25 Active D3 Super Strength 50 MCG (2000 UT) capsule TAKE 1 CAPSULE EVERY DAY 90 capsule 1 06/25/20 25 Active omega-3 (Fish Oil) 1000 MG capsule TAKE 1 CAPSULE TWICE DAILY 180 capsule 1 06/25/20 25 Active atorvastatin (Lipitor) 80 MG tablet TAKE 1 TABLET AT BEDTIME 90 tablet 1 06/25/20 25 Active oxyCODONE (Roxicodone) 5 MG immediate release tabletIndicati ons:Chronic pain of both knees TAKE 1 TABLET BY MOUTH EVERY TWELVE HOURS NEEDED FOR SEVERE PAIN 56 tablet 06/27/20 25 Active methylPREDNISo lone (Medrol Dospak) 4 MG tablets Follow schedule on package instructions 21 tablet 07/14/20 25 2024 Active Diclofenac Sodium 1 % gel Apply 2 g topically if needed in the morning, at noon, in the evening, and at bedtime (pain). 150 g 3 07/14/20 25 Active tiZANidine (Zanaflex) 2 MG tablet Take 1 tablet (2 mg) by mouth every 8 (eight) hours if needed for muscle spasms. 30 tablet 1 07/14/20 25 2025 Active fluticasone (Flonase) 50 MCG/ACT nasal spray Administer 2 sprays into each nostril Once per day. Shake gently. Before first use, prime pump. After use, clean tip and replace cap. 16 g 02/07/20 24 2024 Discontinued ergocalciferol (Vitamin D2) 1.25 MG (70439 UT) capsuleIndicat ions:Vitamin D deficiency, unspecified Take 1 capsule (1.25 mg) by mouth 1 (one) time per week. 5 capsule 02/16/20 24 2024 Discontinued diphenhydrAMIN E (BENADryl) 25 MG tablet Take 1 tablet (25 mg) by mouth every 8 (eight) hours if needed for itching. 30 tablet 05/28/20 24 2024 Discontinued D3 Super Strength 50 MCG (2000 UT) capsule TAKE 1 CAPSULE BY MOUTH DAILY EVERY DAY 90 capsule 3 06/21/20 24 2024 Discontinued atorvastatin (Lipitor) 80 MG tablet TAKE 1 TABLET BY MOUTH EVERY DAY AT BEDTIME 90 tablet 3 06/21/20 24 2024 Discontinued omega-3 (Fish Oil) 1000 MG capsule TAKE 1 TABLET BY MOUTH TWICE DAILY 180 capsule 3 06/21/20 24 2024 Discontinued Diclofenac Sodium 1 % gelIndications :Neck pain Apply 1 Application topically if needed each day (daily as needed for neck pain). 50 g 03/07/20 25 2024 Discontinued oxyCODONE (Roxicodone) 5 MG immediate release tabletIndicati ons:Chronic pain of both knees TAKE 1 TABLET BY MOUTH EVERY 12 HOURS NEEDED FOR SEVERE PAIN FOR UP TO 7 DAYS 56 tablet 05/29/20 25 2024 Discontinued Nirmatrelvir&R itonavir 300/100 (Paxlovid, 300/100,) 20 x 150 MG & 10 x 100MG tablet therapy pack Take 300 mg by mouth 2 times daily. Take 3 tablets 2x/day for 5 days 30 each 06/16/20 25 2024 Discontinued(T herapy completed) Active Problems Problem Noted Date Diagnosed Date Long-term current use of opiate analgesic 2024 Neck pain 03/07/2025 Assessment & Plan (03/07/2025 11:39 PM EDT): Pt with 8 mo of neck pain Normal neuro exam ,tender neck w papaltion -neck XR -PT referred today -tylenol PRN, already on opioids -Diclofenac topical PRN,Lidoderm patch -warm compressed -sent for 5 days muscle relaxs cyclobenzaprine low dose -denies taking baclofen now w no SE before ,-to take prior bedtime-explained to avoid ETOH,and to not drive or use heavy machinery after taking medication Chronic pain of both knees 08/22/2023 Cardiomyopathy 06/16/2016 Allergic rhinitis 09/09/2015 Anemia 09/09/2015 Benign prostatic hyperplasia 09/09/2015 Chronic ulcerative proctitis (CMS/HCC) 5 Diastolic dysfunction 09/09/2015 Diverticulosis 09/09/2015 Elevated fasting [...] Encounters Date Type Department Care Team Description 07/14/2025 9:00 AM EDT Office Visit [facility] [address] [place] [phone] Katelynn Hall DO Essential hypertension (Primary Dx); Other hyperlipidemia; Obstructive [...] with a predominantly sexual mode of transmission 07/14/2025 Travel 07/07/2025 Patient Outreach [facility] [address] [place] [phone] Katelynn Hall DO Pre-visit Planning (SDOH screening is completed) 07/04/[address] [address] Katelynn Hall DO Chart Prep 06/27/[address] [address] Katelynn Hall DO June06/27/[address] [address] Katelynn Hall DO Chronic pain of both knees 06/24/[address] [address] Katelynn Hall DO 06/16/2025 10:00 AM EDT Office Visit [facility] [address] [place] [address] Mario Noland MD COVID-19 (Primary Dx); Cough in adult patient 06/16/2025 9:30 AM EDT Clinical Support [address] [address] Sade Funk RN Long-term current use of opiate analgesic (Primary Dx) 06/16/[address] [address] Sade Funk, CHEIKH BPI scoring 06/16/2025 Travel 05/29/[address] [address] Danii Funk MD Chronic pain of both knees 05/14/[address] [address] Sade Funk, RN Reschedule [employer]SE [employer] RV appt 05/01/2025 Refill [facility] [address] [place] [address] Katelynn Hall, DO Chronic pain of both knees from Last 3 Months Immunizations Immunization Administration Dates Next Due Influenza High-dose Quadriva lent Preservative Free 08/22/2023,06/15/2022,07/26/2021,10/20 Influenza injectable quadriv alent IIV4 with preservative 07/24/2017,06/16/2016,07/09/2015 Influenza injectable quadriv alent preservative free 10/08/2018 Influenza, High Dose Seasona l, Preservative Free 07/14/2025,07/29/2019 Influenza, IIV3, injectable 06/03/2010 Influenza, Split (incl. [...] Mass Index 23.79 07/14/2025 8:59 AM EDT Plan of Treatment Upcoming Encounters Date Type Department Care Team (Late st Contact Info) Description 10/16/2025 8:30 AM EST Clinical Support [facility] [address] [place] [address] Sade Funk, RN Health Maintenance Due Date Last Done Comments CT Colonography 1951 Dental Oral Exam 1950 Dental Prophylaxis 1950 Dental X-Ray: Bitewings 1950 FIT DNA/Cologuard 1951 FIT 1950 FOBT 1950 Sigmoidoscopy 1950 Colonoscopy 04/14/2020 04/14/2015 Colorectal Cancer Screening 04/14/2020 Zoster Vaccines (3 of 3) 07/17/2023 05/22/2023, 05/26 COVID-19 Vaccine (3 - season) 2025 12/06/2021, 12/30/2020 Dental X-Ray: Full Mouth 02/11/2026 02/10/2023 RSV Patients and Patients Aged 60 years or older (1 - 1-dose 75+ series) 2026 Alcohol/Substance Use Screening 03/07/2026 03/07/2025 SDOH Screening 03/07/2026 03/07/2025 Depression Screening 07/14/2026 07/14/2025, 07/14/20 Tobacco Screening 07/14/2026 07/14/2025 Lipid Panel 02/12/2029 02/13/2024, 03/10/2022, 04/18/2022, Additional history exists DTaP/Tdap/Td Vaccines (4 - Td or Tdap) 10/20/2030 10/20/2020, 11/17/2015, 06/03/2010 Pneumococcal Vaccine: 50+ Years Completed 02/05/2024, 10/08/2018, 06/16/2016, Additional history exists Hepatitis C Screening Completed 02/13/2024 , 04/18/2022, 07/29/2021, Additional history exists Influenza Vaccine Completed 07/14/2025, , 06/15/2022, Additional history exists HIB Vaccines Aged Out [...] Name Priority Date/Time Associated Diagnosis Comments POCT RAPID COVID ANTIGEN Routine 06/16/2025 10:09 AM EDT Cough in adult patient POCT INFLUENZA B (ID NOW RAPID MOLECULAR) Routine 06/16/2025 10:09 AM EDT Cough in adult patient POCT INFLUENZA A (ID NOW RAPID MOLECULAR) Routine 06/16/2025 10:09 AM EDT Cough in adult patient POCT ANAYA-14 URINE DRUG SCREEN Routine 06/16/2025 8:47 AM EDT Long-term current use of opiate analgesic HEPATITIS C AB W/REFL TO HCV RNA, QN, PCR Routine 02/13/2024 6:35 AM EDT Healthcare maintenance LIPID PANEL, STANDARD Routine 02/13/2024 6:35 AM EDT Essential hypertension Other hyperlipidemia PANORAMIC RADIOGRAPHIC IMAGE Routine 02/10/2023 8:30 AM EDT HM COLONOSCOPY Routine 04/14/2015 3:03 PM EDT from Last 3 Months or Most Recently Relevant to Health Maintenance Results * Influenza B (ID NOW Rapid Molecular) (06/16/2025 10:09 AM EDT) Influenza B Negative Negative, Indeterminate [facility] Swab 06/16/2025 10:0 9 AM EDT Mario Noland MD POINT OF CARE TEST ENTER/EDIT OR DERABLES Final Result [facility] [address] [place] [phone] * Influenza A (ID NOW Rapid Molecular) (06/16/2025 10:09 AM EDT) Influenza A Negative Negative, Indeterminate [facility] Swab 06/16/2025 10:0 9 AM EDT Mario Noland MD POINT OF CARE TEST ENTER/EDIT OR DERABLES Final Result Performing Organization Address City/State/[facility] Co de Phone Number [facility] [address] [place] [phone] * (ABNORMAL) POCT Rapid COVID Ag (06/16/2025 10:09 AM EDT) Pathologist [facility] Rapid COVID Ag Positive Swab 06/16/2025 10:0 9 AM EDT Mario Noland MD POINT OF CARE TEST ENTER/EDIT OR DERABLES Edited Result - Final * POCT ANAYA-14 Urine Drug Screen (06/16/2025 8:47 AM EDT) THC Negative Negative Cocaine Screen, Urine Negative Negative Opiate Screen, Urine Negative Negative Methamphetamine Screen Urine Negative Negative Amphetamine Screen, Urine Negative Negative Benzodiazepines Screen, Urine Negative Negative Barbiturate Screen, Urine Negative Negative Methadone Screen, Urine Negative Negative Buprenophine Screen, Urine Negative Negative TCA, Urine Negative Negative MDMA Urine Negative Negative ng/mL Oxycodone Screen, Urine Positive Negative Phencyclidine (PCP), Urine Negative Negative Propoxyphene, Urine Negative Negative Fentanyl, Urine Negative Negative Urine Urine specimen obtained by clean catch procedure / Unknown 06/16/2025 8:47 AM EDT Sade Salinas RN - 06/16/2025 8:47 AM EDT UTOX cup Lot#[id number] Exp. 07/01/26 Internal Pass Control Katelynn Hall DO POINT OF CARE TEST ENTER/BARBARA T ORDERABLES Final Result * Hepatitis C Antibody with Reflex to HCV, RNA, Quantitative, Real-Time PCR (02/13/2024 6:35 AM EDT) Hepatitis C Antibody Nonreactive Nonreactive [facility] Comment:Antibodies to HCV no t detected; does not exclude early acuteHCV infection. Blood Venous blood specimen / Unknown 02/13/2024 6:35 AM EDT 02/13/2024 6:35 AM EDT Katelynn Hall DO LAB BLOOD ORDERABLES Final R esult Performing Organization Address City/[facility] Co de Phone Number [facility] [address] [place] [address] [phone] * Lipid Panel, Standard (02/13/2024 6:35 AM EDT) Triglycerides 76 <150 mg/dL [facility] Comment:Desirable Triglyceri de: less than 150 mg/dLBorderline High Triglyceride 150-199 mg/dLHigh Triglyceride: 200-499 mg/dLVery High Triglyceride: greater than or equal to 5OO mg/dL Cholesterol 143 <200 mg/dL [facility] Comment:Desirable Cholestero l: less than 200 mg/dLBorderline High Cholesterol: 200-239 mg/dLHigh Cholesterol: greater than 239 mg/dL LDL Cholesterol Calculated 80 <100 mg/dL [facility] Comment:Desirable LDL: less than 100 mg/dLNear Optimal/Above Optimal LDL: 110- 129 mg/dLBorderline High LDL: 130-159 mg/dLHigh LDL: 160-189 mg/dLVery High LDL: greater than or equal to 190 mg/dL HDL Cholesterol 48 >40 mg/dL [facility] Comment:Desirable HDL: great er than 40 mg/dL Note: This HDL assay may give artificially low results in patients with liver disease. Blood Venous blood specimen / Unknown 02/13/2024 6:35 AM EDT 02/13/2024 6:35 AM EDT Katelynn Hall DO LAB BLOOD ORDERABLES Final R esult [facility] [address] [place] [phone] * Hm Colonoscopy (04/14/2015 3:03 PM EDT) us Historical Provider MD HEALTH MAINTENANCE Final Result from Last 3 Months or Most Recently Relevant to Health Maintenance Insurance MEDICARE DENTAL - HSN FULL (MEDICAID) Care Teams Cementer Machine Joiner Relationship Specialty Start Date End Date Katelynn Hall DO [address] [place] [address] PCP - General Family Medicine 09/25/18
[2025-07-18 07:49] LABS: MANUAL DIFF FLAG NO
[2025-07-18 08:32] LABS: Hematocrit 41.0 % (42.0-52.0); Hemoglobin 13.5 g/dl (14.0-18.0); Imm Gran Abs Auto 0.01 X10*3/uL (0.00-0.03); Imm Gran Pct Auto 0.2 % (0.0-0.4); Lymphocytes Absolute Auto 1.9 X10*3/uL (1.2-4.9); Mean Corpuscular HGB Conc 32.9 g/dl (31.0-36.0); Mean Corpuscular Hemoglobin 32.7 pg (27.0-33.0); Mean Corpuscular Volume 99.3 fL (80.0-98.0); NRBC Abs Auto 0.000 X10*3/uL (0.0-0.012); NRBC Pct Auto 0.0 /100WBC (0.0-0.2); Platelet Count 236 X10*3/uL (160-400); Red Blood Count 4.13 X10*6/uL (4.60-5.80); White Blood Count 5.3 X10*3/uL (4.8-10.8)
[2025-07-18 09:11] LABS: Alanine Aminotransferase 22 U/L (0-40); Albumin Level 4.3 g/dL (3.5-5.0); Alkaline Phosphatase 75 U/L (39-117); Anion Gap 10 (12-20); Aspartate Amino Transferase 26 U/L (5-37); Blood Urea Nitrogen 19 mg/dL (9-16); Calcium 9.0 mg/dL (8.4-10.2); Carbon Dioxide 29 mmol/L (22-29); Chloride 109 mmol/L (96-108); Cholesterol 183 mg/dL (<200); Estimated Glomerular Filt Rate > 60; HDL Cholesterol 43 mg/dL (>40); Potassium 4.6 mmol/L (3.3-5.1); Sodium 143 mmol/L (135-145); Total Protein 6.7 g/dL (6.5-8.0); Triglycerides 107 mg/dL (<150)
[2025-07-18 09:22] LABS: HBS Num1 0.00 mIU/mL (0-7.99); HBsAGNum1 0.34 S/CO (0.00-0.99); HIV Num 1 0.06 S/CO (0.00-0.99); Hepatitis B Surface Antigen Negative (Negative); ~HepC Num1 0.06 S/CO (0.00-0.79); ~Hepatitis B Surface Antibody NONREACTIVE (Nonreactive); ~Hepatitis C Antibody Nonreactive (Nonreactive)
[2025-07-18 09:29] LABS: Free T4 (Free Thyroxine) 0.97 ng/dL (0.71-1.85); Thyroid Stimulating Hormone 1.72 uIU/mL (0.32-4.0)
[2025-07-18 09:45] LABS: Microalbum/Creatinine Ratio Ur 25.3 ug/mg cr (<30)
== END 2025-07-18 07:25 | disposition home or self-care (01) ==
LOC: HO.LAB 07:24
PROVIDERS: PCP Family Medicine; Visit Provider Family Medicine
DX: Z00.00 Encounter for general adult medical examination without abnormal findings (principal); I10 Essential (primary) hypertension; N40.1 Benign prostatic hyperplasia with lower urinary tract symptoms; G47.33 Obstructive sleep apnea (adult) (pediatric); E78.49 Other hyperlipidemia; N32.89 Other specified disorders of bladder; I42.9 Cardiomyopathy, unspecified; K51.20 Ulcerative (chronic) proctitis without complications; D64.9 Anemia, unspecified; G47.00 Insomnia, unspecified; M25.561 Pain in right knee; M25.562 Pain in left knee; G89.29 Other chronic pain; R63.4 Abnormal weight loss; E55.9 Vitamin D deficiency, unspecified; R79.9 Abnormal finding of blood chemistry, unspecified; Z71.3 Dietary counseling and surveillance; Z71.82 Exercise counseling; Z23 Encounter for immunization
CPT/HCPCS: 36415; 80048; 80061; 80076; 82043; 82306; 82570; 83036; 84439; 84443; 85025; 86592; 86706; 86803; 87340; 87389